=== PATIENT | male | born 1965 | race Caucasian/White ===

== ENCOUNTER → 2016-10-19 | Outpatient (CLI) | payer BC ==
--- NOTE | 2016-10-19 18:06 | CT ---
EXAMINATION TYPE: CT chest wo/w con DATE OF EXAM: 10/19/2016 5:38 PM COMPARISON: NONE HISTORY: Chest discomfort and difficulty breathing CT DLP: 1320.2 mGycm Automated exposure control for dose reduction was used. CONTRAST: CT scan of the chest is performed with IV Contrast, patient injected with 100 mL of Omnipaque 300. Th ere are 3-D post processed images. FINDINGS: There is mild linear density in the left midlung consistent with focal atelectasis. There is no sign of a pulmonary mass. There is no pleural effusion. Heart size is normal. There is no pericardial effu vika. Thoracic aorta appears normal. I see no filling defects in the pulmonary arteries. There are no hilar masses. There is no mediastinal adenopathy. The bony thorax is intact. IMPRESSION: There is mild focal atelectasis in the left midlung. No evidence of pulmonary embolism.
== END | disposition home or self-care (01) ==
LOC: RADCTMAIN 17:08
PROVIDERS: ATTEND Family Medicine
DX: J98.11 Atelectasis (principal)
CPT/HCPCS: 71270; Q9967

== ENCOUNTER → 2016-12-10 | Outpatient (CLI) | payer BC ==
--- NOTE | 2016-12-12 11:31 | ECHOF ---
Referral Reason:I49.9Dysrythmia MEASUREMENTS -------- HEIGHT: 167.6 cm WEIGHT: 114.8 kg BP: 114/68 RVIDd: 2.4 cm (< 3.3) IVSd: 1.0 cm (0.6 - 1.1) LVIDd: 4.9 cm (3.9 - 5.3) LVPWd: 1.1 cm (0.6 - 1.1) IVSs: 1.5 cm LVIDs: 3.1 cm LVPWs: 1.7 cm Ao Diam: 3.9 cm (2.0 - 3.7) AV Cusp: 1.2 cm (1.5 - 2.6) LA Diam: 3.0 cm (2.7 - 3.8) MV E Kel: 0.66 m/s MV DecT: 281 ms MV A Kel: 0.85 m/s MV E/A Ratio: 0.78 RAP: 5.00 mmHg RVSP: 14.52 mmHg FINDINGS -------- Sinus rhythm. This was a technically difficult study with suboptimal views. Patient refused Definity due to time constraints. Overall left ventricular systolic function is normal with, an EF between 55 - 60 %. The right ventricle is normal in size and function. The left atrial size is normal. The right atrium is normal in size. The aortic valve is trileaflet, and appears structurally normal. No aortic stenosis or regurgitation. The mitral valve leaflets are mildly thickened. There is trace mitral regurgitation. Trace tricuspid regurgitation present. There is no evidence of pulmonary hypertension. The right ventricular systolic pressure, as measured by Doppler, is 14.52mmHg. The pulmonic valve is normal. The aortic root size is normal. IVC Not well visulized. The pericardium is normal. There is no pericardial effusion. CONCLUSIONS -------- 1. Sinus rhythm. 2. There is no evidence of pulmonary hypertension. 3. The right ventricular systolic pressure, as measured by Doppler, is 14.52mmHg. 4. The aortic root size is normal. 5. IVC Not well visulized. 6. There is no pericardial effusion. 7. This was a technically difficult study with suboptimal views. 8. Patient refused Definity due to time constraints. 9. Overall left ventricular systolic function is normal with, an EF between 55 - 60 %. 10. The left atrial size is normal. 11. The aortic valve is trileaflet, and appears structurally normal. No aortic stenosis or regurgitation. 12. The mitral valve leaflets are mildly thickened. 13. There is trace mitral regurgitation. 14. Trace tricuspid regurgitation present. IMMUNOCHEMIST: Makayla Arrington RDCS
== END | disposition home or self-care (01) ==
LOC: RADECHMAIN 15:32
PROVIDERS: ATTEND Family Medicine
DX: I08.1 Rheumatic disorders of both mitral and tricuspid valves (principal)
CPT/HCPCS: 93306

== ENCOUNTER 2018-01-12 20:21 | Inpatient (IN) | payer BC ==
[2018-01-12 21:10] LABS: Glucose,Whole Blood 277 mg/dL (75-99)
[2018-01-12] MEDS ORDERED: IPRATROPIUM-ALBUTEROL 3 ML NEB INHALATION STA ×2 (21:22→23:16)
[2018-01-12] MEDS ORDERED: SODIUM CHLORIDE 0.9% 1,000 ML IV STA (21:22)
[2018-01-12] MEDS ORDERED: AZITHROMYCIN 500 MG in DEXTROSE 5% IN WATER 250 ML IVPB STA ×2 (21:22)
[2018-01-12] MEDS ORDERED: SODIUM CHLORIDE 0.9% 500 ML IV STA (21:22)
[2018-01-12] MEDS ORDERED: methylPREDNISolone SOD SUCCI 125 MG/2 ML VIAL IV STA (21:22)
--- NOTE | 2018-01-12 21:48 | XR ---
EXAMINATION TYPE: XR chest 2V DATE OF EXAM: 01/12/2018 COMPARISON: 10/06/2015 HISTORY: 52-year-old male difficulty breathing, shortness of breath TECHNIQUE: AP and lateral views FINDINGS: Heart mildly enlarged, possibly in part due to AP portable technique. Aorta and pulmonary vasculature within normal limits. There may be some cephalization of the pulmonary vasculature. Strandy atelecta sis left midlung. No consolidation or pleural effusion. IMPRESSION: 1. Mild cardiomegaly. 2. There may be some cephalization of the pulmonary vasculature. Correlate to exclude mild CHF.
[2018-01-12 22:18] LABS: Basophils % (A) 0 %; Eosinophils # (A) 0.4 k/uL (0-0.7); Eosinophils % (A) 4 %; HGB 11.6 gm/dL (13.0-17.5); Hypochromasia Marked; Lymphocytes # (A) 2.1 k/uL (1.0-4.8); Lymphocytes % (A) 20 %; MCH 29.6 pg (25.0-35.0); MCHC 31.3 g/dL (31.0-37.0); MCV 94.6 fL (80.0-100.0); Mean Platelet Volume 7.6; Monocytes # (A) 0.8 k/uL (0-1.0); Monocytes % (A) 8 %; Neutrophils # (A) 6.8 k/uL (1.3-7.7); Neutrophils % (A) 66 %; Platelet Count 200 k/uL (150-450); RBC 3.91 m/uL (4.30-5.90); WBC 10.4 k/uL (3.8-10.6)
[2018-01-12 22:27] LABS: ALT 39 U/L (21-72); AST 17 U/L (17-59); Albumin 3.2 g/dL (3.5-5.0); Alkaline Phosphatase 69 U/L (38-126); Blood Urea Nitrogen 27 mg/dL (9-20); Calcium 8.5 mg/dL (8.4-10.2); Chloride 89 mmol/L (98-107); Glucose 272 mg/dL (74-99); Magnesium 1.7 mg/dL (1.6-2.3); Potassium 4.7 mmol/L (3.5-5.1); Sodium 140 mmol/L (137-145); Total Bilirubin 0.2 mg/dL (0.2-1.3); Total Protein 5.8 g/dL (6.3-8.2)
[2018-01-12 22:31] LABS: Partial Thromboplastin Time 23.1 sec (22.0-30.0); Prothrombin Time 9.5 sec (9.0-12.0)
--- NOTE | 2018-01-12 22:31 | ED ---
General Adult HPI - General Chief complaint: Shortness of Breath Stated complaint: QUAN Time Seen by Provider: 01/12/18 21:21 Source: patient, RN notes reviewed, old records reviewed Mode of arrival: ambulatory Limitations: no limitations - History of Present Illness Initial comments: This is a 52-year-old male the ER for evaluation today. This male presenting for evaluation regards to significant shortness of breath. Patient states he suffers from severe COPD on 4 L of oxygen at home has had worsening shortness of breath for a few weeks now. No recent hospital admissions no significant chest pain no fevers. Patient does have increased cough, patient ran out of his oxygen today and became very hypoxic. Patient does admit to very decreased activity level - Related Data Home Medications Medication Instructions Recorded Confirmed Albuterol Nebulized [Ventolin 2.5 mg INHALATION RT-QID 07/02/14 10/06/15 Nebulized] Albuterol Sulfate [Proair Hfa] 2 puff INHALATION RT-Q4H PRN 07/02/14 10/06/15 Ustekinumab [Stelara] 1 injection SQ Q90D 07/02/14 10/06/15 Tiotropium [place] [Spiriva] 1 puff INHALATION RT-DAILY 10/06/15 10/06/15 predniSONE See Taper PO DAILY 10/06/15 10/06/15 Previous Rx's Medication Instructions Recorded Fluticasone/Salmeterol [Advair 1 inhalation PO BID #2 inhaler 07/05/14 250-50 Diskus] Montelukast [Singulair] 10 mg PO HS #90 tab 07/05/14 guaiFENesin [Mucinex] 1,200 mg PO Q12HR #14 tablet.er 10/12/15 predniSONE 10 mg PO DIRECTED #40 tab 10/12/15 Allergies Allergy/AdvReac Type Severity Reaction Status Date / Time No Known Allergies Allergy Verified 01/12/18 20:32 Review of Systems ROS Statement: Those systems with pertinent positive or pertinent negative responses have been documented in the HPI. ROS Other: All systems not noted in ROS Statement are negative. Past Medical History Past Medical History: Asthma, COPD, Hypertension, Pneumonia, Skin Disorder Additional Past Medical History / Comment(s): HOME 02 2 LITERS N/C AT HS AND PRN , BRONCHITIS. PSORIASES History of Any Multi-Drug Resistant Organisms: None Reported Additional Past Surgical History / Comment(s): colonoscopy-PT STATES WAS CLEAR. Past Anesthesia/Blood Transfusion Reactions: No Reported Reaction Past Psychological History: Depression Smoking Status: Current every day smoker Past Alcohol Use History: Occasional Past Drug Use History: Cocaine, Marijuana - Past Family History Father Family Medical History: COPD Mother Family Medical History: COPD General Exam Limitations: no limitations General appearance: alert, anxious, in distress Head exam: Present: atraumatic, normocephalic, normal inspection Eye exam: Present: normal appearance, PERRL, EOMI. Absent: scleral icterus, conjunctival injection, periorbital swelling ENT exam: Present: normal exam, mucous membranes moist Neck exam: Present: normal inspection. Absent: tenderness, meningismus, lymphadenopathy Respiratory exam: Present: respiratory distress, wheezes, accessory muscle use, decreased breath sounds, prolonged expiratory. Absent: rales, rhonchi, stridor Cardiovascular Exam: Present: normal rhythm, tachycardia, normal heart sounds. Absent: systolic murmur, diastolic murmur, rubs, gallop, clicks GI/Abdominal exam: Present: soft, normal bowel sounds. Absent: distended, tenderness, guarding, rebound, rigid Extremities exam: Present: normal inspection, full ROM, normal capillary refill. Absent: tenderness, pedal edema, joint swelling, calf tenderness Back exam: Present: normal inspection Neurological exam: Present: alert, oriented X3, CN II-XII intact Psychiatric exam: Present: normal affect, normal mood Skin exam: Present: warm, dry, intact, normal color. Absent: rash Course Vital Signs 01/12/18 01/12/18 01/12/18 20:27 20:57 21:32 Temperature 99.3 F Pulse Rate 102 H 114 H 97 Respiratory 24 22 20 Rate Blood Pressure 160/75 102/53 157/71 O2 Sat by Pulse 93 L 93 L Oximetry 01/12/18 01/12/18 21:50 21:59 Temperature Pulse Rate 118 H 114 H Respiratory 20 20 Rate Blood Pressure O2 Sat by Pulse Oximetry - Reevaluation(s) Reevaluation #1: 01/12/18 23:19 No improvement with breathing treatment, patient placed on BiPAP, given the current breathing treatment Feeling much improved EKG Findings - EKG Comments: EKG Findings:: EKG shows sinus tachycardia rate 1:15, OR 140, QRS 04, QTC 431 Medical Decision Making - Medical Decision Making 52 male to the ED for evaluation of significant shortness of breath no improvement with breathing treatment placed on BiPAP. Patient be admitted for continued steroids, monitoring of cardiopulmonary status - Lab Data Result diagrams: 01/12/18 22:06 01/12/18 22:06 Lab Results 01/12/18 01/12/18 01/12/18 Range/Units 21:05 22:06 22:06 WBC 10.4 (3.8-10.6) k/uL RBC 3.91 L (4.30-5.90) m/uL Hgb 11.6 L (13.0-17.5) gm/dL Hct 37.0 L (39.0-53.0) % MCV 94.6 (80.0-100.0) fL MCH 29.6 (25.0-35.0) pg MCHC 31.3 (31.0-37.0) g/dL RDW 14.0 (11.5-15.5) % Plt Count 200 (150-450) k/uL Neutrophils % 66 % Lymphocytes % 20 % Monocytes % 8 % Eosinophils % 4 % Basophils % 0 % Neutrophils # 6.8 (1.3-7.7) k/uL Lymphocytes # 2.1 (1.0-4.8) k/uL Monocytes # 0.8 (0-1.0) k/uL Eosinophils # 0.4 (0-0.7) k/uL Basophils # 0.0 (0-0.2) k/uL Hypochromasia Marked PT (9.0-12.0) sec INR (<1.2) APTT (22.0-30.0) sec Sodium (137-145) mmol/L Potassium (3.5-5.1) mmol/L Chloride (98-107) mmol/L Carbon Dioxide (22-30) mmol/L Anion Gap mmol/L BUN (9-20) mg/dL Creatinine (0.66-1.25) mg/dL Est GFR (CKD-EPI)AfAm (>60 ml/min/1.73 sqM) Est GFR (CKD-EPI)NonAf (>60 ml/min/1.73 sqM) Glucose (74-99) mg/dL POC Glucose (mg/dL) 277 H (75-99) mg/dL POC Glu Sluice Tender ID Sangita Poe Calcium (8.4-10.2) mg/dL Magnesium (1.6-2.3) mg/dL Total Bilirubin (0.2-1.3) mg/dL AST (17-59) U/L ALT (21-72) U/L Alkaline Phosphatase (38-126) U/L Total Creatine Kinase 30 L (55-170) U/L CK-MB (CK-2) 1.0 (0.0-2.4) ng/mL CK-MB (CK-2) Rel Index 3.3 Troponin I <0.012 (0.000-0.034) ng/mL NT-Pro-B Natriuret Pep pg/mL Total Protein (6.3-8.2) g/dL Albumin (3.5-5.0) g/dL 01/12/18 01/12/18 01/12/18 Range/Units 22:06 22:06 22:06 WBC (3.8-10.6) k/uL RBC (4.30-5.90) m/uL Hgb (13.0-17.5) gm/dL Hct (39.0-53.0) % MCV (80.0-100.0) fL MCH (25.0-35.0) pg MCHC (31.0-37.0) g/dL RDW (11.5-15.5) % Plt Count (150-450) k/uL Neutrophils % % Lymphocytes % % Monocytes % % Eosinophils % % Basophils % % Neutrophils # (1.3-7.7) k/uL Lymphocytes # (1.0-4.8) k/uL Monocytes # (0-1.0) k/uL Eosinophils # (0-0.7) k/uL Basophils # (0-0.2) k/uL Hypochromasia PT 9.5 (9.0-12.0) sec INR 1.0 (<1.2) APTT 23.1 (22.0-30.0) sec Sodium 140 (137-145) mmol/L Potassium 4.7 (3.5-5.1) mmol/L Chloride 89 L (98-107) mmol/L Carbon Dioxide 44 H* (22-30) mmol/L Anion Gap 7 mmol/L BUN 27 H (9-20) mg/dL Creatinine 0.80 (0.66-1.25) mg/dL Est GFR (CKD-EPI)AfAm >90 (>60 ml/min/1.73 sqM) Est GFR (CKD-EPI)NonAf >90 (>60 ml/min/1.73 sqM) Glucose 272 H (74-99) mg/dL POC Glucose (mg/dL) (75-99) mg/dL POC Glu Sluice Tender ID Calcium 8.5 (8.4-10.2) mg/dL Magnesium 1.7 (1.6-2.3) mg/dL Total Bilirubin 0.2 (0.2-1.3) mg/dL AST 17 (17-59) U/L ALT 39 (21-72) U/L Alkaline Phosphatase 69 (38-126) U/L Total Creatine Kinase (55-170) U/L CK-MB (CK-2) (0.0-2.4) ng/mL CK-MB (CK-2) Rel Index Troponin I (0.000-0.034) ng/mL NT-Pro-B Natriuret Pep 34 pg/mL Total Protein 5.8 L (6.3-8.2) g/dL Albumin 3.2 L (3.5-5.0) g/dL - Radiology Data Radiology results: report reviewed (Chest x-ray shows new mild PVC), image reviewed Critical Care Time Critical Care Time: Yes Total Critical Care Time: 31 Disposition Clinical Impression: Acute exacerbation of chronic obstructive airways disease, Acute exacerbation of chronic obstructive pulmonary disease (COPD), Hypoxia Disposition: ADMITTED IP TO THIS HOSP Condition: Serious Is patient prescribed a controlled substance at d/c from ED?: No Referrals: Olivia Alarcon DO [Primary Care Provider] - 1-2 days
[2018-01-12 22:33] LABS: Anion Gap 7 mmol/L
[2018-01-12 22:37] LABS: Carbon Dioxide 44 mmol/L (22-30)
[2018-01-12 22:39] LABS: Creatine Kinase 30 U/L (55-170)
[2018-01-12 22:52] LABS: Troponin I <0.012 ng/mL (0.000-0.034)
[2018-01-12] MEDS ORDERED: FUROSEMIDE 10 MG/ML 4 ML VIAL IV STA (23:16)
[2018-01-13] MEDS: SODIUM CHLORIDE 0.9% 1,000 ML IV SCH (02:06)
[2018-01-13] MEDS: methylPREDNISolone SOD SUCCI 125 MG/2 ML VIAL IV SCH ×5 (02:06→23:17)
[2018-01-13 05:04] VITALS: BMI 48.4
[2018-01-13 07:06] LABS: Glucose,Whole Blood 303 mg/dL (75-99)
[2018-01-13] MEDS: AZITHROMYCIN 500 MG TAB PO SCH (08:16)
[2018-01-13] MEDS: ENOXAPARIN 40 MG/0.4 ML SYRINGE SQ SCH (08:17)
[2018-01-13] MEDS: IPRATROPIUM-ALBUTEROL 3 ML NEB INHALATION SCH ×4 (08:33→19:34)
[2018-01-13] MEDS ORDERED: RX INFO: IV CONTRAST WAS GIVEN 1 EACH MISC MISCELLANE PRN (09:12)
[2018-01-13] MEDS ORDERED: SYMBICORT 160-4.5 MCG INHALER INHALATION SCH (09:15)
[2018-01-13] MEDS: INSULIN ASPART 100 UNIT/ML 1 ML 10 ML VIAL SQ SCH ×4 (09:40→22:25)
[2018-01-13 09:46] LABS: Basophils % (A) 0 %; Eosinophils # (A) 0.1 k/uL (0-0.7); Eosinophils % (A) 1 %; HCT 38.2 % (39.0-53.0); HGB 11.8 gm/dL (13.0-17.5); Hypochromasia Marked; Lymphocytes # (A) 0.7 k/uL (1.0-4.8); Lymphocytes % (A) 10 %; MCH 29.3 pg (25.0-35.0); MCHC 30.8 g/dL (31.0-37.0); MCV 94.9 fL (80.0-100.0); Mean Platelet Volume 7.7; Monocytes # (A) 0.1 k/uL (0-1.0); Monocytes % (A) 2 %; Neutrophils # (A) 5.6 k/uL (1.3-7.7); Neutrophils % (A) 87 %; Platelet Count 176 k/uL (150-450); RBC 4.02 m/uL (4.30-5.90); WBC 6.5 k/uL (3.8-10.6)
--- NOTE | 2018-01-13 09:50 | P.CNPUL ---
History of Present Illness Consult date: 01/13/18 Requesting physician: Soila Hernandez Reason for consult: COPD Chief complaint: shortness of breath History of present illness: This is a 52-year-old male patient who is well-known to our services, being seen examined and evaluated today on rounds. This patient came into the emergency room with increasing severity of his shortness of breath over the last few days. This patient is known to have chronic hypoxic respiratory failure and is on 4 L of supplemental oxygen via nasal cannula at home. He is known to have a history of chronic obstructive pulmonary disease as well as moderate to severe chronic persistent asthma. He currently is a smoker 2 packs per day for approximately 35 years. The patient states he's been trying to cut back and he is currently around 1 pack per day. 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 He has no known ALLERGIES that he is aware of. He does suffer from chronic severe psoriasis. Patient has been prescribed MDIs and inhalers in the past however he has not been compliant with those. On occasion he will use his nebulizer but does not use it regularly. At home he states he was having fever chills and sweats. He has been noticing some increased swelling in his bilateral lower extremities. Upon arrival the patient was 84% on 5 L of supplemental oxygen. The patient was transitioned to BiPAP and did relatively well with that. He did have a chest x-ray which did reveal cardiomegaly, pulmonary vascular congestion and mild CHF, possible early pneumonia cannot be excluded. Upon examination he is resting up in bed on 5 L of supplemental oxygen via nasal cannula. States the BiPAP helped him overnight. He does have a cough that is productive with clear white sputum. States he feels very wheezy and tight. All labs and reports reviewed. Review of Systems 14 point review of systems was completed and is negative unless noted above in the HPI Past Medical History Past Medical History: Asthma, COPD, Hypertension, Pneumonia, Skin Disorder Additional Past Medical History / Comment(s): HOME 02 4L, PSORIASIS History of Any Multi-Drug Resistant Organisms: None Reported Additional Past Surgical History / Comment(s): colonoscopy-PT STATES WAS CLEAR. Past Anesthesia/Blood Transfusion Reactions: No Reported Reaction Past Psychological History: Depression Smoking Status: Current every day smoker Past Alcohol Use History: Occasional Additional Past Alcohol Use History / Comment(s): PT STATED HE MAY GO OUT WITH IS FRIENDS 2-3 TIMES A WEEK AND MAY DRINK BETWEEN 4-7 BEERS EACH TIME. 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 DENIES ANY IV DRUG USE. PT STATES NO DRUG IN 20 YEARS. - Past Family History Father Family Medical History: COPD Mother Family Medical History: COPD Medications and Allergies Home Medications Medication Instructions Recorded Confirmed Type Albuterol Nebulized [Ventolin 2.5 mg INHALATION RT-QID 07/02/14 01/13/18 History Nebulized] Albuterol Sulfate [Proair Hfa] 2 puff INHALATION RT-Q4H PRN 07/02/14 01/13/18 History Montelukast [Singulair] 10 mg PO HS #90 tab 07/05/14 01/13/18 Rx Atorvastatin Calcium [Lipitor] 40 mg PO HS 01/13/18 01/13/18 History Fluticasone/Salmeterol [Advair 1 inhalation PO RT-BID 01/13/18 01/13/18 History 500-50 Diskus] Furosemide [Lasix] 20 mg PO DAILY 01/13/18 01/13/18 History Insulin Degludec [Tresiba 40 unit SQ DAILY 01/13/18 01/13/18 History Flextouch U-200] Lisinopril [Zestril] 20 mg PO DAILY 01/13/18 01/13/18 History Omalizumab [Xolair] 150 mg SQ Q14D 01/13/18 01/13/18 History Pantoprazole [Protonix] 40 mg PO DAILY 01/13/18 01/13/18 History Tiotropium [place] [Spiriva] 1 cap INHALATION DAILY 01/13/18 01/13/18 History Ustekinumab [Stelara] 90 mg SQ Q90D 01/13/18 01/13/18 History buPROPion XL [Wellbutrin Xl] 150 mg PO DAILY 01/13/18 01/13/18 History metFORMIN HCL [Glucophage] 500 mg PO DAILY 01/13/18 01/13/18 History predniSONE 10 mg PO DAILY 01/13/18 01/13/18 History Allergies Allergy/AdvReac Type Severity Reaction Status Date / Time No Known Allergies Allergy Verified 01/12/18 20:32 Physical Exam Vitals: Vital Signs Temp Pulse Pulse Resp BP BP Pulse Ox 01/13/18 08:48 110 H 01/13/18 08:34 109 H 92 L 01/13/18 00:31 98.3 F 115 H 17 122/65 87 L 01/13/18 00:05 98.2 F 20 01/12/18 23:05 108 H 20 147/75 95 01/12/18 21:59 114 H 20 01/12/18 21:50 118 H 20 01/12/18 21:32 97 20 157/71 93 L 01/12/18 20:57 114 H 22 102/53 93 L 01/12/18 20:27 99.3 F 102 H 24 160/75 Intake and Output 01/12/18 01/13/18 01/13/18 22:59 06:59 14:59 Other: # Voids 1 Weight 136.078 kg 136.078 kg GENERAL EXAM: Alert, tired, comfortable in no apparent distress. HEAD: Normocephalic. EYES: Normal reaction of pupils, equal size. NOSE: Clear with pink turbinates. THROAT: No erythema or exudates. NECK: No masses, no JVD. CHEST: No chest wall deformity. LUNGS: Lungs noted to be tight and course with inspiratory and expiratory wheezing throughout, some basilar crackles. CVS: S1 and S2 normal with no audible mumurs, regular rhythm. ABDOMEN: No hepatosplenomegaly, normal bowel sounds, no guarding or rigidity. EXTREMITIES: +2 edema noted, pedal pulses palpable. SKIN: Psoriasis lesions on all 4 extremities, severe CENTRAL NERVOUS SYSTEM: No focal deficits, tone is normal in all 4 extremities. Results - Laboratory Findings CBC and BMP: 01/12/18 22:06 01/12/18 22:06 PT/INR, D-dimer PT 9.5 sec (9.0-12.0) 01/12/18 22:06 INR 1.0 (<1.2) 01/12/18 22:06 Abnormal lab findings: Abnormal Labs 01/12/18 01/12/18 01/12/18 21:05 22:06 22:06 RBC 3.91 L Hgb 11.6 L Hct 37.0 L Chloride Carbon Dioxide BUN Glucose POC Glucose (mg/dL) 277 H Total Creatine Kinase 30 L Total Protein Albumin 01/12/18 01/13/18 22:06 07:01 RBC Hgb Hct Chloride 89 L Carbon Dioxide 44 H* BUN 27 H Glucose 272 H POC Glucose (mg/dL) 303 H Total Creatine Kinase Total Protein 5.8 L Albumin 3.2 L - Diagnostic Findings Chest x-ray: report reviewed, image reviewed Assessment and Plan Assessment: Assessment Acute on chronic hypoxic respiratory failure requiring supplemental oxygen Acute hypercapnic respiratory failure Suspect early pneumonia Acute exacerbation of COPD Acute exacerbation of moderate to severe chronic persistent asthma with component of ALLERGIC asthma Suspect SANDER Severe psoriasis Nicotine dependence Hyperglycemia Eosinophilia Plan Medications have been reviewed and will be continued as ordered. Continue with antibiotics Rocephin and azithromycin Patient supposed to be on Xolair biologic however has not had it since September he was having trouble with transportation Will need to continue biologic agent once discharged Solu-Medrol Diamox 250 mg every 12 hours [address] of the chest with contrast Smoking cessation Blood sugar control Labs: Legionella, mycoplasma, sputum culture, alpha-1 antitrypsin levels, IgE, [place] ALLERGY panel Continue with pulmonary hygiene, coughing and deep breathing exercises, and supportive care. Supplemental oxygen to maintain oxygen saturations of 92% or better. Continue nebulizer treatments, DuoNeb and budesonide. Compliance issues discussed with the patient at length Patient would benefit from an outpatient sleep study GI and DVT prophylaxis. We will continue to monitor labs/results and adjust treatment as necessary. Further recommendations pending. Thank you for this consultation we will continue to follow this patient with you I performed an examination of the patient and discussed their management with the nurse practitioner. I have reviewed the nurse practitioner's note and agree with the documented findings and plan of care.
[2018-01-13] MEDS: INSULIN DETEMIR 100 UNIT/ML 10 ML VIAL SQ SCH (10:48)
[2018-01-13] MEDS: acetaZOLAMIDE 250 MG TAB PO SCH ×2 (10:49→22:00)
[2018-01-13] MEDS: buPROPion XL 150 MG TAB.ER.24H PO SCH (10:49)
[2018-01-13] MEDS: FUROSEMIDE 20 MG TAB PO SCH (10:49)
[2018-01-13] MEDS: cefTRIAXone IN SWFI 1,000 MG/10 ML SYRINGE IVP SCH (10:50)
[2018-01-13] MEDS: metFORMIN 500 MG TAB PO SCH (10:50)
--- NOTE | 2018-01-13 11:22 | CT ---
EXAMINATION TYPE: CT chest w con DATE OF EXAM: 01/13/2018 COMPARISON: 10/19/2016 HISTORY: 52 year-old male shortness of breath, Trouble breathing TECHNIQUE: Contiguous axial scanning of the chest after the administration of 100 mL of Isovue 300. Coronal/sagittal reconstructions performed. CT DLP: 815.1mGycm. Automatic exposure control utilized for a dose reduction. FINDINGS: Heart normal size without pericardial effusion. Mild coronary vessel calcifications are present. Aorta normal caliber with conventional arch vessel branching anatomy. Mild bilateral gynecomastia. No thoracic lymphadenopathy. A 1 cm subcarinal lymph node is slightly la rger, probably reactive/post inflammatory. Borderline enlarged caliber to the main right and left pulmonary arteries at 2.5 cm each. Bands of atelectasis right base and left midlung and some subpleural reticulations at the posterior r ight base with increasing dependent atelectasis here. They 1.3 cm hypodensity inferior right liver lobe appears to have been present on prior exam and is n onspecific, likely benign given the lack of any significant change. Bones: No osseous destructive process. IMPRESSION: 1. Borderline sized caliber to the main right and left pulmonary arteries at 2.5 cm each. This may re flect underlying pulmonary arterial hypertension. Clinically correlate. 2. Prominent bands of atelectasis or scarring within the lungs. Increasing dependent atelectasis at t he right base.
[2018-01-13 11:30] LABS: Glucose,Whole Blood 265 mg/dL (75-99)
--- NOTE | 2018-01-13 11:33 | P.HPIM ---
History of Present Illness H&P Date: 01/13/18 Chief Complaint: Worsening shortness of breath This is a 52-year-old male, patient of Dr. Alarcon. He has a known past medical history of COPD, chronic respiratory failure home O2 dependent usually on 4 L of oxygen, diabetes mellitus, hypertension, nicotine dependence and depression. Patient presents to the emergency room with complaints of worsening shortness of breath over the last couple weeks. He reports not feeling well and having a reductive cough with clearish sputum. His PCP had placed him on a prednisone taper outpatient. Patient had increased his oxygen to 4 L at home over the last couple weeks. And his oxygen tanks ran out at home. He became very short of breath and came into the emergency room for fever for further evaluation and treatment. In the ER he required to be placed on the BiPAP. He was started on IV Solu-Medrol bronchodilators and antibiotic azithromycin. Pulmonary service was consulted. Chest x-ray showing mild cardiomegaly and concerns for possible mild CHF. Patient did receive a dose of IV Lasix in the ER. However BNP was only 34. Patient denies any chest pain. Denies any fever or chills or sweats. Denies any nausea or vomiting. Denies any bowel movement changes. He is complaining of urinary frequency. Urinalysis has been ordered. Review of Systems Please refer to HPI otherwise unremarkable Past Medical History Past Medical History: Asthma, COPD, Hypertension, Pneumonia, Skin Disorder Additional Past Medical History / Comment(s): HOME 02 4L, PSORIASIS History of Any Multi-Drug Resistant Organisms: None Reported Additional Past Surgical History / Comment(s): colonoscopy-PT STATES WAS CLEAR. Past Anesthesia/Blood Transfusion Reactions: No Reported Reaction Past Psychological History: Depression Smoking Status: Current every day smoker Past Alcohol Use History: Occasional Additional Past Alcohol Use History / Comment(s): PT STATED HE MAY GO OUT WITH IS FRIENDS 2-3 TIMES A WEEK AND MAY DRINK BETWEEN 4-7 BEERS EACH TIME. 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 DENIES ANY IV DRUG USE. PT STATES NO DRUG IN 20 YEARS. - Past Family History Father Family Medical History: COPD Mother Family Medical History: COPD Medications and Allergies Home Medications Medication Instructions Recorded Confirmed Type Albuterol Nebulized [Ventolin 2.5 mg INHALATION RT-QID 07/02/14 01/13/18 History Nebulized] Albuterol Sulfate [Proair Hfa] 2 puff INHALATION RT-Q4H PRN 07/02/14 01/13/18 History Montelukast [Singulair] 10 mg PO HS #90 tab 07/05/14 01/13/18 Rx Atorvastatin Calcium [Lipitor] 40 mg PO HS 01/13/18 01/13/18 History Fluticasone/Salmeterol [Advair 1 inhalation PO RT-BID 01/13/18 01/13/18 History 500-50 Diskus] Furosemide [Lasix] 20 mg PO DAILY 01/13/18 01/13/18 History Insulin Degludec [Tresiba 40 unit SQ DAILY 01/13/18 01/13/18 History Flextouch U-200] Lisinopril [Zestril] 20 mg PO DAILY 01/13/18 01/13/18 History Omalizumab [Xolair] 150 mg SQ Q14D 01/13/18 01/13/18 History Pantoprazole [Protonix] 40 mg PO DAILY 01/13/18 01/13/18 History Tiotropium [place] [Spiriva] 1 cap INHALATION DAILY 01/13/18 01/13/18 History Ustekinumab [Stelara] 90 mg SQ Q90D 01/13/18 01/13/18 History buPROPion XL [Wellbutrin Xl] 150 mg PO DAILY 01/13/18 01/13/18 History metFORMIN HCL [Glucophage] 500 mg PO DAILY 01/13/18 01/13/18 History predniSONE 10 mg PO DAILY 01/13/18 01/13/18 History Allergies Allergy/AdvReac Type Severity Reaction Status Date / Time No Known Allergies Allergy Verified 01/12/18 20:32 Physical Exam Vitals: Vital Signs Temp Pulse Pulse Resp BP BP Pulse Ox 01/13/18 08:48 110 H 01/13/18 08:34 109 H 92 L 01/13/18 00:31 98.3 F 115 H 17 122/65 87 L 01/13/18 00:05 98.2 F 20 01/12/18 23:05 108 H 20 147/75 95 01/12/18 21:59 114 H 20 01/12/18 21:50 118 H 20 01/12/18 21:32 97 20 157/71 93 L 01/12/18 20:57 114 H 22 102/53 93 L 01/12/18 20:27 99.3 F 102 H 24 160/75 Intake and Output 01/12/18 01/13/18 01/13/18 22:59 06:59 14:59 Other: Voiding Method Urinal # Voids 1 Weight 136.078 kg 136.078 kg Head normocephalic Neck supple Lungs wheezing bilaterally with coarse breath sounds Heart regular rate and rhythm S1-S2, no rub or gallop Abdomen is soft nontender nondistended positive bowel sounds no hepatosplenomegaly Extremities no edema Neuro alert and orientated to 3 Results CBC & Chem 7: 01/13/18 09:25 01/12/18 22:06 Labs: Abnormal Lab Results - Last 24 Hours (Table) 01/12/18 01/12/18 01/12/18 Range/Units 21:05 22:06 22:06 RBC 3.91 L (4.30-5.90) m/uL Hgb 11.6 L (13.0-17.5) gm/dL Hct 37.0 L (39.0-53.0) % MCHC (31.0-37.0) g/dL Lymphocytes # (1.0-4.8) k/uL Chloride (98-107) mmol/L Carbon Dioxide (22-30) mmol/L BUN (9-20) mg/dL Glucose (74-99) mg/dL POC Glucose (mg/dL) 277 H (75-99) mg/dL Total Creatine Kinase 30 L (55-170) U/L Total Protein (6.3-8.2) g/dL Albumin (3.5-5.0) g/dL 01/12/18 01/13/18 01/13/18 Range/Units 22:06 07:01 09:25 RBC 4.02 L (4.30-5.90) m/uL Hgb 11.8 L (13.0-17.5) gm/dL Hct 38.2 L (39.0-53.0) % MCHC 30.8 L (31.0-37.0) g/dL Lymphocytes # 0.7 L (1.0-4.8) k/uL Chloride 89 L (98-107) mmol/L Carbon Dioxide 44 H* (22-30) mmol/L BUN 27 H (9-20) mg/dL Glucose 272 H (74-99) mg/dL POC Glucose (mg/dL) 303 H (75-99) mg/dL Total Creatine Kinase (55-170) U/L Total Protein 5.8 L (6.3-8.2) g/dL Albumin 3.2 L (3.5-5.0) g/dL Thrombosis Risk Factor Assmnt - Choose All That Apply Any of the Below Risk Factors Present?: Yes Each Factor Represents 1 point: Abnormal pulmonary function (COPD), Age 41-60 years, Obesity (BMI >25) Thrombosis Risk Factor Assessment Total Risk Factor Score: 3 Thrombosis Risk Factor Assessment Level: Moderate Risk Assessment and Plan Assessment: 1. Acute on chronic hypoxic respiratory failure: Patient currently on 5 L oxygen satting at 92%. Did require BiPAP through the evening. Pulmonary service following. Likely related to patient's COPD and suspected early pneumonia. Pulmonary service has ordered a computed tomography scan of the chest 2. Acute hypercapnic respiratory failure: Pulmonary has placed patient on Diamox. CO2 level of 44 3. Acute COPD exacerbation continue IV Solu-Medrol and bronchodilators. Pulmonary service has added Pulmicort 4. Suspected early pneumonia: Patient on azithromycin and pulmonary has added Rocephin 5. Severe psoriasis 6. Nicotine dependence discussed smoking cessation for greater than 3 minutes. Add nicotine patch 7. Diabetes mellitus type 2 with hyperglycemia secondary to steroids. Continue sliding scale coverage. Check an A1c. Resume home meds for this includes metformin and Levemir 40 units at bedtime 8. Essential hypertension: Continue lisinopril 9. Sinus tachycardia likely related to patient's respiratory status. EKG had shown sinus tach with a heart rate of 115. We'll place patient on telemetry GI prophylaxis Protonix and DVT prophylaxis Lovenox Time with Patient: Greater than 30 (Greater than 60% of the total time spent in counseling and coordination of care.I performed an examination of the patient and discussed their management with the physician Staff Development Manager. I have reviewed the Physician Staff Development Manager's notes and agree with the documented findings and plan of care)
[2018-01-13] MEDS: NICOTINE 14MG/24HR PATCH TRANSDERM SCH (12:24)
[2018-01-13] MEDS ORDERED: INSULIN ASPART 100 UNIT/ML 1 ML 10 ML VIAL SQ SCH (12:30)
[2018-01-13 12:40] LABS: Appearance,Urine Clear (Clear); Bilirubin,Urine Negative (Negative); Blood,Urine Negative (Negative); Color,Urine Light Yellow; Glucose,Urine (UA) 4+ (Negative); Ketones,Urine Negative (Negative); Leukocyte Esterase,Urine Negative (Negative); Nitrite,Urine Negative (Negative); Protein,Urine Negative (Negative); Specific Gravity,Urine 1.038 (1.001-1.035); Urobilinogen,Urine <2.0 mg/dL (<2.0)
[2018-01-13 12:56] LABS: ALT 36 U/L (21-72); AST 14 U/L (17-59); Albumin 3.3 g/dL (3.5-5.0); Alkaline Phosphatase 75 U/L (38-126); Blood Urea Nitrogen 23 mg/dL (9-20); Calcium 8.8 mg/dL (8.4-10.2); Chloride 86 mmol/L (98-107); Glucose 279 mg/dL (74-99); Potassium 5.1 mmol/L (3.5-5.1); Sodium 141 mmol/L (137-145); Total Bilirubin 0.3 mg/dL (0.2-1.3); Total Protein 5.9 g/dL (6.3-8.2)
[2018-01-13 13:15] LABS: Anion Gap 10 mmol/L; Carbon Dioxide 45 mmol/L (22-30)
[2018-01-13 17:19] LABS: Glucose,Whole Blood 329 mg/dL (75-99)
[2018-01-13] MEDS ORDERED: INSULIN ASPART 100 UNIT/ML 1 ML 10 ML VIAL SQ ONE ×2 (17:26→22:24)
--- NOTE | 2018-01-13 18:06 | ECHOF ---
Referral Reason:sob MEASUREMENTS -------- HEIGHT: 167.6 cm WEIGHT: 136.1 kg BP: 122/65 IVSd: 1.2 cm (0.6 - 1.1) LVIDd: 4.7 cm (3.9 - 5.3) LVPWd: 1.3 cm (0.6 - 1.1) IVSs: 1.6 cm LVIDs: 3.5 cm LVPWs: 1.6 cm LA Diam: 3.1 cm (2.7 - 3.8) RVIDd: 2.9 cm (< 3.3) Ao Diam: 3.5 cm (2.0 - 3.7) AV Cusp: 1.8 cm (1.5 - 2.6) EPSS: 1.1 cm MV E Kel: 0.65 m/s MV DecT: 220 ms MV A Kel: 0.38 m/s MV E/A Ratio: 1.69 MV EF SLOPE: 45.59 mm/s (70 - 150) MV EXCURSION: 20.82 mm (> 18.000) FINDINGS -------- Resting tachycardia (HR>100bpm). This was a technically difficult study with suboptimal views. The left ventricular size is normal. There is mild concentric left ventricular hypertrophy. Overa ll left ventricular systolic function is normal with, an EF between 55 - 60 %. The right ventricle is normal in size. The left atrial size is normal. The right atrium is normal in size. The aortic valve was not well visualized. The mitral valve is normal. The tricuspid valve was not well visualized. The pulmonic valve was not well visualized. The aortic root size is normal. There is no pericardial effusion. CONCLUSIONS -------- 1. Resting tachycardia (HR>100bpm). 2. This was a technically difficult study with suboptimal views. 3. The left ventricular size is normal. 4. There is mild concentric left ventricular hypertrophy. 5. Overall left ventricular systolic function is normal with, an EF between 55 - 60 %. 6. The right ventricle is normal in size. 7. The left atrial size is normal. 8. The right atrium is normal in size. 9. The aortic valve was not well visualized. 10. The mitral valve is normal. 11. The tricuspid valve was not well visualized. 12. The pulmonic valve was not well visualized. 13. The aortic root size is normal. 14. There is no pericardial effusion. LITHOGRAPH PRESS OPERATOR: Makayla Arrington RDCS
[2018-01-13] MEDS: BUDESONIDE 1 MG/2 ML NEBU INHALATION SCH (19:34)
[2018-01-13 20:24] LABS: Glucose,Whole Blood 323 mg/dL (75-99)
[2018-01-13 20:24] LABS: Glucose,Whole Blood 353 mg/dL (75-99)
[2018-01-13 21:06] LABS: Hemoglobin A1C 8.8 % (4.0-6.0)
[2018-01-13] MEDS: ATORVASTATIN 40 MG TAB PO SCH (21:59)
[2018-01-13] MEDS: MONTELUKAST 10 MG TAB PO SCH (22:00)
[2018-01-14 02:22] LABS: Glucose,Whole Blood 212 mg/dL (75-99)
[2018-01-14] MEDS: SODIUM CHLORIDE 0.9% 1,000 ML IV SCH (03:01)
[2018-01-14] MEDS: methylPREDNISolone SOD SUCCI 125 MG/2 ML VIAL IV SCH ×3 (06:13→18:01)
[2018-01-14] MEDS: BUDESONIDE 1 MG/2 ML NEBU INHALATION SCH ×2 (07:22→20:02)
[2018-01-14] MEDS: IPRATROPIUM-ALBUTEROL 3 ML NEB INHALATION SCH ×4 (07:23→20:03)
[2018-01-14 07:29] LABS: Glucose,Whole Blood 235 mg/dL (75-99)
[2018-01-14] MEDS: PANTOPRAZOLE 40 MG TABLET PO SCH (07:42)
[2018-01-14] MEDS: buPROPion XL 150 MG TAB.ER.24H PO SCH (07:42)
[2018-01-14] MEDS: NICOTINE 14MG/24HR PATCH TRANSDERM SCH (07:42)
[2018-01-14] MEDS: FUROSEMIDE 20 MG TAB PO SCH (07:43)
[2018-01-14] MEDS: cefTRIAXone IN SWFI 1,000 MG/10 ML SYRINGE IVP SCH (07:43)
[2018-01-14] MEDS: LISINOPRIL 20 MG TAB PO SCH (07:43)
[2018-01-14] MEDS: ENOXAPARIN 40 MG/0.4 ML SYRINGE SQ SCH (07:43)
[2018-01-14] MEDS: AZITHROMYCIN 500 MG TAB PO SCH (07:43)
[2018-01-14] MEDS: INSULIN ASPART 100 UNIT/ML 1 ML 10 ML VIAL SQ SCH ×4 (07:44→22:11)
[2018-01-14] MEDS: INSULIN DETEMIR 100 UNIT/ML 10 ML VIAL SQ SCH (09:01)
[2018-01-14 09:20] LABS: Basophils % (A) 0 %; Eosinophils % (A) 0 %; HCT 38.3 % (39.0-53.0); HGB 11.9 gm/dL (13.0-17.5); Hypochromasia Moderate; Lymphocytes # (A) 0.8 k/uL (1.0-4.8); Lymphocytes % (A) 8 %; MCH 28.9 pg (25.0-35.0); MCV 93.4 fL (80.0-100.0); Mean Platelet Volume 8.4; Monocytes # (A) 0.4 k/uL (0-1.0); Monocytes % (A) 4 %; Neutrophils # (A) 8.9 k/uL (1.3-7.7); Neutrophils % (A) 88 %; Platelet Count 206 k/uL (150-450); WBC 10.1 k/uL (3.8-10.6)
--- NOTE | 2018-01-14 09:35 | P.PN ---
Subjective Progress Note Date: 01/14/18 History of present illness: This is a 52-year-old male patient who is well-known to our services, being seen examined and evaluated today on rounds. This patient came into the emergency room with increasing severity of his shortness of breath over the last few days. This patient is known to have chronic hypoxic respiratory failure and is on 4 L of supplemental oxygen via nasal cannula at home. He is known to have a history of chronic obstructive pulmonary disease as well as moderate to severe chronic persistent asthma. He currently is a smoker 2 packs per day for approximately 35 years. The patient states he's been trying to cut back and he is currently around 1 pack per day. 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 He has no known ALLERGIES that he is aware of. He does suffer from chronic severe psoriasis. Patient has been prescribed MDIs and inhalers in the past however he has not been compliant with those. On occasion he will use his nebulizer but does not use it regularly. At home he states he was having fever chills and sweats. He has been noticing some increased swelling in his bilateral lower extremities. Upon arrival the patient was 84% on 5 L of supplemental oxygen. The patient was transitioned to BiPAP and did relatively well with that. He did have a chest x-ray which did reveal cardiomegaly, pulmonary vascular congestion and mild CHF, possible early pneumonia cannot be excluded. Upon examination he is resting up in bed on 5 L of supplemental oxygen via nasal cannula. States the BiPAP helped him overnight. He does have a cough that is productive with clear white sputum. States he feels very wheezy and tight. All labs and reports reviewed. Interval History: 01/14/18- patient being seen today on rounds. It is a CT of the chest which did reveal borderline size caliber to the main right and left pulmonary arteries at 2.5 cm each, this may reflect underlying pulmonary arterial hypertension, also prominent bands of atelectasis or scarring within the lungs, increasing dependent atelectasis at the right base. Upon examination patient's resting up in bed on 5 L of supplemental oxygen. He did use the BiPAP overnight. He states the BiPAP helped some significantly. He continues to have shortness of breath with exertion and activity. As well as a congested cough. Objective - Vital Signs Vital signs: Vital Signs Temp 97.5 F L 01/14/18 07:35 Pulse 89 01/14/18 07:35 Resp 20 01/14/18 07:35 BP 134/59 01/14/18 07:35 Pulse Ox 96 01/14/18 07:35 Intake & Output 01/13/18 01/14/18 01/14/18 18:59 06:59 18:59 Intake Total 1530 50 Balance 1530 50 Weight 136.078 kg 136.078 kg Intake: Intake, IV Titration 50 50 Amount cefTRIAXone 1,000 mg In 50 50 Sodium Chloride 0.9% 50 ml @ 100 mls/hr IVPB Q24HR [facility] Rx#:[id number] Oral 740 Tube Feeding 540 Other 200 Other: Voiding Method Urinal Urinal # Voids 1 1 - Exam GENERAL EXAM: Alert, tired, comfortable in no apparent distress. HEAD: Normocephalic. EYES: Normal reaction of pupils, equal size. NOSE: Clear with pink turbinates. THROAT: No erythema or exudates. NECK: No masses, no JVD. CHEST: No chest wall deformity. LUNGS: Lungs noted to be tight and course with inspiratory and expiratory wheezing throughout, some basilar crackles. CVS: S1 and S2 normal with no audible mumurs, regular rhythm. ABDOMEN: No hepatosplenomegaly, normal bowel sounds, no guarding or rigidity. EXTREMITIES: +2 edema noted, pedal pulses palpable. SKIN: Psoriasis lesions on all 4 extremities, severe CENTRAL NERVOUS SYSTEM: No focal deficits, tone is normal in all 4 extremities. - Labs CBC & Chem 7: 01/14/18 08:54 01/13/18 11:17 Labs: Abnormal Lab Results - Last 24 Hours (Table) 01/13/18 01/13/18 01/13/18 Range/Units 09:25 09:25 11:16 RBC 4.02 L (4.30-5.90) m/uL Hgb 11.8 L (13.0-17.5) gm/dL Hct 38.2 L (39.0-53.0) % MCHC 30.8 L (31.0-37.0) g/dL Neutrophils # (1.3-7.7) k/uL Lymphocytes # 0.7 L (1.0-4.8) k/uL Chloride (98-107) mmol/L Carbon Dioxide (22-30) mmol/L BUN (9-20) mg/dL Glucose (74-99) mg/dL POC Glucose (mg/dL) 265 H (75-99) mg/dL Hemoglobin A1c 8.8 H (4.0-6.0) % AST (17-59) U/L Total Protein (6.3-8.2) g/dL Albumin (3.5-5.0) g/dL Ur Specific [place] (1.001-1.035) Urine Glucose (UA) (Negative) IgE (0.00-114.00) IU/mL 01/13/18 01/13/18 01/13/18 Range/Units 11:17 11:17 12:16 RBC (4.30-5.90) m/uL Hgb (13.0-17.5) gm/dL Hct (39.0-53.0) % MCHC (31.0-37.0) g/dL Neutrophils # (1.3-7.7) k/uL Lymphocytes # (1.0-4.8) k/uL Chloride 86 L (98-107) mmol/L Carbon Dioxide 45 H* (22-30) mmol/L BUN 23 H (9-20) mg/dL Glucose 279 H (74-99) mg/dL POC Glucose (mg/dL) (75-99) mg/dL Hemoglobin A1c (4.0-6.0) % AST 14 L (17-59) U/L Total Protein 5.9 L (6.3-8.2) g/dL Albumin 3.3 L (3.5-5.0) g/dL Ur Specific [place] 1.038 H (1.001-1.035) Urine Glucose (UA) 4+ H (Negative) IgE 1764.00 H (0.00-114.00) IU/mL 01/13/18 01/13/18 01/13/18 Range/Units 17:12 20:21 20:22 RBC (4.30-5.90) m/uL Hgb (13.0-17.5) gm/dL Hct (39.0-53.0) % MCHC (31.0-37.0) g/dL Neutrophils # (1.3-7.7) k/uL Lymphocytes # (1.0-4.8) k/uL Chloride (98-107) mmol/L Carbon Dioxide (22-30) mmol/L BUN (9-20) mg/dL Glucose (74-99) mg/dL POC Glucose (mg/dL) 329 H 353 H 323 H (75-99) mg/dL Hemoglobin A1c (4.0-6.0) % AST (17-59) U/L Total Protein (6.3-8.2) g/dL Albumin (3.5-5.0) g/dL Ur Specific [place] (1.001-1.035) Urine Glucose (UA) (Negative) IgE (0.00-114.00) IU/mL 01/14/18 01/14/18 01/14/18 Range/Units 02:21 07:27 08:54 RBC 4.10 L (4.30-5.90) m/uL Hgb 11.9 L (13.0-17.5) gm/dL Hct 38.3 L (39.0-53.0) % MCHC (31.0-37.0) g/dL Neutrophils # 8.9 H (1.3-7.7) k/uL Lymphocytes # 0.8 L (1.0-4.8) k/uL Chloride (98-107) mmol/L Carbon Dioxide (22-30) mmol/L BUN (9-20) mg/dL Glucose (74-99) mg/dL POC Glucose (mg/dL) 212 H 235 H (75-99) mg/dL Hemoglobin A1c (4.0-6.0) % AST (17-59) U/L Total Protein (6.3-8.2) g/dL Albumin (3.5-5.0) g/dL Ur Specific [place] (1.001-1.035) Urine Glucose (UA) (Negative) IgE (0.00-114.00) IU/mL Microbiology - Last 24 Hours (Table) 01/13/18 12:16 Urine Culture - Preliminary Urine,Voided Assessment and Plan Assessment: Assessment Acute on chronic hypoxic respiratory failure requiring supplemental oxygen Acute hypercapnic respiratory failure Suspect early pneumonia Acute exacerbation of COPD Acute exacerbation of moderate to severe chronic persistent asthma with component of ALLERGIC asthma Suspect SANDER Severe psoriasis Nicotine dependence Hyperglycemia Eosinophilia Plan Medications have been reviewed and will be continued as ordered. Continue with antibiotics Rocephin and azithromycin Patient supposed to be on Xolair biologic however has not had it since September he was having trouble with transportation Will need to continue biologic agent once discharged Solu-Medrol taper Diamox 250 mg every 12 hours 2 doses, completed Echocardiogram reviewed CT of the chest with contrast reviewed Smoking cessation Blood sugar control Labs: Legionella, mycoplasma, sputum culture, alpha-1 antitrypsin levels, IgE, [place] ALLERGY panel pending Continue with pulmonary hygiene, coughing and deep breathing exercises, and supportive care. Supplemental oxygen to maintain oxygen saturations of 92% or better. Continue nebulizer treatments, DuoNeb and budesonide. Compliance issues discussed with the patient at length Patient would benefit from an outpatient sleep study GI and DVT prophylaxis. We will continue to monitor labs/results and adjust treatment as necessary. Further recommendations pending. Thank you for this consultation we will continue to follow this patient with you I performed an examination of the patient and discussed their management with the nurse practitioner. I have reviewed the nurse practitioner's note and agree with the documented findings and plan of care.
[2018-01-14 09:44] LABS: ALT 36 U/L (21-72); AST 12 U/L (17-59); Albumin 3.4 g/dL (3.5-5.0); Alkaline Phosphatase 74 U/L (38-126); Blood Urea Nitrogen 26 mg/dL (9-20); Calcium 9.3 mg/dL (8.4-10.2); Chloride 91 mmol/L (98-107); Glucose 291 mg/dL (74-99); Potassium 4.8 mmol/L (3.5-5.1); Sodium 138 mmol/L (137-145); Total Bilirubin 0.3 mg/dL (0.2-1.3)
[2018-01-14 09:52] LABS: Anion Gap 9 mmol/L; Carbon Dioxide 38 mmol/L (22-30)
[2018-01-14 11:20] LABS: Glucose,Whole Blood 288 mg/dL (75-99)
--- NOTE | 2018-01-14 11:46 | P.PN ---
Subjective Progress Note Date: 01/14/18 This is a 52-year-old male, patient of Dr. Alarcon. He has a known past medical history of COPD, chronic respiratory failure home O2 dependent usually on 4 L of oxygen, diabetes mellitus, hypertension, nicotine dependence and depression. Patient presents to the emergency room with complaints of worsening shortness of breath over the last couple weeks. He reports not feeling well and having a reductive cough with clearish sputum. His PCP had placed him on a prednisone taper outpatient. Patient had increased his oxygen to 4 L at home over the last couple weeks. And his oxygen tanks ran out at home. He became very short of breath and came into the emergency room for fever for further evaluation and treatment. In the ER he required to be placed on the BiPAP. He was started on IV Solu-Medrol bronchodilators and antibiotic azithromycin. Pulmonary service was consulted. Chest x-ray showing mild cardiomegaly and concerns for possible mild CHF. Patient did receive a dose of IV Lasix in the ER. However BNP was only 34. Patient denies any chest pain. Denies any fever or chills or sweats. Denies any nausea or vomiting. Denies any bowel movement changes. He is complaining of urinary frequency. Urinalysis has been ordered. 01/14/2018 patient is currently on the BiPAP while he is sleeping. He did use BiPAP overnight. And then he requires about 5 L of oxygen satting at 96%. He is followed closely by pulmonary service. Still having some shortness of breath especially with activity. Does report some chest tightness with the shortness of breath. Denies any actual chest pain. Denies any nausea or vomiting. Reports last bowel movement 2 days ago. Denies any burning with urination. CT scan of the chest revealed a borderline size caliber to the main right and left pulmonary arteries at 2.5 cm each, this may reflect underlying pulmonary arterial hypertension, also prominent bands of atelectasis or scarring within the lungs, increasing dependent atelectasis at the right base. Pulmonary service has reviewed. IgE level elevated at 1764 Objective - Vital Signs Vital signs: Vital Signs Temp 97.5 F L 01/14/18 07:35 Pulse 112 H 01/14/18 11:32 Resp 20 01/14/18 07:35 BP 134/59 01/14/18 07:35 Pulse Ox 96 01/14/18 07:35 Intake & Output 01/13/18 01/14/18 01/14/18 18:59 06:59 18:59 Intake Total 1530 50 Balance 1530 50 Weight 136.078 kg 136.078 kg Intake: Intake, IV Titration 50 50 Amount cefTRIAXone 1,000 mg In 50 50 Sodium Chloride 0.9% 50 ml @ 100 mls/hr IVPB Q24HR [facility] Rx#:[id number] Oral 740 Tube Feeding 540 Other 200 Other: Voiding Method Urinal Urinal # Voids 1 1 - Exam Head normocephalic Neck supple Lungs wheezing noted bilaterally Heart regular rate and rhythm S1-S2, no rub or gallop Abdomen is soft nontender nondistended positive bowel sounds no hepatosplenomegaly Extremities no edema Neuro alert and orientated to 3 - Labs CBC & Chem 7: 01/14/18 08:54 01/14/18 08:54 Labs: Abnormal Lab Results - Last 24 Hours (Table) 01/13/18 01/13/18 01/13/18 Range/Units 09:25 11:17 11:17 RBC (4.30-5.90) m/uL Hgb (13.0-17.5) gm/dL Hct (39.0-53.0) % Neutrophils # (1.3-7.7) k/uL Lymphocytes # (1.0-4.8) k/uL Chloride 86 L (98-107) mmol/L Carbon Dioxide 45 H* (22-30) mmol/L BUN 23 H (9-20) mg/dL Glucose 279 H (74-99) mg/dL POC Glucose (mg/dL) (75-99) mg/dL Hemoglobin A1c 8.8 H (4.0-6.0) % AST 14 L (17-59) U/L Total Protein 5.9 L (6.3-8.2) g/dL Albumin 3.3 L (3.5-5.0) g/dL Ur Specific [place] (1.001-1.035) Urine Glucose (UA) (Negative) IgE 1764.00 H (0.00-114.00) IU/mL 01/13/18 01/13/18 01/13/18 Range/Units 12:16 17:12 20:21 RBC (4.30-5.90) m/uL Hgb (13.0-17.5) gm/dL Hct (39.0-53.0) % Neutrophils # (1.3-7.7) k/uL Lymphocytes # (1.0-4.8) k/uL Chloride (98-107) mmol/L Carbon Dioxide (22-30) mmol/L BUN (9-20) mg/dL Glucose (74-99) mg/dL POC Glucose (mg/dL) 329 H 353 H (75-99) mg/dL Hemoglobin A1c (4.0-6.0) % AST (17-59) U/L Total Protein (6.3-8.2) g/dL Albumin (3.5-5.0) g/dL Ur Specific [place] 1.038 H (1.001-1.035) Urine Glucose (UA) 4+ H (Negative) IgE (0.00-114.00) IU/mL 01/13/18 01/14/18 01/14/18 Range/Units 20:22 02:21 07:27 RBC (4.30-5.90) m/uL Hgb (13.0-17.5) gm/dL Hct (39.0-53.0) % Neutrophils # (1.3-7.7) k/uL Lymphocytes # (1.0-4.8) k/uL Chloride (98-107) mmol/L Carbon Dioxide (22-30) mmol/L BUN (9-20) mg/dL Glucose (74-99) mg/dL POC Glucose (mg/dL) 323 H 212 H 235 H (75-99) mg/dL Hemoglobin A1c (4.0-6.0) % AST (17-59) U/L Total Protein (6.3-8.2) g/dL Albumin (3.5-5.0) g/dL Ur Specific [place] (1.001-1.035) Urine Glucose (UA) (Negative) IgE (0.00-114.00) IU/mL 01/14/18 01/14/18 01/14/18 Range/Units 08:54 08:54 11:18 RBC 4.10 L (4.30-5.90) m/uL Hgb 11.9 L (13.0-17.5) gm/dL Hct 38.3 L (39.0-53.0) % Neutrophils # 8.9 H (1.3-7.7) k/uL Lymphocytes # 0.8 L (1.0-4.8) k/uL Chloride 91 L (98-107) mmol/L Carbon Dioxide 38 H (22-30) mmol/L BUN 26 H (9-20) mg/dL Glucose 291 H (74-99) mg/dL POC Glucose (mg/dL) 288 H (75-99) mg/dL Hemoglobin A1c (4.0-6.0) % AST 12 L (17-59) U/L Total Protein 6.0 L (6.3-8.2) g/dL Albumin 3.4 L (3.5-5.0) g/dL Ur Specific [place] (1.001-1.035) Urine Glucose (UA) (Negative) IgE (0.00-114.00) IU/mL Microbiology - Last 24 Hours (Table) 01/13/18 12:16 Urine Culture - Preliminary Urine,Voided Assessment and Plan Assessment: 1. Acute on chronic hypoxic respiratory failure: Patient currently on 5 L oxygen satting at 92%. Did require BiPAP through the evening. Pulmonary service following. Likely related to patient's COPD and suspected early pneumonia. Computed tomography scan of the chest results noted. Pulmonary service following 2. Acute hypercapnic respiratory failure: Pulmonary has placed patient on Diamox. CO2 level of 44 down to 38 3. Acute COPD exacerbation continue IV Solu-Medrol and bronchodilators. Pulmonary service has added Pulmicort 4. Suspected early pneumonia: Patient on azithromycin and pulmonary has added Rocephin 5. Severe psoriasis 6. Nicotine dependence discussed smoking cessation for greater than 3 minutes. Add nicotine patch 7. Diabetes mellitus type 2 with hyperglycemia secondary to steroids. Continue sliding scale coverage. A1c 8.8. Resume home meds for this includes metformin and Levemir 40 units at bedtime 8. Essential hypertension: Continue lisinopril 9. Sinus tachycardia likely related to patient's respiratory status. EKG had shown sinus tach with a heart rate of 115. Continue telemetry monitoring GI prophylaxis Protonix and DVT prophylaxis Lovenox I performed an examination of the patient and discussed their management with the physician Fur Buyer. I have reviewed the Physician Fur Buyer's notes and agree with the documented findings and plan of care
[2018-01-14] MEDS ORDERED: INSULIN ASPART 100 UNIT/ML 1 ML 10 ML VIAL SQ ONE ×2 (12:57→22:06)
[2018-01-14 17:11] LABS: Glucose,Whole Blood 313 mg/dL (75-99)
[2018-01-14 20:13] LABS: Glucose,Whole Blood 299 mg/dL (75-99)
[2018-01-14] MEDS: ATORVASTATIN 40 MG TAB PO SCH (21:35)
[2018-01-14] MEDS: MONTELUKAST 10 MG TAB PO SCH (21:35)
[2018-01-15] MEDS ORDERED: methylPREDNISolone SOD SUCCI 125 MG/2 ML VIAL ONE (00:10)
[2018-01-15] MEDS: SODIUM CHLORIDE 0.9% 1,000 ML IV SCH (05:00)
[2018-01-15] MEDS: methylPREDNISolone SOD SUCCI 125 MG/2 ML VIAL IV SCH ×2 (05:00→06:15)
[2018-01-15 05:19] LABS: Mycoplasma IgM Antibody 0.16 INDEX (<=0.90)
[2018-01-15 06:57] LABS: Glucose,Whole Blood 255 mg/dL (75-99)
[2018-01-15 07:42] LABS: Basophils % (A) 0 %; Eosinophils % (A) 0 %; HCT 38.1 % (39.0-53.0); HGB 12.5 gm/dL (13.0-17.5); Hypochromasia Slight; Lymphocytes # (A) 0.8 k/uL (1.0-4.8); Lymphocytes % (A) 8 %; MCH 30.4 pg (25.0-35.0); MCHC 32.8 g/dL (31.0-37.0); MCV 92.8 fL (80.0-100.0); Mean Platelet Volume 8.2; Monocytes # (A) 0.5 k/uL (0-1.0); Monocytes % (A) 5 %; Neutrophils # (A) 8.1 k/uL (1.3-7.7); Neutrophils % (A) 86 %; Platelet Count 207 k/uL (150-450); RDW 14.1 % (11.5-15.5); WBC 9.4 k/uL (3.8-10.6)
[2018-01-15 07:56] LABS: ALT 30 U/L (21-72); AST 14 U/L (17-59); Albumin 3.6 g/dL (3.5-5.0); Alkaline Phosphatase 65 U/L (38-126); Anion Gap 9 mmol/L; Blood Urea Nitrogen 34 mg/dL (9-20); Calcium 9.4 mg/dL (8.4-10.2); Carbon Dioxide 38 mmol/L (22-30); Chloride 93 mmol/L (98-107); Glucose 239 mg/dL (74-99); Potassium 5.1 mmol/L (3.5-5.1); Sodium 140 mmol/L (137-145); Total Bilirubin 0.3 mg/dL (0.2-1.3); Total Protein 6.2 g/dL (6.3-8.2)
[2018-01-15] MEDS: IPRATROPIUM-ALBUTEROL 3 ML NEB INHALATION SCH ×4 (07:56→19:57)
[2018-01-15] MEDS: BUDESONIDE 1 MG/2 ML NEBU INHALATION SCH ×2 (07:56→19:57)
[2018-01-15] MEDS: NICOTINE 14MG/24HR PATCH TRANSDERM SCH (08:03)
[2018-01-15] MEDS: INSULIN ASPART 100 UNIT/ML 1 ML 10 ML VIAL SQ SCH ×4 (08:04→21:08)
[2018-01-15] MEDS: LISINOPRIL 20 MG TAB PO SCH (08:05)
[2018-01-15] MEDS: PANTOPRAZOLE 40 MG TABLET PO SCH (08:05)
[2018-01-15] MEDS: cefTRIAXone IN SWFI 1,000 MG/10 ML SYRINGE IVP SCH (08:05)
[2018-01-15] MEDS: FUROSEMIDE 20 MG TAB PO SCH (08:05)
[2018-01-15] MEDS: buPROPion XL 150 MG TAB.ER.24H PO SCH (08:05)
[2018-01-15] MEDS: ENOXAPARIN 40 MG/0.4 ML SYRINGE SQ SCH (08:05)
[2018-01-15] MEDS: AZITHROMYCIN 500 MG TAB PO SCH (08:05)
--- NOTE | 2018-01-15 10:32 | CDI ---
Last Revision, June 2017 Documentation Clarification Form Date: 01/15/2018 10:28:00 AM From: Iveth PerryLYUDMILA, CCDS Admit Date: 01/12/2018 11:18:00 PM Patient Name: Terrance Lazcano Visit Number: [id number] Discharge Date: ATTENTION: The Clinical Documentation Specialists (CDI) and [facility] Coding Staff appreciate your assistance in clarifying documentation. Please respond to the clarification below the line at the bottom and electronically sign. The CDI & [facility] Coding staff will review the response and follow-up if needed. Please note: Queries are made part of the Legal Health Record. If you have any questions, please contact the author of this message via ITS. Dr. Soila Hernandez: CHF is documented in the History & Physical, the Pulmonary Consult and subsequent progress notes as "possible mild CHF". History/Risk Factors: COPD, chronic respiratory failure on home O2, DM, asthma, hypertension & nicotine dependence. Clinical Indicators: Presented to the ED with SOB, increased cough & hypoxia. VS: T 99.3, P 102, R 24 (labored), BP 160/75, PO 93 4-5Lnc, BiPAP overnight BNP: 34 RAD: CXR: Mild cardiomegaly, correlate to exclude mild CHF. Echocardiogram Results: EF 55-60%, Mild LVH. Treatment: Telemetry, Sputum Culture, IV fl rate 20, IV Solumedrol, Albuterol INH, IV Zithromax, Insulin sc, IV Lasix, IV Rocephin, O2 4-5L nc. In your professional opinion, can you please clarify the acuity and type of CHF if known? Systolic Heart Failure Diastolic Heart Failure Systolic & Diastolic Heart Failure Acute Chronic Acute on Chronic Unable to Determine Other, please specify Please continue to document in your progress notes and discharge summary in order to capture severity of illness and risk of mortality. Include clinical findings that support your diagnosis. MTDD
--- NOTE | 2018-01-15 10:37 | P.PN ---
Subjective Progress Note Date: 01/15/18 Principal diagnosis: AECOPD This is a 52-year-old male patient who is well-known to our services, being seen examined and evaluated today on rounds. This patient came into the emergency room with increasing severity of his shortness of breath over the last few days. This patient is known to have chronic hypoxic respiratory failure and is on 4 L of supplemental oxygen via nasal cannula at home. He is known to have a history of chronic obstructive pulmonary disease as well as moderate to severe chronic persistent asthma. He currently is a smoker 2 packs per day for approximately 35 years. The patient states he's been trying to cut back and he is currently around 1 pack per day. 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 He has no known ALLERGIES that he is aware of. He does suffer from chronic severe psoriasis. Patient has been prescribed MDIs and inhalers in the past however he has not been compliant with those. On occasion he will use his nebulizer but does not use it regularly. At home he states he was having fever chills and sweats. He has been noticing some increased swelling in his bilateral lower extremities. Upon arrival the patient was 84% on 5 L of supplemental oxygen. The patient was transitioned to BiPAP and did relatively well with that. He did have a chest x-ray which did reveal cardiomegaly, pulmonary vascular congestion and mild CHF, possible early pneumonia cannot be excluded. Upon examination he is resting up in bed on 5 L of supplemental oxygen via nasal cannula. States the BiPAP helped him overnight. He does have a cough that is productive with clear white sputum. States he feels very wheezy and tight. All labs and reports reviewed. Interval History: 01/14/18- patient being seen today on rounds. It is a CT of the chest which did reveal borderline size caliber to the main right and left pulmonary arteries at 2.5 cm each, this may reflect underlying pulmonary arterial hypertension, also prominent bands of atelectasis or scarring within the lungs, increasing dependent atelectasis at the right base. Upon examination patient's resting up in bed on 5 L of supplemental oxygen. He did use the BiPAP overnight. He states the BiPAP helped some significantly. He continues to have shortness of breath with exertion and activity. As well as a congested cough. 01/15/2018: Patient seen and examined. Patient states his breathing is slightly better today but he is still short of breath. He states he is still wheezing but he always wheezes. He has been unable to expectorate any sputum. He continues to be on 5 L nasal cannula. He did use the BiPAP overnight and states he has been using with naps. He does feel it helps a little bit. He denies fevers and chills. Objective - Vital Signs Vital signs: Vital Signs Temp 97.5 F L 01/15/18 07:00 Pulse 99 01/15/18 08:06 Resp 18 01/15/18 07:00 BP 119/74 01/15/18 07:00 Pulse Ox 90 L 01/15/18 07:00 Intake & Output 01/14/18 01/15/18 01/15/18 18:59 06:59 18:59 Other: Voiding Method Urinal # Voids 3 1 - Exam GENERAL EXAM: Alert, tired, comfortable in no apparent distress. HEAD: Normocephalic. EYES: Normal reaction of pupils, equal size. NOSE: Clear with pink turbinates. THROAT: No erythema or exudates. NECK: No masses, no JVD. CHEST: No chest wall deformity. LUNGS: Lungs noted to be tight and course with inspiratory and expiratory wheezing throughout, some basilar crackles. CVS: S1 and S2 normal with no audible mumurs, regular rhythm. ABDOMEN: No hepatosplenomegaly, normal bowel sounds, no guarding or rigidity. EXTREMITIES: +2 edema noted, pedal pulses palpable. SKIN: Psoriasis lesions on all 4 extremities, severe CENTRAL NERVOUS SYSTEM: No focal deficits, tone is normal in all 4 extremities. - Labs CBC & Chem 7: 01/15/18 07:05 01/15/18 07:05 Labs: Abnormal Lab Results - Last 24 Hours (Table) 01/13/18 01/14/18 01/14/18 Range/Units 09:25 11:18 17:09 RBC (4.30-5.90) m/uL Hgb (13.0-17.5) gm/dL Hct (39.0-53.0) % Neutrophils # (1.3-7.7) k/uL Lymphocytes # (1.0-4.8) k/uL Chloride (98-107) mmol/L Carbon Dioxide (22-30) mmol/L BUN (9-20) mg/dL Glucose (74-99) mg/dL POC Glucose (mg/dL) 288 H 313 H (75-99) mg/dL AST (17-59) U/L Total Protein (6.3-8.2) g/dL Mycoplasma pneumon IgG 1.10 H (<=0.90) INDEX 01/14/18 01/15/18 01/15/18 Range/Units 20:12 06:57 07:05 RBC 4.10 L (4.30-5.90) m/uL Hgb 12.5 L (13.0-17.5) gm/dL Hct 38.1 L (39.0-53.0) % Neutrophils # 8.1 H (1.3-7.7) k/uL Lymphocytes # 0.8 L (1.0-4.8) k/uL Chloride (98-107) mmol/L Carbon Dioxide (22-30) mmol/L BUN (9-20) mg/dL Glucose (74-99) mg/dL POC Glucose (mg/dL) 299 H 255 H (75-99) mg/dL AST (17-59) U/L Total Protein (6.3-8.2) g/dL Mycoplasma pneumon IgG (<=0.90) INDEX 01/15/18 Range/Units 07:05 RBC (4.30-5.90) m/uL Hgb (13.0-17.5) gm/dL Hct (39.0-53.0) % Neutrophils # (1.3-7.7) k/uL Lymphocytes # (1.0-4.8) k/uL Chloride 93 L (98-107) mmol/L Carbon Dioxide 38 H (22-30) mmol/L BUN 34 H (9-20) mg/dL Glucose 239 H (74-99) mg/dL POC Glucose (mg/dL) (75-99) mg/dL AST 14 L (17-59) U/L Total Protein 6.2 L (6.3-8.2) g/dL Mycoplasma pneumon IgG (<=0.90) INDEX Microbiology - Last 24 Hours (Table) 01/13/18 12:16 Urine Culture - Final Urine,Voided Assessment and Plan Assessment: Acute on chronic hypoxic and hypercapnic respiratory failure requiring supplemental oxygen Acute hypercapnic respiratory failure Suspect early pneumonia Acute exacerbation of COPD, very severe COPD with FEV1 21% of predicted Acute exacerbation of moderate to severe chronic persistent asthma with component of ALLERGIC asthma Suspect SANDER/OHS Chronic metabolic alkalosis Eosinophilia Suspect pulmonary hypertension Severe psoriasis Nicotine dependence Hyperglycemia Elevated IgE Eosinophilia Anemia, normochromic normocytic Hyperglycemia likely secondary to steroids Plan Medications have been reviewed and will be continued as ordered. Continue with antibiotics Rocephin and azithromycin Patient supposed to be on Xolair biologic however has not had it since September he was having trouble with transportation Will need to continue biologic agent once discharged Solu-Medrol taper Smoking cessation is discussed at length Blood sugar control Labs: Legionella, sputum culture, alpha-1 antitrypsin levels, [place] ALLERGY panel pending Continue with pulmonary hygiene, coughing and deep breathing exercises, and supportive care. Supplemental oxygen to maintain oxygen saturations of 92% or better. Continue nebulizer treatments, DuoNeb and budesonide. Compliance issues discussed with the patient at length Patient would benefit from an outpatient sleep study GI and DVT prophylaxis. We will continue to monitor labs/results and adjust treatment as necessary. Further recommendations pending. Will check ABG and hopefully qualify patient for home bipap Flutter therapy and incentive spirometry Consult PT and OT
[2018-01-15 10:49] LABS: Alpha 1 Anti-Trypsin 170 mg/dL (90 - 200)
[2018-01-15] MEDS: INSULIN DETEMIR 100 UNIT/ML 10 ML VIAL SQ SCH (10:51)
[2018-01-15 11:04] LABS: Alt. alternata IgE Class CLASS 0; Alternaria alternata IgE <0.35 kU/L (<0.35); Asperg. fumagatus IgE 0.41 kU/L (<0.35); Asperg. fumagatus IgE Class CLASS I; Bermuda Grass IgE <0.35 kU/L (<0.35); Birch(Com.Silvr) IgE <0.35 kU/L (<0.35); Birch(Com.Silvr) IgE Class CLASS 0; Cat Epith & Dander IgE <0.35 kU/L (<0.35); Cat Epith & Dander IgE Class CLASS 0; Clad herbarum IgE <0.35 kU/L (<0.35); Cockroach IgE 0.52 kU/L (<0.35); Cottonwood IgE <0.35 kU/L (<0.35); Dermato. Pteronyssinus IgE 1.21 kU/L (<0.35); Dermato. farinae IgE 1.32 kU/L (<0.35); Dermato. farinae IgE Class CLASS II; Dog Dander IgE 0.59 kU/L (<0.35); Elm IgE <0.35 kU/L (<0.35); Maple (Box Elder) IgE <0.35 kU/L (<0.35); Maple (Box Elder) IgE Class CLASS 0; Mountain Cedar IgE <0.35 kU/L (<0.35); Mountain Cedar IgE Class CLASS 0; Mouse Urine IgE Class CLASS 0; Nettle IgE <0.35 kU/L (<0.35); Nettle IgE Class CLASS 0; Oak IgE <0.35 kU/L (<0.35); Penicillium notatum IgE Class CLASS 0; Rough Marshelder IgE <0.35 kU/L (<0.35); Rough Marshelder IgE Class CLASS 0; Timothy Grass IgE <0.35 kU/L (<0.35); White Ash IgE Class CLASS 0
--- NOTE | 2018-01-15 11:29 | P.PN ---
Subjective Progress Note Date: 01/15/18 This is a 52-year-old male, patient of Dr. Alarcon. He has a known past medical history of COPD, chronic respiratory failure home O2 dependent usually on 4 L of oxygen, diabetes mellitus, hypertension, nicotine dependence and depression. Patient presents to the emergency room with complaints of worsening shortness of breath over the last couple weeks. He reports not feeling well and having a reductive cough with clearish sputum. His PCP had placed him on a prednisone taper outpatient. Patient had increased his oxygen to 4 L at home over the last couple weeks. And his oxygen tanks ran out at home. He became very short of breath and came into the emergency room for fever for further evaluation and treatment. In the ER he required to be placed on the BiPAP. He was started on IV Solu-Medrol bronchodilators and antibiotic azithromycin. Pulmonary service was consulted. Chest x-ray showing mild cardiomegaly and concerns for possible mild CHF. Patient did receive a dose of IV Lasix in the ER. However BNP was only 34. Patient denies any chest pain. Denies any fever or chills or sweats. Denies any nausea or vomiting. Denies any bowel movement changes. He is complaining of urinary frequency. Urinalysis has been ordered. 01/14/2018 patient is currently on the BiPAP while he is sleeping. He did use BiPAP overnight. And then he requires about 5 L of oxygen satting at 96%. He is followed closely by pulmonary service. Still having some shortness of breath especially with activity. Does report some chest tightness with the shortness of breath. Denies any actual chest pain. Denies any nausea or vomiting. Reports last bowel movement 2 days ago. Denies any burning with urination. CT scan of the chest revealed a borderline size caliber to the main right and left pulmonary arteries at 2.5 cm each, this may reflect underlying pulmonary arterial hypertension, also prominent bands of atelectasis or scarring within the lungs, increasing dependent atelectasis at the right base. Pulmonary service has reviewed. IgE level elevated at 1764 On 01/15/2018 patient is currently resting comfortably in bed on 5 L nasal cannula. Does state there is still some shortness of breath but has improved since admission. Patient remains on Zithromax and Rocephin for pulmonary services. Patient currently on Solu-Medrol IV 40 mg and DuoNeb treatments. Denies chest pain or shortness of breath at this time. Per nursing staff patient's family went to PCP Dr. Alarcon and picked up monthly psoriasis injection Stelar and brought to hosptial for patient to receive. Medication to be sent to pharmacy and administered per nursing staff. Objective - Vital Signs Vital signs: Vital Signs Temp 97.5 F L 01/15/18 07:00 Pulse 99 01/15/18 08:06 Resp 18 01/15/18 07:00 BP 119/74 01/15/18 07:00 Pulse Ox 90 L 01/15/18 07:00 Intake & Output 01/14/18 01/15/18 01/15/18 18:59 06:59 18:59 Other: Voiding Method Urinal # Voids 3 1 - Exam Head normocephalic Neck supple Lungs wheezing noted bilaterally Heart regular rate and rhythm S1-S2, no rub or gallop Abdomen is soft nontender nondistended positive bowel sounds no hepatosplenomegaly Extremities no edema Neuro alert and orientated to 3 - Labs CBC & Chem 7: 01/15/18 07:05 01/15/18 07:05 Labs: Abnormal Lab Results - Last 24 Hours (Table) 01/13/18 01/13/18 01/14/18 Range/Units 09:25 09:25 17:09 RBC (4.30-5.90) m/uL Hgb (13.0-17.5) gm/dL Hct (39.0-53.0) % Neutrophils # (1.3-7.7) k/uL Lymphocytes # (1.0-4.8) k/uL Chloride (98-107) mmol/L Carbon Dioxide (22-30) mmol/L BUN (9-20) mg/dL Glucose (74-99) mg/dL POC Glucose (mg/dL) 313 H (75-99) mg/dL AST (17-59) U/L Total Protein (6.3-8.2) g/dL A.fumigatus Allerg IgE 0.41 H (<0.35) kU/L D. farinae Allrgen IgE 1.32 H (<0.35) kU/L D. pteronyssinus IgE 1.21 H (<0.35) kU/L [place] Thistle IgE Ab 0.37 H (<0.35) kU/L Dog Dander Allerg IgG 0.59 H (<0.35) kU/L Cockroach Allergen IgE 0.52 H (<0.35) kU/L IgE 1,220.0 H (<114.0) IU/mL Mycoplasma pneumon IgG 1.10 H (<=0.90) INDEX 01/14/18 01/15/18 01/15/18 Range/Units 20:12 06:57 07:05 RBC 4.10 L (4.30-5.90) m/uL Hgb 12.5 L (13.0-17.5) gm/dL Hct 38.1 L (39.0-53.0) % Neutrophils # 8.1 H (1.3-7.7) k/uL Lymphocytes # 0.8 L (1.0-4.8) k/uL Chloride (98-107) mmol/L Carbon Dioxide (22-30) mmol/L BUN (9-20) mg/dL Glucose (74-99) mg/dL POC Glucose (mg/dL) 299 H 255 H (75-99) mg/dL AST (17-59) U/L Total Protein (6.3-8.2) g/dL A.fumigatus Allerg IgE (<0.35) kU/L D. farinae Allrgen IgE (<0.35) kU/L D. pteronyssinus IgE (<0.35) kU/L [place] Thistle IgE Ab (<0.35) kU/L Dog Dander Allerg IgG (<0.35) kU/L Cockroach Allergen IgE (<0.35) kU/L IgE (<114.0) IU/mL Mycoplasma pneumon IgG (<=0.90) INDEX 01/15/18 Range/Units 07:05 RBC (4.30-5.90) m/uL Hgb (13.0-17.5) gm/dL Hct (39.0-53.0) % Neutrophils # (1.3-7.7) k/uL Lymphocytes # (1.0-4.8) k/uL Chloride 93 L (98-107) mmol/L Carbon Dioxide 38 H (22-30) mmol/L BUN 34 H (9-20) mg/dL Glucose 239 H (74-99) mg/dL POC Glucose (mg/dL) (75-99) mg/dL AST 14 L (17-59) U/L Total Protein 6.2 L (6.3-8.2) g/dL A.fumigatus Allerg IgE (<0.35) kU/L D. farinae Allrgen IgE (<0.35) kU/L D. pteronyssinus IgE (<0.35) kU/L [place] Thistle IgE Ab (<0.35) kU/L Dog Dander Allerg IgG (<0.35) kU/L Cockroach Allergen IgE (<0.35) kU/L IgE (<114.0) IU/mL Mycoplasma pneumon IgG (<=0.90) INDEX Microbiology - Last 24 Hours (Table) 01/13/18 12:16 Urine Culture - Final Urine,Voided Assessment and Plan Assessment: 1. Acute on chronic hypoxic respiratory failure: Patient currently on 5 L oxygen satting at 92%. Did require BiPAP through the evening. Pulmonary service following. Likely related to patient's COPD and suspected early pneumonia. Computed tomography scan of the chest results noted. Pulmonary service following 2. Acute hypercapnic respiratory failure: Pulmonary has placed patient on Diamox. CO2 level of 44 down to 38 3. Acute COPD exacerbation continue IV Solu-Medrol and bronchodilators. Pulmonary service has added Pulmicort 4. Suspected early pneumonia: Patient on azithromycin and pulmonary has added Rocephin 5. Severe psoriasis. Patient's family brought in monthly injection Stelara from primary care provider. Medication to be sent to pharmacy and [facility] per nursing staff 6. Nicotine dependence discussed smoking cessation for greater than 3 minutes. Add nicotine patch 7. Diabetes mellitus type 2 with hyperglycemia secondary to steroids. Continue sliding scale coverage. A1c 8.8. Resume home meds for this includes metformin and Levemir 40 units at bedtime 8. Essential hypertension: Continue lisinopril 9. Sinus tachycardia likely related to patient's respiratory status. EKG had shown sinus tach with a heart rate of 115. Continue telemetry monitoring GI prophylaxis Protonix and DVT prophylaxis Lovenox I performed an examination of the patient and discussed their management with the Nurse Practitioner. I have reviewed the Nurse Practitioner's notes and agree with the documented findings and plan of care
[2018-01-15 11:39] LABS: ABG Base Excess 9.9 mmol/L; ABG HCO3 35 mmol/L (21-25); ABG Oxygen Saturation 94.1 % (94-97); ABG PCO2 56 mmHg (35-45); ABG PO2 70 mmHg (83-108); ABG TCO2 37 mmol/L (19-24)
[2018-01-15 11:57] LABS: Glucose,Whole Blood 290 mg/dL (75-99)
[2018-01-15] MEDS ORDERED: USTEKINUMAB 90 MG SQ SCH (13:00)
[2018-01-15 16:51] LABS: Glucose,Whole Blood 358 mg/dL (75-99)
[2018-01-15] MEDS: methylPREDNISolone SOD SUCCI 40 MG/ML 1 ML VIAL IV SCH ×2 (17:21→23:11)
[2018-01-15 20:11] LABS: Glucose,Whole Blood 344 mg/dL (75-99)
[2018-01-15] MEDS ORDERED: INSULIN ASPART 100 UNIT/ML 1 ML 10 ML VIAL SQ ONE (20:47)
[2018-01-15] MEDS: MONTELUKAST 10 MG TAB PO SCH (21:08)
[2018-01-15] MEDS: ATORVASTATIN 40 MG TAB PO SCH (21:08)
[2018-01-16] MEDS: SODIUM CHLORIDE 0.9% 1,000 ML IV SCH ×2 (01:36→23:39)
[2018-01-16] MEDS: IPRATROPIUM-ALBUTEROL 3 ML NEB INHALATION PRN (03:21)
[2018-01-16 07:20] LABS: Glucose,Whole Blood 247 mg/dL (75-99)
[2018-01-16] MEDS: BUDESONIDE 1 MG/2 ML NEBU INHALATION SCH ×2 (07:21→19:42)
[2018-01-16] MEDS: IPRATROPIUM-ALBUTEROL 3 ML NEB INHALATION SCH ×4 (07:21→19:44)
[2018-01-16] MEDS: methylPREDNISolone SOD SUCCI 40 MG/ML 1 ML VIAL IV SCH ×2 (08:07→22:24)
[2018-01-16] MEDS: INSULIN DETEMIR 100 UNIT/ML 10 ML VIAL SQ SCH (08:08)
[2018-01-16] MEDS: PANTOPRAZOLE 40 MG TABLET PO SCH (08:08)
[2018-01-16] MEDS: ENOXAPARIN 40 MG/0.4 ML SYRINGE SQ SCH (08:08)
[2018-01-16] MEDS: metFORMIN 500 MG TAB PO SCH (08:08)
[2018-01-16] MEDS: LISINOPRIL 20 MG TAB PO SCH (08:08)
[2018-01-16] MEDS: AZITHROMYCIN 500 MG TAB PO SCH (08:08)
[2018-01-16] MEDS: buPROPion XL 150 MG TAB.ER.24H PO SCH (08:08)
[2018-01-16] MEDS: FUROSEMIDE 20 MG TAB PO SCH (08:08)
[2018-01-16] MEDS: NICOTINE 14MG/24HR PATCH TRANSDERM SCH (08:09)
[2018-01-16] MEDS: INSULIN ASPART 100 UNIT/ML 1 ML 10 ML VIAL SQ SCH ×4 (08:09→22:25)
[2018-01-16] MEDS: cefTRIAXone IN SWFI 1,000 MG/10 ML SYRINGE IVP SCH (08:09)
[2018-01-16 08:28] LABS: Basophils % (A) 0 %; Eosinophils % (A) 0 %; HCT 37.8 % (39.0-53.0); Hypochromasia Slight; Lymphocytes # (A) 0.9 k/uL (1.0-4.8); Lymphocytes % (A) 11 %; MCH 29.5 pg (25.0-35.0); MCHC 31.8 g/dL (31.0-37.0); MCV 92.9 fL (80.0-100.0); Mean Platelet Volume 7.6; Monocytes # (A) 0.4 k/uL (0-1.0); Monocytes % (A) 6 %; Neutrophils # (A) 6.7 k/uL (1.3-7.7); Neutrophils % (A) 83 %; Platelet Count 212 k/uL (150-450); RBC 4.07 m/uL (4.30-5.90); RDW 14.2 % (11.5-15.5); WBC 8.1 k/uL (3.8-10.6)
[2018-01-16 08:50] LABS: ALT 35 U/L (21-72); AST 13 U/L (17-59); Albumin 3.4 g/dL (3.5-5.0); Alkaline Phosphatase 59 U/L (38-126); Anion Gap 6 mmol/L; Blood Urea Nitrogen 33 mg/dL (9-20); Carbon Dioxide 35 mmol/L (22-30); Chloride 98 mmol/L (98-107); Glucose 240 mg/dL (74-99); Potassium 4.5 mmol/L (3.5-5.1); Sodium 139 mmol/L (137-145); Total Bilirubin 0.3 mg/dL (0.2-1.3); Total Protein 5.7 g/dL (6.3-8.2)
[2018-01-16] MEDS: guaiFENesin 600 MG TABLET.ER PO SCH ×2 (10:03→22:24)
--- NOTE | 2018-01-16 10:38 | P.PN ---
<Myrna Grey E - Last Filed: 01/16/18 10:34> Subjective Progress Note Date: 01/16/18 History of present illness: This is a 52-year-old male patient who is well-known to our services, being seen examined and evaluated today on rounds. This patient came into the emergency room with increasing severity of his shortness of breath over the last few days. This patient is known to have chronic hypoxic respiratory failure and is on 4 L of supplemental oxygen via nasal cannula at home. He is known to have a history of chronic obstructive pulmonary disease as well as moderate to severe chronic persistent asthma. He currently is a smoker 2 packs per day for approximately 35 years. The patient states he's been trying to cut back and he is currently around 1 pack per day. 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 He has no known ALLERGIES that he is aware of. He does suffer from chronic severe psoriasis. Patient has been prescribed MDIs and inhalers in the past however he has not been compliant with those. On occasion he will use his nebulizer but does not use it regularly. At home he states he was having fever chills and sweats. He has been noticing some increased swelling in his bilateral lower extremities. Upon arrival the patient was 84% on 5 L of supplemental oxygen. The patient was transitioned to BiPAP and did relatively well with that. He did have a chest x-ray which did reveal cardiomegaly, pulmonary vascular congestion and mild CHF, possible early pneumonia cannot be excluded. Upon examination he is resting up in bed on 5 L of supplemental oxygen via nasal cannula. States the BiPAP helped him overnight. He does have a cough that is productive with clear white sputum. States he feels very wheezy and tight. All labs and reports reviewed. Interval History: 01/14/18- patient being seen today on rounds. It is a CT of the chest which did reveal borderline size caliber to the main right and left pulmonary arteries at 2.5 cm each, this may reflect underlying pulmonary arterial hypertension, also prominent bands of atelectasis or scarring within the lungs, increasing dependent atelectasis at the right base. Upon examination patient's resting up in bed on 5 L of supplemental oxygen. He did use the BiPAP overnight. He states the BiPAP helped some significantly. He continues to have shortness of breath with exertion and activity. As well as a congested cough. 01/15/2018: Patient seen and examined. Patient states his breathing is slightly better today but he is still short of breath. He states he is still wheezing but he always wheezes. He has been unable to expectorate any sputum. He continues to be on 5 L nasal cannula. He did use the BiPAP overnight and states he has been using with naps. He does feel it helps a little bit. He denies fevers and chills. 01/16/18- patient is being seen examined and evaluated today on rounds. He is resting up in bed and continues to have shortness breath with exertion however it is improving. He continues to wheeze. He has brought up a tiny bit of sputum, will try to obtain sputum sample. He was started on Mucinex. He continues on 5 L of supplemental oxygen via nasal cannula. Been using the BiPAP overnight and with naps. Afebrile no further complaints Objective - Vital Signs Vital signs: Vital Signs Temp 98.4 F 01/16/18 07:40 Pulse 74 01/16/18 07:40 Resp 20 01/16/18 07:40 BP 119/71 01/16/18 07:40 Pulse Ox 95 01/16/18 07:40 Intake & Output 01/15/18 01/16/18 01/16/18 18:59 06:59 18:59 Intake Total 540 Balance 540 Intake: Oral 540 Other: Voiding Method Urinal # Voids 3 1 - Exam GENERAL EXAM: Alert, tired, comfortable in no apparent distress. HEAD: Normocephalic. EYES: Normal reaction of pupils, equal size. NOSE: Clear with pink turbinates. THROAT: No erythema or exudates. NECK: No masses, no JVD. CHEST: No chest wall deformity. LUNGS: Lungs noted to be tight and course with inspiratory and expiratory wheezing throughout, some basilar crackles. CVS: S1 and S2 normal with no audible mumurs, regular rhythm. ABDOMEN: No hepatosplenomegaly, normal bowel sounds, no guarding or rigidity. EXTREMITIES: +2 edema noted, pedal pulses palpable. SKIN: Psoriasis lesions on all 4 extremities, severe CENTRAL NERVOUS SYSTEM: No focal deficits, tone is normal in all 4 extremities. - Labs CBC & Chem 7: 01/16/18 07:30 01/16/18 07:30 Labs: Abnormal Lab Results - Last 24 Hours (Table) 01/13/18 01/15/18 01/15/18 Range/Units 09:25 11:25 11:56 RBC (4.30-5.90) m/uL Hgb (13.0-17.5) gm/dL Hct (39.0-53.0) % Lymphocytes # (1.0-4.8) k/uL ABG pCO2 56 H (35-45) mmHg ABG pO2 70 L (83-108) mmHg ABG HCO3 35 H (21-25) mmol/L ABG Total CO2 37 H (19-24) mmol/L Carbon Dioxide (22-30) mmol/L BUN (9-20) mg/dL Glucose (74-99) mg/dL POC Glucose (mg/dL) 290 H (75-99) mg/dL AST (17-59) U/L Total Protein (6.3-8.2) g/dL Albumin (3.5-5.0) g/dL A.fumigatus Allerg IgE 0.41 H (<0.35) kU/L D. farinae Allrgen IgE 1.32 H (<0.35) kU/L D. pteronyssinus IgE 1.21 H (<0.35) kU/L [place] Thistle IgE Ab 0.37 H (<0.35) kU/L Dog Dander Allerg IgG 0.59 H (<0.35) kU/L Cockroach Allergen IgE 0.52 H (<0.35) kU/L IgE 1,220.0 H (<114.0) IU/mL 01/15/18 01/15/18 01/16/18 Range/Units 16:44 20:08 07:12 RBC (4.30-5.90) m/uL Hgb (13.0-17.5) gm/dL Hct (39.0-53.0) % Lymphocytes # (1.0-4.8) k/uL ABG pCO2 (35-45) mmHg ABG pO2 (83-108) mmHg ABG HCO3 (21-25) mmol/L ABG Total CO2 (19-24) mmol/L Carbon Dioxide (22-30) mmol/L BUN (9-20) mg/dL Glucose (74-99) mg/dL POC Glucose (mg/dL) 358 H 344 H 247 H (75-99) mg/dL AST (17-59) U/L Total Protein (6.3-8.2) g/dL Albumin (3.5-5.0) g/dL A.fumigatus Allerg IgE (<0.35) kU/L D. farinae Allrgen IgE (<0.35) kU/L D. pteronyssinus IgE (<0.35) kU/L [place] Thistle IgE Ab (<0.35) kU/L Dog Dander Allerg IgG (<0.35) kU/L Cockroach Allergen IgE (<0.35) kU/L IgE (<114.0) IU/mL 01/16/18 01/16/18 Range/Units 07:30 07:30 RBC 4.07 L (4.30-5.90) m/uL Hgb 12.0 L (13.0-17.5) gm/dL Hct 37.8 L (39.0-53.0) % Lymphocytes # 0.9 L (1.0-4.8) k/uL ABG pCO2 (35-45) mmHg ABG pO2 (83-108) mmHg ABG HCO3 (21-25) mmol/L ABG Total CO2 (19-24) mmol/L Carbon Dioxide 35 H (22-30) mmol/L BUN 33 H (9-20) mg/dL Glucose 240 H (74-99) mg/dL POC Glucose (mg/dL) (75-99) mg/dL AST 13 L (17-59) U/L Total Protein 5.7 L (6.3-8.2) g/dL Albumin 3.4 L (3.5-5.0) g/dL A.fumigatus Allerg IgE (<0.35) kU/L D. farinae Allrgen IgE (<0.35) kU/L D. pteronyssinus IgE (<0.35) kU/L [place] Thistle IgE Ab (<0.35) kU/L Dog Dander Allerg IgG (<0.35) kU/L Cockroach Allergen IgE (<0.35) kU/L IgE (<114.0) IU/mL Assessment and Plan Assessment: Assessment Acute on chronic hypoxic respiratory failure requiring supplemental oxygen Acute hypercapnic respiratory failure Suspect early pneumonia Acute exacerbation of COPD Acute exacerbation of moderate to severe chronic persistent asthma with component of ALLERGIC asthma Suspect SANDER Severe psoriasis Nicotine dependence Hyperglycemia Eosinophilia Plan Medications have been reviewed and will be continued as ordered. Continue with antibiotics Rocephin and azithromycin Patient supposed to be on Xolair biologic however has not had it since September he was having trouble with transportation Will need to continue biologic agent once discharged Solu-Medrol taper Diamox 250 mg every 12 hours 2 doses, completed Echocardiogram reviewed CT of the chest with contrast reviewed Smoking cessation Blood sugar control Labs: Legionella, mycoplasma, sputum culture, alpha-1 antitrypsin levels, IgE, [place] ALLERGY panel reviewed Continue with pulmonary hygiene, coughing and deep breathing exercises, and supportive care. Supplemental oxygen to maintain oxygen saturations of 92% or better. Continue nebulizer treatments, DuoNeb and budesonide. Compliance issues discussed with the patient at length Patient would benefit from an outpatient sleep study GI and DVT prophylaxis. We will continue to monitor labs/results and adjust treatment as necessary. Further recommendations pending. Consult PT and OT, increase activity as tolerated ABG obtained to qualify the patient for home BiPAP Incentive spirometer and flutter valve Obtain sputum culture I performed an examination of the patient and discussed their management with the nurse practitioner. I have reviewed the nurse practitioner's note and agree with the documented findings and plan of care. <Adriana Tan - Last Filed: 01/16/18 15:02> Objective - Vital Signs Vital signs: Vital Signs Temp 98.4 F 01/16/18 07:40 Pulse 90 01/16/18 11:27 Resp 20 01/16/18 07:40 BP 119/71 01/16/18 07:40 Pulse Ox 95 01/16/18 07:40 Intake & Output 01/15/18 01/16/18 01/16/18 18:59 06:59 18:59 Intake Total 540 Balance 540 Intake: Oral 540 Other: Voiding Method Urinal # Voids 3 1 - Labs CBC & Chem 7: 01/16/18 07:30 01/16/18 07:30 Labs: Abnormal Lab Results - Last 24 Hours (Table) 01/15/18 01/15/18 01/16/18 Range/Units 16:44 20:08 07:12 RBC (4.30-5.90) m/uL Hgb (13.0-17.5) gm/dL Hct (39.0-53.0) % Lymphocytes # (1.0-4.8) k/uL Carbon Dioxide (22-30) mmol/L BUN (9-20) mg/dL Glucose (74-99) mg/dL POC Glucose (mg/dL) 358 H 344 H 247 H (75-99) mg/dL AST (17-59) U/L Total Protein (6.3-8.2) g/dL Albumin (3.5-5.0) g/dL 01/16/18 01/16/18 01/16/18 Range/Units 07:30 07:30 11:47 RBC 4.07 L (4.30-5.90) m/uL Hgb 12.0 L (13.0-17.5) gm/dL Hct 37.8 L (39.0-53.0) % Lymphocytes # 0.9 L (1.0-4.8) k/uL Carbon Dioxide 35 H (22-30) mmol/L BUN 33 H (9-20) mg/dL Glucose 240 H (74-99) mg/dL POC Glucose (mg/dL) 201 H (75-99) mg/dL AST 13 L (17-59) U/L Total Protein 5.7 L (6.3-8.2) g/dL Albumin 3.4 L (3.5-5.0) g/dL Assessment and Plan Assessment: Patient seen and examined. Patient's breathing is slowly improving. He is agreeable to restart on biologic. Continue steroid taper. Prescription for auto BiPAP was placed in the patient's chart. We will consult case management to facilitate getting a BiPAP for home. PT and OT. Smoking cessation is discussed at length. ~Adriana Tan DO
--- NOTE | 2018-01-16 10:49 | P.PN ---
Subjective Progress Note Date: 01/16/18 This is a 52-year-old male, patient of Dr. Alarcon. He has a known past medical history of COPD, chronic respiratory failure home O2 dependent usually on 4 L of oxygen, diabetes mellitus, hypertension, nicotine dependence and depression. Patient presents to the emergency room with complaints of worsening shortness of breath over the last couple weeks. He reports not feeling well and having a reductive cough with clearish sputum. His PCP had placed him on a prednisone taper outpatient. Patient had increased his oxygen to 4 L at home over the last couple weeks. And his oxygen tanks ran out at home. He became very short of breath and came into the emergency room for fever for further evaluation and treatment. In the ER he required to be placed on the BiPAP. He was started on IV Solu-Medrol bronchodilators and antibiotic azithromycin. Pulmonary service was consulted. Chest x-ray showing mild cardiomegaly and concerns for possible mild CHF. Patient did receive a dose of IV Lasix in the ER. However BNP was only 34. Patient denies any chest pain. Denies any fever or chills or sweats. Denies any nausea or vomiting. Denies any bowel movement changes. He is complaining of urinary frequency. Urinalysis has been ordered. 01/14/2018 patient is currently on the BiPAP while he is sleeping. He did use BiPAP overnight. And then he requires about 5 L of oxygen satting at 96%. He is followed closely by pulmonary service. Still having some shortness of breath especially with activity. Does report some chest tightness with the shortness of breath. Denies any actual chest pain. Denies any nausea or vomiting. Reports last bowel movement 2 days ago. Denies any burning with urination. CT scan of the chest revealed a borderline size caliber to the main right and left pulmonary arteries at 2.5 cm each, this may reflect underlying pulmonary arterial hypertension, also prominent bands of atelectasis or scarring within the lungs, increasing dependent atelectasis at the right base. Pulmonary service has reviewed. IgE level elevated at 1764 On 01/15/2018 patient is currently resting comfortably in bed on 5 L nasal cannula. Does state there is still some shortness of breath but has improved since admission. Patient remains on Zithromax and Rocephin for pulmonary services. Patient currently on Solu-Medrol IV 40 mg and DuoNeb treatments. Denies chest pain or shortness of breath at this time. Per nursing staff patient's family went to PCP Dr. Alarcon and picked up monthly psoriasis injection Stelar and brought to hosptial for patient to receive. Medication to be sent to pharmacy and administered per nursing staff. 01/16/2018 patient still requiring 5 L nasal cannula. He is using BiPAP at night and while sleeping. IV site Medrol decreased to 40 mg every 8 yesterday. Levemir increased to 60 units today due to hyperglycemia from the steroids. Continue to monitor blood sugars. Patient reports no bowel movement 3 days. He reports that this is not unusual for him. He is refusing any stool softeners or laxatives at this time. He is passing gas denies any abdominal pain. Denies any nausea or vomiting. Denies any chest pain. Does have shortness of breath with activity. Objective - Vital Signs Vital signs: Vital Signs Temp 98.4 F 01/16/18 07:40 Pulse 74 01/16/18 07:40 Resp 20 01/16/18 07:40 BP 119/71 01/16/18 07:40 Pulse Ox 95 01/16/18 07:40 Intake & Output 01/15/18 01/16/18 01/16/18 18:59 06:59 18:59 Intake Total 540 Balance 540 Intake: Oral 540 Other: Voiding Method Urinal # Voids 3 1 - Exam Head normocephalic Neck supple Lungs improvement in air movement. No wheezing Heart regular rate and rhythm S1-S2, no rub or gallop Abdomen is soft nontender nondistended positive bowel sounds no hepatosplenomegaly Extremities no edema Neuro alert and orientated to 3 - Labs CBC & Chem 7: 01/16/18 07:30 01/16/18 07:30 Labs: Abnormal Lab Results - Last 24 Hours (Table) 01/13/18 01/15/18 01/15/18 Range/Units 09:25 11:25 11:56 RBC (4.30-5.90) m/uL Hgb (13.0-17.5) gm/dL Hct (39.0-53.0) % Lymphocytes # (1.0-4.8) k/uL ABG pCO2 56 H (35-45) mmHg ABG pO2 70 L (83-108) mmHg ABG HCO3 35 H (21-25) mmol/L ABG Total CO2 37 H (19-24) mmol/L Carbon Dioxide (22-30) mmol/L BUN (9-20) mg/dL Glucose (74-99) mg/dL POC Glucose (mg/dL) 290 H (75-99) mg/dL AST (17-59) U/L Total Protein (6.3-8.2) g/dL Albumin (3.5-5.0) g/dL A.fumigatus Allerg IgE 0.41 H (<0.35) kU/L D. farinae Allrgen IgE 1.32 H (<0.35) kU/L D. pteronyssinus IgE 1.21 H (<0.35) kU/L [place] Thistle IgE Ab 0.37 H (<0.35) kU/L Dog Dander Allerg IgG 0.59 H (<0.35) kU/L Cockroach Allergen IgE 0.52 H (<0.35) kU/L IgE 1,220.0 H (<114.0) IU/mL 01/15/18 01/15/18 01/16/18 Range/Units 16:44 20:08 07:12 RBC (4.30-5.90) m/uL Hgb (13.0-17.5) gm/dL Hct (39.0-53.0) % Lymphocytes # (1.0-4.8) k/uL ABG pCO2 (35-45) mmHg ABG pO2 (83-108) mmHg ABG HCO3 (21-25) mmol/L ABG Total CO2 (19-24) mmol/L Carbon Dioxide (22-30) mmol/L BUN (9-20) mg/dL Glucose (74-99) mg/dL POC Glucose (mg/dL) 358 H 344 H 247 H (75-99) mg/dL AST (17-59) U/L Total Protein (6.3-8.2) g/dL Albumin (3.5-5.0) g/dL A.fumigatus Allerg IgE (<0.35) kU/L D. farinae Allrgen IgE (<0.35) kU/L D. pteronyssinus IgE (<0.35) kU/L [place] Thistle IgE Ab (<0.35) kU/L Dog Dander Allerg IgG (<0.35) kU/L Cockroach Allergen IgE (<0.35) kU/L IgE (<114.0) IU/mL 01/16/18 01/16/18 Range/Units 07:30 07:30 RBC 4.07 L (4.30-5.90) m/uL Hgb 12.0 L (13.0-17.5) gm/dL Hct 37.8 L (39.0-53.0) % Lymphocytes # 0.9 L (1.0-4.8) k/uL ABG pCO2 (35-45) mmHg ABG pO2 (83-108) mmHg ABG HCO3 (21-25) mmol/L ABG Total CO2 (19-24) mmol/L Carbon Dioxide 35 H (22-30) mmol/L BUN 33 H (9-20) mg/dL Glucose 240 H (74-99) mg/dL POC Glucose (mg/dL) (75-99) mg/dL AST 13 L (17-59) U/L Total Protein 5.7 L (6.3-8.2) g/dL Albumin 3.4 L (3.5-5.0) g/dL A.fumigatus Allerg IgE (<0.35) kU/L D. farinae Allrgen IgE (<0.35) kU/L D. pteronyssinus IgE (<0.35) kU/L [place] Thistle IgE Ab (<0.35) kU/L Dog Dander Allerg IgG (<0.35) kU/L Cockroach Allergen IgE (<0.35) kU/L IgE (<114.0) IU/mL Assessment and Plan Assessment: 1. Acute on chronic hypoxic respiratory failure: Patient currently on 5 L oxygen satting at 92%. Did require BiPAP through the evening. Pulmonary service following. Likely related to patient's COPD and suspected early pneumonia. Computed tomography scan of the chest results noted. Pulmonary service following. Pulmonary service tapering down the IV steroids 2. Acute hypercapnic respiratory failure: Pulmonary has placed patient on Diamox. CO2 level of 44 down to 38 3. Acute COPD exacerbation continue IV Solu-Medrol and bronchodilators. Pulmonary service has added Pulmicort 4. Suspected early pneumonia: Patient on azithromycin and pulmonary has added Rocephin 5. Severe psoriasis: Patient received the Stelara injection that was brought in by family 6. Nicotine dependence discussed smoking cessation for greater than 3 minutes. Add nicotine patch 7. Diabetes mellitus type 2 with hyperglycemia secondary to steroids. Continue sliding scale coverage. A1c 8.8. Resume home meds for this includes metformin and Levemir increased to 60 units units at bedtime to help with the hyperglycemia from steroids 8. Essential hypertension: Continue lisinopril 9. Sinus tachycardia likely related to patient's respiratory status. EKG had shown sinus tach with a heart rate of 115. Heart rate has improved. Discontinue telemetry 10. Acute on chronic systolic congestive heart failure exacerbation: EF of 55- 60%. Patient did require 1 dose of IV Lasix in the ER. He is currently on his home dose of Lasix 20 mg daily GI prophylaxis Protonix and DVT prophylaxis Lovenox I performed an examination of the patient and discussed their management with the physician Senior Medical Technologist. I have reviewed the Physician Senior Medical Technologist's notes and agree with the documented findings and plan of care
[2018-01-16 12:00] LABS: Glucose,Whole Blood 201 mg/dL (75-99)
[2018-01-16 17:43] LABS: Glucose,Whole Blood 182 mg/dL (75-99)
[2018-01-16 20:13] LABS: Glucose,Whole Blood 211 mg/dL (75-99)
[2018-01-16] MEDS: ATORVASTATIN 40 MG TAB PO SCH (22:24)
[2018-01-16] MEDS: MONTELUKAST 10 MG TAB PO SCH (22:24)
[2018-01-17] MEDS: IPRATROPIUM-ALBUTEROL 3 ML NEB INHALATION PRN (04:44)
[2018-01-17 07:18] LABS: Glucose,Whole Blood 190 mg/dL (75-99)
[2018-01-17] MEDS: methylPREDNISolone SOD SUCCI 40 MG/ML 1 ML VIAL IV SCH (08:13)
[2018-01-17 08:14] LABS: ALT 35 U/L (21-72); AST 14 U/L (17-59); Albumin 3.3 g/dL (3.5-5.0); Alkaline Phosphatase 56 U/L (38-126); Anion Gap 5 mmol/L; Blood Urea Nitrogen 28 mg/dL (9-20); Calcium 8.7 mg/dL (8.4-10.2); Carbon Dioxide 37 mmol/L (22-30); Chloride 95 mmol/L (98-107); Glucose 193 mg/dL (74-99); Potassium 4.5 mmol/L (3.5-5.1); Sodium 137 mmol/L (137-145); Total Bilirubin 0.3 mg/dL (0.2-1.3); Total Protein 5.6 g/dL (6.3-8.2)
[2018-01-17] MEDS: INSULIN ASPART 100 UNIT/ML 1 ML 10 ML VIAL SQ SCH ×4 (08:14→20:27)
[2018-01-17] MEDS: ENOXAPARIN 40 MG/0.4 ML SYRINGE SQ SCH (08:14)
[2018-01-17] MEDS: INSULIN DETEMIR 100 UNIT/ML 10 ML VIAL SQ SCH (08:14)
[2018-01-17] MEDS: cefTRIAXone IN SWFI 1,000 MG/10 ML SYRINGE IVP SCH (08:14)
[2018-01-17] MEDS: LISINOPRIL 20 MG TAB PO SCH (08:15)
[2018-01-17] MEDS: PANTOPRAZOLE 40 MG TABLET PO SCH (08:15)
[2018-01-17] MEDS: AZITHROMYCIN 500 MG TAB PO SCH (08:15)
[2018-01-17] MEDS: buPROPion XL 150 MG TAB.ER.24H PO SCH (08:15)
[2018-01-17] MEDS: metFORMIN 500 MG TAB PO SCH (08:15)
[2018-01-17] MEDS: FUROSEMIDE 20 MG TAB PO SCH (08:15)
[2018-01-17] MEDS: guaiFENesin 600 MG TABLET.ER PO SCH ×2 (08:15→20:27)
[2018-01-17] MEDS: NICOTINE 14MG/24HR PATCH TRANSDERM SCH (08:16)
[2018-01-17 08:24] LABS: Basophils % (A) 0 %; Eosinophils % (A) 0 %; HCT 38.9 % (39.0-53.0); HGB 12.2 gm/dL (13.0-17.5); Lymphocytes % (A) 13 %; MCH 28.8 pg (25.0-35.0); MCHC 31.3 g/dL (31.0-37.0); MCV 92.2 fL (80.0-100.0); Mean Platelet Volume 7.9; Monocytes # (A) 0.4 k/uL (0-1.0); Monocytes % (A) 6 %; Neutrophils # (A) 6.3 k/uL (1.3-7.7); Neutrophils % (A) 81 %; Platelet Count 210 k/uL (150-450); RBC 4.22 m/uL (4.30-5.90); RDW 14.2 % (11.5-15.5); WBC 7.8 k/uL (3.8-10.6)
[2018-01-17] MEDS: BUDESONIDE 1 MG/2 ML NEBU INHALATION SCH ×2 (08:27→20:28)
[2018-01-17] MEDS: IPRATROPIUM-ALBUTEROL 3 ML NEB INHALATION SCH ×4 (08:27→20:28)
[2018-01-17] MEDS ORDERED: predniSONE 20 MG TAB PO SCH (09:30)
--- NOTE | 2018-01-17 10:07 | P.PN ---
<Myrna Grey E - Last Filed: 01/17/18 10:04> Subjective Progress Note Date: 01/17/18 History of present illness: This is a 52-year-old male patient who is well-known to our services, being seen examined and evaluated today on rounds. This patient came into the emergency room with increasing severity of his shortness of breath over the last few days. This patient is known to have chronic hypoxic respiratory failure and is on 4 L of supplemental oxygen via nasal cannula at home. He is known to have a history of chronic obstructive pulmonary disease as well as moderate to severe chronic persistent asthma. He currently is a smoker 2 packs per day for approximately 35 years. The patient states he's been trying to cut back and he is currently around 1 pack per day. 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 He has no known ALLERGIES that he is aware of. He does suffer from chronic severe psoriasis. Patient has been prescribed MDIs and inhalers in the past however he has not been compliant with those. On occasion he will use his nebulizer but does not use it regularly. At home he states he was having fever chills and sweats. He has been noticing some increased swelling in his bilateral lower extremities. Upon arrival the patient was 84% on 5 L of supplemental oxygen. The patient was transitioned to BiPAP and did relatively well with that. He did have a chest x-ray which did reveal cardiomegaly, pulmonary vascular congestion and mild CHF, possible early pneumonia cannot be excluded. Upon examination he is resting up in bed on 5 L of supplemental oxygen via nasal cannula. States the BiPAP helped him overnight. He does have a cough that is productive with clear white sputum. States he feels very wheezy and tight. All labs and reports reviewed. Interval History: 01/14/18- patient being seen today on rounds. It is a CT of the chest which did reveal borderline size caliber to the main right and left pulmonary arteries at 2.5 cm each, this may reflect underlying pulmonary arterial hypertension, also prominent bands of atelectasis or scarring within the lungs, increasing dependent atelectasis at the right base. Upon examination patient's resting up in bed on 5 L of supplemental oxygen. He did use the BiPAP overnight. He states the BiPAP helped some significantly. He continues to have shortness of breath with exertion and activity. As well as a congested cough. 01/15/2018: Patient seen and examined. Patient states his breathing is slightly better today but he is still short of breath. He states he is still wheezing but he always wheezes. He has been unable to expectorate any sputum. He continues to be on 5 L nasal cannula. He did use the BiPAP overnight and states he has been using with naps. He does feel it helps a little bit. He denies fevers and chills. 01/16/18- patient is being seen examined and evaluated today on rounds. He is resting up in bed and continues to have shortness breath with exertion however it is improving. He continues to wheeze. He has brought up a tiny bit of sputum, will try to obtain sputum sample. He was started on Mucinex. He continues on 5 L of supplemental oxygen via nasal cannula. Been using the BiPAP overnight and with naps. Afebrile no further complaints 01/17/18- patient is being seen examined and evaluated today on rounds. He is resting up in bed on 5 L of supplemental oxygen. He did utilize the BiPAP overnight. He states he feels more congested today. The patient was started on Mucinex yesterday and the increased congestion. Repeat chest x-ray will be obtained today. He does continue on antibiotics. Steroids have been switched over to oral. He is afebrile all labs and reports have been reviewed. Objective - Vital Signs Vital signs: Vital Signs Temp 97.7 F 01/17/18 05:37 Pulse 80 01/17/18 08:40 Resp 18 01/17/18 05:37 BP 122/70 01/17/18 05:37 Pulse Ox 92 L 01/17/18 05:37 Intake & Output 01/16/18 01/17/18 01/17/18 18:59 06:59 18:59 Intake Total 350 Balance 350 Intake: Oral 350 Other: Voiding Method Urinal Urinal # Voids 3 1 - Exam GENERAL EXAM: Alert, tired, comfortable in no apparent distress. HEAD: Normocephalic. EYES: Normal reaction of pupils, equal size. NOSE: Clear with pink turbinates. THROAT: No erythema or exudates. NECK: No masses, no JVD. CHEST: No chest wall deformity. LUNGS: Lungs noted to be tight with inspiratory and expiratory wheezing throughout, however significantly improved CVS: S1 and S2 normal with no audible mumurs, regular rhythm. ABDOMEN: No hepatosplenomegaly, normal bowel sounds, no guarding or rigidity. EXTREMITIES: +2 edema noted, pedal pulses palpable. SKIN: Psoriasis lesions on all 4 extremities, severe CENTRAL NERVOUS SYSTEM: No focal deficits, tone is normal in all 4 extremities. - Labs CBC & Chem 7: 01/17/18 07:27 01/17/18 07:27 Labs: Abnormal Lab Results - Last 24 Hours (Table) 01/16/18 01/16/18 01/16/18 Range/Units 11:47 17:37 20:12 RBC (4.30-5.90) m/uL Hgb (13.0-17.5) gm/dL Hct (39.0-53.0) % Chloride (98-107) mmol/L Carbon Dioxide (22-30) mmol/L BUN (9-20) mg/dL Glucose (74-99) mg/dL POC Glucose (mg/dL) 201 H 182 H 211 H (75-99) mg/dL AST (17-59) U/L Total Protein (6.3-8.2) g/dL Albumin (3.5-5.0) g/dL 01/17/18 01/17/18 01/17/18 Range/Units 07:17 07:27 07:27 RBC 4.22 L (4.30-5.90) m/uL Hgb 12.2 L (13.0-17.5) gm/dL Hct 38.9 L (39.0-53.0) % Chloride 95 L (98-107) mmol/L Carbon Dioxide 37 H (22-30) mmol/L BUN 28 H (9-20) mg/dL Glucose 193 H (74-99) mg/dL POC Glucose (mg/dL) 190 H (75-99) mg/dL AST 14 L (17-59) U/L Total Protein 5.6 L (6.3-8.2) g/dL Albumin 3.3 L (3.5-5.0) g/dL Assessment and Plan Assessment: Assessment Acute on chronic hypoxic respiratory failure requiring supplemental oxygen Acute hypercapnic respiratory failure Suspect early pneumonia Acute exacerbation of COPD Acute exacerbation of moderate to severe chronic persistent asthma with component of ALLERGIC asthma Suspect SANDER Severe psoriasis Nicotine dependence Hyperglycemia Eosinophilia Plan Medications have been reviewed and will be continued as ordered. Continue with antibiotics Rocephin and azithromycin Patient supposed to be on Xolair biologic however has not had it since September he was having trouble with transportation Will need to continue biologic agent once discharged Solu-Medrol switched to oral prednisone Chest x-ray will be obtained Echocardiogram reviewed Smoking cessation Blood sugar control Labs: Legionella, mycoplasma, sputum culture, alpha-1 antitrypsin levels, IgE, [place] ALLERGY panel reviewed Continue with pulmonary hygiene, coughing and deep breathing exercises, and supportive care. Supplemental oxygen to maintain oxygen saturations of 92% or better. Continue nebulizer treatments, DuoNeb and budesonide. Compliance issues discussed with the patient at length Patient would benefit from an outpatient sleep study GI and DVT prophylaxis. Consult PT and OT, increase activity as tolerated ABG obtained to qualify the patient for home BiPAP Incentive spirometer and flutter valve Obtain sputum culture Mucinex We will continue to monitor labs/results and adjust treatment as necessary. Further recommendations pending. I performed an examination of the patient and discussed their management with the nurse practitioner. I have reviewed the nurse practitioner's note and agree with the documented findings and plan of care. <Adriana Tan - Last Filed: 01/17/18 14:35> Objective - Vital Signs Vital signs: Vital Signs Temp 97.7 F 01/17/18 05:37 Pulse 72 01/17/18 11:48 Resp 18 01/17/18 05:37 BP 122/70 01/17/18 05:37 Pulse Ox 92 L 01/17/18 05:37 Intake & Output 01/16/18 01/17/18 01/17/18 18:59 06:59 18:59 Intake Total 350 Balance 350 Weight 136.078 kg Intake: Oral 350 Other: Voiding Method Urinal Urinal # Voids 3 1 - Labs CBC & Chem 7: 01/17/18 07:27 01/17/18 07:27 Labs: Abnormal Lab Results - Last 24 Hours (Table) 01/16/18 01/16/18 01/17/18 Range/Units 17:37 20:12 07:17 RBC (4.30-5.90) m/uL Hgb (13.0-17.5) gm/dL Hct (39.0-53.0) % Chloride (98-107) mmol/L Carbon Dioxide (22-30) mmol/L BUN (9-20) mg/dL Glucose (74-99) mg/dL POC Glucose (mg/dL) 182 H 211 H 190 H (75-99) mg/dL AST (17-59) U/L Total Protein (6.3-8.2) g/dL Albumin (3.5-5.0) g/dL 01/17/18 01/17/18 01/17/18 Range/Units 07:27 07:27 11:43 RBC 4.22 L (4.30-5.90) m/uL Hgb 12.2 L (13.0-17.5) gm/dL Hct 38.9 L (39.0-53.0) % Chloride 95 L (98-107) mmol/L Carbon Dioxide 37 H (22-30) mmol/L BUN 28 H (9-20) mg/dL Glucose 193 H (74-99) mg/dL POC Glucose (mg/dL) 153 H (75-99) mg/dL AST 14 L (17-59) U/L Total Protein 5.6 L (6.3-8.2) g/dL Albumin 3.3 L (3.5-5.0) g/dL Assessment and Plan Assessment: Patient seen and examined. Patient states he is now coughing up phlegm. It is explained that we started Mucinex to help break it up so he could expectorate it and that he is not getting more sick. He is tearful. He does continue to wheezing. He is using bipap nightly. Case management working on bipap for home. Patient will be restarted on Xolair as outpatient. Steroid taper to PO prednisone. PT and OT. Encourage ambulation, OOB at least TID. ~Adriana Tan DO
--- NOTE | 2018-01-17 10:31 | P.PN ---
Subjective Progress Note Date: 01/17/18 This is a 52-year-old male, patient of Dr. Alarcon. He has a known past medical history of COPD, chronic respiratory failure home O2 dependent usually on 4 L of oxygen, diabetes mellitus, hypertension, nicotine dependence and depression. Patient presents to the emergency room with complaints of worsening shortness of breath over the last couple weeks. He reports not feeling well and having a reductive cough with clearish sputum. His PCP had placed him on a prednisone taper outpatient. Patient had increased his oxygen to 4 L at home over the last couple weeks. And his oxygen tanks ran out at home. He became very short of breath and came into the emergency room for fever for further evaluation and treatment. In the ER he required to be placed on the BiPAP. He was started on IV Solu-Medrol bronchodilators and antibiotic azithromycin. Pulmonary service was consulted. Chest x-ray showing mild cardiomegaly and concerns for possible mild CHF. Patient did receive a dose of IV Lasix in the ER. However BNP was only 34. Patient denies any chest pain. Denies any fever or chills or sweats. Denies any nausea or vomiting. Denies any bowel movement changes. He is complaining of urinary frequency. Urinalysis has been ordered. 01/14/2018 patient is currently on the BiPAP while he is sleeping. He did use BiPAP overnight. And then he requires about 5 L of oxygen satting at 96%. He is followed closely by pulmonary service. Still having some shortness of breath especially with activity. Does report some chest tightness with the shortness of breath. Denies any actual chest pain. Denies any nausea or vomiting. Reports last bowel movement 2 days ago. Denies any burning with urination. CT scan of the chest revealed a borderline size caliber to the main right and left pulmonary arteries at 2.5 cm each, this may reflect underlying pulmonary arterial hypertension, also prominent bands of atelectasis or scarring within the lungs, increasing dependent atelectasis at the right base. Pulmonary service has reviewed. IgE level elevated at 1764 On 01/15/2018 patient is currently resting comfortably in bed on 5 L nasal cannula. Does state there is still some shortness of breath but has improved since admission. Patient remains on Zithromax and Rocephin for pulmonary services. Patient currently on Solu-Medrol IV 40 mg and DuoNeb treatments. Denies chest pain or shortness of breath at this time. Per nursing staff patient's family went to PCP Dr. Alarcon and picked up monthly psoriasis injection Stelar [facility]. Medication to be sent to pharmacy and administered per nursing staff. 01/16/2018 patient still requiring 5 L nasal cannula. He is using BiPAP at night and while sleeping. IV site Medrol decreased to 40 mg every 8 yesterday. Levemir increased to 60 units today due to hyperglycemia from the steroids. Continue to monitor blood sugars. Patient reports no bowel movement 3 days. He reports that this is not unusual for him. He is refusing any stool softeners or laxatives at this time. He is passing gas denies any abdominal pain. Denies any nausea or vomiting. Denies any chest pain. Does have shortness of breath with activity. 01/17/2015 patient still having shortness of breath with activity. He is remaining on 5 L nasal cannula. Patient reports feeling a little bit more congested and dry and his nose and sinus area. Mucinex was added yesterday. We 'll place him on him with his O2. He is having a cough but it's a dry cough. He was able to have a bowel movement this morning. Denies any chest pain denies any difficulty urinating. Discussed case with pulmonary nurse practitioner. She'll be placing patient on oral prednisone today and repeating chest x-ray Objective - Vital Signs Vital signs: Vital Signs Temp 97.7 F 01/17/18 05:37 Pulse 80 01/17/18 08:40 Resp 18 01/17/18 05:37 BP 122/70 01/17/18 05:37 Pulse Ox 92 L 01/17/18 05:37 Intake & Output 01/16/18 01/17/18 01/17/18 18:59 06:59 18:59 Intake Total 350 Balance 350 Intake: Oral 350 Other: Voiding Method Urinal Urinal # Voids 3 1 - Exam Head normocephalic Neck supple Lungs few scattered wheezing noted bilaterally. But improvement in overall air movement Heart regular rate and rhythm S1-S2, no rub or gallop Abdomen is soft nontender nondistended positive bowel sounds no hepatosplenomegaly Extremities no edema Neuro alert and orientated to 3 - Labs CBC & Chem 7: 01/17/18 07:27 07/13/18 07:27 Labs: Abnormal Lab Results - Last 24 Hours (Table) 01/16/18 01/16/18 01/16/18 Range/Units 11:47 17:37 20:12 RBC (4.30-5.90) m/uL Hgb (13.0-17.5) gm/dL Hct (39.0-53.0) % Chloride (98-107) mmol/L Carbon Dioxide (22-30) mmol/L BUN (9-20) mg/dL Glucose (74-99) mg/dL POC Glucose (mg/dL) 201 H 182 H 211 H (75-99) mg/dL AST (17-59) U/L Total Protein (6.3-8.2) g/dL Albumin (3.5-5.0) g/dL 01/17/18 01/17/18 01/17/18 Range/Units 07:17 07:27 07:27 RBC 4.22 L (4.30-5.90) m/uL Hgb 12.2 L (13.0-17.5) gm/dL Hct 38.9 L (39.0-53.0) % Chloride 95 L (98-107) mmol/L Carbon Dioxide 37 H (22-30) mmol/L BUN 28 H (9-20) mg/dL Glucose 193 H (74-99) mg/dL POC Glucose (mg/dL) 190 H (75-99) mg/dL AST 14 L (17-59) U/L Total Protein 5.6 L (6.3-8.2) g/dL Albumin 3.3 L (3.5-5.0) g/dL Assessment and Plan Assessment: 1. Acute on chronic hypoxic respiratory failure: Patient currently on 5 L oxygen satting at 92%. Did require BiPAP through the evening. Pulmonary service following. Likely related to patient's COPD and suspected early pneumonia. Computed tomography scan of the chest results noted. Pulmonary service following. Pulmonary service is placed patient on oral prednisone and ordered a repeat chest x-ray 2. Acute hypercapnic respiratory failure: Treated with Diamox. Patient off the Diamox. CO2 is 37 3. Acute COPD exacerbation : Continue bronchodilators. Oral prednisone started by pulmonary 4. Suspected early pneumonia: Patient on azithromycin and pulmonary has added Rocephin 5. Severe psoriasis: Patient received the Stelara injection that was brought in by family 6. Nicotine dependence discussed smoking cessation for greater than 3 minutes. Add nicotine patch 7. Diabetes mellitus type 2 with hyperglycemia secondary to steroids. Continue sliding scale coverage. A1c 8.8. Resume home meds for this includes metformin. Since patient has been placed on prednisone will decrease the Levemir from 60-50 units at bedtime 8. Essential hypertension: Continue lisinopril 9. Sinus tachycardia likely related to patient's respiratory status. EKG had shown sinus tach with a heart rate of 115. Heart rate has improved. Discontinue telemetry 10. Acute on chronic systolic congestive heart failure exacerbation: EF of 55- 60%. Patient did require 1 dose of IV Lasix in the ER. He is currently on his home dose of Lasix 20 mg daily GI prophylaxis Protonix and DVT prophylaxis Lovenox Encouraged patient to increase activity I performed an examination of the patient and discussed their management with the physician Area Loss Prevention Manager. I have reviewed the Physician Area Loss Prevention Manager's notes and agree with the documented findings and plan of care
[2018-01-17 11:44] LABS: Glucose,Whole Blood 153 mg/dL (75-99)
--- NOTE | 2018-01-17 13:45 | XR ---
EXAMINATION TYPE: XR chest 2V DATE OF EXAM: 01/17/2018 COMPARISON: 01/12/2018 HISTORY: Shortness of breath TECHNIQUE: Frontal and lateral views of the chest are obtained. FINDINGS: There is no focal air space opacity, pleural effusion, or pneumothorax seen. The cardiac silhouette size is again enlarged. The osseous structures are intact. Pulmonary hyperinflation and flattening of the diaphragms represents underlying COPD. IMPRESSION: No acute cardiopulmonary process. Cardiomegaly and findings representing underlying COPD .
[2018-01-17 17:14] LABS: Glucose,Whole Blood 211 mg/dL (75-99)
[2018-01-17] MEDS: ATORVASTATIN 40 MG TAB PO SCH (20:27)
[2018-01-17] MEDS: predniSONE 20 MG TAB PO SCH (20:27)
[2018-01-17] MEDS: MONTELUKAST 10 MG TAB PO SCH (20:27)
[2018-01-17 20:40] LABS: Glucose,Whole Blood 246 mg/dL (75-99)
[2018-01-18] MEDS: SODIUM CHLORIDE 0.9% 1,000 ML IV SCH (03:56)
[2018-01-18] MEDS: IPRATROPIUM-ALBUTEROL 3 ML NEB INHALATION SCH ×4 (07:22→21:14)
[2018-01-18] MEDS: BUDESONIDE 1 MG/2 ML NEBU INHALATION SCH ×2 (07:22→21:14)
[2018-01-18 07:44] LABS: Basophils % (A) 0 %; Eosinophils % (A) 0 %; HGB 12.4 gm/dL (13.0-17.5); Hypochromasia Slight; Lymphocytes % (A) 12 %; MCH 29.1 pg (25.0-35.0); MCHC 31.9 g/dL (31.0-37.0); MCV 91.3 fL (80.0-100.0); Mean Platelet Volume 7.9; Monocytes # (A) 0.5 k/uL (0-1.0); Monocytes % (A) 6 %; Neutrophils # (A) 6.9 k/uL (1.3-7.7); Neutrophils % (A) 81 %; Platelet Count 195 k/uL (150-450); RBC 4.27 m/uL (4.30-5.90); RDW 14.1 % (11.5-15.5); WBC 8.5 k/uL (3.8-10.6)
[2018-01-18 07:48] LABS: Glucose,Whole Blood 208 mg/dL (75-99)
[2018-01-18 07:56] LABS: ALT 37 U/L (21-72); AST 15 U/L (17-59); Albumin 3.2 g/dL (3.5-5.0); Alkaline Phosphatase 53 U/L (38-126); Anion Gap 5 mmol/L; Blood Urea Nitrogen 31 mg/dL (9-20); Calcium 8.7 mg/dL (8.4-10.2); Carbon Dioxide 36 mmol/L (22-30); Chloride 97 mmol/L (98-107); Glucose 204 mg/dL (74-99); Potassium 4.7 mmol/L (3.5-5.1); Sodium 138 mmol/L (137-145); Total Bilirubin 0.3 mg/dL (0.2-1.3); Total Protein 5.5 g/dL (6.3-8.2)
[2018-01-18] MEDS: NICOTINE 14MG/24HR PATCH TRANSDERM SCH (07:58)
[2018-01-18] MEDS: INSULIN ASPART 100 UNIT/ML 1 ML 10 ML VIAL SQ SCH ×4 (07:58→21:09)
[2018-01-18] MEDS: AZITHROMYCIN 500 MG TAB PO SCH (08:00)
[2018-01-18] MEDS: buPROPion XL 150 MG TAB.ER.24H PO SCH (08:00)
[2018-01-18] MEDS: PANTOPRAZOLE 40 MG TABLET PO SCH (08:00)
[2018-01-18] MEDS: ENOXAPARIN 40 MG/0.4 ML SYRINGE SQ SCH (08:01)
[2018-01-18] MEDS: cefTRIAXone IN SWFI 1,000 MG/10 ML SYRINGE IVP SCH (08:01)
[2018-01-18] MEDS: guaiFENesin 600 MG TABLET.ER PO SCH ×2 (08:01→21:10)
[2018-01-18] MEDS: FUROSEMIDE 20 MG TAB PO SCH (08:01)
[2018-01-18] MEDS: LISINOPRIL 20 MG TAB PO SCH (08:01)
[2018-01-18] MEDS: metFORMIN 500 MG TAB PO SCH (08:02)
[2018-01-18] MEDS: INSULIN DETEMIR 100 UNIT/ML 10 ML VIAL SQ SCH (10:13)
[2018-01-18 11:47] LABS: Glucose,Whole Blood 107 mg/dL (75-99)
--- NOTE | 2018-01-18 12:48 | P.PN ---
Subjective Progress Note Date: 01/18/18 This is a 52-year-old male, patient of Dr. Alarcon. He has a known past medical history of COPD, chronic respiratory failure home O2 dependent usually on 4 L of oxygen, diabetes mellitus, hypertension, nicotine dependence and depression. Patient presents to the emergency room with complaints of worsening shortness of breath over the last couple weeks. He reports not feeling well and having a reductive cough with clearish sputum. His PCP had placed him on a prednisone taper outpatient. Patient had increased his oxygen to 4 L at home over the last couple weeks. And his oxygen tanks ran out at home. He became very short of breath and came into the emergency room for fever for further evaluation and treatment. In the ER he required to be placed on the BiPAP. He was started on IV Solu-Medrol bronchodilators and antibiotic azithromycin. Pulmonary service was consulted. Chest x-ray showing mild cardiomegaly and concerns for possible mild CHF. Patient did receive a dose of IV Lasix in the ER. However BNP was only 34. Patient denies any chest pain. Denies any fever or chills or sweats. Denies any nausea or vomiting. Denies any bowel movement changes. He is complaining of urinary frequency. Urinalysis has been ordered. 01/14/2018 patient is currently on the BiPAP while he is sleeping. He did use BiPAP overnight. And then he requires about 5 L of oxygen satting at 96%. He is followed closely by pulmonary service. Still having some shortness of breath especially with activity. Does report some chest tightness with the shortness of breath. Denies any actual chest pain. Denies any nausea or vomiting. Reports last bowel movement 2 days ago. Denies any burning with urination. CT scan of the chest revealed a borderline size caliber to the main right and left pulmonary arteries at 2.5 cm each, this may reflect underlying pulmonary arterial hypertension, also prominent bands of atelectasis or scarring within the lungs, increasing dependent atelectasis at the right base. Pulmonary service has reviewed. IgE level elevated at 1764 On 01/15/2018 patient is currently resting comfortably in bed on 5 L nasal cannula. Does state there is still some shortness of breath but has improved since admission. Patient remains on Zithromax and Rocephin for pulmonary services. Patient currently on Solu-Medrol IV 40 mg and DuoNeb treatments. Denies chest pain or shortness of breath at this time. Per nursing staff patient's family went to PCP Dr. Alarcon and picked up monthly psoriasis injection Stelar [facility]. Medication to be sent to pharmacy and administered per nursing staff. 01/16/2018 patient still requiring 5 L nasal cannula. He is using BiPAP at night and while sleeping. IV site Medrol decreased to 40 mg every 8 yesterday. Levemir increased to 60 units today due to hyperglycemia from the steroids. Continue to monitor blood sugars. Patient reports no bowel movement 3 days. He reports that this is not unusual for him. He is refusing any stool softeners or laxatives at this time. He is passing gas denies any abdominal pain. Denies any nausea or vomiting. Denies any chest pain. Does have shortness of breath with activity. 01/17/2018 patient still having shortness of breath with activity. He is remaining on 5 L nasal cannula. Patient reports feeling a little bit more congested and dry and his nose and sinus area. Mucinex was added yesterday. We 'll place him on him with his O2. He is having a cough but it's a dry cough. He was able to have a bowel movement this morning. Denies any chest pain denies any difficulty urinating. Discussed case with pulmonary nurse practitioner. She'll be placing patient on oral prednisone today and repeating chest x-ray On 01/18/2018 patient is alert and oriented 3, he complained of an episode of chest tightness this morning, his shortness of breath has improved, he is still complaining of cough was minimal sputum production, there is no nausea or vomiting no abdominal pain no diarrhea and no urinary symptoms Objective - Vital Signs Vital signs: Vital Signs Temp 97.0 F L 01/18/18 05:00 Pulse 96 01/18/18 11:16 Resp 20 01/18/18 05:00 BP 132/60 01/18/18 05:00 Pulse Ox 96 01/18/18 05:00 Intake & Output 01/17/18 01/18/18 01/18/18 18:59 06:59 18:59 Intake Total 600 Balance 600 Weight 136.078 kg Intake: Oral 600 Other: Voiding Method Urinal Toilet Urinal # Voids 2 1 - Exam Head normocephalic and atraumatic Neck supple no JVD no goiter Lungs few scattered wheezing noted bilaterally. But improvement in overall air movement Heart regular rate and rhythm S1-S2, no rub or gallop Abdomen is soft nontender nondistended positive bowel sounds no hepatosplenomegaly Extremities no edema Neuro alert and orientated to 3 - Labs CBC & Chem 7: 18 07:17 18 07:17 Labs: Abnormal Lab Results - Last 24 Hours (Table) 01/17/18 01/17/18 01/18/18 Range/Units 17:13 20:19 07:17 RBC 4.27 L (4.30-5.90) m/uL Hgb 12.4 L (13.0-17.5) gm/dL Chloride (98-107) mmol/L Carbon Dioxide (22-30) mmol/L BUN (9-20) mg/dL Glucose (74-99) mg/dL POC Glucose (mg/dL) 211 H 246 H (75-99) mg/dL AST (17-59) U/L Total Protein (6.3-8.2) g/dL Albumin (3.5-5.0) g/dL 01/18/1818 01/18/18 Range/Units 07:17 07:44 11:41 RBC (4.30-5.90) m/uL Hgb (13.0-17.5) gm/dL Chloride 97 L (98-107) mmol/L Carbon Dioxide 36 H (22-30) mmol/L BUN 31 H (9-20) mg/dL Glucose 204 H (74-99) mg/dL POC Glucose (mg/dL) 208 H 107 H (75-99) mg/dL AST 15 L (17-59) U/L Total Protein 5.5 L (6.3-8.2) g/dL Albumin 3.2 L (3.5-5.0) g/dL Assessment and Plan Plan: 1. Acute on chronic hypoxic respiratory failure: Patient currently on 5 L oxygen satting at 92%. Did require BiPAP through the evening. Pulmonary service following. Likely related to patient's COPD and suspected early pneumonia. Computed tomography scan of the chest results noted. Pulmonary service following. Pulmonary service is placed patient on oral prednisone and ordered a repeat chest x-ray 2. Acute hypercapnic respiratory failure: Treated with Diamox. Patient off the Diamox. CO2 is 37 3. Acute COPD exacerbation : Continue bronchodilators. Oral prednisone started by pulmonary 4. Suspected early pneumonia: Patient on azithromycin and pulmonary has added Rocephin 5. Severe psoriasis: Patient received the Stelara injection that was brought in by family 6. Nicotine dependence discussed smoking cessation for greater than 3 minutes. Add nicotine patch 7. Diabetes mellitus type 2 with hyperglycemia secondary to steroids. Continue sliding scale coverage. A1c 8.8. Resume home meds for this includes metformin. Since patient has been placed on prednisone will decrease the Levemir from 60-50 units at bedtime 8. Essential hypertension: Continue lisinopril 9. Sinus tachycardia likely related to patient's respiratory status. EKG had shown sinus tach with a heart rate of 115. Heart rate has improved. Discontinue telemetry 10. Acute on chronic systolic congestive heart failure exacerbation: EF of 55- 60%. Patient did require 1 dose of IV Lasix in the ER. He is currently on his home dose of Lasix 20 mg daily. 11. Episode of chest tightness this morning, will place patient on telemetry monitoring, will check EKG and troponin level GI prophylaxis Protonix and DVT prophylaxis Lovenox Encouraged patient to increase activity
[2018-01-18 17:20] LABS: Glucose,Whole Blood 143 mg/dL (75-99)
--- NOTE | 2018-01-18 17:45 | P.PN ---
Subjective Progress Note Date: 01/18/18 Principal diagnosis: Acute on chronic hypoxic respiratory failure, acute on chronic hypercapnic respirator failure, severe COPD with acute exacerbation, chronic persistent severe asthma with component of ALLERGIC asthma, sleep disorder breathing and sleep apnea, severe and extensive psoriasis, history of smoking and nicotine use 01/18/2018, patient seen eval examined during the rounds clinically patient is doing slightly better he is undergoing breathing treatment he has been using BiPAP machine a CPAP machine is being arranged, patient cough congestion shortness breath has improved labs reviewed medications reviewed, last chest x- ray performed to 01/17/2018 no obvious infiltrates seen however underlying COPD emphysema was noted lungs were hyperinflated This patient came into the emergency room with increasing severity of his shortness of breath over the last few days. This patient is known to have chronic hypoxic respiratory failure and is on 4 L of supplemental oxygen via nasal cannula at home. He is known to have a history of chronic obstructive pulmonary disease as well as moderate to severe chronic persistent asthma. He currently is a smoker 2 packs per day for approximately 35 years. The patient states he's been trying to cut back and he is currently around 1 pack per day. 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 He has no known ALLERGIES that he is aware of. He does suffer from chronic severe psoriasis. Patient has been prescribed MDIs and inhalers in the past however he has not been compliant with those. On occasion he will use his nebulizer but does not use it regularly. At home he states he was having fever chills and sweats. He has been noticing some increased swelling in his bilateral lower extremities. Upon arrival the patient was 84% on 5 L of supplemental oxygen. The patient was transitioned to BiPAP and did relatively well with that. Initial admit chest x-ray which did reveal cardiomegaly, pulmonary vascular congestion and mild CHF, possible early pneumonia cannot be excluded. Objective - Vital Signs Vital signs: Vital Signs Temp 98.1 F 01/18/18 14:54 Pulse 90 01/18/18 17:18 Resp 18 01/18/18 14:54 BP 99/57 01/18/18 14:54 Pulse Ox 93 L 01/18/18 14:54 Intake & Output 07/13/18 07/14/18 07/14/18 18:59 06:59 18:59 Intake Total 600 600 Balance 600 600 Weight 136.078 kg Intake: Oral 600 600 Other: Voiding Method Urinal Toilet Urinal # Voids 2 1 2 - Exam GENERAL EXAM: Alert, tired, comfortable in no apparent distress. HEAD: Normocephalic. EYES: Normal reaction of pupils, equal size. NOSE: Clear with pink turbinates. THROAT: No erythema or exudates. NECK: No masses, no JVD. CHEST: No chest wall deformity. LUNGS: Lungs noted to be tight with inspiratory and expiratory wheezing throughout bilaterally with prolonged expiratory phase CVS: S1 and S2 normal with no audible mumurs, regular rhythm. ABDOMEN: No hepatosplenomegaly, normal bowel sounds, no guarding or rigidity. EXTREMITIES: +2 edema noted, pedal pulses palpable. SKIN: Psoriasis lesions on all 4 extremities, severe CENTRAL NERVOUS SYSTEM: No focal deficits, tone is normal in all 4 extremities - Labs CBC & Chem 7: 01/18/18 07:17 01/18/18 07:17 Labs: Abnormal Lab Results - Last 24 Hours (Table) 01/17/18 01/18/18 01/18/18 Range/Units 20:19 07:17 07:17 RBC 4.27 L (4.30-5.90) m/uL Hgb 12.4 L (13.0-17.5) gm/dL Chloride 97 L (98-107) mmol/L Carbon Dioxide 36 H (22-30) mmol/L BUN 31 H (9-20) mg/dL Glucose 204 H (74-99) mg/dL POC Glucose (mg/dL) 246 H (75-99) mg/dL AST 15 L (17-59) U/L Total Protein 5.5 L (6.3-8.2) g/dL Albumin 3.2 L (3.5-5.0) g/dL 01/18/18 01/18/18 01/18/18 Range/Units 07:44 11:41 17:19 RBC (4.30-5.90) m/uL Hgb (13.0-17.5) gm/dL Chloride (98-107) mmol/L Carbon Dioxide (22-30) mmol/L BUN (9-20) mg/dL Glucose (74-99) mg/dL POC Glucose (mg/dL) 208 H 107 H 143 H (75-99) mg/dL AST (17-59) U/L Total Protein (6.3-8.2) g/dL Albumin (3.5-5.0) g/dL Assessment and Plan Assessment: Acute on chronic hypoxic and hypercapnic respiratory failure requiring supplemental oxygen Acute exacerbation of COPD Acute exacerbation of severe chronic persistent asthma with component of ALLERGIC asthma Severe SANDER likely Severe psoriasis Nicotine dependence Hyperglycemia Plan: Continue broad-spectrum antibiotics however they can be switched to oral Continue IV steroids which also however can be switched to oral within next 24 hours Reviewed chest x-ray and echocardiogram Patient has been educated about smoking cessation Increase activity as tolerated Maintain patient on DVT and peptic ulcer disease prophylaxis Can be discharged home in next 24-48 hours if remains stable Time with Patient: Greater than 30
[2018-01-18 20:28] LABS: Glucose,Whole Blood 134 mg/dL (75-99)
[2018-01-18] MEDS: MONTELUKAST 10 MG TAB PO SCH (21:09)
[2018-01-18] MEDS: predniSONE 20 MG TAB PO SCH (21:09)
[2018-01-18] MEDS: ATORVASTATIN 40 MG TAB PO SCH (21:09)
[2018-01-19] MEDS: SODIUM CHLORIDE 0.9% 1,000 ML IV SCH (03:09)
[2018-01-19] MEDS: IPRATROPIUM-ALBUTEROL 3 ML NEB INHALATION PRN (03:41)
[2018-01-19 07:40] LABS: Glucose,Whole Blood 208 mg/dL (75-99)
[2018-01-19 07:44] LABS: Basophils % (A) 0 %; Eosinophils % (A) 0 %; HCT 39.9 % (39.0-53.0); HGB 12.4 gm/dL (13.0-17.5); Hypochromasia Slight; Lymphocytes # (A) 0.8 k/uL (1.0-4.8); Lymphocytes % (A) 9 %; MCH 28.6 pg (25.0-35.0); MCV 92.1 fL (80.0-100.0); Mean Platelet Volume 8.3; Monocytes # (A) 0.3 k/uL (0-1.0); Monocytes % (A) 3 %; Neutrophils # (A) 7.8 k/uL (1.3-7.7); Neutrophils % (A) 87 %; Platelet Count 221 k/uL (150-450); RBC 4.34 m/uL (4.30-5.90); RDW 14.1 % (11.5-15.5); WBC 8.9 k/uL (3.8-10.6)
[2018-01-19 07:58] LABS: ALT 47 U/L (21-72); AST 20 U/L (17-59); Albumin 3.2 g/dL (3.5-5.0); Alkaline Phosphatase 55 U/L (38-126); Anion Gap 4 mmol/L; Blood Urea Nitrogen 31 mg/dL (9-20); Calcium 8.7 mg/dL (8.4-10.2); Carbon Dioxide 37 mmol/L (22-30); Chloride 95 mmol/L (98-107); Glucose 214 mg/dL (74-99); Potassium 4.9 mmol/L (3.5-5.1); Sodium 136 mmol/L (137-145); Total Bilirubin 0.2 mg/dL (0.2-1.3); Total Protein 5.4 g/dL (6.3-8.2)
[2018-01-19] MEDS: guaiFENesin 600 MG TABLET.ER PO SCH ×2 (08:27→21:35)
[2018-01-19] MEDS: IPRATROPIUM-ALBUTEROL 3 ML NEB INHALATION SCH ×4 (08:27→20:36)
[2018-01-19] MEDS: buPROPion XL 150 MG TAB.ER.24H PO SCH (08:27)
[2018-01-19] MEDS: LISINOPRIL 20 MG TAB PO SCH (08:27)
[2018-01-19] MEDS: PANTOPRAZOLE 40 MG TABLET PO SCH (08:27)
[2018-01-19] MEDS: FUROSEMIDE 20 MG TAB PO SCH (08:27)
[2018-01-19] MEDS: AZITHROMYCIN 500 MG TAB PO SCH (08:27)
[2018-01-19] MEDS: metFORMIN 500 MG TAB PO SCH (08:27)
[2018-01-19] MEDS: cefTRIAXone IN SWFI 1,000 MG/10 ML SYRINGE IVP SCH (08:27)
[2018-01-19] MEDS: ENOXAPARIN 40 MG/0.4 ML SYRINGE SQ SCH (08:27)
[2018-01-19] MEDS: BUDESONIDE 1 MG/2 ML NEBU INHALATION SCH ×2 (08:27→20:36)
[2018-01-19] MEDS: INSULIN ASPART 100 UNIT/ML 1 ML 10 ML VIAL SQ SCH ×4 (08:28→21:35)
[2018-01-19] MEDS: NICOTINE 14MG/24HR PATCH TRANSDERM SCH (08:28)
[2018-01-19 10:59] LABS: Glucose,Whole Blood 97 mg/dL (75-99)
--- NOTE | 2018-01-19 11:21 | P.PN ---
Subjective Progress Note Date: 01/19/18 Principal diagnosis: Acute on chronic hypoxic respiratory failure, acute on chronic hypercapnic respirator failure, severe COPD with acute exacerbation, chronic persistent severe asthma with component of ALLERGIC asthma, sleep disorder breathing and sleep apnea, severe and extensive psoriasis, history of smoking and nicotine use 01/19/2018, patient seen eval examined during the rounds his shortness of breath cough congestion slightly better now, patient has been tolerating breathing treatments steroids and antibiotics fairly well, labs reviewed medications reviewed 01/18/2018, patient seen eval examined during the rounds clinically patient is doing slightly better he is undergoing breathing treatment he has been using BiPAP machine a CPAP machine is being arranged, patient cough congestion shortness breath has improved labs reviewed medications reviewed, last chest x- ray performed to 01/17/2018 no obvious infiltrates seen however underlying COPD emphysema was noted lungs were hyperinflated This patient came into the emergency room with increasing severity of his shortness of breath over the last few days. This patient is known to have chronic hypoxic respiratory failure and is on 4 L of supplemental oxygen via nasal cannula at home. He is known to have a history of chronic obstructive pulmonary disease as well as moderate to severe chronic persistent asthma. He currently is a smoker 2 packs per day for approximately 35 years. The patient states he's been trying to cut back and he is currently around 1 pack per day. 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 He has no known ALLERGIES that he is aware of. He does suffer from chronic severe psoriasis. Patient has been prescribed MDIs and inhalers in the past however he has not been compliant with those. On occasion he will use his nebulizer but does not use it regularly. At home he states he was having fever chills and sweats. He has been noticing some increased swelling in his bilateral lower extremities. Upon arrival the patient was 84% on 5 L of supplemental oxygen. The patient was transitioned to BiPAP and did relatively well with that. Initial admit chest x-ray which did reveal cardiomegaly, pulmonary vascular congestion and mild CHF, possible early pneumonia cannot be excluded. Objective - Vital Signs Vital signs: Vital Signs Temp 97.5 F L 01/19/18 07:45 Pulse 92 01/19/18 08:40 Resp 18 01/19/18 07:45 BP 120/64 01/19/18 07:45 Pulse Ox 95 01/19/18 07:45 Intake & Output 01/18/18 01/19/18 01/19/18 18:59 06:59 18:59 Intake Total 600 540 Balance 600 540 Intake: Oral 600 540 Other: Voiding Method Toilet Toilet Urinal Urinal # Voids 2 1 - Exam GENERAL EXAM: Alert, tired, comfortable in no apparent distress. HEAD: Normocephalic. EYES: Normal reaction of pupils, equal size. NOSE: Clear with pink turbinates. THROAT: No erythema or exudates. NECK: No masses, no JVD. CHEST: No chest wall deformity. LUNGS: Lungs noted to be tight with inspiratory and expiratory wheezing throughout bilaterally with prolonged expiratory phase CVS: S1 and S2 normal with no audible mumurs, regular rhythm. ABDOMEN: No hepatosplenomegaly, normal bowel sounds, no guarding or rigidity. EXTREMITIES: +2 edema noted, pedal pulses palpable. SKIN: Psoriasis lesions on all 4 extremities, severe CENTRAL NERVOUS SYSTEM: No focal deficits, tone is normal in all 4 extremities - Labs CBC & Chem 7: 01/19/18 07:10 01/19/18 07:10 Labs: Abnormal Lab Results - Last 24 Hours (Table) 01/18/18 01/18/18 01/18/18 Range/Units 11:41 17:19 20:27 Hgb (13.0-17.5) gm/dL Neutrophils # (1.3-7.7) k/uL Lymphocytes # (1.0-4.8) k/uL Sodium (137-145) mmol/L Chloride (98-107) mmol/L Carbon Dioxide (22-30) mmol/L BUN (9-20) mg/dL Glucose (74-99) mg/dL POC Glucose (mg/dL) 107 H 143 H 134 H (75-99) mg/dL Total Protein (6.3-8.2) g/dL Albumin (3.5-5.0) g/dL 01/19/18 01/19/18 01/19/18 Range/Units 07:10 07:10 07:27 Hgb 12.4 L (13.0-17.5) gm/dL Neutrophils # 7.8 H (1.3-7.7) k/uL Lymphocytes # 0.8 L (1.0-4.8) k/uL Sodium 136 L (137-145) mmol/L Chloride 95 L (98-107) mmol/L Carbon Dioxide 37 H (22-30) mmol/L BUN 31 H (9-20) mg/dL Glucose 214 H (74-99) mg/dL POC Glucose (mg/dL) 208 H (75-99) mg/dL Total Protein 5.4 L (6.3-8.2) g/dL Albumin 3.2 L (3.5-5.0) g/dL Assessment and Plan Assessment: Acute on chronic hypoxic and hypercapnic respiratory failure requiring supplemental oxygen Acute exacerbation of COPD Acute exacerbation of severe chronic persistent asthma with component of ALLERGIC asthma Severe SANDER likely Severe psoriasis Nicotine dependence Hyperglycemia Plan: Continue broad-spectrum antibiotics however they can be switched to oral Continue IV steroids which also however can be switched to oral within next 24 hours Reviewed chest x-ray and echocardiogram Patient has been educated about smoking cessation Increase activity as tolerated Maintain patient on DVT and peptic ulcer disease prophylaxis Can be discharged home in next 24-48 hours if remains stable Time with Patient: Greater than 30
[2018-01-19] MEDS: INSULIN DETEMIR 100 UNIT/ML 10 ML VIAL SQ SCH (11:35)
--- NOTE | 2018-01-19 14:19 | P.PN ---
Subjective Progress Note Date: 01/19/18 This is a 52-year-old male, patient of Dr. Alarcon. He has a known past medical history of COPD, chronic respiratory failure home O2 dependent usually on 4 L of oxygen, diabetes mellitus, hypertension, nicotine dependence and depression. Patient presents to the emergency room with complaints of worsening shortness of breath over the last couple weeks. He reports not feeling well and having a reductive cough with clearish sputum. His PCP had placed him on a prednisone taper outpatient. Patient had increased his oxygen to 4 L at home over the last couple weeks. And his oxygen tanks ran out at home. He became very short of breath and came into the emergency room for fever for further evaluation and treatment. In the ER he required to be placed on the BiPAP. He was started on IV Solu-Medrol bronchodilators and antibiotic azithromycin. Pulmonary service was consulted. Chest x-ray showing mild cardiomegaly and concerns for possible mild CHF. Patient did receive a dose of IV Lasix in the ER. However BNP was only 34. Patient denies any chest pain. Denies any fever or chills or sweats. Denies any nausea or vomiting. Denies any bowel movement changes. He is complaining of urinary frequency. Urinalysis has been ordered. 01/14/2018 patient is currently on the BiPAP while he is sleeping. He did use BiPAP overnight. And then he requires about 5 L of oxygen satting at 96%. He is followed closely by pulmonary service. Still having some shortness of breath especially with activity. Does report some chest tightness with the shortness of breath. Denies any actual chest pain. Denies any nausea or vomiting. Reports last bowel movement 2 days ago. Denies any burning with urination. CT scan of the chest revealed a borderline size caliber to the main right and left pulmonary arteries at 2.5 cm each, this may reflect underlying pulmonary arterial hypertension, also prominent bands of atelectasis or scarring within the lungs, increasing dependent atelectasis at the right base. Pulmonary service has reviewed. IgE level elevated at 1764 On 01/15/2018 patient is currently resting comfortably in bed on 5 L nasal cannula. Does state there is still some shortness of breath but has improved since admission. Patient remains on Zithromax and Rocephin for pulmonary services. Patient currently on Solu-Medrol IV 40 mg and DuoNeb treatments. Denies chest pain or shortness of breath at this time. Per nursing staff patient's family went to PCP Dr. Alarcon and picked up monthly psoriasis injection Stelar and [facility] to [facility]. Medication to be sent to pharmacy and administered per nursing staff. 01/16/2018 patient still requiring 5 L nasal cannula. He is using BiPAP at night and while sleeping. IV site Medrol decreased to 40 mg every 8 yesterday. Levemir increased to 60 units today due to hyperglycemia from the steroids. Continue to monitor blood sugars. Patient reports no bowel movement 3 days. He reports that this is not unusual for him. He is refusing any stool softeners or laxatives at this time. He is passing gas denies any abdominal pain. Denies any nausea or vomiting. Denies any chest pain. Does have shortness of breath with activity. 01/17/2018 patient still having shortness of breath with activity. He is remaining on 5 L nasal cannula. Patient reports feeling a little bit more congested and dry and his nose and sinus area. Mucinex was added yesterday. We 'll place him on him with his O2. He is having a cough but it's a dry cough. He was able to have a bowel movement this morning. Denies any chest pain denies any difficulty urinating. Discussed case with pulmonary nurse practitioner. She'll be placing patient on oral prednisone today and repeating chest x-ray On 01/18/2018 patient is alert and oriented 3, he complained of an episode of chest tightness this morning, his shortness of breath has improved, he is still complaining of cough was minimal sputum production, there is no nausea or vomiting no abdominal pain no diarrhea and no urinary symptoms On 2017 patient is alert and oriented 3 in no apparent distress, this morning he had a run of 15 beats of ventricular tachycardia he denies any complaints there is no chest pain or tightness today, yesterday he had an episode of chest tightness, troponin level was negative yesterday, he denies any complaints otherwise Objective - Vital Signs Vital signs: Vital Signs Temp 97.5 F L 01/19/18 07:45 Pulse 86 01/19/18 12:24 Resp 18 01/19/18 07:45 BP 120/64 01/19/18 07:45 Pulse Ox 86 L 01/19/18 12:24 Intake & Output 01/18/18 01/19/18 01/19/18 18:59 06:59 18:59 Intake Total 361 005 5799 Balance 139 909 6437 Intake: Intake, IV Titration 80 Amount Sodium Chloride 0.9% 1, 80 000 ml @ 20 mls/hr IV . Q24H [facility] Rx#:[id number] Oral 302 [id number] [id number] Other: Voiding Method Toilet Toilet Urinal Urinal # Voids 2 1 2 - Exam Head normocephalic and atraumatic Neck supple no JVD no goiter Lungs few scattered wheezing noted bilaterally. But improvement in overall air movement Heart regular rate and rhythm S1-S2, no rub or gallop Abdomen is soft nontender nondistended positive bowel sounds no hepatosplenomegaly Extremities no edema Neuro alert and orientated to 3 - Labs CBC & Chem 7: 01/19/18 07:10 01/19/18 07:10 Labs: Abnormal Lab Results - Last 24 Hours (Table) 01/18/18 01/18/18 01/19/18 Range/Units 17:19 20:27 07:10 Hgb 12.4 L (13.0-17.5) gm/dL Neutrophils # 7.8 H (1.3-7.7) k/uL Lymphocytes # 0.8 L (1.0-4.8) k/uL Sodium (137-145) mmol/L Chloride (98-107) mmol/L Carbon Dioxide (22-30) mmol/L BUN (9-20) mg/dL Glucose (74-99) mg/dL POC Glucose (mg/dL) 143 H 134 H (75-99) mg/dL Total Protein (6.3-8.2) g/dL Albumin (3.5-5.0) g/dL 01/19/18 01/19/18 Range/Units 07:10 07:27 Hgb (13.0-17.5) gm/dL Neutrophils # (1.3-7.7) k/uL Lymphocytes # (1.0-4.8) k/uL Sodium 136 L (137-145) mmol/L Chloride 95 L (98-107) mmol/L Carbon Dioxide 37 H (22-30) mmol/L BUN 31 H (9-20) mg/dL Glucose 214 H (74-99) mg/dL POC Glucose (mg/dL) 208 H (75-99) mg/dL Total Protein 5.4 L (6.3-8.2) g/dL Albumin 3.2 L (3.5-5.0) g/dL Assessment and Plan Plan: 1. Acute on chronic hypoxic respiratory failure: Patient currently on 5 L oxygen satting at 92%. Did require BiPAP through the evening. Pulmonary service following. Likely related to patient's COPD and suspected early pneumonia. Computed tomography scan of the chest results noted. Pulmonary service following. Pulmonary service is placed patient on oral prednisone and ordered a repeat chest x-ray 2. Acute hypercapnic respiratory failure: Treated with Diamox. Patient off the Diamox. CO2 is 37 3. Acute COPD exacerbation : Continue bronchodilators. Oral prednisone started by pulmonary 4. Suspected early pneumonia: Patient on azithromycin and pulmonary has added Rocephin 5. Severe psoriasis: Patient received the Stelara injection that was brought in by family 6. Nicotine dependence discussed smoking cessation for greater than 3 minutes. Add nicotine patch 7. Diabetes mellitus type 2 with hyperglycemia secondary to steroids. Continue sliding scale coverage. A1c 8.8. Resume home meds for this includes metformin. Since patient has been placed on prednisone will decrease the Levemir from 60-50 units at bedtime 8. Essential hypertension: Continue lisinopril 9. Sinus tachycardia likely related to patient's respiratory status. EKG had shown sinus tach with a heart rate of 115. Heart rate has improved. Discontinue telemetry 10. Acute on chronic systolic congestive heart failure exacerbation: EF of 55- 60%. Patient did require 1 dose of IV Lasix in the ER. He is currently on his home dose of Lasix 20 mg daily. 11. Episode of chest tightness yesterday morning, will place patient on telemetry monitoring, will check EKG and troponin level. Troponin level was negative 12. Run of 15 beats of V. tach this morning cardiology consultation was requested GI prophylaxis Protonix and DVT prophylaxis Lovenox Encouraged patient to increase activity
--- NOTE | 2018-01-19 15:59 | P.CRDCN ---
History of Present Illness Consult date: 01/19/18 Chief complaint: Shortness of breath History of present illness: This is a pleasant 52-year-old gentleman with a past medical history significant for COPD, chronic respiratory failure on home oxygen at 4 L 24 hours , diabetes, hypertension, and obesity, was admitted to the hospital a few days ago with a worsening shortness of breath for few weeks. The patient was diagnosed with COPD exacerbation. The chest x-ray showed mild cardiomegaly. The BNP was only 34. The patient was treated for COPD exacerbation. We get involved in the care of the patient because during his hospitalization and while he was using the CPAP machine he did have an episode of nonsustained V. tach. It was quite fast V. tach. The patient was asymptomatic during that episode. He did not have any chest pain or discomfort nor shortness of breath more than baseline nor feeling of heart racing or fluttering or dizziness or lightheadedness or syncope. The patient did undergo an echocardiogram during his hospitalization and that showed normal left ventricular systolic function without any evidence off valvular disease. The patient is not aware of any prior history of coronary artery disease or congestive heart failure or cardiac arrhythmia and never seen by a director of curriculum in the past. Past Medical History Past Medical History: Asthma, COPD, Diabetes Mellitus, Hypertension, Pneumonia, Skin Disorder Additional Past Medical History / Comment(s): HOME 02 4L, PSORIASIS History of Any Multi-Drug Resistant Organisms: None Reported Additional Past Surgical History / Comment(s): colonoscopy-PT STATES WAS CLEAR. Past Anesthesia/Blood Transfusion Reactions: No Reported Reaction Past Psychological History: Depression Smoking Status: Current every day smoker Past Alcohol Use History: Occasional Additional Past Alcohol Use History / Comment(s): PT STATED HE MAY GO OUT WITH IS FRIENDS 2-3 TIMES A WEEK AND MAY DRINK BETWEEN 4-7 BEERS EACH TIME. PT STARTED SMOKING AT AGE 16 SMOKES 1PPD Past Drug Use History: Cocaine, Marijuana Additional Drug Use History / Comment(s): TEENAGER ADMITS TO USING ACID, MESCULINE, MARIJUANA, IN HIS 20'S UNSED COCAINE,CRYSTAL METH. DENIES ANY IV DRUG USE. PT STATES NO DRUG IN 20 YEARS. - Past Family History Father Family Medical History: COPD Mother Family Medical History: COPD Medications and Allergies Home Medications Medication Instructions Recorded Confirmed Type Albuterol Nebulized [Ventolin 2.5 mg INHALATION RT-QID 07/02/14 01/13/18 History Nebulized] Albuterol Sulfate [Proair Hfa] 2 puff INHALATION RT-Q4H PRN 07/02/14 01/13/18 History Montelukast [Singulair] 10 mg PO HS #90 tab 07/05/14 01/13/18 Rx Atorvastatin Calcium [Lipitor] 40 mg PO HS 01/13/18 01/13/18 History Fluticasone/Salmeterol [Advair 1 inhalation PO RT-BID 01/13/18 01/13/18 History 500-50 Diskus] Furosemide [Lasix] 20 mg PO DAILY 01/13/18 01/13/18 History Insulin Degludec [Tresiba 40 unit SQ DAILY 01/13/18 01/13/18 History Flextouch U-200] Lisinopril [Zestril] 20 mg PO DAILY 01/13/18 01/13/18 History Omalizumab [Xolair] 150 mg SQ Q14D 01/13/18 01/13/18 History Pantoprazole [Protonix] 40 mg PO DAILY 01/13/18 01/13/18 History Tiotropium [place] [Spiriva] 1 cap INHALATION DAILY 01/13/18 01/13/18 History Ustekinumab [Stelara] 90 mg SQ Q90D 01/13/18 01/13/18 History buPROPion XL [Wellbutrin Xl] 150 mg PO DAILY 01/13/18 01/13/18 History metFORMIN HCL [Glucophage] 500 mg PO DAILY 01/13/18 01/13/18 History predniSONE 10 mg PO DAILY 01/13/18 01/13/18 History Allergies Allergy/AdvReac Type Severity Reaction Status Date / Time No Known Allergies Allergy Verified 01/12/18 20:32 Physical Exam Vitals: Vital Signs Temp Pulse Pulse Pulse Pulse Pulse Pulse 01/19/18 12:24 94 96 93 86 01/19/18 11:38 90 01/19/18 11:29 88 01/19/18 08:40 92 01/19/18 08:27 92 01/19/18 07:45 97.5 F L 78 01/19/18 03:49 88 01/19/18 03:42 88 01/18/18 21:39 92 01/18/18 21:16 92 01/18/18 20:25 97.8 F 88 01/18/18 17:18 90 01/18/18 17:04 90 Resp BP Pulse Ox Pulse Ox 01/19/18 12:24 86 L 01/19/18 11:38 01/19/18 11:29 01/19/18 08:40 01/19/18 08:27 01/19/18 07:45 18 120/64 95 01/19/18 03:49 01/19/18 03:42 01/18/18 21:39 01/18/18 21:16 01/18/18 20:25 18 113/59 94 L 01/18/18 17:18 01/18/18 17:04 Intake and Output 01/19/18 01/19/18 01/19/18 06:59 14:59 22:59 Intake Total 1580 Balance 1580 Intake: Intake, IV Titration 80 Amount Sodium Chloride 0.9% 1, 80 000 ml @ 20 mls/hr IV . Q24H [facility] Rx#:[id number] Oral 1500 Other: Voiding Method Toilet Toilet Urinal Urinal # Voids 1 2 - Constitutional General appearance: no acute distress - Respiratory Respiratory: bilateral: CTA - Cardiovascular Rhythm: regular Heart sounds: normal: S1, S2 Results 01/19/18 07:10 01/19/18 07:10 Cardiac Enzymes 01/19/18 Range/Units 07:10 AST 20 (17-59) U/L CBC 01/19/18 Range/Units 07:10 WBC 8.9 (3.8-10.6) k/uL RBC 4.34 (4.30-5.90) m/uL Hgb 12.4 L (13.0-17.5) gm/dL Hct 39.9 (39.0-53.0) % Plt Count 221 (150-450) k/uL Comprehensive Metabolic Panel 01/19/18 Range/Units 07:10 Sodium 136 L (137-145) mmol/L Potassium 4.9 (3.5-5.1) mmol/L Chloride 95 L (98-107) mmol/L Carbon Dioxide 37 H (22-30) mmol/L BUN 31 H (9-20) mg/dL Creatinine 0.82 (0.66-1.25) mg/dL Glucose 214 H (74-99) mg/dL Calcium 8.7 (8.4-10.2) mg/dL AST 20 (17-59) U/L ALT 47 (21-72) U/L Alkaline Phosphatase 55 (38-126) U/L Total Protein 5.4 L (6.3-8.2) g/dL Albumin 3.2 L (3.5-5.0) g/dL Current Medications Generic Name Dose Route Start Last Admin Trade Name Freq PRN Reason Stop Dose Admin Albuterol/Ipratropium 3 ml 01/13/18 08:00 01/19/18 11:29 Duoneb 0.5 Mg-3 Mg/3 Ml Soln INHALATION 3 ml RT-QID [facility] Administration Albuterol/Ipratropium 3 ml 01/13/18 09:04 01/19/18 03:41 Duoneb 0.5 Mg-3 Mg/3 Ml Soln INHALATION 3 ml RT-Q2H PRN Administration Shortness Of Breath Or Wheezing Atorvastatin Calcium 40 mg 01/13/18 21:00 01/18/18 21:09 Lipitor PO 40 mg HS [facility] Administration Azithromycin 500 mg 01/13/18 09:00 01/19/18 08:27 Zithromax PO 500 mg DAILY [facility] Administration Budesonide 1 mg 01/13/18 20:00 01/19/18 08:27 Pulmicort INHALATION 1 mg RT-BID [facility] Administration Bupropion HCl 150 mg 01/13/18 09:15 01/19/18 08:27 Wellbutrin Xl PO 150 mg DAILY [facility] Administration Ceftriaxone Sodium 1,000 mg 01/13/18 10:00 01/19/18 08:27 Rocephin IVP 1,000 mg Q24HR [facility] Administration Enoxaparin Sodium 40 mg 01/13/18 09:00 01/19/18 08:27 Lovenox SQ 40 mg DAILY [facility] Administration Furosemide 20 mg 01/13/18 09:15 01/19/18 08:27 Lasix PO 20 mg DAILY [facility] Administration Guaifenesin 1,200 mg 01/16/18 09:00 01/19/18 08:27 Mucinex PO 1,200 mg Q12HR [facility] Administration Sodium Chloride 1,000 mls @ 20 mls/hr 01/12/18 23:30 01/19/18 03:09 Saline 0.9% IV Not Given .Q24H [facility] Insulin Aspart 0 unit 01/13/18 09:01 01/19/18 11:04 Novolog SQ Not Given ACHS [facility] Protocol Insulin Detemir 50 unit 01/18/18 09:00 01/19/18 11:35 Levemir SQ 50 unit DAILY [facility] Administration Lisinopril 20 mg 01/14/18 09:00 01/19/18 08:27 Zestril PO 20 mg DAILY [facility] Administration Metformin HCl 500 mg 01/13/18 09:15 01/19/18 08:27 Glucophage PO 500 mg DAILY [facility] Administration Montelukast Sodium 10 mg 01/13/18 21:00 01/18/18 21:09 Singulair PO 10 mg HS [facility] Administration Nicotine 1 patch 01/13/18 11:30 01/19/18 08:28 Habitrol 14mg/24hr Patch TRANSDERM 1 patch DAILY [facility] Administration Patient's Own Med ( 90 mg 01/15/18 13:00 01/15/18 11:47 Ustekinumab [Stelara SQ 90 mg ] 90 Mg) Q90D [facility] Administration Pantoprazole Sodium 40 mg 01/14/18 07:30 01/19/18 08:27 Protonix PO 40 mg [id number] [facility] Administration Prednisone 60 mg 01/17/18 21:00 01/18/18 21:09 PO 60 mg HS [facility] Administration Intake and Output 01/19/18 01/19/18 01/19/18 06:59 14:59 22:59 Intake Total 1580 Balance 1580 Intake: Intake, IV Titration 80 Amount Sodium Chloride 0.9% 1, 80 000 ml @ 20 mls/hr IV . Q24H [facility] Rx#:[id number] Oral 1500 Other: Voiding Method Toilet Toilet Urinal Urinal # Voids 1 2 01/19/18 07:10 01/19/18 07:10 Assessment and Plan Assessment: Assessment #1 COPD exacerbation #2 obstructive sleep apnea #3 chronic respiratory failure on home oxygen #4 an episode of nonsustained V. tach #5 hypertension #6 diabetes Plan #1 the patient was asymptomatic during that episode #2 the echocardiogram revealed normal LV function #3 I will obtain a potassium and magnesium level #4 if the patient develop any more episode I would consider starting the patient on beta ashlyn. Thank you for allowing us participate in the patient's care
[2018-01-19 16:47] LABS: Magnesium 1.8 mg/dL (1.6-2.3); Potassium 3.8 mmol/L (3.5-5.1)
[2018-01-19 17:06] LABS: Glucose,Whole Blood 97 mg/dL (75-99)
[2018-01-19 20:53] LABS: Glucose,Whole Blood 155 mg/dL (75-99)
[2018-01-19] MEDS: ATORVASTATIN 40 MG TAB PO SCH (21:35)
[2018-01-19] MEDS: predniSONE 20 MG TAB PO SCH (21:35)
[2018-01-19] MEDS: MONTELUKAST 10 MG TAB PO SCH (21:35)
[2018-01-20] MEDS: SODIUM CHLORIDE 0.9% 1,000 ML IV SCH (05:04)
[2018-01-20 06:35] VITALS: RESP 18
[2018-01-20] MEDS: IPRATROPIUM-ALBUTEROL 3 ML NEB INHALATION SCH ×3 (07:00→16:32)
[2018-01-20] MEDS: BUDESONIDE 1 MG/2 ML NEBU INHALATION SCH (07:00)
[2018-01-20 07:12] LABS: Glucose,Whole Blood 201 mg/dL (75-99)
[2018-01-20] MEDS: PANTOPRAZOLE 40 MG TABLET PO SCH (07:56)
[2018-01-20] MEDS: cefTRIAXone IN SWFI 1,000 MG/10 ML SYRINGE IVP SCH (07:56)
[2018-01-20] MEDS: buPROPion XL 150 MG TAB.ER.24H PO SCH (07:56)
[2018-01-20] MEDS: AZITHROMYCIN 500 MG TAB PO SCH (07:56)
[2018-01-20] MEDS: LISINOPRIL 20 MG TAB PO SCH (07:56)
[2018-01-20] MEDS: metFORMIN 500 MG TAB PO SCH (07:56)
[2018-01-20] MEDS: NICOTINE 14MG/24HR PATCH TRANSDERM SCH (07:56)
[2018-01-20] MEDS: FUROSEMIDE 20 MG TAB PO SCH (07:56)
[2018-01-20] MEDS: ENOXAPARIN 40 MG/0.4 ML SYRINGE SQ SCH (07:56)
[2018-01-20] MEDS: INSULIN ASPART 100 UNIT/ML 1 ML 10 ML VIAL SQ SCH ×2 (07:57→12:09)
[2018-01-20] MEDS: guaiFENesin 600 MG TABLET.ER PO SCH (07:57)
[2018-01-20] MEDS: INSULIN DETEMIR 100 UNIT/ML 10 ML VIAL SQ SCH (08:06)
[2018-01-20 08:30] LABS: ALT 55 U/L (21-72); AST 25 U/L (17-59); Albumin 3.4 g/dL (3.5-5.0); Alkaline Phosphatase 61 U/L (38-126); Anion Gap 6 mmol/L; Blood Urea Nitrogen 30 mg/dL (9-20); Calcium 8.9 mg/dL (8.4-10.2); Carbon Dioxide 35 mmol/L (22-30); Chloride 95 mmol/L (98-107); Glucose 200 mg/dL (74-99); Potassium 5.2 mmol/L (3.5-5.1); Sodium 136 mmol/L (137-145); Total Bilirubin 0.3 mg/dL (0.2-1.3); Total Protein 5.8 g/dL (6.3-8.2)
[2018-01-20 08:44] LABS: Basophils % (A) 0 %; Eosinophils # (A) 0.1 k/uL (0-0.7); Eosinophils % (A) 1 %; HCT 40.5 % (39.0-53.0); Hypochromasia Slight; Lymphocytes # (A) 0.9 k/uL (1.0-4.8); Lymphocytes % (A) 9 %; MCH 29.1 pg (25.0-35.0); MCHC 32.1 g/dL (31.0-37.0); MCV 90.7 fL (80.0-100.0); Mean Platelet Volume 7.7; Monocytes # (A) 0.3 k/uL (0-1.0); Monocytes % (A) 3 %; Neutrophils # (A) 9.3 k/uL (1.3-7.7); Neutrophils % (A) 88 %; Platelet Count 218 k/uL (150-450); RBC 4.46 m/uL (4.30-5.90); RDW 14.2 % (11.5-15.5); WBC 10.5 k/uL (3.8-10.6)
[2018-01-20 11:30] LABS: Glucose,Whole Blood 87 mg/dL (75-99)
--- NOTE | 2018-01-20 13:18 | P.PN ---
Subjective Progress Note Date: 01/20/18 Principal diagnosis: Acute on chronic hypoxic respiratory failure, acute on chronic hypercapnic respirator failure, severe COPD with acute exacerbation, chronic persistent severe asthma with component of ALLERGIC asthma, sleep disorder breathing and sleep apnea, severe and extensive psoriasis, history of smoking and nicotine use 01/20/2018, patient seen eval examined during the rounds clinically has been doing better cuff congestion shortness of breath is improved denies any sputum production, patient had a episode of nonsustained ventricular tachycardia which was asymptomatic yesterday morning so far no other new episode has been noted. Cardiovascular services as evaluated the patient, patient had echocardiogram which was within normal limit, labs reviewed medications reviewed, still have intermittent cough but no significant sputum production is present I discussed with the patient about CPAP machine he has no new questioning he does have nebulizer machine in working condition at home also has nebulizer medicine at home, patient has been educated at length about importance of using the CPAP machine a regular basis also consult educated about smoking as well 01/19/2018, patient seen eval examined during the rounds his shortness of breath cough congestion slightly better now, patient has been tolerating breathing treatments steroids and antibiotics fairly well, labs reviewed medications reviewed 01/18/2018, patient seen eval examined during the rounds clinically patient is doing slightly better he is undergoing breathing treatment he has been using BiPAP machine a CPAP machine is being arranged, patient cough congestion shortness breath has improved labs reviewed medications reviewed, last chest x- ray performed to 01/17/2018 no obvious infiltrates seen however underlying COPD emphysema was noted lungs were hyperinflated This patient came into the emergency room with increasing severity of his shortness of breath over the last few days. This patient is known to have chronic hypoxic respiratory failure and is on 4 L of supplemental oxygen via nasal cannula at home. He is known to have a history of chronic obstructive pulmonary disease as well as moderate to severe chronic persistent asthma. He currently is a smoker 2 packs per day for approximately 35 years. The patient states he's been trying to cut back and he is currently around 1 pack per day. 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 He has no known ALLERGIES that he is aware of. He does suffer from chronic severe psoriasis. Patient has been prescribed MDIs and inhalers in the past however he has not been compliant with those. On occasion he will use his nebulizer but does not use it regularly. At home he states he was having fever chills and sweats. He has been noticing some increased swelling in his bilateral lower extremities. Upon arrival the patient was 84% on 5 L of supplemental oxygen. The patient was transitioned to BiPAP and did relatively well with that. Initial admit chest x-ray which did reveal cardiomegaly, pulmonary vascular congestion and mild CHF, possible early pneumonia cannot be excluded. Objective - Vital Signs Vital signs: Vital Signs Temp 97.2 F L 01/20/18 06:34 Pulse 88 01/20/18 11:05 Resp 18 01/20/18 06:34 BP 110/59 01/20/18 06:34 Pulse Ox 94 L 01/20/18 09:39 Intake & Output 01/19/18 01/20/18 01/20/18 18:59 06:59 18:59 Intake Total 1580 540 Balance 1580 540 Intake: Intake, IV Titration 80 Amount Sodium Chloride 0.9% 1, 80 000 ml @ 20 mls/hr IV . Q24H [facility] Rx#:[id number] Oral 1500 540 Other: Voiding Method Toilet Toilet Urinal Urinal # Voids 2 1 - Exam GENERAL EXAM: Alert, tired, comfortable in no apparent distress. HEAD: Normocephalic. EYES: Normal reaction of pupils, equal size. NOSE: Clear with pink turbinates. THROAT: No erythema or exudates. NECK: No masses, no JVD. CHEST: No chest wall deformity. LUNGS: Lungs noted to be tight with inspiratory and expiratory wheezing throughout bilaterally with prolonged expiratory phase CVS: S1 and S2 normal with no audible mumurs, regular rhythm. ABDOMEN: No hepatosplenomegaly, normal bowel sounds, no guarding or rigidity. EXTREMITIES: +2 edema noted, pedal pulses palpable. SKIN: Psoriasis lesions on all 4 extremities, severe CENTRAL NERVOUS SYSTEM: No focal deficits, tone is normal in all 4 extremities - Labs CBC & Chem 7: 01/20/18 07:50 01/20/18 07:50 Labs: Abnormal Lab Results - Last 24 Hours (Table) 01/19/18 01/20/18 01/20/18 Range/Units 20:51 07:11 07:50 Neutrophils # 9.3 H (1.3-7.7) k/uL Lymphocytes # 0.9 L (1.0-4.8) k/uL Sodium (137-145) mmol/L Potassium (3.5-5.1) mmol/L Chloride (98-107) mmol/L Carbon Dioxide (22-30) mmol/L BUN (9-20) mg/dL Glucose (74-99) mg/dL POC Glucose (mg/dL) 155 H 201 H (75-99) mg/dL Total Protein (6.3-8.2) g/dL Albumin (3.5-5.0) g/dL 01/20/18 Range/Units 07:50 Neutrophils # (1.3-7.7) k/uL Lymphocytes # (1.0-4.8) k/uL Sodium 136 L (137-145) mmol/L Potassium 5.2 H (3.5-5.1) mmol/L Chloride 95 L (98-107) mmol/L Carbon Dioxide 35 H (22-30) mmol/L BUN 30 H (9-20) mg/dL Glucose 200 H (74-99) mg/dL POC Glucose (mg/dL) (75-99) mg/dL Total Protein 5.8 L (6.3-8.2) g/dL Albumin 3.4 L (3.5-5.0) g/dL Assessment and Plan Assessment: Chronic persistent severe asthma on biologic agents with the Xolair Episode of nonsustained short-lived ventricular tachycardia asymptomatic in nature Acute on chronic hypoxic and hypercapnic respiratory failure requiring supplemental oxygen Acute exacerbation of COPD Acute exacerbation of severe chronic persistent asthma with component of ALLERGIC asthma Severe SANDER likely Severe psoriasis Nicotine dependence Hyperglycemia Plan: Continue broad-spectrum antibiotics however they can be switched to oral Continue IV steroids which also however can be switched to oral at time of discharge Increase activity as tolerated Reviewed chest x-ray and echocardiogram Patient has been educated about smoking cessation Increase activity as tolerated Maintain patient on DVT and peptic ulcer disease prophylaxis Can be discharged home in next 24-48 hours if remains stable Time with Patient: Greater than 30
--- NOTE | 2018-01-20 13:40 | P.DS ---
Providers Date of admission: 01/12/18 23:18 Expected date of discharge: 01/20/18 Attending physician: Soila Hernandez Consults: 01/12/18 23:16 Consult Physician Routine Consulting Provider: Chalino Mosquera Consult Reason/Comments: known Do you want consulting provider notified?: Yes 01/19/18 14:12 Consult Physician Routine Consulting Provider: Douglas Varma Consult Reason/Comments: cardiac arrythmia Do you want consulting provider notified?: Yes Primary care physician: Olivia Alarcon [facility] Course: Discharge diagnosis 1. Acute on chronic hypoxic respiratory failure: Patient currently on 5 L oxygen satting at 92%. Did require BiPAP through the evening. Pulmonary service following. Likely related to patient's COPD and suspected early pneumonia. Computed tomography scan of the chest results noted. Pulmonary service following. Pulmonary service is placed patient on oral prednisone and ordered a repeat chest x-ray 2. Acute hypercapnic respiratory failure: Treated with Diamox. Patient off the Diamox. CO2 is 35 3. Acute COPD exacerbation : Continue bronchodilators. Oral prednisone started by pulmonary 4. Suspected early pneumonia: Patient will continue oral Ceftin for 2 more days 5. Severe psoriasis: Patient received the Stelara injection that was brought in by family 6. Nicotine dependence discussed smoking cessation for greater than 3 minutes. Add nicotine patch 7. Diabetes mellitus type 2 with hyperglycemia secondary to steroids. Continue sliding scale coverage. A1c 8.8. Resume home meds for this includes metformin. Since patient has been placed on prednisone will decrease the Levemir from 60-50 units at bedtime 8. Essential hypertension: Continue lisinopril 9. Sinus tachycardia likely related to patient's respiratory status. EKG had shown sinus tach with a heart rate of 115. Heart rate has improved. Discontinue telemetry 10. Acute on chronic systolic congestive heart failure exacerbation: EF of 55- 60%. Patient did require 1 dose of IV Lasix in the ER. He is currently on his home dose of Lasix 20 mg daily. 11. Episode of chest tightness yesterday morning, will place patient on telemetry monitoring, will check EKG and troponin level. Troponin level was negative. Patient seen by cardiology. Symptoms are likely related to his COPD 12. One episode of a 15 beat run of nonsustained ventricular tachycardia Hospital course This is a 52-year-old male, patient of Dr. Alarcon. He has a known past medical history of COPD, chronic respiratory failure home O2 dependent usually on 4 L of oxygen, diabetes mellitus, hypertension, nicotine dependence and depression. Patient presents to the emergency room with complaints of worsening shortness of breath over the last couple weeks. He reports not feeling well and having a reductive cough with clearish sputum. His PCP had placed him on a prednisone taper outpatient. Patient had increased his oxygen to 4 L at home over the last couple weeks. And his oxygen tanks ran out at home. He became very short of breath and came into the emergency room for fever for further evaluation and treatment. In the ER he required to be placed on the BiPAP. He was started on IV Solu-Medrol bronchodilators and antibiotic azithromycin. Pulmonary service was consulted. Chest x-ray showing mild cardiomegaly and concerns for possible mild CHF. Patient did receive a dose of IV Lasix in the ER. However BNP was only 34. Patient denies any chest pain. Denies any fever or chills or sweats. Denies any nausea or vomiting. Denies any bowel movement changes. He is complaining of urinary frequency. Urinalysis has been ordered. 01/14/2018 patient is currently on the BiPAP while he is sleeping. He did use BiPAP overnight. And then he requires about 5 L of oxygen satting at 96%. He is followed closely by pulmonary service. Still having some shortness of breath especially with activity. Does report some chest tightness with the shortness of breath. Denies any actual chest pain. Denies any nausea or vomiting. Reports last bowel movement 2 days ago. Denies any burning with urination. CT scan of the chest revealed a borderline size caliber to the main right and left pulmonary arteries at 2.5 cm each, this may reflect underlying pulmonary arterial hypertension, also prominent bands of atelectasis or scarring within the lungs, increasing dependent atelectasis at the right base. Pulmonary service has reviewed. IgE level elevated at 1764 On 01/15/2018 patient is currently resting comfortably in bed on 5 L nasal cannula. Does state there is still some shortness of breath but has improved since admission. Patient remains on Zithromax and Rocephin for pulmonary services. Patient currently on Solu-Medrol IV 40 mg and DuoNeb treatments. Denies chest pain or shortness of breath at this time. Per nursing staff patient's family went to PCP Dr. Alarcon and picked up monthly psoriasis injection Stelar [facility] to receive. Medication to be sent to pharmacy and administered per nursing staff. 01/16/2018 patient still requiring 5 L nasal cannula. He is using BiPAP at night and while sleeping. IV site Medrol decreased to 40 mg every 8 yesterday. Levemir increased to 60 units today due to hyperglycemia from the steroids. Continue to monitor blood sugars. Patient reports no bowel movement 3 days. He reports that this is not unusual for him. He is refusing any stool softeners or laxatives at this time. He is passing gas denies any abdominal pain. Denies any nausea or vomiting. Denies any chest pain. Does have shortness of breath with activity. 01/17/2018 patient still having shortness of breath with activity. He is remaining on 5 L nasal cannula. Patient reports feeling a little bit more congested and dry and his nose and sinus area. Mucinex was added yesterday. We 'll place him on him with his O2. He is having a cough but it's a dry cough. He was able to have a bowel movement this morning. Denies any chest pain denies any difficulty urinating. Discussed case with pulmonary nurse practitioner. She'll be placing patient on oral prednisone today and repeating chest x-ray On 01/18/2018 patient is alert and oriented 3, he complained of an episode of chest tightness this morning, his shortness of breath has improved, he is still complaining of cough was minimal sputum production, there is no nausea or vomiting no abdominal pain no diarrhea and no urinary symptoms On January 19 2018 patient is alert and oriented 3 in no apparent distress, this morning he had a run of 15 beats of ventricular tachycardia he denies any complaints there is no chest pain or tightness today, yesterday he had an episode of chest tightness, troponin level was negative yesterday, he denies any complaints otherwise During service and patient was treated for an acute COPD exacerbation and possible pneumonia. He was treated with IV steroids bronchodilators and antibiotics. He is followed closely with pulmonary service. Patient will require a sleep study to be completed in the outpatient setting. consulting manager has been working with patient BiPAP rental has been set up for patient at home. He will also require home O2 concentrator. On room air his oxygen his saturation drops down to 79%. Patient is medically stable for discharge. We' ll have him follow with pulmonary service in the outpatient setting. Again he will need a sleep study to be completed. During this admission he also had a 15 beat run of V. tach. It was only 1 episode. He was seen evaluated by cardiology no new medications were ordered. Electrolytes were checked and within normal range. And thyroid study was normal. Patient did have a potassium of 5.2 at time of discharge. This will likely be corrected with his oral Lasix that he takes. Recommend repeating a BMP level in 3 days. Patient will be discharged home on 2 more days of Ceftin and to continue prednisone taper. Patient's symptoms have improved. He is still requiring about 5 L of oxygen. Again home O2 has been set up for patient. He has been educated thoroughly that he has to quit smoking and also that he needs to have a sleep study done. I performed an examination of the patient and discussed their management with the physician Nursery Teacher. I have reviewed the Physician Nursery Teacher's notes and agree with the documented findings and plan of care Patient Condition at Discharge: Stable Plan - Discharge Summary New Discharge Prescriptions: New Cefuroxime Axetil [Ceftin] 500 mg PO BID #4 tab Nicotine 14Mg/24Hr Patch [Habitrol] 1 patch TRANSDERM DAILY #30 patch predniSONE 10 mg PO DIRECTED #30 tab Continue Albuterol Sulfate [Proair Hfa] 2 puff INHALATION RT-Q4H PRN PRN Reason: Shortness Of Breath Albuterol Nebulized [Ventolin Nebulized] 2.5 mg INHALATION RT-QID Montelukast [Singulair] 10 mg PO HS #90 tab metFORMIN HCL [Glucophage] 500 mg PO DAILY Pantoprazole [Protonix] 40 mg PO DAILY Lisinopril [Zestril] 20 mg PO DAILY Furosemide [Lasix] 20 mg PO DAILY Atorvastatin Calcium [Lipitor] 40 mg PO HS Insulin Degludec [Tresiba Flextouch U-200] 40 unit SQ DAILY Fluticasone/Salmeterol [Advair 500-50 Diskus] 1 inhalation PO RT-BID Ustekinumab [Stelara] 90 mg SQ Q90D Tiotropium [place] [Spiriva] 1 cap INHALATION DAILY buPROPion XL [Wellbutrin XL] 150 mg PO DAILY Omalizumab [Xolair] 150 mg SQ Q14D Discontinued predniSONE 10 mg PO DAILY Discharge Medication List Albuterol Nebulized [Ventolin Nebulized] 2.5 mg INHALATION RT-QID 07/02/14 [ History] Albuterol Sulfate [Proair Hfa] 2 puff INHALATION RT-Q4H PRN 07/02/14 [History] Montelukast [Singulair] 10 mg PO HS #90 tab 07/05/14 [Rx] Atorvastatin Calcium [Lipitor] 40 mg PO HS 01/13/18 [History] Fluticasone/Salmeterol [Advair 500-50 Diskus] 1 inhalation PO RT-BID 01/13/18 [ History] Furosemide [Lasix] 20 mg PO DAILY 01/13/18 [History] Insulin Degludec [Tresiba Flextouch U-200] 40 unit SQ DAILY 01/13/18 [History] Lisinopril [Zestril] 20 mg PO DAILY 01/13/18 [History] Omalizumab [Xolair] 150 mg SQ Q14D 01/13/18 [History] Pantoprazole [Protonix] 40 mg PO DAILY 01/13/18 [History] Tiotropium [place] [Spiriva] 1 cap INHALATION DAILY 01/13/18 [History] Ustekinumab [Stelara] 90 mg SQ Q90D 01/13/18 [History] buPROPion XL [Wellbutrin XL] 150 mg PO DAILY 01/13/18 [History] metFORMIN HCL [Glucophage] 500 mg PO DAILY 01/13/18 [History] Cefuroxime Axetil [Ceftin] 500 mg PO BID #4 tab 01/20/18 [Rx] Nicotine 14Mg/24Hr Patch [Habitrol] 1 patch TRANSDERM DAILY #30 patch 01/20/18 [ Rx] predniSONE 10 mg PO DIRECTED #30 tab 01/20/18 [Rx] Follow up Appointment(s)/Referral(s): Adriana Tan DO [Doctor of Osteopathic Medicine] - 3 Days Olivia Alarcon DO [Primary Care Provider] - 3 Days Ambulatory/Diagnostic Orders: Basic Metabolic Panel [LAB.AMB] Time Frame: 3 Days, Location: None Selected Activity/Diet/Wound Care/Special Instructions: Diet: diabetic Activity: as tolerated Discharge Disposition: HOME WITH HOME HEALTH SERVICES
--- NOTE | 2018-01-20 14:01 | P.PN ---
Subjective Mr. Lazcano is seen and examined sitting up at the bedside. Telemetry tracings indicated for further arrhythmia. Magnesium 1.8, TSH 3.35, potassium 3.8. Blood pressure 110/59 heart rate 88 afebrile maintaining oxygen saturation on nasal cannula. Denies symptoms of chest pain, increasing shortness of breath, dizziness, palpitations or diaphoresis. Objective - Vital Signs Vital signs: Vital Signs Temp 97.2 F L 01/20/18 06:34 Pulse 88 01/20/18 11:05 Resp 18 01/20/18 06:34 BP 110/59 01/20/18 06:34 Pulse Ox 94 L 01/20/18 09:39 Intake & Output 01/19/18 01/20/18 01/20/18 18:59 06:59 18:59 Intake Total 1580 540 Balance 1580 540 Intake: Intake, IV Titration 80 Amount Sodium Chloride 0.9% 1, 80 000 ml @ 20 mls/hr IV . Q24H ODESSA Rx#:[id number] Oral 1500 540 Other: Voiding Method Toilet Toilet Urinal Urinal # Voids 2 1 - Exam GENERAL: Well-appearing, well-nourished and in no acute distress. Morbid obesity. NECK: Supple without JVD or thyromegaly. LUNGS: Breath sounds clear to auscultation bilaterally. Respiration equal and unlabored. No wheezes, rales or rhonchi. Diminished bilaterally. HEART: Regular rate and rhythm without murmurs, rubs or gallops. S1 and S2 heard. EXTREMITIES: Normal range of motion, no edema. No clubbing or cyanosis. Peripheral pulses intact. - Labs CBC & Chem 7: 01/20/18 07:50 01/20/18 07:50 Labs: Abnormal Lab Results - Last 24 Hours (Table) 01/19/18 01/20/18 01/20/18 Range/Units 20:51 07:11 07:50 Neutrophils # 9.3 H (1.3-7.7) k/uL Lymphocytes # 0.9 L (1.0-4.8) k/uL Sodium (137-145) mmol/L Potassium (3.5-5.1) mmol/L Chloride (98-107) mmol/L Carbon Dioxide (22-30) mmol/L BUN (9-20) mg/dL Glucose (74-99) mg/dL POC Glucose (mg/dL) 155 H 201 H (75-99) mg/dL Total Protein (6.3-8.2) g/dL Albumin (3.5-5.0) g/dL 01/20/18 Range/Units 07:50 Neutrophils # (1.3-7.7) k/uL Lymphocytes # (1.0-4.8) k/uL Sodium 136 L (137-145) mmol/L Potassium 5.2 H (3.5-5.1) mmol/L Chloride 95 L (98-107) mmol/L Carbon Dioxide 35 H (22-30) mmol/L BUN 30 H (9-20) mg/dL Glucose 200 H (74-99) mg/dL POC Glucose (mg/dL) (75-99) mg/dL Total Protein 5.8 L (6.3-8.2) g/dL Albumin 3.4 L (3.5-5.0) g/dL Assessment and Plan Assessment: ASSESSMENT Acute exacerbation of COPD Supraventricular arrhythmia versus ventricular tachycardia Chronic respiratory failure on home O2 Obstructive sleep apnea Hypertension Diabetes mellitus PLAN Telemetry tracings reviewed, indicate a rapid activation indicating supraventricular appearance he cannot rule out ventricular tachycardia. No further episodes of arrhythmia. Stable from a cardiac perspective for discharge when appropriate per medical team. Follow-up with Dr. Varma for further outpatient cardiac evaluation. Nurse Practitioner note has been reviewed, I agree with a documented findings and plan of care. Patient was seen and examined.
[2018-01-20 16:52] LABS: Glucose,Whole Blood 115 mg/dL (75-99)
[2018-01-20 17:35] VITALS: BP 129/58; PULSE 76; TEMP 97.7
== END 2018-01-20 17:41 | disposition home health service (06) | DRG 189 ==
LOC: EC 20:21 → 5MS5E 23:18
PROVIDERS: ADMIT Internal Medicine; ATTEND Internal Medicine
DX: J96.21 Acute and chronic respiratory failure with hypoxia (principal); J18.9 Pneumonia, unspecified organism; I50.23 Acute on chronic systolic (congestive) heart failure; J44.1 Chronic obstructive pulmonary disease with (acute) exacerbation; E87.3 Alkalosis; I47.2 Ventricular tachycardia; Z68.42 Body mass index [BMI] 45.0-49.9, adult; J96.22 Acute and chronic respiratory failure with hypercapnia; I11.0 Hypertensive heart disease with heart failure; D64.9 Anemia, unspecified; T38.0X5A Adverse effect of glucocorticoids and synthetic analogues, initial encounter; G47.33 Obstructive sleep apnea (adult) (pediatric); D72.1 Eosinophilia; E11.65 Type 2 diabetes mellitus with hyperglycemia; L40.9 Psoriasis, unspecified; R35.0 Frequency of micturition; F17.210 Nicotine dependence, cigarettes, uncomplicated; F32.9 Major depressive disorder, single episode, unspecified; J45.50 Severe persistent asthma, uncomplicated; E66.9 Obesity, unspecified; Z87.01 Personal history of pneumonia (recurrent); Z82.5 Family history of asthma and other chronic lower respiratory diseases; Z99.81 Dependence on supplemental oxygen; Z79.4 Long term (current) use of insulin; Z79.52 Long term (current) use of systemic steroids; Z79.899 Other long term (current) drug therapy; Z91.19 Patient's noncompliance with other medical treatment and regimen; Z71.6 Tobacco abuse counseling; Z79.51 Long term (current) use of inhaled steroids
CPT/HCPCS: 36415; 36600; 71046; 71260; 80053; 81003; 82103; 82104; 82550; 82553; 82785; 82805; 83036; 83735; 83880; 84132; 84443; 84484; 85025; 85610; 85730; 86003; 86738; 87086; 87449; 93005; 93306; 94640; 94660; 94667; 94668; 94760; 96365; 96366; 96375; 99291

== ENCOUNTER 2019-01-24 23:57 | Observation (INO) | payer BC, OTHER ==
[2019-01-25] MEDS ORDERED: IPRATROPIUM-ALBUTEROL 3 ML NEB INHALATION STA (00:22)
[2019-01-25] MEDS ORDERED: ALBUTEROL NEBULIZED 2.5 MG/3 ML INHALATION STA (00:22)
--- NOTE | 2019-01-25 00:41 | ED ---
SOB HPI - General Chief Complaint: Shortness of Breath Stated Complaint: SOB Time Seen by Provider: 01/25/19 00:14 Source: patient, family Mode of arrival: ambulatory Limitations: no limitations - History of Present Illness Initial Comments: This patient is a 53-year-old man with history of COPD. He states that his breathing has been worse than usual over the course of this afternoon and tonight. He states that he usually is on home oxygen set at 5 L. He uses a concentrator and he states that he lost power and therefore the concentrator stopped working. Patient denies any new symptoms. He has not been having fever or chills. No thick sputum. He does have occasional nonproductive cough. No change in bowel movements or urination, including no bloody or tarry stools. No increase in leg swelling, he states he does have some baseline edema and takes a diuretic. No leg pain. MD Complaint: shortness of breath -: hour(s) Severity: moderate Consistency: constant Improves With: oxygen Worsens With: nothing Known History Of: COPD Associated Symptoms: denies other symptoms - Related Data Home Medications Medication Instructions Recorded Confirmed Albuterol Nebulized [Ventolin 2.5 mg INHALATION RT-QID 07/02/14 01/25/19 Nebulized] Furosemide [Lasix] 20 mg PO DAILY 01/13/18 01/25/19 Insulin Degludec [Tresiba 50 unit SQ DAILY 01/13/18 01/25/19 Flextouch U-200] Lisinopril [Zestril] 20 mg PO DAILY 01/13/18 01/25/19 metFORMIN HCL [Glucophage] 500 mg PO DAILY 01/13/18 01/25/19 INSULIN ASPART (NovoLOG) [NovoLOG See Protocol SQ AC-TID PRN 01/25/19 01/25/19 (formulary)] Allergies Allergy/AdvReac Type Severity Reaction Status Date / Time No Known Allergies Allergy Verified 01/25/19 08:19 Review of Systems ROS Statement: Those systems with pertinent positive or pertinent negative responses have been documented in the HPI. ROS Other: All systems not noted in ROS Statement are negative. Constitutional: Denies: fever, chills, weakness Respiratory: Reports: as per HPI, cough, dyspnea, wheezes. Denies: hemoptysis Cardiovascular: Reports: as per HPI, edema. Denies: chest pain, palpitations, syncope Gastrointestinal: Denies: abdominal pain, vomiting, diarrhea, melena, gary tochezia Genitourinary: Denies: dysuria, hematuria Musculoskeletal: Denies: back pain Skin: Denies: rash Neurological: Denies: headache, weakness, numbness Past Medical History Past Medical History: Asthma, COPD, Diabetes Mellitus, Hypertension, Pneumonia, Skin Disorder Additional Past Medical History / Comment(s): HOME 02 4L, PSORIASIS History of Any Multi-Drug Resistant Organisms: None Reported Additional Past Surgical History / Comment(s): colonoscopy-PT STATES WAS CLEAR. Past Anesthesia/Blood Transfusion Reactions: No Reported Reaction Past Psychological History: Depression Smoking Status: Current every day smoker Past Alcohol Use History: Occasional Past Drug Use History: Cocaine, Marijuana - Past Family History Father Family Medical History: COPD Mother Family Medical History: COPD General Exam Limitations: no limitations General appearance: alert, in distress (There is mild respiratory distress) Head exam: Present: atraumatic, normocephalic ENT exam: Present: normal oropharynx Respiratory exam: Present: respiratory distress (Tachypnea), wheezes, rhonchi, accessory muscle use, decreased breath sounds. Absent: rales, stridor Cardiovascular Exam: Present: regular rate, tachycardia, normal heart sounds. Absent: systolic murmur, diastolic murmur, rubs, gallop GI/Abdominal exam: Present: soft. Absent: tenderness, guarding, rebound Extremities exam: Present: normal capillary refill, pedal edema (There is edema to the mid tibial area bilaterally). Absent: calf tenderness Back exam: Present: normal inspection Neurological exam: Present: alert Skin exam: Present: warm, dry, intact, normal color. Absent: rash Course Vital Signs 01/25/19 01/25/19 01/25/19 00:03 00:15 00:20 Temperature 98.3 F Pulse Rate 117 H 121 H 122 H Respiratory 28 H 13 31 H Rate Blood Pressure 123/76 134/85 O2 Sat by Pulse 96 92 L Oximetry 01/25/19 01/25/19 01/25/19 00:30 00:36 00:50 Temperature Pulse Rate 121 H 122 H 118 H Respiratory 8 L 28 H 14 Rate Blood Pressure 113/90 122/83 O2 Sat by Pulse 95 98 Oximetry 01/25/19 01/25/19 01/25/19 00:51 01:10 01:20 Temperature Pulse Rate 117 H 116 H 113 H Respiratory 24 16 20 Rate Blood Pressure 105/82 105/82 O2 Sat by Pulse 96 96 Oximetry 01/25/19 01/25/19 01/25/19 01:30 01:50 02:10 Temperature Pulse Rate 113 H 105 H 104 H Respiratory 20 16 15 Rate Blood Pressure 113/76 95/54 103/62 O2 Sat by Pulse 96 97 97 Oximetry Medical Decision Making - Lab Data Result diagrams: 01/25/19 09:38 01/25/19 09:38 Lab Results 01/25/19 Range/Units 01:03 POC Glucose (mg/dL) 316 H (75-99) mg/dL POC Glu Horticultural Farmer ID Clay Hudson - EKG Data -: EKG Interpreted by Dc EKG shows normal: sinus rhythm, axis (Normal), intervals (Normal), QRS complexes (Incomplete right bundle branch block), ST-T waves (Normal) Rate: tachycardia (Rate 123 bpm) Disposition Clinical Impression: Acute exacerbation of chronic obstructive airways disease Disposition: ADMITTED IP TO THIS HOSP Condition: Poor
[2019-01-25 01:04] LABS: Glucose,Whole Blood 316 mg/dL (75-99)
[2019-01-25] MEDS ORDERED: ALBUTEROL NEBULIZED 2.5 MG/3 ML INHALATION PRN (01:07)
[2019-01-25] MEDS: SODIUM CHLORIDE 0.9% 1,000 ML IV SCH ×2 (01:50→15:36)
[2019-01-25 04:39] VITALS: BMI 46.7
[2019-01-25 07:15] LABS: Glucose,Whole Blood 288 mg/dL (75-99)
[2019-01-25] MEDS: IPRATROPIUM-ALBUTEROL 3 ML NEB INHALATION SCH ×4 (07:29→19:07)
[2019-01-25] MEDS: SYMBICORT 160-4.5 MCG INHALER INHALATION SCH ×2 (07:30→07:40)
[2019-01-25] MEDS: buPROPion XL 150 MG TAB.ER.24H PO SCH (07:51)
[2019-01-25] MEDS: metFORMIN 500 MG TAB PO SCH (07:53)
[2019-01-25] MEDS: INSULIN ASPART (NovoLOG) 100 UNIT/ML VIAL SQ SCH ×4 (07:53→20:46)
[2019-01-25] MEDS: PANTOPRAZOLE 40 MG TABLET PO SCH (07:53)
[2019-01-25] MEDS: INSULIN DETEMIR (LEVEMIR) 100 UNIT/ML SYR SQ SCH (07:53)
[2019-01-25] MEDS: LISINOPRIL 20 MG TAB PO SCH (07:54)
[2019-01-25] MEDS ORDERED: IPRATROPIUM 0.5 MG/2.5 ML NEBU INHALATION SCH (08:00)
--- NOTE | 2019-01-25 08:37 | P.CNPUL ---
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 he is on home oxygen 4 L also on maintenance dose of prednisone 10 mg due to power failure and O oxygen he developed increasing shortness of breath and came into the hospital for further evaluation and intervention and treatment him a hemodynamically he is stable on 5 L saturation 97% denies any chest pain cough or sputum production cough baseline in morning is present his sputum is usually clear he is placed on 40 mg of prednisone, he is slightly more sob then baseline Review of Systems All systems: negative Past Medical History Past Medical History: Asthma, COPD, Diabetes Mellitus, Hypertension, Pneumonia, Skin Disorder Additional Past Medical History / Comment(s): HOME 02 4L, PSORIASIS History of Any Multi-Drug Resistant Organisms: None Reported Additional Past Surgical History / Comment(s): colonoscopy-PT STATES WAS CLEAR. Past Anesthesia/Blood Transfusion Reactions: No Reported Reaction Past Psychological History: Depression Smoking Status: Current some day smoker Past Alcohol Use History: Occasional Additional Past Alcohol Use History / Comment(s): PT STATED HE MAY GO OUT WITH IS FRIENDS 2-3 TIMES A WEEK AND MAY DRINK BETWEEN 4-7 BEERS EACH TIME. PT STARTED SMOKING AT AGE 16 SMOKES 1PPD Past Drug Use History: Cocaine, Marijuana Additional Drug Use History / Comment(s): TEENAGER ADMITS TO USING ACID, MESCULINE, MARIJUANA, IN HIS 20'S UNSED COCAINE,CRYSTAL METH. DENIES ANY IV DRUG USE. PT STATES NO DRUG IN 20 YEARS. - Past Family History Father Family Medical History: COPD Mother Family Medical History: COPD Medications and Allergies Home Medications Medication Instructions Recorded Confirmed Type Albuterol Nebulized [Ventolin 2.5 mg INHALATION RT-QID 07/02/14 01/25/19 History Nebulized] Furosemide [Lasix] 20 mg PO DAILY 01/13/18 01/25/19 History Insulin Degludec [Tresiba 50 unit SQ DAILY 01/13/18 01/25/19 History Flextouch U-200] Lisinopril [Zestril] 20 mg PO DAILY 01/13/18 01/25/19 History metFORMIN HCL [Glucophage] 500 mg PO DAILY 01/13/18 01/25/19 History INSULIN ASPART (NovoLOG) [NovoLOG See Protocol SQ AC-TID PRN 01/25/19 01/25/19 History (formulary)] Allergies Allergy/AdvReac Type Severity Reaction Status Date / Time No Known Allergies Allergy Verified 01/25/19 08:19 Physical Exam Vitals: Vital Signs Temp Pulse Pulse Resp BP BP Pulse Ox 01/25/19 07:43 100 01/25/19 07:30 101 H 98 01/25/19 04:00 98.1 F 99 16 118/64 97 01/25/19 02:40 98.0 F 01/25/19 02:10 104 H 15 103/62 97 01/25/19 01:50 105 H 16 95/54 97 01/25/19 01:30 113 H 20 113/76 96 01/25/19 01:20 113 H 20 105/82 96 01/25/19 01:10 116 H 16 105/82 96 01/25/19 00:51 117 H 24 01/25/19 00:50 118 H 14 122/83 98 01/25/19 00:36 122 H 28 H 01/25/19 00:30 121 H 8 L 113/90 95 01/25/19 00:20 122 H 31 H 134/85 92 L 01/25/19 00:15 121 H 13 01/25/19 00:03 98.3 F 117 H 28 H 123/76 96 Intake and Output 01/24/19 01/25/19 01/25/19 22:59 06:59 14:59 Other: # Voids 0 Weight 131.542 kg - Constitutional General appearance: average body habitus, cooperative, disheveled - EENT Eyes: EOMI, PERRLA, poor dentition ENT: normal oropharynx Ears: bilateral: normal - Neck Neck: normal ROM Carotids: bilateral: upstroke normal, bruit absent Thyroid: bilateral: normal size - Respiratory Respiratory: bilateral: diminished, prolonged expiration, negative: dullness, rales, rhonchi, wheezing - Cardiovascular Rhythm: regular Heart sounds: normal: S1, S2 - Gastrointestinal General gastrointestinal: decreased bowel sounds - Integumentary Integumentary: decreased turgor, normal turgor - Neurologic Neurologic: CNII-XII intact - Musculoskeletal Musculoskeletal: gait normal, generalized weakness, strength equal bilaterally - Psychiatric Psychiatric: A&O x's 3, appropriate affect, intact judgment & insight Results Labs and x-rays are not done - Laboratory Findings Abnormal lab findings: Abnormal Labs 01/25/19 01/25/19 01:03 07:04 POC Glucose (mg/dL) 316 H 288 H Assessment and Plan Assessment: Acute on chronic hypoxic respiratory failure due to power failure and back of oxygen Severe COPD with exacerbation on maintenance prednisone and oxygen 4 L Hypertension hypertensive cardiovascular disease Type 2 diabetes mellitus Plan: Overall patient appears to be stable we'll check a chest x-ray if patient is doing well and x-rays normal can be discharged home when power is back, pt will be kept on 40 mg of prednisone for 5 days then 20 mg for another 5 days then consider discont all togather, pt has been lately took himself off of Prednisone Time with Patient: Greater than 30
[2019-01-25] MEDS ORDERED: predniSONE 20 MG TAB PO SCH (09:00)
[2019-01-25] MEDS ORDERED: FUROSEMIDE 20 MG TAB PO SCH (09:00)
[2019-01-25] MEDS: NICOTINE 14MG/24HR PATCH TRANSDERM SCH (10:03)
[2019-01-25 10:09] LABS: ALT 39 U/L (21-72); AST 20 U/L (17-59); African American GFR (CKD) >90 (>60 ml/min/1.73 sqM); Albumin 3.2 g/dL (3.5-5.0); Alkaline Phosphatase 77 U/L (38-126); Anion Gap 1 mmol/L; Blood Urea Nitrogen 22 mg/dL (9-20); Calcium 8.3 mg/dL (8.4-10.2); Carbon Dioxide 40 mmol/L (22-30); Chloride 97 mmol/L (98-107); Glucose 276 mg/dL (74-99); Sodium 138 mmol/L (137-145); Total Bilirubin 0.4 mg/dL (0.2-1.3); Total Protein 5.5 g/dL (6.3-8.2)
--- NOTE | 2019-01-25 10:11 | XR ---
EXAMINATION TYPE: XR chest 2V DATE OF EXAM: 01/25/2019 HISTORY: copd. REFERENCE: Previous study dated 01/17/2021. FINDINGS: The lungs are overinflated. The heart is mildly enlarged. There is some scarring or atelect asis at both lung bases. Lungs otherwise clear. Pleural spaces are clear. IMPRESSION: 1. COPD. 2. CARDIOMEGALY. 3. SCARRING VERSUS ATELECTASIS, BOTH LUNG BASES.
[2019-01-25 10:55] LABS: Basophils % (A) 1 %; Eosinophils # (A) 0.5 k/uL (0-0.7); Eosinophils % (A) 8 %; HCT 34.5 % (39.0-53.0); HGB 10.7 gm/dL (13.0-17.5); Hypochromasia Marked; Lymphocytes # (A) 1.5 k/uL (1.0-4.8); Lymphocytes % (A) 23 %; MCH 29.9 pg (25.0-35.0); MCV 96.3 fL (80.0-100.0); Mean Platelet Volume 8.2; Monocytes # (A) 0.5 k/uL (0-1.0); Monocytes % (A) 8 %; Neutrophils # (A) 3.8 k/uL (1.3-7.7); Neutrophils % (A) 59 %; Platelet Count 226 k/uL (150-450); RBC 3.58 m/uL (4.30-5.90); RDW 15.2 % (11.5-15.5); WBC 6.5 k/uL (3.8-10.6)
[2019-01-25 11:56] LABS: Glucose,Whole Blood 253 mg/dL (75-99)
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
[2019-01-25] MEDS: methylPREDNISolone SOD SUCCI 125 MG/2 ML VIAL IV SCH ×2 (12:57→17:22)
[2019-01-25 17:01] LABS: Glucose,Whole Blood 263 mg/dL (75-99)
[2019-01-25] MEDS: FUROSEMIDE 10 MG/ML 4 ML VIAL IV SCH (17:23)
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
[2019-01-25] MEDS: BUDESONIDE 0.5 MG/2 ML NEBU INHALATION SCH (19:07)
[2019-01-25 20:16] LABS: Glucose,Whole Blood 382 mg/dL (75-99)
[2019-01-25] MEDS: MONTELUKAST 10 MG TAB PO SCH (20:46)
[2019-01-25] MEDS: HEPARIN SODIUM,PORCINE 5,000 UNIT/ML 1 ML VIAL SQ SCH (20:46)
[2019-01-25] MEDS: ATORVASTATIN 40 MG TAB PO SCH (20:46)
[2019-01-26] MEDS: methylPREDNISolone SOD SUCCI 125 MG/2 ML VIAL IV SCH ×3 (00:26→12:02)
[2019-01-26] MEDS: FUROSEMIDE 10 MG/ML 4 ML VIAL IV SCH ×3 (00:26→17:04)
[2019-01-26] MEDS: SODIUM CHLORIDE 0.9% 1,000 ML IV SCH ×2 (05:40→16:46)
[2019-01-26 06:53] LABS: Glucose,Whole Blood 317 mg/dL (75-99)
[2019-01-26] MEDS: BUDESONIDE 0.5 MG/2 ML NEBU INHALATION SCH ×2 (07:25→19:06)
[2019-01-26] MEDS: IPRATROPIUM-ALBUTEROL 3 ML NEB INHALATION SCH ×4 (07:25→19:06)
[2019-01-26] MEDS: NICOTINE 14MG/24HR PATCH TRANSDERM SCH (07:49)
[2019-01-26] MEDS: buPROPion XL 150 MG TAB.ER.24H PO SCH (07:49)
[2019-01-26] MEDS: PANTOPRAZOLE 40 MG TABLET PO SCH (07:49)
[2019-01-26] MEDS: LISINOPRIL 20 MG TAB PO SCH (07:49)
[2019-01-26] MEDS: metFORMIN 500 MG TAB PO SCH (07:50)
[2019-01-26] MEDS: HEPARIN SODIUM,PORCINE 5,000 UNIT/ML 1 ML VIAL SQ SCH ×2 (07:50→20:45)
[2019-01-26] MEDS: INSULIN ASPART (NovoLOG) 100 UNIT/ML VIAL SQ SCH ×4 (07:50→21:27)
[2019-01-26] MEDS: INSULIN DETEMIR (LEVEMIR) 100 UNIT/ML SYR SQ SCH (07:50)
--- NOTE | 2019-01-26 09:52 | PN ---
PROGRESS NOTE He was seen on 01/26/2019. He has been hemodynamically stable. However, he is more short of breath today. He was unable to tolerate his CPAP last night. PHYSICAL EXAMINATION: On physical examination, blood pressure is 102/61, respiratory rate of 18, pulse rate 90, temperature 97.8, O2 saturation on 5 L by nasal cannula is 91%. HEENT reveals pupils are equal. Chest reveals decreased breath sounds with expiratory wheeze. Cardiovascular system reveals an S1, S2. Abdomen is soft. With 2+ pedal edema. LABS: Labs were reviewed, which showed an increased eosinophil count of 0.5 thousand. IMPRESSION AT THIS TIME: 1. Severe asthma with acute exacerbation. 2. Chronic obstructive pulmonary disease with acute exacerbation. 3. Congestive heart failure in part due to cor pulmonale. 4. Obstructive sleep apnea. 5. Acute on chronic respiratory failure due to hypoxemia. At this point in time continue supplemental oxygen, keep him in negative fluid balance. Encourage him to use CPAP. Continue steroids and optimize his fluid status. Depending on how he does, we shall make further changes to his care. He was counseled regarding his condition and this approach. He will need anti IgE treatment be started as an outpatient if able to. MMODL / IJN: [id number] /
[2019-01-26 09:56] LABS: Calcium 9.4 mg/dL (8.4-10.2); Potassium 5.2 mmol/L (3.5-5.1)
[2019-01-26 10:13] LABS: Basophils % (A) 0 %; Eosinophils % (A) 0 %; HCT 36.8 % (39.0-53.0); HGB 11.2 gm/dL (13.0-17.5); Hypochromasia Moderate; Lymphocytes # (A) 0.8 k/uL (1.0-4.8); Lymphocytes % (A) 11 %; MCH 28.9 pg (25.0-35.0); MCHC 30.5 g/dL (31.0-37.0); Mean Platelet Volume 7.7; Monocytes # (A) 0.1 k/uL (0-1.0); Monocytes % (A) 2 %; Neutrophils # (A) 6.3 k/uL (1.3-7.7); Neutrophils % (A) 87 %; Platelet Count 283 k/uL (150-450); RBC 3.88 m/uL (4.30-5.90); RDW 14.8 % (11.5-15.5); WBC 7.2 k/uL (3.8-10.6)
[2019-01-26 11:53] LABS: Glucose,Whole Blood 347 mg/dL (75-99)
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
[2019-01-26] MEDS: predniSONE 20 MG TAB PO SCH (17:04)
[2019-01-26 17:59] LABS: Glucose,Whole Blood 408 mg/dL (75-99)
[2019-01-26] MEDS: ATORVASTATIN 40 MG TAB PO SCH (20:44)
[2019-01-26] MEDS: MONTELUKAST 10 MG TAB PO SCH (20:45)
[2019-01-26 21:24] LABS: Glucose,Whole Blood 265 mg/dL (75-99)
[2019-01-26 22:39] VITALS: RESP 17
[2019-01-27] MEDS: SODIUM CHLORIDE 0.9% 1,000 ML IV SCH (05:23)
[2019-01-27 06:24] VITALS: BP 110/72; TEMP 97.6
[2019-01-27 07:22] LABS: Glucose,Whole Blood 297 mg/dL (75-99)
--- NOTE | 2019-01-27 07:33 | PN ---
PROGRESS NOTE Terrance Lazcano was seen again on 01/27/2019. He has been hemodynamically stable. He is feeling significantly better. He had started to diurese and has less wheezing. PHYSICAL EXAMINATION: On physical examination, his vitals were stable. He is afebrile. His chest reveals prolonged exhalation with wheeze only on forced expiration. Cardiovascular system was S1, S2. No S3, no S4. Abdomen is soft. There is 1+ to 2+ pedal edema. IMPRESSION AT THIS TIME: 1. Acute on chronic respiratory failure that is multifactorial. 2. Obstructive sleep apnea that is untreated and may be contributing to congestive heart failure in the form of cor pulmonale. 3. Severe asthma with acute exacerbation. 4. Obesity. At this point in time from a pulmonary perspective, agree with possible discharge planning on diuretic, but also a tapering course of steroids. Would be happy to see in the setting and see if we can reinstitute or restart his Xolair. I would like to thank you for giving us the privilege of participating in his care. MMODL / IJN: [id number] /
[2019-01-27] MEDS: predniSONE 20 MG TAB PO SCH (08:16)
[2019-01-27] MEDS: INSULIN ASPART (NovoLOG) 100 UNIT/ML VIAL SQ SCH (08:16)
[2019-01-27] MEDS: FUROSEMIDE 10 MG/ML 4 ML VIAL IV SCH (08:16)
[2019-01-27] MEDS: INSULIN DETEMIR (LEVEMIR) 100 UNIT/ML SYR SQ SCH (08:16)
[2019-01-27] MEDS: metFORMIN 500 MG TAB PO SCH (08:17)
[2019-01-27] MEDS: HEPARIN SODIUM,PORCINE 5,000 UNIT/ML 1 ML VIAL SQ SCH (08:17)
[2019-01-27] MEDS: LISINOPRIL 20 MG TAB PO SCH (08:17)
[2019-01-27] MEDS: PANTOPRAZOLE 40 MG TABLET PO SCH (08:17)
[2019-01-27] MEDS: NICOTINE 14MG/24HR PATCH TRANSDERM SCH (08:18)
[2019-01-27] MEDS: buPROPion XL 150 MG TAB.ER.24H PO SCH (08:18)
[2019-01-27] MEDS: IPRATROPIUM-ALBUTEROL 3 ML NEB INHALATION SCH (08:56)
[2019-01-27] MEDS: BUDESONIDE 0.5 MG/2 ML NEBU INHALATION SCH (08:57)
[2019-01-27 09:18] VITALS: PULSE 95
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
== END 2019-01-27 11:47 | disposition home or self-care (01) ==
LOC: EC 23:57 → 4MS4W 01-25 01:07
PROVIDERS: ADMIT Family Medicine; ATTEND Family Medicine
DX: J96.21 Acute and chronic respiratory failure with hypoxia (principal); J96.22 Acute and chronic respiratory failure with hypercapnia; J43.9 Emphysema, unspecified; J45.901 Unspecified asthma with (acute) exacerbation; E11.9 Type 2 diabetes mellitus without complications; I26.09 Other pulmonary embolism with acute cor pulmonale; Z99.81 Dependence on supplemental oxygen; L40.50 Arthropathic psoriasis, unspecified; G47.33 Obstructive sleep apnea (adult) (pediatric); I10 Essential (primary) hypertension; I11.0 Hypertensive heart disease with heart failure; I50.9 Heart failure, unspecified; D64.9 Anemia, unspecified; F32.9 Major depressive disorder, single episode, unspecified; Z91.14 Patient's other noncompliance with medication regimen; F17.210 Nicotine dependence, cigarettes, uncomplicated; E66.9 Obesity, unspecified; Z68.42 Body mass index [BMI] 45.0-49.9, adult; Z87.01 Personal history of pneumonia (recurrent); Z79.52 Long term (current) use of systemic steroids; Z79.899 Other long term (current) drug therapy; Z79.4 Long term (current) use of insulin; Z82.5 Family history of asthma and other chronic lower respiratory diseases
CPT/HCPCS: 36415; 94660 ×2; 94640 ×5; 93005; 80053; 80048; 85025 ×2; 71046; G0378 ×3; J1644 ×3; J1940 ×3; J2930 ×2; J7512 ×2; 96361; 96374; 96375; 96376; 99285

== ENCOUNTER 2019-06-20 12:51 | Inpatient (IN) | payer MEDICARE, OTHER ==
[2019-06-20] MEDS ORDERED: methylPREDNISolone SOD SUCCI 125 MG/2 ML VIAL IV STA (13:17)
[2019-06-20] MEDS ORDERED: IPRATROPIUM 0.5 MG/2.5 ML NEBU INHALATION STA (13:17)
[2019-06-20] MEDS ORDERED: ALBUTEROL NEBULIZED 2.5 MG/3 ML INHALATION STA (13:17)
--- NOTE | 2019-06-20 13:30 | ED ---
General Adult HPI - General Stated complaint: Difficulty Breathing Time Seen by Provider: 06/20/19 13:04 Source: patient, RN notes reviewed, old records reviewed Mode of arrival: EMS Limitations: no limitations - History of Present Illness Initial comments: 53-year-old male history COPD on home oxygen presents with 1 week of worsening cough and dyspnea. Cough productive of white sputum. Denies fever or chills. Denies central radiating chest pain. Denies abdominal pain nausea vomiting. Denies lower extremity pain or swelling. Patient states symptoms are consistent with previous COPD exacerbations.patient was transported by EMS, given albuterol in route. He was initially hypoxic on 2 L which improved with albuterol administration. - Related Data Home Medications Medication Instructions Recorded Confirmed Albuterol Nebulized [Ventolin 2.5 mg INHALATION RT-QID 07/02/14 01/25/19 Nebulized] Furosemide [Lasix] 20 mg PO DAILY 01/13/18 01/25/19 Insulin Degludec [Tresiba 50 unit SQ DAILY 01/13/18 01/25/19 Flextouch U-200] Lisinopril [Zestril] 20 mg PO DAILY 01/13/18 01/25/19 metFORMIN HCL [Glucophage] 500 mg PO DAILY 01/13/18 01/25/19 Aclidinium Gardners [Tudorza 1 puff INHALATION RT-DAILY 01/25/19 01/25/19 Pressair] INSULIN ASPART (NovoLOG) [NovoLOG See Protocol SQ AC-TID PRN 01/25/19 01/25/19 (formulary)] Previous Rx's Medication Instructions Recorded Atorvastatin [Lipitor] 40 mg PO HS #30 tab 01/27/19 Montelukast [Singulair] 10 mg PO HS 30 Days #30 tab 01/27/19 buPROPion XL [Wellbutrin XL] 150 mg PO DAILY tab.er.24h 01/27/19 predniSONE See Taper PO DIRECTED #40 tab 01/27/19 Allergies Allergy/AdvReac Type Severity Reaction Status Date / Time No Known Allergies Allergy Verified 01/25/19 08:19 Review of Systems ROS Statement: Those systems with pertinent positive or pertinent negative responses have been documented in the HPI. ROS Other: All systems not noted in ROS Statement are negative. Past Medical History Past Medical History: Asthma, COPD, Diabetes Mellitus, Hypertension, Pneumonia, Skin Disorder Additional Past Medical History / Comment(s): HOME 02 4L, PSORIASIS History of Any Multi-Drug Resistant Organisms: None Reported Additional Past Surgical History / Comment(s): colonoscopy-PT STATES WAS CLEAR. Past Anesthesia/Blood Transfusion Reactions: No Reported Reaction Past Psychological History: Depression Smoking Status: Current every day smoker Past Alcohol Use History: Occasional Past Drug Use History: Cocaine, Marijuana - Past Family History Father Family Medical History: COPD Mother Family Medical History: COPD General Exam Limitations: no limitations General appearance: alert, in no apparent distress Head exam: Present: atraumatic, normocephalic ENT exam: Present: normal exam Neck exam: Present: normal inspection. Absent: tenderness, meningismus Respiratory exam: Present: respiratory distress, wheezes, decreased breath sounds Cardiovascular Exam: Present: normal rhythm, tachycardia GI/Abdominal exam: Present: soft. Absent: distended, tenderness Extremities exam: Present: normal inspection, normal capillary refill. Absent: pedal edema, calf tenderness Neurological exam: Present: alert, oriented X3 Psychiatric exam: Present: normal affect, normal mood Skin exam: Present: other (diffuse psoriasis) Course Vital Signs 06/20/19 06/20/19 06/20/19 13:17 13:22 14:13 Temperature 98.6 F Pulse Rate 107 H 100 Respiratory 22 Rate Blood Pressure 136/88 O2 Sat by Pulse 83 L 93 L Oximetry 06/20/19 14:42 Temperature Pulse Rate 100 Respiratory Rate Blood Pressure O2 Sat by Pulse Oximetry EKG Findings - EKG Comments: EKG Findings:: EKG: Sinus tachycardia, incomplete right bundle-branch block, ra te of 110 NE interval 114, QRS duration [address] segment elevation, similar compared to previous EKG in January 2019. Medical Decision Making - Medical Decision Making 53-year-old male history of COPD presenting with 1 week of worsening cough and dyspnea. Decreased air entry and expiratory wheezing bilaterally. He has chest x-ray negative for pneumonia, negative for congestive heart failure. He has hemoglobin 11.1, normal white blood cell count. He has a acute kidney injury with creatinine 2.14 from baseline of 1. He is hyperkalemic 6.3 with no EKG changes. He is given treatment for hyperkalemia as well as COPD exacerbation t he emergency department. He will be admitted for treatment of both COPD exacerbation and hypokalemia as well as acute kidney injury. Case is discussed with the admitting physician Dr. Rushing - Lab Data Result diagrams: 06/20/19 13:43 06/20/19 13:43 Lab Results 06/20/19 06/20/19 06/20/19 Range/Units 13:43 13:43 13:43 WBC 9.1 (3.8-10.6) k/uL RBC 3.82 L (4.30-5.90) m/uL Hgb 11.1 L (13.0-17.5) gm/dL Hct 35.6 L (39.0-53.0) % MCV 93.3 (80.0-100.0) fL MCH 29.0 (25.0-35.0) pg MCHC 31.1 (31.0-37.0) g/dL RDW 13.7 (11.5-15.5) % Plt Count 211 (150-450) k/uL Neutrophils % 75 % Lymphocytes % 14 % Monocytes % 6 % Eosinophils % 4 % Basophils % 0 % Neutrophils # 6.8 (1.3-7.7) k/uL Lymphocytes # 1.2 (1.0-4.8) k/uL Monocytes # 0.6 (0-1.0) k/uL Eosinophils # 0.4 (0-0.7) k/uL Basophils # 0.0 (0-0.2) k/uL Hypochromasia Slight PT (9.0-12.0) sec INR (<1.2) APTT (22.0-30.0) sec Sodium 144 (137-145) mmol/L Potassium 6.3 H* (3.5-5.1) mmol/L Chloride 105 (98-107) mmol/L Carbon Dioxide 34 H (22-30) mmol/L Anion Gap 5 mmol/L BUN 73 H (9-20) mg/dL Creatinine 2.14 H (0.66-1.25) mg/dL Est GFR (CKD-EPI)AfAm 40 (>60 ml/min/1.73 sqM) Est GFR (CKD-EPI)NonAf 34 (>60 ml/min/1.73 sqM) Glucose 147 H (74-99) mg/dL Plasma Lactic Acid Thompson 1.0 (0.7-2.0) mmol/L Calcium 9.3 (8.4-10.2) mg/dL Magnesium 2.3 (1.6-2.3) mg/dL Total Bilirubin 0.5 (0.2-1.3) mg/dL AST 35 (17-59) U/L ALT 47 (4-49) U/L Alkaline Phosphatase 91 (38-126) U/L Troponin I (0.000-0.034) ng/mL NT-Pro-B Natriuret Pep pg/mL Total Protein 7.6 (6.3-8.2) g/dL Albumin 4.1 (3.5-5.0) g/dL Influenza Type A RNA (Not Detectd) Influenza Type B (PCR) (Not Detectd) 06/20/19 06/20/19 06/20/19 Range/Units 13:43 13:43 13:43 WBC (3.8-10.6) k/uL RBC (4.30-5.90) m/uL Hgb (13.0-17.5) gm/dL Hct (39.0-53.0) % MCV (80.0-100.0) fL MCH (25.0-35.0) pg MCHC (31.0-37.0) g/dL RDW (11.5-15.5) % Plt Count (150-450) k/uL Neutrophils % % Lymphocytes % % Monocytes % % Eosinophils % % Basophils % % Neutrophils # (1.3-7.7) k/uL Lymphocytes # (1.0-4.8) k/uL Monocytes # (0-1.0) k/uL Eosinophils # (0-0.7) k/uL Basophils # (0-0.2) k/uL Hypochromasia PT 9.5 (9.0-12.0) sec INR 0.9 (<1.2) APTT 23.7 (22.0-30.0) sec Sodium (137-145) mmol/L Potassium (3.5-5.1) mmol/L Chloride (98-107) mmol/L Carbon Dioxide (22-30) mmol/L Anion Gap mmol/L BUN (9-20) mg/dL Creatinine (0.66-1.25) mg/dL Est GFR (CKD-EPI)AfAm (>60 ml/min/1.73 sqM) Est GFR (CKD-EPI)NonAf (>60 ml/min/1.73 sqM) Glucose (74-99) mg/dL Plasma Lactic Acid Thompson (0.7-2.0) mmol/L Calcium (8.4-10.2) mg/dL Magnesium (1.6-2.3) mg/dL Total Bilirubin (0.2-1.3) mg/dL AST (17-59) U/L ALT (4-49) U/L Alkaline Phosphatase (38-126) U/L Troponin I <0.012 (0.000-0.034) ng/mL NT-Pro-B Natriuret Pep 443 pg/mL Total Protein (6.3-8.2) g/dL Albumin (3.5-5.0) g/dL Influenza Type A RNA (Not Detectd) Influenza Type B (PCR) (Not Detectd) 06/20/19 Range/Units 14:36 WBC (3.8-10.6) k/uL RBC (4.30-5.90) m/uL Hgb (13.0-17.5) gm/dL Hct (39.0-53.0) % MCV (80.0-100.0) fL MCH (25.0-35.0) pg MCHC (31.0-37.0) g/dL RDW (11.5-15.5) % Plt Count (150-450) k/uL Neutrophils % % Lymphocytes % % Monocytes % % Eosinophils % % Basophils % % Neutrophils # (1.3-7.7) k/uL Lymphocytes # (1.0-4.8) k/uL Monocytes # (0-1.0) k/uL Eosinophils # (0-0.7) k/uL Basophils # (0-0.2) k/uL Hypochromasia PT (9.0-12.0) sec INR (<1.2) APTT (22.0-30.0) sec Sodium (137-145) mmol/L Potassium (3.5-5.1) mmol/L Chloride (98-107) mmol/L Carbon Dioxide (22-30) mmol/L Anion Gap mmol/L BUN (9-20) mg/dL Creatinine (0.66-1.25) mg/dL Est GFR (CKD-EPI)AfAm (>60 ml/min/1.73 sqM) Est GFR (CKD-EPI)NonAf (>60 ml/min/1.73 sqM) Glucose (74-99) mg/dL Plasma Lactic Acid Thompson (0.7-2.0) mmol/L Calcium (8.4-10.2) mg/dL Magnesium (1.6-2.3) mg/dL Total Bilirubin (0.2-1.3) mg/dL AST (17-59) U/L ALT (4-49) U/L Alkaline Phosphatase (38-126) U/L Troponin I (0.000-0.034) ng/mL NT-Pro-B Natriuret Pep pg/mL Total Protein (6.3-8.2) g/dL Albumin (3.5-5.0) g/dL Influenza Type A RNA Not Detected (Not Detectd) Influenza Type B (PCR) Not Detected (Not Detectd) Critical Care Time Critical Care Time: Yes Total Critical Care Time: 35 Disposition Clinical Impression: Acute exacerbation of chronic obstructive airways disease, MARIA T (acute kidney injury), Hyperkalemia Disposition: ADMITTED IP TO THIS HOSP Condition: Stable Is patient prescribed a controlled substance at d/c from ED?: No Referrals: Olivia Alarcon DO [Primary Care Provider] - 1-2 days Decision to Admit Reason: Admit from EC Decision Date: 06/20/19 Decision Time: 15:29
[2019-06-20 14:07] LABS: Basophils % (A) 0 %; Eosinophils # (A) 0.4 k/uL (0-0.7); Eosinophils % (A) 4 %; HCT 35.6 % (39.0-53.0); HGB 11.1 gm/dL (13.0-17.5); Hypochromasia Slight; Lymphocytes # (A) 1.2 k/uL (1.0-4.8); Lymphocytes % (A) 14 %; MCHC 31.1 g/dL (31.0-37.0); MCV 93.3 fL (80.0-100.0); Mean Platelet Volume 8.3; Monocytes # (A) 0.6 k/uL (0-1.0); Monocytes % (A) 6 %; Neutrophils # (A) 6.8 k/uL (1.3-7.7); Neutrophils % (A) 75 %; Platelet Count 211 k/uL (150-450); RBC 3.82 m/uL (4.30-5.90); RDW 13.7 % (11.5-15.5); WBC 9.1 k/uL (3.8-10.6)
[2019-06-20 14:15] LABS: INR 0.9 (<1.2); Partial Thromboplastin Time 23.7 sec (22.0-30.0); Prothrombin Time 9.5 sec (9.0-12.0)
--- NOTE | 2019-06-20 14:21 | XR ---
EXAMINATION TYPE: XR chest 2V DATE OF EXAM: 06/20/2019 COMPARISON: 01/25/2019 HISTORY: COPD. Short of breath. TECHNIQUE: 2 views FINDINGS: Heart is slightly enlarged. There is minimal blunting of the costophrenic angles. There is no heart failure. There are no hilar masses. Bony thorax is intact. IMPRESSION: Mild pleural diaphragmatic reaction at the lung bases. No heart failure. Pleural reaction increased on the left side compared to old exam.
[2019-06-20 14:26] LABS: Albumin 4.1 g/dL (3.5-5.0); Calcium 9.3 mg/dL (8.4-10.2); Magnesium 2.3 mg/dL (1.6-2.3); Total Bilirubin 0.5 mg/dL (0.2-1.3); Total Protein 7.6 g/dL (6.3-8.2)
[2019-06-20 14:33] LABS: Potassium 6.3 mmol/L (3.5-5.1)
[2019-06-20] MEDS ORDERED: CALCIUM GLUCONATE 1 GM in SODIUM CHLORIDE 0.9% 100 ML IVPB ONE (14:53)
[2019-06-20] MEDS ORDERED: SODIUM BICARB 8.4% 50 ML SYR (1 MEQ/ML) IV ONE (14:53)
[2019-06-20] MEDS ORDERED: INSULIN REGULAR 100 UNIT/ML VIAL IV ONE (14:53)
[2019-06-20] MEDS ORDERED: SODIUM POLYSTYRENE SULFONATE 15 GM/60 ML BOTTLE PO ONE (14:53)
[2019-06-20] MEDS ORDERED: SODIUM CHLORIDE 0.9% 1,000 ML IV ONE (14:54)
[2019-06-20] MEDS ORDERED: IPRATROPIUM-ALBUTEROL 3 ML NEB INHALATION PRN (15:15)
[2019-06-20] MEDS ORDERED: ALBUTEROL NEBULIZED 2.5 MG/3 ML INHALATION PRN (15:17)
[2019-06-20] MEDS: SODIUM CHLORIDE 0.9% 1,000 ML IV SCH (15:25)
[2019-06-20] MEDS: DEXTROSE 10 % IN WATER 250 ML IV ONE ×2 (15:28→15:39)
[2019-06-20 17:03] LABS: Glucose,Whole Blood 150 mg/dL (75-99)
--- NOTE | 2019-06-20 17:25 | P.HPIM ---
History of Present Illness this is a pleasant 53 years old male with past medical history of asthma/COPD, diabetes mellitus, hypertension, pneumonia., Depression, cigarette smoker.he follows with , and his dough panner is Dr. Mosquera. patient presents because of shortness of breath of 1-2 days duration associated with Phrenic Clear Phlegm for about a Week. However Denies Chest Pain No Urinary or Bowel Problem Complaints. No Dizziness or Palpitation. No Weakness. Patient at Baseline Has COPD and Uses 5 L of Oxygen Via Nasal Cannula, He Told Me He Is Supposed to Use CPAP/BiPAP Machine for His Sleep Apnea but He Could Not Afford It His Ex- Smoker Quit about 5 Months Ago. Denies a Call or Illicit Drugs on admission patient was tachycardic at 101, he was hypoxic at 83 and placed on 5 L oxygen via nasal cannula.CBC is unremarkable. Potassium is elevatedat 6.5, creatinine is elevated at 2.4, baseline is 0.7-1.1,liver enzymes unremarkable. EKG showing sinus tachycardia at [address]-T changes.chest x- ray: No consolidation an emergency room patient got Zithromax, Solu-Medrol 60 mg and normal saline at 75 mL/h, sodium bicarb and Kayexalate 30 g Imes 1 albuterol inhaler, and insulin with sugar, calcium gluconate Review of Systems CONSTITUTIONAL: No fever, no malaise, no fatigue. HEENT: No recent visual problems or hearing problems. Denied any sore throat. CARDIOVASCULAR: no palpitations, no syncope. PULMONARY: no hemoptysis. GASTROINTESTINAL: No diarrhea, no nausea, no vomiting, no abdominal pain. Normoactive bowel sounds. NEUROLOGICAL: No headaches, no weakness, no numbness. HEMATOLOGICAL: Denies any bleeding or petechiae. GENITOURINARY: Denies any burning micturition, frequency, or urgency. MUSCULOSKELETAL/RHEUMATOLOGICAL: Denies any joint pain, swelling, or any muscle pain. ENDOCRINE: Denies any polyuria or polydipsia. Past Medical History Past Medical History: Asthma, COPD, Diabetes Mellitus, Hypertension, Pneumonia, Skin Disorder Additional Past Medical History / Comment(s): HOME 02 4L, PSORIASIS History of Any Multi-Drug Resistant Organisms: None Reported Additional Past Surgical History / Comment(s): colonoscopy-PT STATES WAS CLEAR. Past Anesthesia/Blood Transfusion Reactions: No Reported Reaction Past Psychological History: Depression Smoking Status: Current every day smoker Past Alcohol Use History: Occasional Past Drug Use History: Cocaine, Marijuana - Past Family History Father Family Medical History: COPD Mother Family Medical History: COPD Medications and Allergies Home Medications Medication Instructions Recorded Confirmed Type Albuterol Nebulized [Ventolin 2.5 mg INHALATION RT-QID PRN 07/02/14 06/20/19 History Nebulized] Furosemide [Lasix] 20 mg PO DAILY 01/13/18 06/20/19 History Lisinopril [Zestril] 20 mg PO DAILY 01/13/18 06/20/19 History metFORMIN HCL [Glucophage] 500 mg PO DAILY 01/13/18 06/20/19 History Atorvastatin [Lipitor] 40 mg PO HS #30 tab 01/27/19 06/20/19 Rx Montelukast [Singulair] 10 mg PO HS 30 Days #30 tab 01/27/19 06/20/19 Rx Albuterol Sulfate [Proair Hfa] 2 puff INHALATION RT-QID PRN 06/20/19 06/20/19 History Insulin Glargine,Hum.rec.anlog 40 unit SQ DAILY 06/20/19 06/20/19 History [Basaglar Kwikpen U-100] Metolazone [Zaroxolyn] 2.5 mg PO DIRECTED 06/20/19 06/20/19 History Allergies Allergy/AdvReac Type Severity Reaction Status Date / Time No Known Allergies Allergy Verified 06/20/19 16:33 Physical Exam Vitals: Vital Signs Temp Pulse Resp BP Pulse Ox 06/20/19 17:02 98 18 144/76 95 06/20/19 15:54 101 H 20 145/78 94 L 06/20/19 15:36 102 H 18 143/64 94 L 06/20/19 14:42 100 06/20/19 14:13 100 06/20/19 13:22 93 L 06/20/19 13:17 98.6 F 107 H 22 136/88 83 L Intake and Output 06/20/19 06/20/19 06/20/19 06:59 14:59 22:59 Other: Weight 120.656 kg -GENERAL: The patient is alert and oriented x3, respiratory acute distress. obese HEENT: Pupils are round and equally reacting to light. EOMI. No scleral icterus. No conjunctival pallor. Normocephalic, atraumatic. No pharyngeal erythema. No thyromegaly. CARDIOVASCULAR: S1 and S2 present. No murmurs, rubs, or gallops. -PULMONARY: Chest is clear to auscultation, there is expiratory wheezing. ABDOMEN: Soft, nontender, nondistended, normoactive bowel sounds. No palpable organomegaly. MUSCULOSKELETAL: No joint swelling or deformity. EXTREMITIES: No cyanosis, clubbing, or pedal edema. NEUROLOGICAL: Gross neurological examination did not reveal any focal deficits. -SKIN: psoriasis rash on the extensor surface of the upper and lower extremities. No petechiae Results CBC & Chem 7: 06/20/19 13:43 06/20/19 13:43 Labs: Abnormal Lab Results - Last 24 Hours (Table) 06/20/19 06/20/19 06/20/19 Range/Units 13:43 13:43 16:59 RBC 3.82 L (4.30-5.90) m/uL Hgb 11.1 L (13.0-17.5) gm/dL Hct 35.6 L (39.0-53.0) % Potassium 6.3 H* (3.5-5.1) mmol/L Carbon Dioxide 34 H (22-30) mmol/L BUN 73 H (9-20) mg/dL Creatinine 2.14 H (0.66-1.25) mg/dL Glucose 147 H (74-99) mg/dL POC Glucose (mg/dL) 150 H (75-99) mg/dL Assessment and Plan Assessment: acute kidney injury with hyperkalemia Acute COPD exacerbation sleep apnea, nonadherent to CPAP/BiPAP machine chronic hypoxic respiratory failure Diabetes mellitus Hypertension Depression, not in activation Nicotine dependence Plan: this is a pleasant 53 years old male who presents with acute CHF exacerbation and acute kidney injury. Continue with IV fluids. Follow-up potassium level.we'll consult Dr. Brown and Dr. Mosquera the dough panner Labs and medication were reviewed.. Continue same treatment. Continue with symptomatic treatment. Resume home medication. Monitor lytes and vitals. DVT and GI prophylaxis. Further recommendations of the clinical course of the patient DVT prophylaxis: Subcutaneous heparin GI Prophylaxis: Pepcid PT/OT: Pending Prognosis is guarded
[2019-06-20 18:03] LABS: Glucose,Whole Blood 154 mg/dL (75-99)
[2019-06-20] MEDS: methylPREDNISolone SOD SUCCI 125 MG/2 ML VIAL IV SCH ×2 (19:40→23:04)
[2019-06-20] MEDS: IPRATROPIUM-ALBUTEROL 3 ML NEB INHALATION SCH ×2 (20:00→20:16)
[2019-06-20 21:06] LABS: Glucose,Whole Blood 186 mg/dL (75-99)
[2019-06-20] MEDS: ATORVASTATIN 40 MG TAB PO SCH (21:26)
[2019-06-20] MEDS: INSULIN ASPART (NovoLOG) 100 UNIT/ML VIAL SQ SCH (21:26)
[2019-06-20] MEDS: MONTELUKAST 10 MG TAB PO SCH (21:26)
[2019-06-21 06:16] LABS: HCT 32.4 % (39.0-53.0); HGB 9.7 gm/dL (13.0-17.5); Hypochromasia Marked; MCH 28.7 pg (25.0-35.0); MCHC 29.9 g/dL (31.0-37.0); Mean Platelet Volume 8.8; Platelet Count 193 k/uL (150-450); RBC 3.37 m/uL (4.30-5.90); RDW 13.8 % (11.5-15.5); WBC 5.5 k/uL (3.8-10.6)
[2019-06-21] MEDS: methylPREDNISolone SOD SUCCI 125 MG/2 ML VIAL IV SCH ×3 (06:29→18:22)
[2019-06-21] MEDS: SODIUM CHLORIDE 0.9% 1,000 ML IV SCH (06:30)
[2019-06-21 06:32] LABS: Calcium 8.8 mg/dL (8.4-10.2)
[2019-06-21] MEDS ORDERED: SODIUM POLYSTYRENE SULFONATE 15 GM/60 ML BOTTLE PO STA ×2 (07:02→21:28)
[2019-06-21] MEDS ORDERED: SODIUM BICARB 8.4% 50 ML SYR (1 MEQ/ML) IV STA (07:03)
[2019-06-21] MEDS ORDERED: INSULIN REGULAR 100 UNIT/ML VIAL IV ONE ×2 (07:03→15:09)
[2019-06-21] MEDS ORDERED: DEXTROSE 10 % IN WATER 250 ML IV STA (07:04)
[2019-06-21 07:06] LABS: Glucose,Whole Blood 190 mg/dL (75-99)
[2019-06-21] MEDS ORDERED: CALCIUM GLUCONATE 1 GM in SODIUM CHLORIDE 0.9% 100 ML IVPB ONE ×2 (07:06→08:17)
[2019-06-21] MEDS: ALBUTEROL NEB (CONC) 2.5 MG/0.5 ML INHALATION ONE ×2 (07:40→21:37)
[2019-06-21] MEDS: IPRATROPIUM-ALBUTEROL 3 ML NEB INHALATION SCH ×4 (07:45→18:45)
--- NOTE | 2019-06-21 08:01 | P.PN ---
Subjective this is a pleasant 53 years old male with past medical history of asthma/COPD, diabetes mellitus, hypertension, pneumonia., Depression, cigarette smoker.he follows with , and his pastoral assistant is Dr. Mosquera. patient presents because of shortness of breath of 1-2 days duration associated with Phrenic Clear Phlegm for about a Week. However Denies Chest Pain No Urinary or Bowel Problem Complaints. No Dizziness or Palpitation. No Weakness. Patient at Baseline Has COPD and Uses 5 L of Oxygen Via Nasal Cannula, He Told Me He Is Supposed to Use CPAP/BiPAP Machine for His Sleep Apnea but He Could Not Afford It His Ex- Smoker Quit about 5 Months Ago. Denies a Call or Illicit Drugs on admission patient was tachycardic at 101, he was hypoxic at 83 and placed on 5 L oxygen via nasal cannula.CBC is unremarkable. Potassium is elevatedat 6.5, creatinine is elevated at 2.4, baseline is 0.7-1.1,liver enzymes unremarkable. EKG showing sinus tachycardia at [address]-T changes.chest x- ray: No consolidation an emergency room patient got Zithromax, Solu-Medrol 60 mg and normal saline at 75 mL/h, sodium bicarb and Kayexalate 30 g Imes 1 albuterol inhaler, and insulin with sugar, calcium gluconate 06/21/2019 Patient last night refused to take the Kayexalate because he did not want to have bowel movement overnight. Repeat potassium this morning was critical at 7.5. EKG showing tented T wave. However patient denies chest pain or dizziness or palpitation. His vitals stable. Patient provided with cocktail for hyperkalemia including insulin/glucose, sodium bicarb, calcium gluconate, albuterol, Kayexalate 30 g, and continue with IV fluids with his creatinine slightly improved from 2.1 to 1.9 , we will transfer the patient to the ICU with senior bi developer consulted, also conveyor mechanic his patient. We'll repeat potassium in a few hours. Regarding his breathing he feels a little better. He has occasional cough but no chest pain. Review of systems: CONSTITUTIONAL: No fever, no malaise, no fatigue. HEENT: No recent visual problems or hearing problems. Denied any sore throat. CARDIOVASCULAR: no palpitations, no syncope. PULMONARY: no hemoptysis. GASTROINTESTINAL: No diarrhea, no nausea, no vomiting, no abdominal pain. Normoactive bowel sounds. NEUROLOGICAL: No headaches, no weakness, no numbness. HEMATOLOGICAL: Denies any bleeding or petechiae. GENITOURINARY: Denies any burning micturition, frequency, or urgency. MUSCULOSKELETAL/RHEUMATOLOGICAL: Denies any joint pain, swelling, or any muscle pain. ENDOCRINE: Denies any polyuria or polydipsia. Objective - Vital Signs Vital signs: Vital Signs Temp 98 F 06/21/19 04:00 Pulse 90 06/21/19 07:41 Resp 20 06/21/19 04:00 BP 105/58 06/21/19 04:00 Pulse Ox 95 06/21/19 07:41 Intake & Output 06/20/19 06/21/19 06/21/19 18:59 06:59 18:59 Output Total 200 Balance -200 Weight 120.656 kg 123.7 kg Output: Urine 200 Other: Voiding Method Urinal - Exam -GENERAL: The patient is alert and oriented x3, respiratory acute distress. obese HEENT: Pupils are round and equally reacting to light. EOMI. No scleral icterus. No conjunctival pallor. Normocephalic, atraumatic. No pharyngeal erythema. No thyromegaly. CARDIOVASCULAR: S1 and S2 present. No murmurs, rubs, or gallops. -PULMONARY: Chest is clear to auscultation, there is expiratory wheezing. ABDOMEN: Soft, nontender, nondistended, normoactive bowel sounds. No palpable organomegaly. MUSCULOSKELETAL: No joint swelling or deformity. EXTREMITIES: No cyanosis, clubbing, or pedal edema. NEUROLOGICAL: Gross neurological examination did not reveal any focal deficits. -SKIN: psoriasis rash on the extensor surface of the upper and lower extremities. No petechiae - Labs CBC & Chem 7: 06/21/19 05:18 06/21/19 05:18 Labs: Abnormal Lab Results - Last 24 Hours (Table) 06/20/19 06/20/19 06/20/19 Range/Units 13:43 13:43 16:59 RBC 3.82 L (4.30-5.90) m/uL Hgb 11.1 L (13.0-17.5) gm/dL Hct 35.6 L (39.0-53.0) % MCHC (31.0-37.0) g/dL Potassium 6.3 H* (3.5-5.1) mmol/L Carbon Dioxide 34 H (22-30) mmol/L BUN 73 H (9-20) mg/dL Creatinine 2.14 H (0.66-1.25) mg/dL Glucose 147 H (74-99) mg/dL POC Glucose (mg/dL) 150 H (75-99) mg/dL 06/20/19 06/20/19 06/21/19 Range/Units 18:01 21:04 05:18 RBC 3.37 L (4.30-5.90) m/uL Hgb 9.7 L (13.0-17.5) gm/dL Hct 32.4 L (39.0-53.0) % MCHC 29.9 L (31.0-37.0) g/dL Potassium (3.5-5.1) mmol/L Carbon Dioxide (22-30) mmol/L BUN (9-20) mg/dL Creatinine (0.66-1.25) mg/dL Glucose (74-99) mg/dL POC Glucose (mg/dL) 154 H 186 H (75-99) mg/dL 06/21/19 06/21/19 Range/Units 05:18 07:04 RBC (4.30-5.90) m/uL Hgb (13.0-17.5) gm/dL Hct (39.0-53.0) % MCHC (31.0-37.0) g/dL Potassium 7.5 H* (3.5-5.1) mmol/L Carbon Dioxide (22-30) mmol/L BUN 86 H (9-20) mg/dL Creatinine 1.99 H (0.66-1.25) mg/dL Glucose 200 H (74-99) mg/dL POC Glucose (mg/dL) 190 H (75-99) mg/dL Assessment and Plan Assessment: acute kidney injury with hyperkalemia EKG changes with interrupted T wave from hyperkalemia Acute COPD exacerbation sleep apnea, nonadherent to CPAP/BiPAP machine Nonadherence to therapy chronic hypoxic respiratory failure Diabetes mellitus Hypertension Depression, not in activation Nicotine dependence Plan: this is a pleasant 53 years old male who presents with acute COPD exacerbation and acute kidney injury with hyperkalemia potassium 7.5 this morning, patient is counseled about compliance.. Continue with IV fluids. Follow-up potassium level.we'll consult Dr. Brown and Dr. Mosquera the pastoral assistant. Also send the patient to the ICU and consult senior bi developer. Labs and medication were reviewed.. Continue same treatment. Continue with symptomatic treatment. Resume home medication. Monitor lytes and vitals. DVT and GI prophylaxis. Further recommendations of the clinical course of the patient DVT prophylaxis: Subcutaneous heparin GI Prophylaxis: Pepcid PT/OT: Pending Prognosis is guarded Dr. Alarcon will resume the care of the patient tomorrow
[2019-06-21 08:50] LABS: Glucose,Whole Blood 172 mg/dL (75-99)
--- NOTE | 2019-06-21 09:09 | XR ---
EXAMINATION TYPE: XR chest 1V DATE OF EXAM: 06/21/2019 HISTORY: short of breath. REFERENCE: Previous study dated 06/20/2019. FINDINGS: There is multichamber cardiac enlargement. There is platelike atelectasis at both lung base s. There is worsening airspace disease at both lung bases. There are small, bilateral effusions. IMPRESSION: 1. CARDIOMEGALY. 2. WORSENING BIBASILAR AIRSPACE DISEASE. 3. SMALL, BILATERAL EFFUSIONS.
[2019-06-21] MEDS: INSULIN ASPART (NovoLOG) 100 UNIT/ML VIAL SQ SCH ×4 (09:39→22:18)
[2019-06-21] MEDS: INSULIN DETEMIR (LEVEMIR) 100 UNIT/ML SYR SQ SCH ×2 (09:39)
--- NOTE | 2019-06-21 09:41 | US ---
EXAMINATION TYPE: US kidneys/renal and bladder DATE OF EXAM: 06/21/2019 COMPARISON: NONE CLINICAL HISTORY: increased potassium. Abnormal labs EXAM MEASUREMENTS: Right Kidney: 11.6 x 4.9 x 5.2 cm Left Kidney: 11.7 x 5.7 x 4.9 cm Right Kidney: Appeared wnl Left Kidney: Appeared wnl Bladder: wnl Bilateral Jets seen: No Incidental finding hyperechoic lesion right lobe of liver= 1.4 x 1.5 x 1.6 cm 1.6 cm hepatic lesion likely represents a hemangioma. This could BE confirmed with MRI. Neither urete ral jet was visualized. IMPRESSION: 1. NO EVIDENCE OF HYDRONEPHROSIS AT THIS TIME. 2. PROBABLE HEMANGIOMA WITHIN THE LIVER.
[2019-06-21] MEDS ORDERED: FUROSEMIDE 10 MG/ML 4 ML VIAL IV STA (10:44)
[2019-06-21] MEDS: AZITHROMYCIN 500 MG TAB PO SCH (11:06)
[2019-06-21 11:58] LABS: Glucose,Whole Blood 157 mg/dL (75-99)
--- NOTE | 2019-06-21 12:53 | CONS ---
CONSULTATION REASON FOR CONSULT: Renal failure and hyperkalemia. HISTORY OF PRESENT ILLNESS: The patient is a 53-year-old male with a previous history of hypertension, asthma, COPD, type 2 diabetes, who was admitted to the hospital because of shortness of breath. The patient denied any significant increase in lower extremity edema. He denies any prior history of kidney diseases or high potassium levels. His serum potassium was 6.3 on initial admission and it did go up to 7.5 and the patient has been transferred to the ICU. He denies use of any nonsteroidal anti-inflammatory agents. The patient was on LEANNE inhibitors at home. There is no ongoing GI bleed. Blood pressure has not been significantly low. The patient states he has been voiding. Ultrasound of the kidneys was ordered, which does not show any evidence of hydronephrosis. Both kidneys are fairly good sized. The patient has received IV treatment for potassium. His LEANNE inhibitors are on hold and his blood sugars have been running on the higher side with blood sugar around 200 this morning. PAST MEDICAL HISTORY: Psoriasis, type 2 diabetes, hypertension, obesity, obstructive sleep apnea and depression. PAST SURGICAL HISTORY: None except for colonoscopy. SOCIAL HISTORY: Patient is positive for smoking. He has used cocaine and marijuana previously. MEDICATIONS: Medications at home prior to admission included Lasix, Zestril, Glucophage, Lipitor, Singulair, breathing treatments, Zaroxolyn. ALLERGIES: None. REVIEW OF SYSTEMS: As per HPI. Other systems negative. EXAMINATION: Patient is comfortable, awake, not in any acute distress. Alert, oriented x3. Blood pressure is 137/63, heart rate 83 per minute. He is afebrile. Examination of the heart S1, S2. Examination of the lungs, bilateral breath sounds are heard. ABDOMEN: Soft, obese, nontender. Examination of lower extremities shows chronic skin changes from significant psoriasis bilaterally. No significant edema is appreciated. There is evidence of psoriasis in the upper extremities as well. [employer] exam grossly intact. LAB: Show sodium 141, potassium 7.5 this morning, chloride 107, BUN 86, creatinine 1.9. UA is not available. Chest x-ray shows bilateral effusions, cardiomegaly, worsening bibasilar airspace disease. Creatinine yesterday was 2.14. Previous creatinine on 01/26/2019 was 1.13. ASSESSMENT: 1. Acute kidney injury, nonoliguric, possibly prerenal versus cardiorenal. Continue to hold off on LEANNE inhibitors for now. I will diurese the patient. We will repeat labs in a.m. There is no evidence of obstruction on the ultrasound. Check urinalysis. Avoid any other nephrotoxic agents. Avoid hypotension. 2. Hyperkalemia associated with acute kidney injury use of LEANNE inhibitors. The patient did use a couple of doses of NSAIDs as well. There is no ongoing GI bleed. We need to control the blood sugars better and hopefully the use of IV loop diuretics will help with the potassium as well. Check stool for occult blood as hemoglobin is on the lower side at 9.7. Repeat potassium in the next couple of hours. 3. Diabetes. Blood sugars currently on the higher side. Hold off on metformin given the acute kidney injury. 4. Obesity. 5. Psoriasis. 6. Anemia, rule out iron deficiency. 7. Obstructive sleep apnea. PLAN: Check stool for occult blood. Discontinue IV fluids. Maintain patient on IV Lasix. Check iron studies. Check urinalysis. Repeat potassium. Maintain patient on low- potassium diet. Thank you for this consultation. We will continue to follow the patient with you during his hospitalization. MMODL / IJN: [id number] /
--- NOTE | 2019-06-21 14:03 | P.CNPUL ---
History of Present Illness Consult date: 06/21/19 Reason for consult: dyspnea, cough, COPD, hypoxemia, obstructive sleep apnea Chief complaint: Shortness of breath, hyperkalemia, increase fluid overload History of present illness: this is a 53-year-old male who was seen evaluated examined in ICU patient was transferred to the ICU due to hyperkalemia high oxygen demand as well as developing renal failure thought to be related to LEANNE inhibitor's which have been discontinued patient x-ray follow-up appeared to be very wet appearing with bilateral effusion worse compared to admit x-ray review of the data revealed that this is a pleasant 53 years old male with past medical history of asthma/COPD, diabetes mellitus, hypertension, pneumonia., Depression, cigarette smoker.he follows with , and 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 patient presents because of shortness of breath of 1-2 days duration associated with Phrenic Clear Phlegm for about a Week. However Denies Chest Pain No Urinary or Bowel Problem Complaints. No Dizziness or Palpitation. No Weakness. Patient at Baseline Has COPD and Uses 5 L of Oxygen Via Nasal Cannula, He Is Supposed to Use CPAP/BiPAP Machine for His Sleep Apnea but He Could Not Afford It His Ex- Smoker Quit about 5 Months Ago. Denies a Call or Illicit Drugs on admission patient was tachycardic at 101, he was hypoxic at 83 and placed on 5 L oxygen via nasal cannula.CBC is unremarkable. Potassium is elevatedat 6.5, creatinine is elevated at 2.4, baseline is 0.7-1.1, liver enzymes unremarkable. EKG showing sinus tachycardia at [address]-T changes.chest x- ray: No consolidation, however recent x-ray of a performed this morning is bilateral pleural effusion and basal atelectasis consistent with volume overload Review of Systems All systems: negative Past Medical History Past Medical History: Asthma, COPD, Diabetes Mellitus, Hypertension, Pneumonia, Skin Disorder Additional Past Medical History / Comment(s): HOME 02 5L, PSORIASIS History of Any Multi-Drug Resistant Organisms: None Reported Additional Past Surgical History / Comment(s): colonoscopy-PT STATES WAS CLEAR. Past Anesthesia/Blood Transfusion Reactions: No Reported Reaction Smoking Status: Former smoker - Past Family History Father Family Medical History: COPD Mother Family Medical History: COPD Medications and Allergies Home Medications Medication Instructions Recorded Confirmed Type Albuterol Nebulized [Ventolin 2.5 mg INHALATION RT-QID PRN 07/02/14 06/20/19 History Nebulized] Furosemide [Lasix] 20 mg PO DAILY 01/13/18 06/20/19 History Lisinopril [Zestril] 20 mg PO DAILY 01/13/18 06/20/19 History metFORMIN HCL [Glucophage] 500 mg PO DAILY 01/13/18 06/20/19 History Atorvastatin [Lipitor] 40 mg PO HS #30 tab 01/27/19 06/20/19 Rx Montelukast [Singulair] 10 mg PO HS 30 Days #30 tab 01/27/19 06/20/19 Rx Albuterol Sulfate [Proair Hfa] 2 puff INHALATION RT-QID PRN 06/20/19 06/20/19 History Insulin Glargine,Hum.rec.anlog 40 unit SQ DAILY 06/20/19 06/20/19 History [Basaglar Kwikpen U-100] Metolazone [Zaroxolyn] 2.5 mg PO DIRECTED 06/20/19 06/20/19 History Allergies Allergy/AdvReac Type Severity Reaction Status Date / Time No Known Allergies Allergy Verified 06/20/19 16:33 Physical Exam Vitals: Vital Signs Temp Pulse Pulse Resp BP BP Pulse Ox 06/21/19 12:00 87 19 125/81 88 L 06/21/19 11:00 82 22 136/76 94 L 06/21/19 10:53 90 06/21/19 10:41 86 06/21/19 10:00 83 17 127/70 92 L 06/21/19 09:00 98.7 F 80 17 127/82 97 06/21/19 08:22 83 19 137/63 96 06/21/19 07:55 90 06/21/19 07:41 90 95 06/21/19 07:28 96.4 F L 86 19 134/65 96 06/21/19 04:00 98 F 74 20 105/58 98 06/21/19 01:26 101 H 06/21/19 01:17 101 H 06/21/19 00:00 75 20 06/20/19 22:23 95 06/20/19 20:35 100 06/20/19 20:16 100 06/20/19 20:00 98 F 102 H 18 123/70 94 L 06/20/19 19:24 118 H 06/20/19 19:23 98.6 F 118 H 18 143/78 91 L 06/20/19 17:02 98 18 144/76 95 06/20/19 15:54 101 H 20 145/78 94 L 06/20/19 15:36 102 H 18 143/64 94 L 06/20/19 14:42 100 06/20/19 14:13 100 Intake and Output 06/20/19 06/21/19 06/21/19 22:59 06:59 14:59 Output Total 300 400 Balance -300 -400 Output: Urine 300 400 Other: Voiding Method Urinal Urinal Urinal # Voids 0 # Bowel Movements 1 Weight 120.656 kg 123.7 kg - Constitutional General appearance: disheveled, mild distress, morbidly obese - EENT Eyes: EOMI, PERRLA ENT: hearing grossly normal, normal oropharynx Ears: bilateral: normal - Neck Neck: normal ROM Carotids: bilateral: upstroke normal Thyroid: bilateral: normal size - Respiratory Respiratory: bilateral: diminished, wheezing, prolonged expiration, negative: dullness, rales, rhonchi - Cardiovascular Rhythm: regular Heart sounds: normal: S1, S2 - Gastrointestinal General gastrointestinal: decreased bowel sounds, distended - Neurologic Neurologic: CNII-XII intact - Musculoskeletal Musculoskeletal: gait normal, generalized weakness, strength equal bilaterally - Psychiatric Psychiatric: A&O x's 3, appropriate affect, intact judgment & insight Results - Laboratory Findings CBC and BMP: 06/21/19 05:18 06/21/19 10:21 PT/INR, D-dimer PT 9.5 sec (9.0-12.0) 06/20/19 13:43 INR 0.9 (<1.2) 06/20/19 13:43 Abnormal lab findings: Abnormal Labs 06/20/19 06/20/19 06/20/19 13:43 13:43 16:59 RBC 3.82 L Hgb 11.1 L Hct 35.6 L MCHC Potassium 6.3 H* Carbon Dioxide 34 H BUN 73 H Creatinine 2.14 H Glucose 147 H POC Glucose (mg/dL) 150 H 06/20/19 06/20/19 06/21/19 18:01 21:04 05:18 RBC 3.37 L Hgb 9.7 L Hct 32.4 L MCHC 29.9 L Potassium Carbon Dioxide BUN Creatinine Glucose POC Glucose (mg/dL) 154 H 186 H 06/21/19 06/21/19 06/21/19 05:18 07:04 08:48 RBC Hgb Hct MCHC Potassium 7.5 H* Carbon Dioxide BUN 86 H Creatinine 1.99 H Glucose 200 H POC Glucose (mg/dL) 190 H 172 H 06/21/19 06/21/19 10:21 11:56 RBC Hgb Hct MCHC Potassium 6.8 H* Carbon Dioxide BUN Creatinine Glucose POC Glucose (mg/dL) 157 H - Diagnostic Findings Chest x-ray: report reviewed, image reviewed Assessment and Plan Assessment: acute hypoxic respiratory failure Fluid overload with acute on chronic diastolic heart failure Electrolyte imbalance with hyperkalemia Acute renal failure likely related to LEANNE inhibitor's Morbid obesity and obstructive sleep apnea Severe advanced psoriasis Poor compliant Plan: calcium gluconate for hyperkalemia given Continue bronchodilator Status post Kayexalate Continue high flow oxygen and BiPAP each night and when necessary We'll monitor closely in ICU Repeat labs and checks x-ray tomorrow 4 Lasix for now as patient is making adequate urine Time with Patient: Greater than 30
[2019-06-21 14:58] LABS: Glucose,Whole Blood 198 mg/dL (75-99)
[2019-06-21] MEDS ORDERED: FUROSEMIDE 10 MG/ML 10 ML VIAL IV STA (15:08)
[2019-06-21] MEDS: BUDESONIDE 0.5 MG/2 ML NEBU INHALATION SCH (18:45)
[2019-06-21] MEDS: ATORVASTATIN 40 MG TAB PO SCH (20:33)
[2019-06-21] MEDS: MONTELUKAST 10 MG TAB PO SCH (20:33)
[2019-06-21 21:08] LABS: Glucose,Whole Blood 310 mg/dL (75-99)
[2019-06-21] MEDS ORDERED: ALBUTEROL NEBULIZED 2.5 MG/3 ML INHALATION STA (21:31)
[2019-06-21] MEDS ORDERED: INSULIN REGULAR BOLUS (FROM DRIP BAG) IV PRN (21:45)
[2019-06-21] MEDS ORDERED: INSULIN REGULAR 100 UNIT in SODIUM CHLORIDE 0.9% 100 ML IV SCH (21:45)
[2019-06-21 22:01] LABS: Glucose,Whole Blood 277 mg/dL (75-99)
[2019-06-21 22:33] LABS: Glucose,Whole Blood 228 mg/dL (75-99)
[2019-06-21 22:58] LABS: Glucose,Whole Blood 155 mg/dL (75-99)
[2019-06-21 23:28] LABS: Glucose,Whole Blood 131 mg/dL (75-99)
[2019-06-22 00:31] LABS: Glucose,Whole Blood 112 mg/dL (75-99)
[2019-06-22] MEDS: methylPREDNISolone SOD SUCCI 125 MG/2 ML VIAL IV SCH ×5 (00:47→23:17)
[2019-06-22 01:31] LABS: Glucose,Whole Blood 136 mg/dL (75-99)
[2019-06-22 02:30] LABS: Glucose,Whole Blood 152 mg/dL (75-99)
[2019-06-22 03:31] LABS: Glucose,Whole Blood 170 mg/dL (75-99)
[2019-06-22 04:11] LABS: Potassium 7.5 mmol/L (3.5-5.1)
[2019-06-22 04:42] LABS: Glucose,Whole Blood 174 mg/dL (75-99)
[2019-06-22 04:53] LABS: Basophils % (A) 0 %; Eosinophils % (A) 0 %; HCT 31.5 % (39.0-53.0); HGB 9.6 gm/dL (13.0-17.5); Hypochromasia Slight; Lymphocytes # (A) 0.5 k/uL (1.0-4.8); Lymphocytes % (A) 6 %; MCH 28.2 pg (25.0-35.0); MCHC 30.4 g/dL (31.0-37.0); MCV 92.8 fL (80.0-100.0); Mean Platelet Volume 8.7; Monocytes # (A) 0.3 k/uL (0-1.0); Monocytes % (A) 3 %; Neutrophils # (A) 8.3 k/uL (1.3-7.7); Neutrophils % (A) 90 %; Platelet Count 215 k/uL (150-450); RBC 3.39 m/uL (4.30-5.90); RDW 13.8 % (11.5-15.5); WBC 9.2 k/uL (3.8-10.6)
[2019-06-22 05:29] LABS: Glucose,Whole Blood 173 mg/dL (75-99)
[2019-06-22 06:32] LABS: Glucose,Whole Blood 183 mg/dL (75-99)
[2019-06-22] MEDS: IPRATROPIUM-ALBUTEROL 3 ML NEB INHALATION SCH ×4 (07:24→19:02)
[2019-06-22] MEDS: BUDESONIDE 0.5 MG/2 ML NEBU INHALATION SCH ×2 (07:24→19:02)
[2019-06-22 07:38] LABS: Glucose,Whole Blood 172 mg/dL (75-99)
[2019-06-22 08:46] LABS: Glucose,Whole Blood 173 mg/dL (75-99)
[2019-06-22] MEDS: FUROSEMIDE 10 MG/ML 10 ML VIAL IV SCH ×2 (08:51→21:53)
[2019-06-22] MEDS: AZITHROMYCIN 500 MG TAB PO SCH (08:51)
--- NOTE | 2019-06-22 08:57 | P.PN ---
Subjective Patient is seen in follow-up for acute kidney injury and hyperkalemia. Potassium level .0 this morning. Creatinine 2.14. Patient received 2 doses of IV Lasix yesterday. Urine output about 20-30 mL an hour. No vomiting or diarrhea. Denies chest pain or shortness of breath. Currently on insulin drip. Vital signs are stable. General: The patient appeared well nourished and normally developed. HEENT: Head exam is unremarkable. Neck is without jugular venous distension. LUNGS: Lungs are clear to auscultation and percussion. Breath sounds decreased. HEART: Rate and Rhythm are regular. First and second heart sounds normal. No murmurs, rubs or gallops. ABDOMEN: Abdominal exam reveals normal bowel sounds. Non-tender and non- distended. No evidence of peritonitis. EXTREMITITES: 1+ edema. Chronic changes noted. Objective - Vital Signs Vital signs: Vital Signs Temp 98.4 F 06/22/19 08:00 Pulse 79 06/22/19 08:00 Resp 20 06/22/19 08:00 BP 145/92 06/22/19 08:00 Pulse Ox 95 06/22/19 08:00 Intake & Output 06/21/19 06/22/19 06/22/19 18:59 06:59 18:59 Intake Total 500 12.941 206.65 Output Total 600 370 90 Balance -100 -357.059 116.65 Weight 128.9 kg Intake: Intake, IV Titration 12.941 6.65 Amount Insulin Regular 100 unit 12.941 6.65 In Sodium Chloride 0.9% 100 ml @ Per Protocol IV .Q0M [facility] Rx#:[id number] Oral 500 200 Output: Urine 600 370 90 Other: Voiding Method Urinal Indwelling Catheter Indwelling Catheter # Voids 0 0 0 # Bowel Movements 1 - Labs CBC & Chem 7: 06/22/19 04:01 06/22/19 04:01 Labs: Abnormal Lab Results - Last 24 Hours (Table) 06/21/19 06/21/19 06/21/19 Range/Units 05:18 10:21 11:56 RBC (4.30-5.90) m/uL Hgb (13.0-17.5) gm/dL Hct (39.0-53.0) % MCHC (31.0-37.0) g/dL Neutrophils # (1.3-7.7) k/uL Lymphocytes # (1.0-4.8) k/uL Potassium 7.5 H* 6.8 H* (3.5-5.1) mmol/L Carbon Dioxide (22-30) mmol/L BUN (9-20) mg/dL Creatinine (0.66-1.25) mg/dL Glucose (74-99) mg/dL POC Glucose (mg/dL) 157 H (75-99) mg/dL 06/21/19 06/21/19 06/21/19 Range/Units 14:13 14:56 19:32 RBC (4.30-5.90) m/uL Hgb (13.0-17.5) gm/dL Hct (39.0-53.0) % MCHC (31.0-37.0) g/dL Neutrophils # (1.3-7.7) k/uL Lymphocytes # (1.0-4.8) k/uL Potassium 6.6 H* 6.7 H* (3.5-5.1) mmol/L Carbon Dioxide (22-30) mmol/L BUN (9-20) mg/dL Creatinine (0.66-1.25) mg/dL Glucose (74-99) mg/dL POC Glucose (mg/dL) 198 H (75-99) mg/dL 06/21/19 06/21/19 06/21/19 Range/Units 21:06 22:00 22:32 RBC (4.30-5.90) m/uL Hgb (13.0-17.5) gm/dL Hct (39.0-53.0) % MCHC (31.0-37.0) g/dL Neutrophils # (1.3-7.7) k/uL Lymphocytes # (1.0-4.8) k/uL Potassium (3.5-5.1) mmol/L Carbon Dioxide (22-30) mmol/L BUN (9-20) mg/dL Creatinine (0.66-1.25) mg/dL Glucose (74-99) mg/dL POC Glucose (mg/dL) 310 H 277 H 228 H (75-99) mg/dL 06/21/19 06/21/19 06/21/19 Range/Units 22:57 23:27 23:37 RBC (4.30-5.90) m/uL Hgb (13.0-17.5) gm/dL Hct (39.0-53.0) % MCHC (31.0-37.0) g/dL Neutrophils # (1.3-7.7) k/uL Lymphocytes # (1.0-4.8) k/uL Potassium 6.2 H* (3.5-5.1) mmol/L Carbon Dioxide (22-30) mmol/L BUN (9-20) mg/dL Creatinine (0.66-1.25) mg/dL Glucose (74-99) mg/dL POC Glucose (mg/dL) 155 H 131 H (75-99) mg/dL 06/22/19 06/22/19 06/22/19 Range/Units 00:30 01:29 02:29 RBC (4.30-5.90) m/uL Hgb (13.0-17.5) gm/dL Hct (39.0-53.0) % MCHC (31.0-37.0) g/dL Neutrophils # (1.3-7.7) k/uL Lymphocytes # (1.0-4.8) k/uL Potassium (3.5-5.1) mmol/L Carbon Dioxide (22-30) mmol/L BUN (9-20) mg/dL Creatinine (0.66-1.25) mg/dL Glucose (74-99) mg/dL POC Glucose (mg/dL) 112 H 136 H 152 H (75-99) mg/dL 06/22/19 06/22/19 06/22/19 Range/Units 03:29 04:01 04:01 RBC 3.39 L (4.30-5.90) m/uL Hgb 9.6 L (13.0-17.5) gm/dL Hct 31.5 L (39.0-53.0) % MCHC 30.4 L (31.0-37.0) g/dL Neutrophils # 8.3 H (1.3-7.7) k/uL Lymphocytes # 0.5 L (1.0-4.8) k/uL Potassium 6.0 H (3.5-5.1) mmol/L Carbon Dioxide 31 H (22-30) mmol/L BUN 99 H (9-20) mg/dL Creatinine 2.14 H (0.66-1.25) mg/dL Glucose 153 H (74-99) mg/dL POC Glucose (mg/dL) 170 H (75-99) mg/dL 06/22/19 06/22/19 06/22/19 Range/Units 04:40 05:27 06:31 RBC (4.30-5.90) m/uL Hgb (13.0-17.5) gm/dL Hct (39.0-53.0) % MCHC (31.0-37.0) g/dL Neutrophils # (1.3-7.7) k/uL Lymphocytes # (1.0-4.8) k/uL Potassium (3.5-5.1) mmol/L Carbon Dioxide (22-30) mmol/L BUN (9-20) mg/dL Creatinine (0.66-1.25) mg/dL Glucose (74-99) mg/dL POC Glucose (mg/dL) 174 H 173 H 183 H (75-99) mg/dL 06/22/19 06/22/19 Range/Units 07:36 08:44 RBC (4.30-5.90) m/uL Hgb (13.0-17.5) gm/dL Hct (39.0-53.0) % MCHC (31.0-37.0) g/dL Neutrophils # (1.3-7.7) k/uL Lymphocytes # (1.0-4.8) k/uL Potassium (3.5-5.1) mmol/L Carbon Dioxide (22-30) mmol/L BUN (9-20) mg/dL Creatinine (0.66-1.25) mg/dL Glucose (74-99) mg/dL POC Glucose (mg/dL) 172 H 173 H (75-99) mg/dL Microbiology - Last 24 Hours (Table) 06/20/19 13:43 Blood Culture - Preliminary Blood No Growth after 24 hours Assessment and Plan Plan: Assessment: 1. Acute kidney injury secondary to ATN secondary to cardiorenal syndrome. Creatinine 2.14 today. No evidence of hydronephrosis noted on kidney ultrasound. 2. Hyperkalemia secondary to acute kidney injury, hyperglycemia and lisinopril. Improving. 3. Volume overload. 4. Diabetes mellitus. Currently on insulin drip. 5. Anemia. Rule out iron deficiency. Stool for occult blood pending. Plan: Start IV Lasix 60 mg twice daily. Repeat potassium level this afternoon. Low potassium diet. Tight blood sugar control. Follow-up iron studies. Check urinalysis. Continue to monitor renal function and urine output.
--- NOTE | 2019-06-22 09:11 | XR ---
EXAMINATION TYPE: XR chest 1V portable DATE OF EXAM: 06/22/2019 COMPARISON: 06/21/2019 HISTORY: Dyspnea TECHNIQUE: Single frontal view of the chest is obtained. FINDINGS: Improving bibasilar airspace disease and trace pleural effusions. No pulmonary vascular co ngestion. Enlarged cardiac mediastinal silhouette as seen on the prior. No pneumothorax seen. Osseous structures are intact. IMPRESSION: Improving bibasilar airspace disease and pleural effusions.
[2019-06-22 09:39] LABS: % Iron Saturation 10.88 (15.00-50.00)
[2019-06-22 09:53] LABS: Glucose,Whole Blood 167 mg/dL (75-99)
[2019-06-22 11:16] LABS: Glucose,Whole Blood 186 mg/dL (75-99)
[2019-06-22 11:58] LABS: Glucose,Whole Blood 170 mg/dL (75-99)
[2019-06-22 12:58] LABS: Glucose,Whole Blood 277 mg/dL (75-99)
[2019-06-22 13:21] LABS: Hemoglobin A1C 8.4 % (4.0-6.0)
[2019-06-22 14:03] LABS: Glucose,Whole Blood 287 mg/dL (75-99)
--- NOTE | 2019-06-22 14:32 | P.PN ---
Subjective Progress Note Date: 06/22/19 Principal diagnosis: acute hypoxic respiratory failure Fluid overload with acute on chronic diastolic heart failure Electrolyte imbalance with hyperkalemia Acute renal failure likely related to LEANNE inhibitor's Morbid obesity and obstructive sleep apnea Severe advanced psoriasis Poor compliant 06/22/2019, patient is sitting upright in the bed breathing comfortably denies a ny chest pain, patient has been instructed to use BiPAP machine each night and when necessary during the day, labs reviewed potassium level is still slightly elevated, renal services following, renal functions remain abnormal with a steadily going up, potassium elevated, this is a 53-year-old male who was seen evaluated examined in ICU patient was transferred to the ICU due to hyperkalemia high oxygen demand as well as developing renal failure thought to be related to LEANNE inhibitor's which have been discontinued patient x-ray follow-up appeared to be very wet appearing with bilateral effusion worse compared to admit x-ray review of the data revealed that this is a pleasant 53 years old male with past medical history of asthma/COPD, diabetes mellitus, hypertension, pneumonia., Depression, cigarette smoker.he follows with , and 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 Mosquera. patient presents because of shortness of breath of 1-2 days duration associated with Phrenic Clear Phlegm for about a Week. However Denies Chest Pain No Urinary or Bowel Problem Complaints. No Dizziness or Palpitation. No Weakness. Patient at Baseline Has COPD and Uses 5 L of Oxygen Via Nasal Cannula, He Is Supposed to Use CPAP/BiPAP Machine for His Sleep Apnea but He Could Not Afford It His Ex- Smoker Quit about 5 Months Ago. Denies a Call or Illicit Drugs on admission patient was tachycardic at 101, he was hypoxic at 83 and placed on 5 L oxygen via nasal cannula.CBC is unremarkable. Potassium is elevatedat 6.5, creatinine is elevated at 2.4, baseline is 0.7-1.1, liver enzymes unremarkable. EKG showing sinus tachycardia at [address]-T changes.chest x- ray: No consolidation, however recent x-ray of a performed this morning is bilateral pleural effusion and basal atelectasis consistent with volume overload Objective - Vital Signs Vital signs: Vital Signs Temp 98.0 F 06/22/19 12:00 Pulse 99 06/22/19 12:00 Resp 25 H 06/22/19 12:00 BP 114/65 06/22/19 12:00 Pulse Ox 95 06/22/19 12:00 Intake & Output 06/21/19 06/22/19 06/22/19 18:59 06:59 18:59 Intake Total 500 12.941 326.267 Output Total 600 370 515 Balance -100 -357.059 -188.733 Weight 128.9 kg Intake: Intake, IV Titration 26.267 Amount Insulin Regular 100 unit 26.267 In Sodium Chloride 0.9% 100 ml @ Per Protocol IV .Q0M [facility] Rx#:[id number] Oral 500 300 Output: Urine 600 370 515 Other: Voiding Method Urinal Indwelling Catheter Indwelling Catheter # Voids 0 0 0 # Bowel Movements 1 - Exam - Constitutional General appearance: disheveled, mild distress, morbidly obese - EENT Eyes: EOMI, PERRLA ENT: hearing grossly normal, normal oropharynx Ears: bilateral: normal - Neck Neck: normal ROM Carotids: bilateral: upstroke normal Thyroid: bilateral: normal size - Respiratory Respiratory: bilateral: diminished, wheezing, prolonged expiration, negative: dullness, rales, rhonchi - Cardiovascular Rhythm: regular Heart sounds: normal: S1, S2 - Gastrointestinal General gastrointestinal: decreased bowel sounds, distended - Neurologic Neurologic: CNII-XII intact - Musculoskeletal Musculoskeletal: gait normal, generalized weakness, strength equal bilaterally - Psychiatric Psychiatric: A&O x's 3, appropriate affect, intact judgment & insight - Labs CBC & Chem 7: 06/22/19 04:01 06/22/19 04:01 Labs: Abnormal Lab Results - Last 24 Hours (Table) 06/21/19 06/21/19 06/21/19 Range/Units 05:18 10:21 14:13 RBC (4.30-5.90) m/uL Hgb (13.0-17.5) gm/dL Hct (39.0-53.0) % MCHC (31.0-37.0) g/dL Neutrophils # (1.3-7.7) k/uL Lymphocytes # (1.0-4.8) k/uL Potassium 7.5 H* 6.6 H* (3.5-5.1) mmol/L Carbon Dioxide (22-30) mmol/L BUN (9-20) mg/dL Creatinine (0.66-1.25) mg/dL Glucose (74-99) mg/dL POC Glucose (mg/dL) (75-99) mg/dL Hemoglobin A1c (4.0-6.0) % Iron 32 L (65-175) ug/dL % Saturation 10.88 L (15.00-50.00) 06/21/19 06/21/19 06/21/19 Range/Units 14:56 19:32 21:06 RBC (4.30-5.90) m/uL Hgb (13.0-17.5) gm/dL Hct (39.0-53.0) % MCHC (31.0-37.0) g/dL Neutrophils # (1.3-7.7) k/uL Lymphocytes # (1.0-4.8) k/uL Potassium 6.7 H* (3.5-5.1) mmol/L Carbon Dioxide (22-30) mmol/L BUN (9-20) mg/dL Creatinine (0.66-1.25) mg/dL Glucose (74-99) mg/dL POC Glucose (mg/dL) 198 H 310 H (75-99) mg/dL Hemoglobin A1c (4.0-6.0) % Iron (65-175) ug/dL % Saturation (15.00-50.00) 06/21/19 06/21/19 06/21/19 Range/Units 22:00 22:32 22:57 RBC (4.30-5.90) m/uL Hgb (13.0-17.5) gm/dL Hct (39.0-53.0) % MCHC (31.0-37.0) g/dL Neutrophils # (1.3-7.7) k/uL Lymphocytes # (1.0-4.8) k/uL Potassium (3.5-5.1) mmol/L Carbon Dioxide (22-30) mmol/L BUN (9-20) mg/dL Creatinine (0.66-1.25) mg/dL Glucose (74-99) mg/dL POC Glucose (mg/dL) 277 H 228 H 155 H (75-99) mg/dL Hemoglobin A1c (4.0-6.0) % Iron (65-175) ug/dL % Saturation (15.00-50.00) 06/21/19 06/21/19 06/22/19 Range/Units 23:27 23:37 00:30 RBC (4.30-5.90) m/uL Hgb (13.0-17.5) gm/dL Hct (39.0-53.0) % MCHC (31.0-37.0) g/dL Neutrophils # (1.3-7.7) k/uL Lymphocytes # (1.0-4.8) k/uL Potassium 6.2 H* (3.5-5.1) mmol/L Carbon Dioxide (22-30) mmol/L BUN (9-20) mg/dL Creatinine (0.66-1.25) mg/dL Glucose (74-99) mg/dL POC Glucose (mg/dL) 131 H 112 H (75-99) mg/dL Hemoglobin A1c (4.0-6.0) % Iron (65-175) ug/dL % Saturation (15.00-50.00) 06/22/19 06/22/19 06/22/19 Range/Units 01:29 02:29 03:29 RBC (4.30-5.90) m/uL Hgb (13.0-17.5) gm/dL Hct (39.0-53.0) % MCHC (31.0-37.0) g/dL Neutrophils # (1.3-7.7) k/uL Lymphocytes # (1.0-4.8) k/uL Potassium (3.5-5.1) mmol/L Carbon Dioxide (22-30) mmol/L BUN (9-20) mg/dL Creatinine (0.66-1.25) mg/dL Glucose (74-99) mg/dL POC Glucose (mg/dL) 136 H 152 H 170 H (75-99) mg/dL Hemoglobin A1c (4.0-6.0) % Iron (65-175) ug/dL % Saturation (15.00-50.00) 06/22/19 06/22/19 06/22/19 Range/Units 04:01 04:01 04:01 RBC 3.39 L (4.30-5.90) m/uL Hgb 9.6 L (13.0-17.5) gm/dL Hct 31.5 L (39.0-53.0) % MCHC 30.4 L (31.0-37.0) g/dL Neutrophils # 8.3 H (1.3-7.7) k/uL Lymphocytes # 0.5 L (1.0-4.8) k/uL Potassium 6.0 H (3.5-5.1) mmol/L Carbon Dioxide 31 H (22-30) mmol/L BUN 99 H (9-20) mg/dL Creatinine 2.14 H (0.66-1.25) mg/dL Glucose 153 H (74-99) mg/dL POC Glucose (mg/dL) (75-99) mg/dL Hemoglobin A1c 8.4 H (4.0-6.0) % Iron (65-175) ug/dL % Saturation (15.00-50.00) 06/22/19 06/22/19 06/22/19 Range/Units 04:40 05:27 06:31 RBC (4.30-5.90) m/uL Hgb (13.0-17.5) gm/dL Hct (39.0-53.0) % MCHC (31.0-37.0) g/dL Neutrophils # (1.3-7.7) k/uL Lymphocytes # (1.0-4.8) k/uL Potassium (3.5-5.1) mmol/L Carbon Dioxide (22-30) mmol/L BUN (9-20) mg/dL Creatinine (0.66-1.25) mg/dL Glucose (74-99) mg/dL POC Glucose (mg/dL) 174 H 173 H 183 H (75-99) mg/dL Hemoglobin A1c (4.0-6.0) % Iron (65-175) ug/dL % Saturation (15.00-50.00) 06/22/19 06/22/19 06/22/19 Range/Units 07:36 08:44 09:52 RBC (4.30-5.90) m/uL Hgb (13.0-17.5) gm/dL Hct (39.0-53.0) % MCHC (31.0-37.0) g/dL Neutrophils # (1.3-7.7) k/uL Lymphocytes # (1.0-4.8) k/uL Potassium (3.5-5.1) mmol/L Carbon Dioxide (22-30) mmol/L BUN (9-20) mg/dL Creatinine (0.66-1.25) mg/dL Glucose (74-99) mg/dL POC Glucose (mg/dL) 172 H 173 H 167 H (75-99) mg/dL Hemoglobin A1c (4.0-6.0) % Iron (65-175) ug/dL % Saturation (15.00-50.00) 06/22/19 06/22/19 06/22/19 Range/Units 11:15 11:56 12:56 RBC (4.30-5.90) m/uL Hgb (13.0-17.5) gm/dL Hct (39.0-53.0) % MCHC (31.0-37.0) g/dL Neutrophils # (1.3-7.7) k/uL Lymphocytes # (1.0-4.8) k/uL Potassium (3.5-5.1) mmol/L Carbon Dioxide (22-30) mmol/L BUN (9-20) mg/dL Creatinine (0.66-1.25) mg/dL Glucose (74-99) mg/dL POC Glucose (mg/dL) 186 H 170 H 277 H (75-99) mg/dL Hemoglobin A1c (4.0-6.0) % Iron (65-175) ug/dL % Saturation (15.00-50.00) 06/22/19 Range/Units 14:02 RBC (4.30-5.90) m/uL Hgb (13.0-17.5) gm/dL Hct (39.0-53.0) % MCHC (31.0-37.0) g/dL Neutrophils # (1.3-7.7) k/uL Lymphocytes # (1.0-4.8) k/uL Potassium (3.5-5.1) mmol/L Carbon Dioxide (22-30) mmol/L BUN (9-20) mg/dL Creatinine (0.66-1.25) mg/dL Glucose (74-99) mg/dL POC Glucose (mg/dL) 287 H (75-99) mg/dL Hemoglobin A1c (4.0-6.0) % Iron (65-175) ug/dL % Saturation (15.00-50.00) Microbiology - Last 24 Hours (Table) 06/20/19 13:43 Blood Culture - Preliminary Blood No Growth after 24 hours Assessment and Plan Assessment: acute hypoxic respiratory failure Fluid overload with acute on chronic diastolic heart failure Electrolyte imbalance with hyperkalemia Acute renal failure likely related to LEANNE inhibitor's Morbid obesity and obstructive sleep apnea Severe advanced psoriasis Poor compliant Plan: calcium gluconate for hyperkalemia given Continue bronchodilator Status post Kayexalate Continue high flow oxygen and BiPAP each night and when necessary We'll monitor closely in ICU Repeat labs and checks x-ray tomorrow 4 Lasix for now as patient is making adequate urine Time with Patient: Greater than 30
[2019-06-22 15:02] LABS: Glucose,Whole Blood 311 mg/dL (75-99)
[2019-06-22 15:59] LABS: Appearance,Urine Clear (Clear); Bilirubin,Urine Negative (Negative); Blood,Urine Trace (Negative); Color,Urine Yellow; Glucose,Urine (UA) Negative (Negative); Hyaline Casts,Urine 31 /lpf (0-2); Ketones,Urine Negative (Negative); Leukocyte Esterase,Urine Small (Negative); Mucus,Urine Rare /hpf; Nitrite,Urine Negative (Negative); Protein,Urine Negative (Negative); RBC,Urine 13 /hpf (0-5); Specific Gravity,Urine 1.014 (1.001-1.035); Squamous Epithelial Cell,Urine <1 /hpf (0-4); Urobilinogen,Urine <2.0 mg/dL (<2.0); WBC,Urine 3 /hpf (0-5)
[2019-06-22 16:25] LABS: Glucose,Whole Blood 252 mg/dL (75-99)
[2019-06-22 17:33] LABS: Glucose,Whole Blood 201 mg/dL (75-99)
[2019-06-22] MEDS: INSULIN ASPART (NovoLOG) 100 UNIT/ML VIAL SQ SCH ×2 (17:41→21:54)
[2019-06-22 20:26] LABS: Glucose,Whole Blood 290 mg/dL (75-99)
[2019-06-22] MEDS ORDERED: INSULIN DETEMIR (LEVEMIR) 100 UNIT/ML SYR SQ ONE (21:00)
[2019-06-22] MEDS ORDERED: INSULIN DETEMIR (LEVEMIR) 100 UNIT/ML SYR SQ SCH (21:00)
--- NOTE | 2019-06-22 21:28 | P.PN ---
Subjective Progress Note Date: 06/22/19 Terrance Lazcano is a 53 years old male with past medical history of asthma/COPD, psoriasis, diabetes mellitus, hypertension, pneumonia, depression, cigarette smoker. Patient presents because of shortness of breath of 1-2 days duration associated with Phrenic Clear Phlegm for about a Week. However Denies Chest Pain No Urinary or Bowel Problem Complaints. No Dizziness or Palpitation. No Weakness. Patient at Baseline Has COPD and Uses 5 L of Oxygen Via Nasal Cannula, He Is Supposed to Use CPAP/BiPAP Machine for His Sleep Apnea but He Could Not Afford It His Ex- Smoker Quit about 5 Months Ago. on admission patient was tachycardic at 101, he was hypoxic at 83 and placed on 5 L oxygen via nasal cannula.CBC is unremarkable. Potassium is elevatedat 6.5, creatinine is elevated at 2.4, baseline is 0.7-1.1,liver enzymes unremarkable. EKG showing sinus tachycardia at [address]-T changes.chest x- ray: No consolidation an emergency room patient got Zithromax, Solu-Medrol 60 mg and normal saline at 75 mL/h, sodium bicarb and Kayexalate 30 g Imes 1 albuterol inhaler, and insulin with sugar, calcium gluconate 06/21/2019 Patient last night refused to take the Kayexalate because he did not want to have bowel movement overnight. Repeat potassium this morning was critical at 7.5. EKG showing tented T wave. However patient denies chest pain or dizziness or palpitation. His vitals stable. Patient provided with cocktail for hyperkalemia including insulin/glucose, sodium bicarb, calcium gluconate, albuterol, Kayexalate 30 g, and continue with IV fluids with his creatinine slightly improved from 2.1 to 1.9 , we will transfer the patient to the ICU with box toe buffer consulted, also grid maker his patient. We'll repeat potassium in a few hours. Regarding his breathing he feels a little better. He has occasional cough but no chest pain. 06/22. He is maintained on high flow O2 saturating close to 100%. His WBC is 9.2, potassium 6.0, Cr 2.14. Insulin drip discontinued as potassium normalized. He is on azithromycin, solumedrol, IV lasix. Objective - Vital Signs Vital signs: Vital Signs Temp 98.0 F 1216/19 12:00 Pulse 98 06/22/19 19:35 Resp 20 06/22/19 18:00 BP 135/72 06/22/19 18:00 Pulse Ox 95 06/22/19 18:00 Intake & Output 06/22/19 06/22/19 06/23/19 06:59 18:59 06:59 Intake Total 12.941 326.267 Output Total 370 885 Balance -357.059 -558.733 Weight 128.9 kg Intake: Intake, IV Titration 26.267 Amount Insulin Regular 100 unit . 26.267 In Sodium Chloride 0.9% 100 ml @ Per Protocol IV .Q0M [facility] Rx#:[id number] Oral 300 Output: Urine 370 885 Other: Voiding Method Indwelling Catheter Indwelling Catheter # Voids 0 0 - Exam General: obese, on high flow NC, alert. Vitals reviewed Lungs: Diminished air entry throughout. Wheezes. No rales or rhonchi CV: Regular rate and rhythm, no murmur. Peripheral pulses 2+ Abdomen: soft, nondistended, no organomegaly Skin: warm and dry. Psoriatic plaques bilaterally - Labs CBC & Chem 7: 06/22/19 04:01 06/22/19 14:05 Labs: Abnormal Lab Results - Last 24 Hours (Table) 06/21/19 06/21/19 06/21/19 Range/Units 05:18 10:21 22:00 RBC (4.30-5.90) m/uL Hgb (13.0-17.5) gm/dL Hct (39.0-53.0) % MCHC (31.0-37.0) g/dL Neutrophils # (1.3-7.7) k/uL Lymphocytes # (1.0-4.8) k/uL Potassium 7.5 H* (3.5-5.1) mmol/L Carbon Dioxide (22-30) mmol/L BUN (9-20) mg/dL Creatinine (0.66-1.25) mg/dL Glucose (74-99) mg/dL POC Glucose (mg/dL) 277 H (75-99) mg/dL Hemoglobin A1c (4.0-6.0) % Iron 32 L (65-175) ug/dL % Saturation 10.88 L (15.00-50.00) Urine Blood (Negative) Ur Leukocyte Esterase (Negative) Urine RBC (0-5) /hpf Hyaline Casts (0-2) /lpf Urine Mucus (None) /hpf 06/21/19 06/21/19 06/21/19 Range/Units 22:32 22:57 23:27 RBC (4.30-5.90) m/uL Hgb (13.0-17.5) gm/dL Hct (39.0-53.0) % MCHC (31.0-37.0) g/dL Neutrophils # (1.3-7.7) k/uL Lymphocytes # (1.0-4.8) k/uL Potassium (3.5-5.1) mmol/L Carbon Dioxide (22-30) mmol/L BUN (9-20) mg/dL Creatinine (0.66-1.25) mg/dL Glucose (74-99) mg/dL POC Glucose (mg/dL) 228 H 155 H 131 H (75-99) mg/dL Hemoglobin A1c (4.0-6.0) % Iron (65-175) ug/dL % Saturation (15.00-50.00) Urine Blood (Negative) Ur Leukocyte Esterase (Negative) Urine RBC (0-5) /hpf Hyaline Casts (0-2) /lpf Urine Mucus (None) /hpf 06/21/19 06/22/19 06/22/19 Range/Units 23:37 00:30 01:29 RBC (4.30-5.90) m/uL Hgb (13.0-17.5) gm/dL Hct (39.0-53.0) % MCHC (31.0-37.0) g/dL Neutrophils # (1.3-7.7) k/uL Lymphocytes # (1.0-4.8) k/uL Potassium 6.2 H* (3.5-5.1) mmol/L Carbon Dioxide (22-30) mmol/L BUN (9-20) mg/dL Creatinine (0.66-1.25) mg/dL Glucose (74-99) mg/dL POC Glucose (mg/dL) 112 H 136 H (75-99) mg/dL Hemoglobin A1c (4.0-6.0) % Iron (65-175) ug/dL % Saturation (15.00-50.00) Urine Blood (Negative) Ur Leukocyte Esterase (Negative) Urine RBC (0-5) /hpf Hyaline Casts (0-2) /lpf Urine Mucus (None) /hpf 06/22/19 06/22/19 06/22/19 Range/Units 02:29 03:29 04:01 RBC 3.39 L (4.30-5.90) m/uL Hgb 9.6 L (13.0-17.5) gm/dL Hct 31.5 L (39.0-53.0) % MCHC 30.4 L (31.0-37.0) g/dL Neutrophils # 8.3 H (1.3-7.7) k/uL Lymphocytes # 0.5 L (1.0-4.8) k/uL Potassium (3.5-5.1) mmol/L Carbon Dioxide (22-30) mmol/L BUN (9-20) mg/dL Creatinine (0.66-1.25) mg/dL Glucose (74-99) mg/dL POC Glucose (mg/dL) 152 H 170 H (75-99) mg/dL Hemoglobin A1c (4.0-6.0) % Iron (65-175) ug/dL % Saturation (15.00-50.00) Urine Blood (Negative) Ur Leukocyte Esterase (Negative) Urine RBC (0-5) /hpf Hyaline Casts (0-2) /lpf Urine Mucus (None) /hpf 06/22/19 06/22/19 06/22/19 Range/Units 04:01 04:01 04:40 RBC (4.30-5.90) m/uL Hgb (13.0-17.5) gm/dL Hct (39.0-53.0) % MCHC (31.0-37.0) g/dL Neutrophils # (1.3-7.7) k/uL Lymphocytes # (1.0-4.8) k/uL Potassium 6.0 H (3.5-5.1) mmol/L Carbon Dioxide 31 H (22-30) mmol/L BUN 99 H (9-20) mg/dL Creatinine 2.14 H (0.66-1.25) mg/dL Glucose 153 H (74-99) mg/dL POC Glucose (mg/dL) 174 H (75-99) mg/dL Hemoglobin A1c 8.4 H (4.0-6.0) % Iron (65-175) ug/dL % Saturation (15.00-50.00) Urine Blood (Negative) Ur Leukocyte Esterase (Negative) Urine RBC (0-5) /hpf Hyaline Casts (0-2) /lpf Urine Mucus (None) /hpf 06/22/19 06/22/19 06/22/19 Range/Units 05:27 06:31 07:36 RBC (4.30-5.90) m/uL Hgb (13.0-17.5) gm/dL Hct (39.0-53.0) % MCHC (31.0-37.0) g/dL Neutrophils # (1.3-7.7) k/uL Lymphocytes # (1.0-4.8) k/uL Potassium (3.5-5.1) mmol/L Carbon Dioxide (22-30) mmol/L BUN (9-20) mg/dL Creatinine (0.66-1.25) mg/dL Glucose (74-99) mg/dL POC Glucose (mg/dL) 173 H 183 H 172 H (75-99) mg/dL Hemoglobin A1c (4.0-6.0) % Iron (65-175) ug/dL % Saturation (15.00-50.00) Urine Blood (Negative) Ur Leukocyte Esterase (Negative) Urine RBC (0-5) /hpf Hyaline Casts (0-2) /lpf Urine Mucus (None) /hpf 06/22/19 06/22/19 06/22/19 Range/Units 08:44 09:52 11:15 RBC (4.30-5.90) m/uL Hgb (13.0-17.5) gm/dL Hct (39.0-53.0) % MCHC (31.0-37.0) g/dL Neutrophils # (1.3-7.7) k/uL Lymphocytes # (1.0-4.8) k/uL Potassium (3.5-5.1) mmol/L Carbon Dioxide (22-30) mmol/L BUN (9-20) mg/dL Creatinine (0.66-1.25) mg/dL Glucose (74-99) mg/dL POC Glucose (mg/dL) 173 H 167 H 186 H (75-99) mg/dL Hemoglobin A1c (4.0-6.0) % Iron (65-175) ug/dL % Saturation (15.00-50.00) Urine Blood (Negative) Ur Leukocyte Esterase (Negative) Urine RBC (0-5) /hpf Hyaline Casts (0-2) /lpf Urine Mucus (None) /hpf 06/22/19 06/22/19 06/22/19 Range/Units 11:56 12:56 14:02 RBC (4.30-5.90) m/uL Hgb (13.0-17.5) gm/dL Hct (39.0-53.0) % MCHC (31.0-37.0) g/dL Neutrophils # (1.3-7.7) k/uL Lymphocytes # (1.0-4.8) k/uL Potassium (3.5-5.1) mmol/L Carbon Dioxide (22-30) mmol/L BUN (9-20) mg/dL Creatinine (0.66-1.25) mg/dL Glucose (74-99) mg/dL POC Glucose (mg/dL) 170 H 277 H 287 H (75-99) mg/dL Hemoglobin A1c (4.0-6.0) % Iron (65-175) ug/dL % Saturation (15.00-50.00) Urine Blood (Negative) Ur Leukocyte Esterase (Negative) Urine RBC (0-5) /hpf Hyaline Casts (0-2) /lpf Urine Mucus (None) /hpf 06/22/19 06/22/19 06/22/19 Range/Units 14:05 14:45 15:00 RBC (4.30-5.90) m/uL Hgb (13.0-17.5) gm/dL Hct (39.0-53.0) % MCHC (31.0-37.0) g/dL Neutrophils # (1.3-7.7) k/uL Lymphocytes # (1.0-4.8) k/uL Potassium 5.3 H (3.5-5.1) mmol/L Carbon Dioxide (22-30) mmol/L BUN (9-20) mg/dL Creatinine (0.66-1.25) mg/dL Glucose (74-99) mg/dL POC Glucose (mg/dL) 311 H (75-99) mg/dL Hemoglobin A1c (4.0-6.0) % Iron (65-175) ug/dL % Saturation (15.00-50.00) Urine Blood Trace H (Negative) Ur Leukocyte Esterase Small H (Negative) Urine RBC 13 H (0-5) /hpf Hyaline Casts 31 H (0-2) /lpf Urine Mucus Rare H (None) /hpf 06/22/19 06/22/19 06/22/19 Range/Units 16:04 17:32 20:24 RBC (4.30-5.90) m/uL Hgb (13.0-17.5) gm/dL Hct (39.0-53.0) % MCHC (31.0-37.0) g/dL Neutrophils # (1.3-7.7) k/uL Lymphocytes # (1.0-4.8) k/uL Potassium (3.5-5.1) mmol/L Carbon Dioxide (22-30) mmol/L BUN (9-20) mg/dL Creatinine (0.66-1.25) mg/dL Glucose (74-99) mg/dL POC Glucose (mg/dL) 252 H 201 H 290 H (75-99) mg/dL Hemoglobin A1c (4.0-6.0) % Iron (65-175) ug/dL % Saturation (15.00-50.00) Urine Blood (Negative) Ur Leukocyte Esterase (Negative) Urine RBC (0-5) /hpf Hyaline Casts (0-2) /lpf Urine Mucus (None) /hpf Microbiology - Last 24 Hours (Table) 06/20/19 13:43 Blood Culture - Preliminary Blood No Growth after 48 hours Assessment and Plan (1) CKD (chronic kidney disease) stage 3, GFR 30-59 ml/min Current Visit: Yes Status: Acute Code(s): N18.3 - CHRONIC KIDNEY DISEASE, STAGE 3 (MODERATE) SNOMED Code(s): 547495534 (2) MARIA T (acute kidney injury) Current Visit: Yes Status: Acute Code(s): N17.9 - ACUTE KIDNEY FAILURE, UNSPECIFIED SNOMED Code(s): 63748125 (3) Hyperkalemia Current Visit: Yes Status: Acute Code(s): E87.5 - HYPERKALEMIA SNOMED Code(s): 71403541 (4) Acute exacerbation of chronic obstructive pulmonary disease (COPD) Current Visit: No Status: Acute Code(s): J44.1 - CHRONIC OBSTRUCTIVE PULMONARY DISEASE W (ACUTE) EXACERBATION SNOMED Code(s): 320203896 (5) Acute on chronic respiratory failure with hypoxia and hypercapnia Current Visit: No Status: Acute Code(s): J96.21 - ACUTE AND CHRONIC RESPIRATORY FAILURE WITH HYPOXIA; J96.22 - ACUTE AND CHRONIC RESPIRATORY FAILURE WITH HYPERCAPNIA SNOMED Code(s): 38978780905563 (6) Asthma exacerbation in COPD Current Visit: No Status: Acute Code(s): J44.1 - CHRONIC OBSTRUCTIVE PULMONARY DISEASE W (ACUTE) EXACERBATION; J45.901 - UNSPECIFIED ASTHMA WITH (ACUTE) EXACERBATION SNOMED Code(s): 5927229202031 (7) Cor pulmonale, acute Current Visit: No Status: Acute Code(s): I26.09 - OTHER PULMONARY EMBOLISM WITH ACUTE COR PULMONALE SNOMED Code(s): 69634896 (8) Diabetes mellitus Current Visit: No Status: Acute Code(s): E11.9 - TYPE 2 DIABETES MELLITUS WITHOUT COMPLICATIONS SNOMED Code(s): 74926010 Plan: 1. Acute hypoxic/hypercapneic respiratory failure. COPD and asthma exacerbation. Pulmonology following. Continue solumedrol, pulmicort nebs, duonebs. Continue to wean O2 as tolerated to goal SpO2 of 88-90%. Continue azithromycin 2. T2DM with IV steroids. Resume sq insulin, levemir 40 U daily. Accucheck/sliding scale 3. Hyperkalemia in CKD 3. Nephrology following. Continue lasix, low potassium diet. Pt declines kayexalate
[2019-06-22] MEDS ORDERED: INSULIN ASPART (NovoLOG) 100 UNIT/ML VIAL SQ ONE (21:47)
[2019-06-22] MEDS: HEPARIN SODIUM,PORCINE 5,000 UNIT/ML 1 ML VIAL SQ SCH (21:53)
--- NOTE | 2019-06-22 21:54 | PN ---
PROGRESS NOTE DATE OF SERVICE: June 22, 2019. He has been hemodynamically stable. He is slightly less short of breath and is wearing CPAP. On physical examination, his vitals are stable. He is afebrile. His chest revealed decreased breath sounds with prolonged expiration. Expiratory wheeze. Cardiovascular system revealed an S1, S2. Abdomen is soft. There is 1+ to 2+ pedal edema. LABS: Reveal white count 9.2, hemoglobin 9.6, sodium 140, potassium 5.3, chloride 103, bicarb 31, BUN 99, creatinine 2.1. IMPRESSION: At this time: 1. Severe asthma with acute exacerbation. 2. Psoriasis with psoriatic skin lesions. 3. Acute renal failure with hyperkalemia. 4. Cor pulmonale. 5. Obstructive sleep apnea that is relatively untreated as the patient has been noncompliant with CPAP. At this point in time, keep him on IV steroids, aerosolized steroids. Keep him in negative fluid balance. Increase his activity level. His prognosis at this time is fair. He was counseled regarding his condition. MMODL / IJN: [id number] /
[2019-06-22] MEDS: MONTELUKAST 10 MG TAB PO SCH (21:55)
[2019-06-22] MEDS: FAMOTIDINE 20 MG TAB PO SCH (21:55)
[2019-06-22] MEDS: ATORVASTATIN 40 MG TAB PO SCH (21:55)
[2019-06-22] MEDS ORDERED: VANCOMYCIN IV PER PHARMACY 1 EACH MISC MISCELLANE PRN (22:37)
[2019-06-22] MEDS ORDERED: VANCOMYCIN 2,000 MG in SODIUM CHLORIDE 0.9% 500 ML 500 ML IVPB SCH (22:45)
[2019-06-23 01:45] LABS: Glucose,Whole Blood 195 mg/dL (75-99)
[2019-06-23 05:28] LABS: Basophils % (A) 0 %; Eosinophils % (A) 0 %; HCT 29.3 % (39.0-53.0); HGB 9.1 gm/dL (13.0-17.5); Hypochromasia Marked; Lymphocytes # (A) 0.5 k/uL (1.0-4.8); Lymphocytes % (A) 8 %; MCH 29.5 pg (25.0-35.0); MCHC 31.2 g/dL (31.0-37.0); MCV 94.4 fL (80.0-100.0); Monocytes # (A) 0.3 k/uL (0-1.0); Monocytes % (A) 4 %; Neutrophils # (A) 5.7 k/uL (1.3-7.7); Neutrophils % (A) 87 %; Platelet Count 236 k/uL (150-450); RDW 13.4 % (11.5-15.5); WBC 6.6 k/uL (3.8-10.6)
[2019-06-23 05:42] LABS: Albumin 3.3 g/dL (3.5-5.0); Calcium 8.5 mg/dL (8.4-10.2); Potassium 5.2 mmol/L (3.5-5.1); Total Bilirubin 0.4 mg/dL (0.2-1.3); Total Protein 6.1 g/dL (6.3-8.2)
[2019-06-23 06:11] LABS: Glucose,Whole Blood 174 mg/dL (75-99)
[2019-06-23] MEDS: INSULIN ASPART (NovoLOG) 100 UNIT/ML VIAL SQ SCH ×4 (06:33→21:04)
[2019-06-23] MEDS: methylPREDNISolone SOD SUCCI 125 MG/2 ML VIAL IV SCH ×4 (06:33→23:37)
[2019-06-23] MEDS: BUDESONIDE 0.5 MG/2 ML NEBU INHALATION SCH ×2 (06:58→20:55)
[2019-06-23] MEDS: IPRATROPIUM-ALBUTEROL 3 ML NEB INHALATION SCH ×4 (06:58→20:55)
[2019-06-23] MEDS: HEPARIN SODIUM,PORCINE 5,000 UNIT/ML 1 ML VIAL SQ SCH ×2 (08:40→21:01)
[2019-06-23] MEDS: FUROSEMIDE 10 MG/ML 10 ML VIAL IV SCH ×2 (08:40→21:00)
[2019-06-23] MEDS: AZITHROMYCIN 500 MG TAB PO SCH (08:41)
--- NOTE | 2019-06-23 10:24 | P.PN ---
Subjective Patient is seen in follow-up for acute kidney injury and hyperkalemia. Potassium level better - 5.2 this morning. Creatinine fairly stable at 2.27. Currently on IV lasix 60 mg q12h. Urine output near 1.9 L in the last 24 hours. Oral intake is good. No vomiting or diarrhea. Vital signs are stable. General: The patient appeared well nourished and normally developed. HEENT: Head exam is unremarkable. Neck is without jugular venous distension. LUNGS: Lungs are clear to auscultation and percussion. Breath sounds decreased. HEART: Rate and Rhythm are regular. First and second heart sounds normal. No murmurs, rubs or gallops. ABDOMEN: Abdominal exam reveals normal bowel sounds. Non-tender and non- distended. No evidence of peritonitis. EXTREMITITES: 1+ edema. Chronic changes noted. Objective - Vital Signs Vital signs: Vital Signs Temp 98 F 06/23/19 08:00 Pulse 76 06/23/19 08:00 Resp 20 06/23/19 08:00 BP 142/85 06/23/19 08:00 Pulse Ox 94 L 06/23/19 08:00 Intake & Output 06/22/19 06/23/19 06/23/19 18:59 06:59 18:59 Intake Total 326.267 167 Output Total 885 995 100 Balance -558.733 -828 -100 Weight 126.7 kg Intake: IV 167 Vancomycin 2,000 mg In 167 Sodium Chloride 0.9% 500 ml 500 ml @ 167 mls/hr IVPB Q24H [facility] Rx#: [id number] Intake, IV Titration 26.267 Amount Insulin Regular 100 unit 26.267 In Sodium Chloride 0.9% 100 ml @ Per Protocol IV .Q0M [facility] Rx#:[id number] Oral 300 Output: Urine 885 995 100 Other: Voiding Method Indwelling Catheter Indwelling Catheter Indwelling Catheter # Voids 0 # Bowel Movements 1 - Labs CBC & Chem 7: 06/23/19 04:43 06/23/19 04:43 Labs: Abnormal Lab Results - Last 24 Hours (Table) 06/22/19 06/22/19 06/22/19 Range/Units 04:01 11:15 11:56 RBC (4.30-5.90) m/uL Hgb (13.0-17.5) gm/dL Hct (39.0-53.0) % Lymphocytes # (1.0-4.8) k/uL Potassium (3.5-5.1) mmol/L Carbon Dioxide (22-30) mmol/L BUN (9-20) mg/dL Creatinine (0.66-1.25) mg/dL Glucose (74-99) mg/dL POC Glucose (mg/dL) 186 H 170 H (75-99) mg/dL Hemoglobin A1c 8.4 H (4.0-6.0) % AST (17-59) U/L Total Protein (6.3-8.2) g/dL Albumin (3.5-5.0) g/dL Urine Blood (Negative) Ur Leukocyte Esterase (Negative) Urine RBC (0-5) /hpf Hyaline Casts (0-2) /lpf Urine Mucus (None) /hpf 06/22/19 06/22/19 06/22/19 Range/Units 12:56 14:02 14:05 RBC (4.30-5.90) m/uL Hgb (13.0-17.5) gm/dL Hct (39.0-53.0) % Lymphocytes # (1.0-4.8) k/uL Potassium 5.3 H (3.5-5.1) mmol/L Carbon Dioxide (22-30) mmol/L BUN (9-20) mg/dL Creatinine (0.66-1.25) mg/dL Glucose (74-99) mg/dL POC Glucose (mg/dL) 277 H 287 H (75-99) mg/dL Hemoglobin A1c (4.0-6.0) % AST (17-59) U/L Total Protein (6.3-8.2) g/dL Albumin (3.5-5.0) g/dL Urine Blood (Negative) Ur Leukocyte Esterase (Negative) Urine RBC (0-5) /hpf Hyaline Casts (0-2) /lpf Urine Mucus (None) /hpf 06/22/19 06/22/19 06/22/19 Range/Units 14:45 15:00 16:04 RBC (4.30-5.90) m/uL Hgb (13.0-17.5) gm/dL Hct (39.0-53.0) % Lymphocytes # (1.0-4.8) k/uL Potassium (3.5-5.1) mmol/L Carbon Dioxide (22-30) mmol/L BUN (9-20) mg/dL Creatinine (0.66-1.25) mg/dL Glucose (74-99) mg/dL POC Glucose (mg/dL) 311 H 252 H (75-99) mg/dL Hemoglobin A1c (4.0-6.0) % AST (17-59) U/L Total Protein (6.3-8.2) g/dL Albumin (3.5-5.0) g/dL Urine Blood Trace H (Negative) Ur Leukocyte Esterase Small H (Negative) Urine RBC 13 H (0-5) /hpf Hyaline Casts 31 H (0-2) /lpf Urine Mucus Rare H (None) /hpf 06/22/19 06/22/19 06/23/19 Range/Units 17:32 20:24 01:42 RBC (4.30-5.90) m/uL Hgb (13.0-17.5) gm/dL Hct (39.0-53.0) % Lymphocytes # (1.0-4.8) k/uL Potassium (3.5-5.1) mmol/L Carbon Dioxide (22-30) mmol/L BUN (9-20) mg/dL Creatinine (0.66-1.25) mg/dL Glucose (74-99) mg/dL POC Glucose (mg/dL) 201 H 290 H 195 H (75-99) mg/dL Hemoglobin A1c (4.0-6.0) % AST (17-59) U/L Total Protein (6.3-8.2) g/dL Albumin (3.5-5.0) g/dL Urine Blood (Negative) Ur Leukocyte Esterase (Negative) Urine RBC (0-5) /hpf Hyaline Casts (0-2) /lpf Urine Mucus (None) /hpf 06/23/19 06/23/19 06/23/19 Range/Units 04:43 04:43 06:10 RBC 3.10 L (4.30-5.90) m/uL Hgb 9.1 L (13.0-17.5) gm/dL Hct 29.3 L (39.0-53.0) % Lymphocytes # 0.5 L (1.0-4.8) k/uL Potassium 5.2 H (3.5-5.1) mmol/L Carbon Dioxide 31 H (22-30) mmol/L BUN 115 H* (9-20) mg/dL Creatinine 2.27 H (0.66-1.25) mg/dL Glucose 161 H (74-99) mg/dL POC Glucose (mg/dL) 174 H (75-99) mg/dL Hemoglobin A1c (4.0-6.0) % AST 14 L (17-59) U/L Total Protein 6.1 L (6.3-8.2) g/dL Albumin 3.3 L (3.5-5.0) g/dL Urine Blood (Negative) Ur Leukocyte Esterase (Negative) Urine RBC (0-5) /hpf Hyaline Casts (0-2) /lpf Urine Mucus (None) /hpf Microbiology - Last 24 Hours (Table) 06/20/19 13:43 Blood Culture - Final Blood 06/20/19 13:43 Blood Culture Gram Stain - Preliminary Blood Assessment and Plan Plan: Assessment: 1. Acute kidney injury secondary to ATN secondary to cardiorenal syndrome. Creatinine 2.27 today. No evidence of hydronephrosis noted on kidney ultrasound. No proteinuria on UA. Elevated BUN partially due to steroids. 2. Hyperkalemia secondary to acute kidney injury, hyperglycemia and lisinopril. Better. 3. Volume overload. Improving. 4. Diabetes mellitus. Off insulin drip. 5. Anemia. Iron deficiency noted. Plan: Continue IV Lasix 60 mg twice daily. Low potassium diet. Tight blood sugar control. IV iron 3 doses. First dose today. Continue to monitor renal function and urine output.
[2019-06-23 11:48] LABS: Glucose,Whole Blood 215 mg/dL (75-99)
[2019-06-23] MEDS: SODIUM FERRIC GLUCONAT-SUCROSE 125 MG in SODIUM CHLORIDE 0.9% 100 ML IVPB SCH (11:54)
--- NOTE | 2019-06-23 12:00 | P.PN ---
Subjective Progress Note Date: 06/23/19 Terrance Lazcano is a 53 years old male with past medical history of asthma/COPD, psoriasis, diabetes mellitus, hypertension, pneumonia, depression, cigarette smoker. Patient presents because of shortness of breath of 1-2 days duration associated with Phrenic Clear Phlegm for about a Week. However Denies Chest Pain No Urinary or Bowel Problem Complaints. No Dizziness or Palpitation. No Weakness. Patient at Baseline Has COPD and Uses 5 L of Oxygen Via Nasal Cannula, He Is Supposed to Use CPAP/BiPAP Machine for His Sleep Apnea but He Could Not Afford It His Ex- Smoker Quit about 5 Months Ago. on admission patient was tachycardic at 101, he was hypoxic at 83 and placed on 5 L oxygen via nasal cannula.CBC is unremarkable. Potassium is elevatedat 6.5, creatinine is elevated at 2.4, baseline is 0.7-1.1,liver enzymes unremarkable. EKG showing sinus tachycardia at [address]-T changes.chest x- ray: No consolidation an emergency room patient got Zithromax, Solu-Medrol 60 mg and normal saline at 75 mL/h, sodium bicarb and Kayexalate 30 g Imes 1 albuterol inhaler, and insulin with sugar, calcium gluconate 06/21/2019 Patient last night refused to take the Kayexalate because he did not want to have bowel movement overnight. Repeat potassium this morning was critical at 7.5. EKG showing tented T wave. However patient denies chest pain or dizziness or palpitation. His vitals stable. Patient provided with cocktail for hyperkalemia including insulin/glucose, sodium bicarb, calcium gluconate, albuterol, Kayexalate 30 g, and continue with IV fluids with his creatinine slightly improved from 2.1 to 1.9 , we will transfer the patient to the ICU with lookback coordinator consulted, also human resources team member his patient. We'll repeat potassium in a few hours. Regarding his breathing he feels a little better. He has occasional cough but no chest pain. 06/22. He is maintained on high flow O2 saturating close to 100%. His WBC is 9.2, potassium 6.0, Cr 2.14. Insulin drip discontinued as potassium normalized. He is on azithromycin, solumedrol, IV lasix. 06/23/2019 patient is a selective overflow. continues on Solu-Medrol, IV pushLasix, azithromycin, maintaining O2 sats in the high 90s on high flow O2. Creatinine stable at 2.27. Afebrile, normal WBC. Potassiumimproving, 5.2.blood sugars better controlled this morning.good diet intake with no nausea vomiting or diarrhea.Receiving IV iron.blood culture corrected, now reporting gram positive bacilli. Objective - Vital Signs Vital signs: Vital Signs Temp 98 F 06/22/19 20:00 Pulse 84 06/23/19 07:08 Resp 16 06/23/19 04:00 BP 117/74 06/23/19 04:00 Pulse Ox 93 L 06/23/19 04:35 Intake & Output 06/22/19 06/23/19 06/23/19 18:59 06:59 18:59 Intake Total 326.267 167 Output Total 885 995 100 Balance -558.733 -828 -100 Weight 126.7 kg Intake: IV 167 Vancomycin 2,000 mg In 167 Sodium Chloride 0.9% 500 ml 500 ml @ 167 mls/hr IVPB Q24H [facility] Rx#: [id number] Intake, IV Titration 26.267 Amount Insulin Regular 100 unit 26.267 In Sodium Chloride 0.9% 100 ml @ Per Protocol IV .Q0M [facility] Rx#:[id number] Oral 300 Output: Urine 885 995 100 Other: Voiding Method Indwelling Catheter Indwelling Catheter # Voids 0 - Exam General: sitting up in chair,on high flow NC, alertand oriented 3, no acute distress. Vitals as above. Lungs: Diminished air entry throughout. ExpiratoryWheezes. No rales or rhonchi CV: Regular rate and rhythm, no murmur. positive edema,Peripheral pulses 2+ Abdomen: soft, nondistended, no organomegaly Skin: warm and dry. Psoriatic plaques bilaterally - Labs CBC & Chem 7: 06/23/19 04:43 06/23/19 04:43 Labs: Abnormal Lab Results - Last 24 Hours (Table) 06/21/19 06/22/19 06/22/19 Range/Units 10:21 04:01 08:44 RBC (4.30-5.90) m/uL Hgb (13.0-17.5) gm/dL Hct (39.0-53.0) % Lymphocytes # (1.0-4.8) k/uL Potassium (3.5-5.1) mmol/L Carbon Dioxide (22-30) mmol/L BUN (9-20) mg/dL Creatinine (0.66-1.25) mg/dL Glucose (74-99) mg/dL POC Glucose (mg/dL) 173 H (75-99) mg/dL Hemoglobin A1c 8.4 H (4.0-6.0) % Iron 32 L (65-175) ug/dL % Saturation 10.88 L (15.00-50.00) AST (17-59) U/L Total Protein (6.3-8.2) g/dL Albumin (3.5-5.0) g/dL Urine Blood (Negative) Ur Leukocyte Esterase (Negative) Urine RBC (0-5) /hpf Hyaline Casts (0-2) /lpf Urine Mucus (None) /hpf 06/22/19 06/22/19 06/22/19 Range/Units 09:52 11:15 11:56 RBC (4.30-5.90) m/uL Hgb (13.0-17.5) gm/dL Hct (39.0-53.0) % Lymphocytes # (1.0-4.8) k/uL Potassium (3.5-5.1) mmol/L Carbon Dioxide (22-30) mmol/L BUN (9-20) mg/dL Creatinine (0.66-1.25) mg/dL Glucose (74-99) mg/dL POC Glucose (mg/dL) 167 H 186 H 170 H (75-99) mg/dL Hemoglobin A1c (4.0-6.0) % Iron (65-175) ug/dL % Saturation (15.00-50.00) AST (17-59) U/L Total Protein (6.3-8.2) g/dL Albumin (3.5-5.0) g/dL Urine Blood (Negative) Ur Leukocyte Esterase (Negative) Urine RBC (0-5) /hpf Hyaline Casts (0-2) /lpf Urine Mucus (None) /hpf 06/22/19 06/22/19 06/22/19 Range/Units 12:56 14:02 14:05 RBC (4.30-5.90) m/uL Hgb (13.0-17.5) gm/dL Hct (39.0-53.0) % Lymphocytes # (1.0-4.8) k/uL Potassium 5.3 H (3.5-5.1) mmol/L Carbon Dioxide (22-30) mmol/L BUN (9-20) mg/dL Creatinine (0.66-1.25) mg/dL Glucose (74-99) mg/dL POC Glucose (mg/dL) 277 H 287 H (75-99) mg/dL Hemoglobin A1c (4.0-6.0) % Iron (65-175) ug/dL % Saturation (15.00-50.00) AST (17-59) U/L Total Protein (6.3-8.2) g/dL Albumin (3.5-5.0) g/dL Urine Blood (Negative) Ur Leukocyte Esterase (Negative) Urine RBC (0-5) /hpf Hyaline Casts (0-2) /lpf Urine Mucus (None) /hpf 06/22/19 06/22/19 06/22/19 Range/Units 14:45 15:00 16:04 RBC (4.30-5.90) m/uL Hgb (13.0-17.5) gm/dL Hct (39.0-53.0) % Lymphocytes # (1.0-4.8) k/uL Potassium (3.5-5.1) mmol/L Carbon Dioxide (22-30) mmol/L BUN (9-20) mg/dL Creatinine (0.66-1.25) mg/dL Glucose (74-99) mg/dL POC Glucose (mg/dL) 311 H 252 H (75-99) mg/dL Hemoglobin A1c (4.0-6.0) % Iron (65-175) ug/dL % Saturation (15.00-50.00) AST (17-59) U/L Total Protein (6.3-8.2) g/dL Albumin (3.5-5.0) g/dL Urine Blood Trace H (Negative) Ur Leukocyte Esterase Small H (Negative) Urine RBC 13 H (0-5) /hpf Hyaline Casts 31 H (0-2) /lpf Urine Mucus Rare H (None) /hpf 06/22/19 06/22/19 06/23/19 Range/Units 17:32 20:24 01:42 RBC (4.30-5.90) m/uL Hgb (13.0-17.5) gm/dL Hct (39.0-53.0) % Lymphocytes # (1.0-4.8) k/uL Potassium (3.5-5.1) mmol/L Carbon Dioxide (22-30) mmol/L BUN (9-20) mg/dL Creatinine (0.66-1.25) mg/dL Glucose (74-99) mg/dL POC Glucose (mg/dL) 201 H 290 H 195 H (75-99) mg/dL Hemoglobin A1c (4.0-6.0) % Iron (65-175) ug/dL % Saturation (15.00-50.00) AST (17-59) U/L Total Protein (6.3-8.2) g/dL Albumin (3.5-5.0) g/dL Urine Blood (Negative) Ur Leukocyte Esterase (Negative) Urine RBC (0-5) /hpf Hyaline Casts (0-2) /lpf Urine Mucus (None) /hpf 06/23/19 06/23/19 06/23/19 Range/Units 04:43 04:43 06:10 RBC 3.10 L (4.30-5.90) m/uL Hgb 9.1 L (13.0-17.5) gm/dL Hct 29.3 L (39.0-53.0) % Lymphocytes # 0.5 L (1.0-4.8) k/uL Potassium 5.2 H (3.5-5.1) mmol/L Carbon Dioxide 31 H (22-30) mmol/L BUN 115 H* (9-20) mg/dL Creatinine 2.27 H (0.66-1.25) mg/dL Glucose 161 H (74-99) mg/dL POC Glucose (mg/dL) 174 H (75-99) mg/dL Hemoglobin A1c (4.0-6.0) % Iron (65-175) ug/dL % Saturation (15.00-50.00) AST 14 L (17-59) U/L Total Protein 6.1 L (6.3-8.2) g/dL Albumin 3.3 L (3.5-5.0) g/dL Urine Blood (Negative) Ur Leukocyte Esterase (Negative) Urine RBC (0-5) /hpf Hyaline Casts (0-2) /lpf Urine Mucus (None) /hpf Microbiology - Last 24 Hours (Table) 06/20/19 13:43 Blood Culture - Final Blood 06/20/19 13:43 Blood Culture Gram Stain - Preliminary Blood Assessment and Plan Assessment: Assessment and Plan (1) CKD (chronic kidney disease) stage 3, GFR 30-59 ml/min Current Visit: Yes Status: Acute Code(s): N18.3 - CHRONIC KIDNEY DISEASE, STAGE 3 (MODERATE) SNOMED Code(s): 982846418 (2) MARIA T (acute kidney injury) Current Visit: Yes Status: Acute Code(s): N17.9 - ACUTE KIDNEY FAILURE, UNSPECIFIED SNOMED Code(s): 30144750 (3) Hyperkalemia Current Visit: Yes Status: Acute Code(s): E87.5 - HYPERKALEMIA SNOMED Code(s): 96726712 (4) Acute exacerbation of chronic obstructive pulmonary disease (COPD) Current Visit: No Status: Acute Code(s): J44.1 - CHRONIC OBSTRUCTIVE PULMONARY DISEASE W (ACUTE) EXACERBATION SNOMED Code(s): 187846854 (5) Acute on chronic respiratory failure with hypoxia and hypercapnia Current Visit: No Status: Acute Code(s): J96.21 - ACUTE AND CHRONIC RESPIRATORY FAILURE WITH HYPOXIA; J96.22 - ACUTE AND CHRONIC RESPIRATORY FAILURE WITH HYPERCAPNIA SNOMED Code(s): 85449931140877 (6) Asthma exacerbation in COPD Current Visit: No Status: Acute Code(s): J44.1 - CHRONIC OBSTRUCTIVE PULMONARY DISEASE W (ACUTE) EXACERBATION; J45.901 - UNSPECIFIED ASTHMA WITH (ACUTE) EXACERBATION SNOMED Code(s): 1302618984286 (7) Cor pulmonale, acute Current Visit: No Status: Acute Code(s): I26.09 - OTHER PULMONARY EMBOLISM WITH ACUTE COR PULMONALE SNOMED Code(s): 52373954 (8) Diabetes mellitus Current Visit: No Status: Acute Code(s): E11.9 - TYPE 2 DIABETES MELLITUS WITHOUT COMPLICATIONS SNOMED Code(s): 34607542 (9) anemia, iron deficient (10) Bacteremia, gram-positive bacilli, repeat cultures in progress plan: Continue on current medication regime ,monitoring and symptomatic treatment. repeat blood cultures ordered. Continue titrating oxygen to maintain O2 sat of 88-90%. Patient is a selective overflow. close monitoring of Accu-Roselyn ks with tight blood sugar control. Diuretics as per nephrology. renal diet. Discharge planning in progress soon. The impression and plan of care has been dictated as directed. : I performed a history and examination of this patient, discussed the same with the dictator. I agree with the dictator's note ,documented as a scribe. Any additional findings or plans will be noted.
--- NOTE | 2019-06-23 14:43 | PN ---
PROGRESS NOTE DATE OF SERVICE: 06/23/2019 Patient is a 53-year-old awake and alert. does feel a bit better today, is the patient is afebrile, hemodynamically stable, in no acute distress. PHYSICAL EXAM: VITAL SIGNS: Temperature is 97.9, heart rate is 72, respiratory rate is 20, blood pressure is 140/85, O2 sats 95% on high-flow O2 at 8 L HEENT. Head is normocephalic, atraumatic. Neck is supple. Trachea is midline. LUNGS: With decreased breath sounds and scattered wheezes. HEART: S1, S2 heard. Not tachycardic. ABDOMEN: Soft, obese. Bowel sounds are heard. EXTREMITIES: 1+ edema with psoriasis. Psoriasis noted to both upper and lower extremities. NEUROLOGIC: Patient is alert and oriented. LABS: White count is 6.6, hemoglobin is 9.1, hematocrit is 29.3 with 236,000 platelets. Sodium is 140, potassium is 5.2, chloride is 103, CO2 is 31, anion gap is 6, BUN is 115, creatinine is 2.27, glucose is 161, calcium is 8.5, total bilirubin 0.4, AST is 14, ALT is 28, alkaline phosphatase is 54, total protein 6.1, albumin is 3.3. IMAGING: No new imaging to review. IMPRESSION: 1. Severe asthma with acute exacerbation. 2. Psoriasis with psoriatic skin lesions. 3. Acute renal failure with hyperkalemia. 4. Cor pulmonale. 5. Obstructive sleep apnea that is relatively untreated as the patient has been noncompliant with CPAP. PLAN: Continue current medications which have been reviewed. Continue the IV and aerosolized steroids. Continue bronchodilators. Continue to maintain negative fluid balance. Continue incentive spirometry with pulmonary hygiene. Continue GI and DVT prophylaxis and we will continue to follow patient closely with you making further changes as necessary. MMODL / IJN: [id number] /
[2019-06-23 16:36] LABS: Glucose,Whole Blood 360 mg/dL (75-99)
[2019-06-23] MEDS ORDERED: INSULIN DETEMIR (LEVEMIR) 100 UNIT/ML SYR SQ STA (16:58)
[2019-06-23] MEDS ORDERED: INSULIN ASPART (NovoLOG) 100 UNIT/ML VIAL SQ ONE ×2 (18:05→20:47)
--- NOTE | 2019-06-23 18:24 | P.PN ---
Subjective Progress Note Date: 06/23/19 Principal diagnosis: acute hypoxic respiratory failure Fluid overload with acute on chronic diastolic heart failure Electrolyte imbalance with hyperkalemia Acute renal failure likely related to LEANNE inhibitor's Morbid obesity and obstructive sleep apnea Severe advanced psoriasis Poor compliant 06/23/2019, patient seen and evaluated examined from critical illness care stand point, patient has been in NICU however he has been assigned a bed stepdown unit shortness of breath is still present but severity has improved, he remains afebrile, hemodynamic status stable his oxygen saturation is 92% on 8 L high flow oxygen with 50%, patient has been consult about importance to using BiPAP and CPAPAmmann sugars are running high CBC remains stable hypertension Ms. improved to 5.2 now from 6 yesterday however B and creatinine continued to get worse his 115 and 2.27, ultrasound of the kidneys are unremarkable renal services observing patient plans for dialysis at this point of time, chest x-ray from yesterday reviewed improving interstitial edema and basal atelectasis along with pleural effusion 06/22/2019, patient is sitting upright in the bed breathing comfortably denies any chest pain, patient has been instructed to use BiPAP machine each night and when necessary during the day, labs reviewed potassium level is still slightly elevated, renal services following, renal functions remain abnormal with a steadily going up, potassium elevated, this is a 53-year-old male who was seen evaluated examined in ICU patient was transferred to the ICU due to hyperkalemia high oxygen demand as well as developing renal failure thought to be related to LEANNE inhibitor's which have been discontinued patient x-ray follow-up appeared to be very wet appearing with bilateral effusion worse compared to admit x-ray review of the data revealed that this is a pleasant 53 years old male with past medical history of asthma/COPD, diabetes mellitus, hypertension, pneumonia., Depression, cigarette smoker.he follows with , and his oleomargarine maker is Dr. Mosquera. patient presents because of shortness of breath of 1-2 days duration associated with Phrenic Clear Phlegm for about a Week. However Denies Chest Pain No Urinary or Bowel Problem Complaints. No Dizziness or Palpitation. No Weakness. Patient at Baseline Has COPD and Uses 5 L of Oxygen Via Nasal Cannula, He Is S upposed to Use CPAP/BiPAP Machine for His Sleep Apnea but He Could Not Afford It His Ex- Smoker Quit about 5 Months Ago. Denies a Call or Illicit Drugs on admission patient was tachycardic at 101, he was hypoxic at 83 and placed on 5 L oxygen via nasal cannula.CBC is unremarkable. Potassium is elevatedat 6.5, creatinine is elevated at 2.4, baseline is 0.7-1.1, liver enzymes unremarkable. EKG showing sinus tachycardia at [address]-T changes.chest x- ray: No consolidation, however recent x-ray of a performed this morning is bilateral pleural effusion and basal atelectasis consistent with volume overload Objective - Vital Signs Vital signs: Vital Signs Temp 97.6 F 06/23/19 16:00 Pulse 78 06/23/19 16:00 Resp 18 06/23/19 16:00 BP 147/81 06/23/19 16:00 Pulse Ox 92 L 06/23/19 16:00 Intake & Output 06/22/19 06/23/19 06/23/19 18:59 06:59 18:59 Intake Total 326.267 167 840 Output Total 885 995 775 Balance -558.733 -828 65 Weight 126.7 kg Intake: IV 167 200 Sodium Ferric Gluconat- 200 Sucrose 125 mg In Sodium Chloride 0.9% 100 ml @ 100 mls/hr IVPB DAILY [facility] Rx#:[id number] Vancomycin 2,000 mg In 167 Sodium Chloride 0.9% 500 ml 500 ml @ 167 mls/hr IVPB Q24H [facility] Rx#: [id number] Intake, IV Titration 26.267 Amount Insulin Regular 100 unit 26.267 In Sodium Chloride 0.9% 100 ml @ Per Protocol IV .Q0M [facility] Rx#:[id number] Oral 300 640 Output: Urine 885 995 775 Other: Voiding Method Indwelling Catheter Indwelling Catheter Indwelling Catheter # Voids 0 # Bowel Movements 1 - Exam - Constitutional General appearance: disheveled, mild distress, morbidly obese - EENT Eyes: EOMI, PERRLA ENT: hearing grossly normal, normal oropharynx Ears: bilateral: normal - Neck Neck: normal ROM Carotids: bilateral: upstroke normal Thyroid: bilateral: normal size - Respiratory Respiratory: bilateral: diminished, wheezing, prolonged expiration, negative: dullness, rales, rhonchi - Cardiovascular Rhythm: regular Heart sounds: normal: S1, S2 - Gastrointestinal General gastrointestinal: decreased bowel sounds, distended - Neurologic Neurologic: CNII-XII intact - Musculoskeletal Musculoskeletal: gait normal, generalized weakness, strength equal bilaterally - Psychiatric Psychiatric: A&O x's 3, appropriate affect, intact judgment & insight - Labs CBC & Chem 7: 06/23/19 04:43 06/23/19 04:43 Labs: Abnormal Lab Results - Last 24 Hours (Table) 06/22/19 06/23/19 06/23/19 Range/Units 20:24 01:42 04:43 RBC 3.10 L (4.30-5.90) m/uL Hgb 9.1 L (13.0-17.5) gm/dL Hct 29.3 L (39.0-53.0) % Lymphocytes # 0.5 L (1.0-4.8) k/uL Potassium (3.5-5.1) mmol/L Carbon Dioxide (22-30) mmol/L BUN (9-20) mg/dL Creatinine (0.66-1.25) mg/dL Glucose (74-99) mg/dL POC Glucose (mg/dL) 290 H 195 H (75-99) mg/dL AST (17-59) U/L Total Protein (6.3-8.2) g/dL Albumin (3.5-5.0) g/dL 06/23/19 06/23/19 06/23/19 Range/Units 04:43 06:10 11:46 RBC (4.30-5.90) m/uL Hgb (13.0-17.5) gm/dL Hct (39.0-53.0) % Lymphocytes # (1.0-4.8) k/uL Potassium 5.2 H (3.5-5.1) mmol/L Carbon Dioxide 31 H (22-30) mmol/L BUN 115 H* (9-20) mg/dL Creatinine 2.27 H (0.66-1.25) mg/dL Glucose 161 H (74-99) mg/dL POC Glucose (mg/dL) 174 H 215 H (75-99) mg/dL AST 14 L (17-59) U/L Total Protein 6.1 L (6.3-8.2) g/dL Albumin 3.3 L (3.5-5.0) g/dL 06/23/19 Range/Units 16:35 RBC (4.30-5.90) m/uL Hgb (13.0-17.5) gm/dL Hct (39.0-53.0) % Lymphocytes # (1.0-4.8) k/uL Potassium (3.5-5.1) mmol/L Carbon Dioxide (22-30) mmol/L BUN (9-20) mg/dL Creatinine (0.66-1.25) mg/dL Glucose (74-99) mg/dL POC Glucose (mg/dL) 360 H (75-99) mg/dL AST (17-59) U/L Total Protein (6.3-8.2) g/dL Albumin (3.5-5.0) g/dL Microbiology - Last 24 Hours (Table) 06/20/19 13:43 Blood Culture - Final Blood 06/20/19 13:43 Blood Culture Gram Stain - Preliminary Blood Assessment and Plan Assessment: acute on chronic renal failure due to acute tubular necrosis acute hypoxic respiratory failure Fluid overload with acute on chronic diastolic heart failure Electrolyte imbalance with hyperkalemia Acute renal failure likely related to LEANNE inhibitor's Morbid obesity and obstructive sleep apnea Severe advanced psoriasis Poor compliant Plan: Continue bronchodilator continue taper steroids Continue high flow oxygen and BiPAP each night and when necessarytitrate down oxygen as needed can be moved out of ICU when bed available
[2019-06-23 20:29] LABS: Glucose,Whole Blood 355 mg/dL (75-99)
[2019-06-23] MEDS: ATORVASTATIN 40 MG TAB PO SCH (21:00)
[2019-06-23] MEDS: MONTELUKAST 10 MG TAB PO SCH (21:00)
[2019-06-23] MEDS ORDERED: INSULIN DETEMIR (LEVEMIR) 100 UNIT/ML SYR SQ SCH (21:00)
[2019-06-23] MEDS: FAMOTIDINE 20 MG TAB PO SCH (21:00)
[2019-06-24 05:16] LABS: Basophils # (A) 0.2 k/uL (0-0.2); Basophils % (A) 3 %; Eosinophils % (A) 1 %; HCT 32.2 % (39.0-53.0); HGB 9.9 gm/dL (13.0-17.5); Hypochromasia Slight; Lymphocytes # (A) 0.3 k/uL (1.0-4.8); Lymphocytes % (A) 6 %; MCH 28.5 pg (25.0-35.0); MCHC 30.8 g/dL (31.0-37.0); MCV 92.6 fL (80.0-100.0); Mean Platelet Volume 8.6; Monocytes # (A) 0.3 k/uL (0-1.0); Monocytes % (A) 6 %; Neutrophils # (A) 4.7 k/uL (1.3-7.7); Neutrophils % (A) 84 %; Platelet Count 289 k/uL (150-450); RBC 3.47 m/uL (4.30-5.90); RDW 13.6 % (11.5-15.5); WBC 5.6 k/uL (3.8-10.6)
[2019-06-24 05:26] LABS: Albumin 3.4 g/dL (3.5-5.0); Calcium 8.3 mg/dL (8.4-10.2); Potassium 5.3 mmol/L (3.5-5.1); Total Bilirubin 0.4 mg/dL (0.2-1.3); Total Protein 6.3 g/dL (6.3-8.2)
[2019-06-24 06:37] LABS: Glucose,Whole Blood 166 mg/dL (75-99)
[2019-06-24] MEDS: INSULIN ASPART (NovoLOG) 100 UNIT/ML VIAL SQ SCH ×4 (06:58→21:05)
[2019-06-24] MEDS: methylPREDNISolone SOD SUCCI 125 MG/2 ML VIAL IV SCH ×3 (06:58→18:27)
[2019-06-24] MEDS: SODIUM FERRIC GLUCONAT-SUCROSE 125 MG in SODIUM CHLORIDE 0.9% 100 ML IVPB SCH (08:05)
[2019-06-24] MEDS: FUROSEMIDE 10 MG/ML 10 ML VIAL IV SCH ×2 (08:05→20:34)
[2019-06-24] MEDS: HEPARIN SODIUM,PORCINE 5,000 UNIT/ML 1 ML VIAL SQ SCH ×2 (08:05→20:34)
[2019-06-24] MEDS: AZITHROMYCIN 500 MG TAB PO SCH (08:05)
[2019-06-24] MEDS: BUDESONIDE 0.5 MG/2 ML NEBU INHALATION SCH ×2 (08:56→19:25)
[2019-06-24] MEDS: IPRATROPIUM-ALBUTEROL 3 ML NEB INHALATION SCH ×4 (08:56→19:25)
[2019-06-24] MEDS ORDERED: DOXYCYCLINE 100 MG CAP PO SCH (09:00)
--- NOTE | 2019-06-24 10:35 | P.PN ---
Subjective Patient is seen in follow-up for acute kidney injury and hyperkalemia. Potassium level is stable - 5.3 this morning. Creatinine also fairly stable at 2.13. Currently on IV lasix 60 mg q12h. Urine output near 2.4 L in the last 24 hours. Oral intake is good. No vomiting or diarrhea. No active complaints at this time. Vital signs are stable. General: The patient appeared well nourished and normally developed. HEENT: Head exam is unremarkable. Neck is without jugular venous distension. LUNGS: Lungs are clear to auscultation and percussion. Breath sounds decreased. HEART: Rate and Rhythm are regular. First and second heart sounds normal. No murmurs, rubs or gallops. ABDOMEN: Abdominal exam reveals normal bowel sounds. Non-tender and non- distended. No evidence of peritonitis. EXTREMITITES: 1+ edema. Chronic changes noted. Objective - Vital Signs Vital signs: Vital Signs Temp 98 F 06/24/19 08:00 Pulse 82 06/24/19 09:09 Resp 16 06/24/19 08:00 BP 138/72 06/24/19 08:00 Pulse Ox 95 06/24/19 08:00 Intake & Output 06/23/19 06/24/19 06/24/19 18:59 06:59 18:59 Intake Total 840 340 Output Total 775 1625 Balance 65 -1625 340 Weight 126.5 kg Intake: IV 200 100 Sodium Ferric Gluconat- 200 100 Sucrose 125 mg In Sodium Chloride 0.9% 100 ml @ 100 mls/hr IVPB DAILY [facility] Rx#:[id number] Oral 640 240 Output: Urine 775 1625 Other: Voiding Method Indwelling Catheter Indwelling Catheter Indwelling Catheter # Bowel Movements 1 - Labs CBC & Chem 7: 06/24/19 04:33 06/24/19 04:33 Labs: Abnormal Lab Results - Last 24 Hours (Table) 06/23/19 06/23/19 06/23/19 Range/Units 11:46 16:35 20:27 RBC (4.30-5.90) m/uL Hgb (13.0-17.5) gm/dL Hct (39.0-53.0) % MCHC (31.0-37.0) g/dL Lymphocytes # (1.0-4.8) k/uL Potassium (3.5-5.1) mmol/L Carbon Dioxide (22-30) mmol/L BUN (9-20) mg/dL Creatinine (0.66-1.25) mg/dL Glucose (74-99) mg/dL POC Glucose (mg/dL) 215 H 360 H 355 H (75-99) mg/dL Calcium (8.4-10.2) mg/dL AST (17-59) U/L Albumin (3.5-5.0) g/dL 06/24/19 06/24/19 06/24/19 Range/Units 04:33 04:33 06:35 RBC 3.47 L (4.30-5.90) m/uL Hgb 9.9 L (13.0-17.5) gm/dL Hct 32.2 L (39.0-53.0) % MCHC 30.8 L (31.0-37.0) g/dL Lymphocytes # 0.3 L (1.0-4.8) k/uL Potassium 5.3 H (3.5-5.1) mmol/L Carbon Dioxide 34 H (22-30) mmol/L BUN 121 H* (9-20) mg/dL Creatinine 2.13 H (0.66-1.25) mg/dL Glucose 169 H (74-99) mg/dL POC Glucose (mg/dL) 166 H (75-99) mg/dL Calcium 8.3 L (8.4-10.2) mg/dL AST 16 L (17-59) U/L Albumin 3.4 L (3.5-5.0) g/dL Microbiology - Last 24 Hours (Table) 06/23/19 12:25 Blood Culture Gram Stain - Preliminary Blood 06/23/19 12:25 Blood Culture - Final Blood 06/23/19 11:58 Blood Culture Gram Stain - Preliminary Blood 06/23/19 11:58 Blood Culture - Final Blood Assessment and Plan Plan: Assessment: 1. Acute kidney injury secondary to ATN secondary to cardiorenal syndrome. Creatinine 2.13 today. No evidence of hydronephrosis noted on kidney ultrasound. No proteinuria on UA. Elevated BUN partially due to steroids. 2. Hyperkalemia secondary to acute kidney injury, hyperglycemia and lisinopril. Stable. 3. Volume overload. Improving. 4. Diabetes mellitus. Off insulin drip. 5. Anemia. Iron deficiency noted. Plan: Continue IV Lasix 60 mg twice daily. Low potassium diet. Tight blood sugar control. IV iron 3 doses. Second dose today. Continue to monitor renal function and urine output.
[2019-06-24 12:10] LABS: Glucose,Whole Blood 254 mg/dL (75-99)
[2019-06-24] MEDS ORDERED: VANCOMYCIN IV PER PHARMACY 1 EACH MISC MISCELLANE PRN (13:31)
[2019-06-24] MEDS ORDERED: VANCOMYCIN 2,250 MG in SODIUM CHLORIDE 0.9% 500 ML 500 ML IVPB ONE (15:00)
--- NOTE | 2019-06-24 16:14 | P.PN ---
Subjective Progress Note Date: 06/24/19 Terrance Lazcano is a 53 years old male with past medical history of asthma/COPD, psoriasis, diabetes mellitus, hypertension, pneumonia, depression, cigarette smoker. Patient presents because of shortness of breath of 1-2 days duration associated with Phrenic Clear Phlegm for about a Week. However Denies Chest Pain No Urinary or Bowel Problem Complaints. No Dizziness or Palpitation. No Weakness. Patient at Baseline Has COPD and Uses 5 L of Oxygen Via Nasal Cannula, He Is Supposed to Use CPAP/BiPAP Machine for His Sleep Apnea but He Could Not Afford It His Ex- Smoker Quit about 5 Months Ago. on admission patient was tachycardic at 101, he was hypoxic at 83 and placed on 5 L oxygen via nasal cannula.CBC is unremarkable. Potassium is elevatedat 6.5, creatinine is elevated at 2.4, baseline is 0.7-1.1,liver enzymes unremarkable. EKG showing sinus tachycardia at [address]-T changes.chest x- ray: No consolidation an emergency room patient got Zithromax, Solu-Medrol 60 mg and normal saline at 75 mL/h, sodium bicarb and Kayexalate 30 g Imes 1 albuterol inhaler, and insulin with sugar, calcium gluconate 06/21/2019 Patient last night refused to take the Kayexalate because he did not want to have bowel movement overnight. Repeat potassium this morning was critical at 7.5. EKG showing tented T wave. However patient denies chest pain or dizziness or palpitation. His vitals stable. Patient provided with cocktail for hyperkalemia including insulin/glucose, sodium bicarb, calcium gluconate, albuterol, Kayexalate 30 g, and continue with IV fluids with his creatinine slightly improved from 2.1 to 1.9 , we will transfer the patient to the ICU with delicatessen manager consulted, also digital controls technical officer his patient. We'll repeat potassium in a few hours. Regarding his breathing he feels a little better. He has occasional cough but no chest pain. 06/22. He is maintained on high flow O2 saturating close to 100%. His WBC is 9.2, potassium 6.0, Cr 2.14. Insulin drip discontinued as potassium normalized. He is on azithromycin, solumedrol, IV lasix. 06/23/2019 patient is a selective overflow. continues on Solu-Medrol, IV pushLasix, azithromycin, maintaining O2 sats in the high 90s on high flow O2. Creatinine stable at 2.27. Afebrile, normal WBC. Potassiumimproving, 5.2.blood sugars better controlled this morning.good diet intake with no nausea vomiting or diarrhea.Receiving IV iron.blood culture corrected, now reporting gram positive bacilli. 06/24/2019 diuresing well on Lasix IV push with 24-hour I&O reflecting a negative fluid balance.receiving second dose of IV iron. maintained on doxycycline, Zithromax.creatinine 2.13. O2 weaned down to 8 L high flow nasal cannula,maintaining O2 sats in the 90s.telemetry sinus rhythm.potassium 5.3.blood sugars elevated ranging from 160s to 360. Objective - Vital Signs Vital signs: Vital Signs Temp 98 F 06/24/19 08:00 Pulse 82 06/24/19 09:09 Resp 16 06/24/19 08:00 BP 138/72 06/24/19 08:00 Pulse Ox 95 06/24/19 08:00 Intake & Output 06/23/19 06/24/19 06/24/19 18:59 06:59 18:59 Intake Total 840 340 Output Total 775 1625 Balance 65 -1625 340 Weight 126.5 kg Intake: IV 200 100 Sodium Ferric Gluconat- 200 100 Sucrose 125 mg In Sodium Chloride 0.9% 100 ml @ 100 mls/hr IVPB DAILY [facility] Rx#:[id number] Oral 640 240 Output: Urine 775 1625 Other: Voiding Method Indwelling Catheter Indwelling Catheter Indwelling Catheter # Bowel Movements 1 - Exam General: sitting up in chair,on high flow NC, alertand oriented 3, no acute distress. Vitals as above. Lungs: Diminished air entry throughout. ExpiratoryWheezes. No rales or rhonchi CV: Regular rate and rhythm, no murmur. positive edema,Peripheral pulses 2+ Abdomen: soft, nondistended, no organomegaly Skin: warm and dry. Psoriatic plaques bilaterally Microbiology 06/23/19 11:58 Blood Blood Culture Gram Stain - Preliminary 06/23/19 11:58 Blood Blood Culture - Preliminary Coagulase Negative Staph 06/23/19 12:25 Blood Blood Culture Gram Stain - Preliminary 06/23/19 12:25 Blood Blood Culture - Final 06/23/19 11:58 Blood Blood Culture - Final 06/20/19 13:43 Blood Blood Culture - Final 06/20/19 13:43 Blood Blood Culture Gram Stain - Preliminary - Labs CBC & Chem 7: 06/24/19 04:33 06/24/19 04:33 Labs: Abnormal Lab Results - Last 24 Hours (Table) 06/23/19 06/23/19 06/23/19 Range/Units 11:46 16:35 20:27 RBC (4.30-5.90) m/uL Hgb (13.0-17.5) gm/dL Hct (39.0-53.0) % MCHC (31.0-37.0) g/dL Lymphocytes # (1.0-4.8) k/uL Potassium (3.5-5.1) mmol/L Carbon Dioxide (22-30) mmol/L BUN (9-20) mg/dL Creatinine (0.66-1.25) mg/dL Glucose (74-99) mg/dL POC Glucose (mg/dL) 215 H 360 H 355 H (75-99) mg/dL Calcium (8.4-10.2) mg/dL AST (17-59) U/L Albumin (3.5-5.0) g/dL 06/24/19 06/24/19 06/24/19 Range/Units 04:33 04:33 06:35 RBC 3.47 L (4.30-5.90) m/uL Hgb 9.9 L (13.0-17.5) gm/dL Hct 32.2 L (39.0-53.0) % MCHC 30.8 L (31.0-37.0) g/dL Lymphocytes # 0.3 L (1.0-4.8) k/uL Potassium 5.3 H (3.5-5.1) mmol/L Carbon Dioxide 34 H (22-30) mmol/L BUN 121 H* (9-20) mg/dL Creatinine 2.13 H (0.66-1.25) mg/dL Glucose 169 H (74-99) mg/dL POC Glucose (mg/dL) 166 H (75-99) mg/dL Calcium 8.3 L (8.4-10.2) mg/dL AST 16 L (17-59) U/L Albumin 3.4 L (3.5-5.0) g/dL Microbiology - Last 24 Hours (Table) 06/23/19 11:58 Blood Culture Gram Stain - Preliminary Blood 06/23/19 11:58 Blood Culture - Final Blood Assessment and Plan Assessment: Assessment and Plan (1) CKD (chronic kidney disease) stage 3, GFR 30-59 ml/min Current Visit: Yes Status: Acute Code(s): N18.3 - CHRONIC KIDNEY DISEASE, STAGE 3 (MODERATE) SNOMED Code(s): 821487347 (2) MARIA T (acute kidney injury) Current Visit: Yes Status: Acute Code(s): N17.9 - ACUTE KIDNEY FAILURE, UNSPECIFIED SNOMED Code(s): 38517664 (3) Hyperkalemia Current Visit: Yes Status: Acute Code(s): E87.5 - HYPERKALEMIA SNOMED Code(s): 58442005 (4) Acute exacerbation of chronic obstructive pulmonary disease (COPD) Current Visit: No Status: Acute Code(s): J44.1 - CHRONIC OBSTRUCTIVE PULMONARY DISEASE W (ACUTE) EXACERBATION SNOMED Code(s): 526014542 (5) Acute on chronic respiratory failure with hypoxia and hypercapnia Current Visit: No Status: Acute Code(s): J96.21 - ACUTE AND CHRONIC RESPIRATORY FAILURE WITH HYPOXIA; J96.22 - ACUTE AND CHRONIC RESPIRATORY FAILURE WITH HYPERCAPNIA SNOMED Code(s): 68080461018004 (6) Asthma exacerbation in COPD Current Visit: No Status: Acute Code(s): J44.1 - CHRONIC OBSTRUCTIVE PULMONARY DISEASE W (ACUTE) EXACERBATION; J45.901 - UNSPECIFIED ASTHMA WITH (ACUTE) EXACERBATION SNOMED Code(s): 9925183992324 (7) Cor pulmonale, acute Current Visit: No Status: Acute Code(s): I26.09 - OTHER PULMONARY EMBOLISM WITH ACUTE COR PULMONALE SNOMED Code(s): 31671121 (8) Diabetes mellitus Current Visit: No Status: Acute Code(s): E11.9 - TYPE 2 DIABETES MELLITUS WITHOUT COMPLICATIONS SNOMED Code(s): 71727027 (9) anemia, iron deficient (10) Bacteremia, gram-positive bacilli, repeat cultures in progress plan: Continue on current medication regime ,monitoring and symptomatic treatment. repeat blood cultures in progress. antibiotics adjusted.close monitoring of renal function, electrolytes with repeat labs in a.m.Continue titrating oxygen to maintain O2 sat of 88-90%. Levemir dose increased to 45 units,close monitoring of Accu-Cheks with tight blood sugar control. Diuretics as per nephrology. renal diet. The impression and plan of care has been dictated as directed. : I performed a history and examination of this patient, discussed the same with the dictator. I agree with the dictator's note ,documented as a scribe. Any additional findings or plans will be noted.
[2019-06-24 16:57] LABS: Glucose,Whole Blood 287 mg/dL (75-99)
[2019-06-24] MEDS ORDERED: INSULIN ASPART (NovoLOG) 100 UNIT/ML VIAL SQ ONE ×2 (17:46→20:45)
[2019-06-24] MEDS: ATORVASTATIN 40 MG TAB PO SCH (20:33)
[2019-06-24] MEDS: FAMOTIDINE 20 MG TAB PO SCH (20:34)
[2019-06-24] MEDS: DOXYCYCLINE 100 MG CAP PO SCH (20:34)
[2019-06-24 20:35] LABS: Glucose,Whole Blood 444 mg/dL (75-99)
[2019-06-24] MEDS: MONTELUKAST 10 MG TAB PO SCH (20:35)
[2019-06-24] MEDS ORDERED: INSULIN DETEMIR (LEVEMIR) 100 UNIT/ML SYR SQ SCH (21:00)
[2019-06-24] MEDS: INSULIN DETEMIR (LEVEMIR) 100 UNIT/ML SYR SQ SCH (21:51)
--- NOTE | 2019-06-24 22:30 | PN ---
PROGRESS NOTE DATE OF SERVICE: 06/24/2019 This patient is less short of breath but continues to have some wheeze. On physical examination, his vitals are stable. He is afebrile. His chest reveals expiratory wheeze. Cardiovascular system is in S1, S2. Abdomen is soft. There is 1+ to 2+ pedal edema. Labs reveal a white count of 5.6, hemoglobin of 9.9, BUN 121, creatinine 2.14, sodium 140, potassium 5.3, chloride 101, bicarb 34. Microbiological cultures are growing coag- negative staph in the blood, which may be a contaminant. IMPRESSION AT THIS TIME: 1. Severe asthma with acute exacerbation. 2. Acute renal failure, in part due to prerenal azotemia with hyperkalemia. 3. Cor pulmonale. 4. Psoriasis with psoriatic skin lesions. Continue IV and aerosolized steroids. Check electrolytes. Continue bronchodilators. Increase his activity level. His prognosis is fair. MMODL / IJN: [id number] /
[2019-06-25] MEDS: methylPREDNISolone SOD SUCCI 125 MG/2 ML VIAL IV SCH ×2 (00:04→05:41)
[2019-06-25 00:06] LABS: Glucose,Whole Blood 326 mg/dL (75-99)
[2019-06-25] MEDS ORDERED: INSULIN ASPART (NovoLOG) 100 UNIT/ML VIAL SQ ONE ×2 (00:23→17:02)
[2019-06-25 03:02] LABS: Glucose,Whole Blood 226 mg/dL (75-99)
[2019-06-25] MEDS: INSULIN ASPART (NovoLOG) 100 UNIT/ML VIAL SQ SCH ×5 (03:06→21:03)
[2019-06-25 05:54] LABS: HCT 31.1 % (39.0-53.0); Hypochromasia Moderate; MCH 29.7 pg (25.0-35.0); MCHC 32.1 g/dL (31.0-37.0); MCV 92.5 fL (80.0-100.0); Mean Platelet Volume 8.2; Platelet Count 240 k/uL (150-450); RBC 3.36 m/uL (4.30-5.90); RDW 13.4 % (11.5-15.5); WBC 7.5 k/uL (3.8-10.6)
[2019-06-25 06:04] LABS: Calcium 8.4 mg/dL (8.4-10.2); Potassium 5.1 mmol/L (3.5-5.1)
[2019-06-25 06:47] LABS: Glucose,Whole Blood 143 mg/dL (75-99)
[2019-06-25] MEDS: IPRATROPIUM-ALBUTEROL 3 ML NEB INHALATION SCH ×4 (08:49→20:27)
[2019-06-25] MEDS: BUDESONIDE 0.5 MG/2 ML NEBU INHALATION SCH ×2 (08:49→20:27)
[2019-06-25] MEDS: HEPARIN SODIUM,PORCINE 5,000 UNIT/ML 1 ML VIAL SQ SCH ×2 (09:49→21:01)
[2019-06-25] MEDS: DOXYCYCLINE 100 MG CAP PO SCH ×2 (09:50→23:53)
[2019-06-25] MEDS: AZITHROMYCIN 500 MG TAB PO SCH (09:50)
[2019-06-25] MEDS: FUROSEMIDE 10 MG/ML 10 ML VIAL IV SCH ×2 (09:50→21:01)
--- NOTE | 2019-06-25 10:25 | P.PN ---
Subjective Patient is seen in follow-up for acute kidney injury and hyperkalemia. Potassium level is better - 5.1 this morning. Renal function is improved - c reatinine 1.68 today. Currently on IV lasix 60 mg q12h. Urine output near 3.8 L in the last 24 hours. Oral intake is good. No vomiting or diarrhea. No active complaints at this time. Vital signs are stable. General: The patient appeared well nourished and normally developed. HEENT: Head exam is unremarkable. Neck is without jugular venous distension. LUNGS: Lungs are clear to auscultation and percussion. Breath sounds decreased. HEART: Rate and Rhythm are regular. First and second heart sounds normal. No murmurs, rubs or gallops. ABDOMEN: Abdominal exam reveals normal bowel sounds. Non-tender and non- distended. No evidence of peritonitis. EXTREMITITES: 1+ edema. Chronic changes noted. Objective - Vital Signs Vital signs: Vital Signs Temp 97.2 F L 06/25/19 08:00 Pulse 85 06/25/19 10:00 Resp 13 06/25/19 10:00 BP 134/80 06/25/19 10:00 Pulse Ox 97 06/25/19 10:00 Intake & Output 06/24/19 06/25/19 06/25/19 18:59 06:59 18:59 Intake Total 1200 Output Total 1350 2500 1725 Balance -150 -2500 -1725 Weight 129 kg Intake: IV 100 Sodium Ferric Gluconat- 100 Sucrose 125 mg In Sodium Chloride 0.9% 100 ml @ 100 mls/hr IVPB DAILY [facility] Rx#:[id number] Intake, IV Titration 500 Amount Vancomycin 2,250 mg In 500 Sodium Chloride 0.9% 500 ml 500 ml @ 167 mls/hr IVPB ONCE ONE Rx#: [id number] Oral 600 Output: Urine 1350 2500 1725 Other: Voiding Method Indwelling Catheter Indwelling Catheter - Labs CBC & Chem 7: 06/25/19 05:34 06/25/19 05:34 Labs: Abnormal Lab Results - Last 24 Hours (Table) 06/24/19 06/24/19 06/24/19 Range/Units 12:09 16:54 20:34 RBC (4.30-5.90) m/uL Hgb (13.0-17.5) gm/dL Hct (39.0-53.0) % Carbon Dioxide (22-30) mmol/L BUN (9-20) mg/dL Creatinine (0.66-1.25) mg/dL Glucose (74-99) mg/dL POC Glucose (mg/dL) 254 H 287 H 444 H (75-99) mg/dL 06/25/19 06/25/19 06/25/19 Range/Units 00:05 03:01 05:34 RBC 3.36 L (4.30-5.90) m/uL Hgb 10.0 L (13.0-17.5) gm/dL Hct 31.1 L (39.0-53.0) % Carbon Dioxide (22-30) mmol/L BUN (9-20) mg/dL Creatinine (0.66-1.25) mg/dL Glucose (74-99) mg/dL POC Glucose (mg/dL) 326 H 226 H (75-99) mg/dL 06/25/19 06/25/19 Range/Units 05:34 06:45 RBC (4.30-5.90) m/uL Hgb (13.0-17.5) gm/dL Hct (39.0-53.0) % Carbon Dioxide 37 H (22-30) mmol/L BUN 118 H* (9-20) mg/dL Creatinine 1.68 H (0.66-1.25) mg/dL Glucose 149 H (74-99) mg/dL POC Glucose (mg/dL) 143 H (75-99) mg/dL Microbiology - Last 24 Hours (Table) 06/20/19 13:43 Blood Culture Gram Stain - Final Blood Blood Culture - Final Diphtheroid species 06/23/19 11:58 Blood Culture Gram Stain - Final Blood Blood Culture - Final Coagulase Negative Staph Coagulase Negative Staph#2 06/23/19 12:25 Blood Culture Gram Stain - Preliminary Blood 06/23/19 12:25 Blood Culture - Final Blood Assessment and Plan Plan: Assessment: 1. Acute kidney injury secondary to ATN secondary to cardiorenal syndrome. Renal function improving. Creatinine 1.68 today. No evidence of hydronephrosis noted on kidney ultrasound. No proteinuria on UA. Elevated BUN partially due to steroids. 2. Hyperkalemia secondary to acute kidney injury, hyperglycemia and lisinopril. Stable. 3. Volume overload. Improving. 4. Diabetes mellitus. Off insulin drip. 5. Anemia. Iron deficiency noted. Plan: Continue IV Lasix 60 mg twice daily. Low potassium diet. Tight blood sugar control. IV iron 3 doses. Third dose today. Continue to monitor renal function and urine output.
[2019-06-25] MEDS: SODIUM FERRIC GLUCONAT-SUCROSE 125 MG in SODIUM CHLORIDE 0.9% 100 ML IVPB SCH (11:25)
[2019-06-25 11:49] LABS: Glucose,Whole Blood 229 mg/dL (75-99)
[2019-06-25] MEDS ORDERED: VANCOMYCIN 2,250 MG in SODIUM CHLORIDE 0.9% 500 ML 500 ML IVPB SCH (12:00)
[2019-06-25] MEDS: methylPREDNISolone SOD SUCCI 40 MG/ML 1 ML VIAL IV SCH ×3 (12:11→23:53)
--- NOTE | 2019-06-25 12:30 | PN ---
PROGRESS NOTE DATE OF SERVICE: 06/25/2019 Patient is a 53-year-old male who is seen sitting up in a chair. He is awake, alert. Does state that he feels a little better today, a little less short of breath. Patient is afebrile, hemodynamically stable, in no acute distress. PHYSICAL EXAM: VITAL SIGNS: Temperature 97.9, heart rate 91, respiratory rate 18, blood pressure is 134/78, O2 saturation 92% on high-flow nasal cannula at 10 L. HEENT: Head is normocephalic, atraumatic. Neck is supple. Trachea is midline. LUNGS: With decreased breath sounds and expiratory wheezes. HEART: S1, S2 are heard. Not tachycardic. ABDOMEN: Soft, obese. Bowel sounds are heard. EXTREMITIES: With 1+ edema bilaterally. Patient with psoriasis patches on upper and lower extremities. NEUROLOGIC: Patient is awake, alert, oriented. LABS: White count 7.5, hemoglobin is 10.0, hematocrit 31.1 with 240,000 platelets. Sodium is 142, potassium is 5.1, chloride is 103, CO2 is 37, anion gap is 2, BUN is 118, creatinine is 1.68, glucose is 149, calcium is 8.4. No new imaging to review. IMPRESSION: 1. Severe asthma with acute exacerbation. 2. Acute renal failure in part due to pre-renal azotemia with hyperkalemia. 3. Cor pulmonale. 4. Psoriasis with psoriatic skin lesions. PLAN: Continue current medications which have been reviewed. Continue IV and aerosol steroids. Continue bronchodilators. Continue incentive spirometry and pulmonary hygiene. Increase activity as tolerated and will follow patient closely with you, making further changes as necessary. MMODL / IJN: [id number] /
--- NOTE | 2019-06-25 14:35 | P.PN ---
Subjective Progress Note Date: 06/25/19 Principal diagnosis: acute hypoxic respiratory failure Fluid overload with acute on chronic diastolic heart failure Electrolyte imbalance with hyperkalemia Acute renal failure likely related to LEANNE inhibitor's Morbid obesity and obstructive sleep apnea Severe advanced psoriasis Poor compliant 06/25/2019, patient seen eval examined during the rounds her per request of [place] in patient has been instructed to use the BiPAP each night and when necessary during the day renal function noted to be slowly improving we'll follow as needed 06/23/2019, patient seen and evaluated examined from critical illness care standpoint, patient has been in NICU however he has been assigned a bed stepdown unit shortness of breath is still present but severity has improved, he remains afebrile, hemodynamic status stable his oxygen saturation is 92% on 8 L high flow oxygen with 50%, patient has been consult about importance to using BiPAP and CPAPAmmann sugars are running high CBC remains stable hypertension Ms. improved to 5.2 now from 6 yesterday however B and creatinine continued to get worse his 115 and 2.27, ultrasound of the kidneys are unremarkable renal services observing patient plans for dialysis at this point of time, chest x-ray from yesterday reviewed improving interstitial edema and basal atelectasis along with pleural effusion 06/22/2019, patient is sitting upright in the bed breathing comfortably denies any chest pain, patient has been instructed to use BiPAP machine each night and when necessary during the day, labs reviewed potassium level is still slightly elevated, renal services following, renal functions remain abnormal with a steadily going up, potassium elevated, this is a 53-year-old male who was seen evaluated examined in ICU patient was transferred to the ICU due to hyperkalemia high oxygen demand as well as developing renal failure thought to be related to LEANNE inhibitor's which have been discontinued patient x-ray follow-up appeared to be very wet appearing with bilateral effusion worse compared to admit x-ray review of the data revealed that this is a pleasant 53 years old male with past medical history of asthma/COPD, diabetes mellitus, hypertension, pneumonia., Depression, cigarette smoker.he follows with , and his assistant portfolio manager is Dr. Mosquera. patient presents because of shortness of breath of 1-2 days duration associated with Phrenic Clear Phlegm for about a Week. However Denies Chest Pain No Urinary or Bowel Problem Complaints. No Dizziness or Palpitation. No Weakness. Patient at Baseline Has COPD and Uses 5 L of Oxygen Via Nasal Cannula, He Is Supposed to Use CPAP/BiPAP Machine for His Sleep Apnea but He Could Not Afford It His Ex- Smoker Quit about 5 Months Ago. Denies a Call or Illicit Drugs on admission patient was tachycardic at 101, he was hypoxic at 83 and placed on 5 L oxygen via nasal cannula.CBC is unremarkable. Potassium is elevatedat 6.5, creatinine is elevated at 2.4, baseline is 0.7-1.1, liver enzymes unremarkable. EKG showing sinus tachycardia at [address]-T changes.chest x- ray: No consolidation, however recent x-ray of a performed this morning is bilateral pleural effusion and basal atelectasis consistent with volume overload Objective - Vital Signs Vital signs: Vital Signs Temp 97.9 F 06/25/19 11:17 Pulse 91 06/25/19 11:47 Resp 18 06/25/19 11:47 BP 134/78 06/25/19 11:17 Pulse Ox 92 L 06/25/19 11:17 Intake & Output 06/24/19 06/25/19 06/25/19 18:59 06:59 18:59 Intake Total 1200 120 Output Total 1350 2500 1725 Balance -150 -2500 -1605 Weight 129 kg Intake: IV 100 Sodium Ferric Gluconat- 100 Sucrose 125 mg In Sodium Chloride 0.9% 100 ml @ 100 mls/hr IVPB DAILY [facility] Rx#:[id number] Intake, IV Titration 500 Amount Vancomycin 2,250 mg In 500 Sodium Chloride 0.9% 500 ml 500 ml @ 167 mls/hr IVPB ONCE ONE Rx#: [id number] Oral 600 120 Output: Urine 1350 2500 1725 Other: Voiding Method Indwelling Catheter Indwelling Catheter Indwelling Catheter # Voids 1 # Bowel Movements 0 - Exam - Constitutional General appearance: disheveled, mild distress, morbidly obese - EENT Eyes: EOMI, PERRLA ENT: hearing grossly normal, normal oropharynx Ears: bilateral: normal - Neck Neck: normal ROM Carotids: bilateral: upstroke normal Thyroid: bilateral: normal size - Respiratory Respiratory: bilateral: diminished, wheezing, prolonged expiration, negative: d ullness, rales, rhonchi - Cardiovascular Rhythm: regular Heart sounds: normal: S1, S2 - Gastrointestinal General gastrointestinal: decreased bowel sounds, distended - Neurologic Neurologic: CNII-XII intact - Musculoskeletal Musculoskeletal: gait normal, generalized weakness, strength equal bilaterally - Psychiatric Psychiatric: A&O x's 3, appropriate affect, intact judgment & insight - Labs CBC & Chem 7: 06/25/19 05:34 06/25/19 05:34 Labs: Abnormal Lab Results - Last 24 Hours (Table) 06/24/19 06/24/19 06/25/19 Range/Units 16:54 20:34 00:05 RBC (4.30-5.90) m/uL Hgb (13.0-17.5) gm/dL Hct (39.0-53.0) % Carbon Dioxide (22-30) mmol/L BUN (9-20) mg/dL Creatinine (0.66-1.25) mg/dL Glucose (74-99) mg/dL POC Glucose (mg/dL) 287 H 444 H 326 H (75-99) mg/dL 06/25/19 06/25/19 06/25/19 Range/Units 03:01 05:34 05:34 RBC 3.36 L (4.30-5.90) m/uL Hgb 10.0 L (13.0-17.5) gm/dL Hct 31.1 L (39.0-53.0) % Carbon Dioxide 37 H (22-30) mmol/L BUN 118 H* (9-20) mg/dL Creatinine 1.68 H (0.66-1.25) mg/dL Glucose 149 H (74-99) mg/dL POC Glucose (mg/dL) 226 H (75-99) mg/dL 06/25/19 06/25/19 Range/Units 06:45 11:44 RBC (4.30-5.90) m/uL Hgb (13.0-17.5) gm/dL Hct (39.0-53.0) % Carbon Dioxide (22-30) mmol/L BUN (9-20) mg/dL Creatinine (0.66-1.25) mg/dL Glucose (74-99) mg/dL POC Glucose (mg/dL) 143 H 229 H (75-99) mg/dL Microbiology - Last 24 Hours (Table) 06/23/19 12:25 Blood Culture Gram Stain - Preliminary Blood Blood Culture - Preliminary Coagulase Negative Staph 06/23/19 11:58 Blood Culture Gram Stain - Final Blood Blood Culture - Preliminary Coagulase Negative Staph Coagulase Negative Staph#2 06/20/19 13:43 Blood Culture Gram Stain - Final Blood Blood Culture - Final Diphtheroid species 06/23/19 12:25 Blood Culture - Final Blood Assessment and Plan Assessment: acute on chronic renal failure due to acute tubular necrosis acute hypoxic respiratory failure Fluid overload with acute on chronic diastolic heart failure Electrolyte imbalance with hyperkalemia Acute renal failure likely related to LEANNE inhibitor's Morbid obesity and obstructive sleep apnea Severe advanced psoriasis Poor compliant Plan: Continue bronchodilator continue taper steroids Continue high flow oxygen and BiPAP each night and when necessary titrate down oxygen as needed Time with Patient: Greater than 30
[2019-06-25 16:59] LABS: Glucose,Whole Blood 275 mg/dL (75-99)
--- NOTE | 2019-06-25 17:18 | P.PN ---
Subjective Progress Note Date: 06/25/19 Terrance Lazcano is a 53 years old male with past medical history of asthma/COPD, psoriasis, diabetes mellitus, hypertension, pneumonia, depression, cigarette smoker. Patient presents because of shortness of breath of 1-2 days duration associated with Phrenic Clear Phlegm for about a Week. However Denies Chest Pain No Urinary or Bowel Problem Complaints. No Dizziness or Palpitation. No Weakness. Patient at Baseline Has COPD and Uses 5 L of Oxygen Via Nasal Cannula, He Is Supposed to Use CPAP/BiPAP Machine for His Sleep Apnea but He Could Not Afford It His Ex- Smoker Quit about 5 Months Ago. on admission patient was tachycardic at 101, he was hypoxic at 83 and placed on 5 L oxygen via nasal cannula.CBC is unremarkable. Potassium is elevatedat 6.5, creatinine is elevated at 2.4, baseline is 0.7-1.1,liver enzymes unremarkable. EKG showing sinus tachycardia at [address]-T changes.chest x- ray: No consolidation an emergency room patient got Zithromax, Solu-Medrol 60 mg and normal saline at 75 mL/h, sodium bicarb and Kayexalate 30 g Imes 1 albuterol inhaler, and insulin with sugar, calcium gluconate 06/21/2019 Patient last night refused to take the Kayexalate because he did not want to have bowel movement overnight. Repeat potassium this morning was critical at 7.5. EKG showing tented T wave. However patient denies chest pain or dizziness or palpitation. His vitals stable. Patient provided with cocktail for hyperkalemia including insulin/glucose, sodium bicarb, calcium gluconate, albuterol, Kayexalate 30 g, and continue with IV fluids with his creatinine slightly improved from 2.1 to 1.9 , we will transfer the patient to the ICU with geographic analyst consulted, also youth care professional his patient. We'll repeat potassium in a few hours. Regarding his breathing he feels a little better. He has occasional cough but no chest pain. 06/22. He is maintained on high flow O2 saturating close to 100%. His WBC is 9.2, potassium 6.0, Cr 2.14. Insulin drip discontinued as potassium normalized. He is on azithromycin, solumedrol, IV lasix. 06/23/2019 patient is a selective overflow. continues on Solu-Medrol, IV pushLasix, azithromycin, maintaining O2 sats in the high 90s on high flow O2. Creatinine stable at 2.27. Afebrile, normal WBC. Potassiumimproving, 5.2.blood sugars better controlled this morning.good diet intake with no nausea vomiting or diarrhea.Receiving IV iron.blood culture corrected, now reporting gram positive bacilli. 06/24/2019 diuresing well on Lasix IV push with 24-hour I&O reflecting a negative fluid balance.receiving second dose of IV iron. maintained on doxycycline, Zithromax.creatinine 2.13. O2 weaned down to 8 L high flow nasal cannula,maintaining O2 sats in the 90s.telemetry sinus rhythm.potassium 5.3.blood sugars elevated ranging from 160s to 360. 06/25/2019 maintained on nebulized bronchodilators, steroids, antibiotics. H yperglycemia, steroid-induced.maintaining O2 sats in the 90s on 8 L nasal cannula in a patient who wears 5 at home.creatinine continues to improve down to 1.68. Objective - Vital Signs Vital signs: Vital Signs Temp 98.0 F 06/25/19 16:00 Pulse 91 06/25/19 16:00 Resp 18 06/25/19 16:00 BP 131/73 06/25/19 16:00 Pulse Ox 92 L 06/25/19 16:00 Intake & Output 06/24/19 06/25/19 06/25/19 18:59 06:59 18:59 Intake Total 1200 120 Output Total 1350 2500 1725 Balance -150 -2500 -1605 Weight 129 kg Intake: IV 100 Sodium Ferric Gluconat- 100 Sucrose 125 mg In Sodium Chloride 0.9% 100 ml @ 100 mls/hr IVPB DAILY [facility] Rx#:[id number] Intake, IV Titration 500 Amount Vancomycin 2,250 mg In 500 Sodium Chloride 0.9% 500 ml 500 ml @ 167 mls/hr IVPB ONCE ONE Rx#: [id number] Oral 600 120 Output: Urine 1350 2500 1725 Other: Voiding Method Indwelling Catheter Indwelling Catheter Indwelling Catheter # Voids 1 # Bowel Movements 0 - Exam General: sitting up in chair,on high flow NC, alertand oriented 3, no acute distress. Vitals as above. Lungs: Diminished air entry throughout. ExpiratoryWheezes. No rales or rhonchi CV: Regular rate and rhythm, no murmur. positive edema,Peripheral pulses 2+ Abdomen: soft, nondistended, no organomegaly Skin: warm and dry. Psoriatic plaques bilaterally Microbiology 06/23/19 12:25 Blood Blood Culture Gram Stain - Preliminary 06/23/19 12:25 Blood Blood Culture - Preliminary Coagulase Negative Staph 06/23/19 11:58 Blood Blood Culture Gram Stain - Final 06/23/19 11:58 Blood Blood Culture - Preliminary Coagulase Negative Staph Coagulase Negative Staph#2 06/20/19 13:43 Blood Blood Culture Gram Stain - Final 06/20/19 13:43 Blood Blood Culture - Final Diphtheroid species 06/23/19 12:25 Blood Blood Culture - Final 06/23/19 11:58 Blood Blood Culture - Final 06/20/19 13:43 Blood Blood Culture - Final - Labs CBC & Chem 7: 06/25/19 05:34 06/25/19 05:34 Labs: Abnormal Lab Results - Last 24 Hours (Table) 06/24/19 06/25/19 06/25/19 Range/Units 20:34 00:05 03:01 RBC (4.30-5.90) m/uL Hgb (13.0-17.5) gm/dL Hct (39.0-53.0) % Carbon Dioxide (22-30) mmol/L BUN (9-20) mg/dL Creatinine (0.66-1.25) mg/dL Glucose (74-99) mg/dL POC Glucose (mg/dL) 444 H 326 H 226 H (75-99) mg/dL 06/25/19 06/25/19 06/25/19 Range/Units 05:34 05:34 06:45 RBC 3.36 L (4.30-5.90) m/uL Hgb 10.0 L (13.0-17.5) gm/dL Hct 31.1 L (39.0-53.0) % Carbon Dioxide 37 H (22-30) mmol/L BUN 118 H* (9-20) mg/dL Creatinine 1.68 H (0.66-1.25) mg/dL Glucose 149 H (74-99) mg/dL POC Glucose (mg/dL) 143 H (75-99) mg/dL 06/25/19 06/25/19 Range/Units 11:44 16:52 RBC (4.30-5.90) m/uL Hgb (13.0-17.5) gm/dL Hct (39.0-53.0) % Carbon Dioxide (22-30) mmol/L BUN (9-20) mg/dL Creatinine (0.66-1.25) mg/dL Glucose (74-99) mg/dL POC Glucose (mg/dL) 229 H 275 H (75-99) mg/dL Microbiology - Last 24 Hours (Table) 06/23/19 12:25 Blood Culture Gram Stain - Preliminary Blood Blood Culture - Preliminary Coagulase Negative Staph 06/23/19 11:58 Blood Culture Gram Stain - Final Blood Blood Culture - Preliminary Coagulase Negative Staph Coagulase Negative Staph#2 06/20/19 13:43 Blood Culture Gram Stain - Final Blood Blood Culture - Final Diphtheroid species Assessment and Plan Assessment: Assessment and Plan (1) CKD (chronic kidney disease) stage 3, GFR 30-59 ml/min Current Visit: Yes Status: Acute Code(s): N18.3 - CHRONIC KIDNEY DISEASE, STAGE 3 (MODERATE) SNOMED Code(s): 435506218 (2) MARIA T (acute kidney injury) Current Visit: Yes Status: Acute Code(s): N17.9 - ACUTE KIDNEY FAILURE, UNSPECIFIED SNOMED Code(s): 65346351 (3) Hyperkalemia Current Visit: Yes Status: Acute Code(s): E87.5 - HYPERKALEMIA SNOMED Code(s): 91496695 (4) Acute exacerbation of chronic obstructive pulmonary disease (COPD) Current Visit: No Status: Acute Code(s): J44.1 - CHRONIC OBSTRUCTIVE PULMONARY DISEASE W (ACUTE) EXACERBATION SNOMED Code(s): 757727158 (5) Acute on chronic respiratory failure with hypoxia and hypercapnia Current Visit: No Status: Acute Code(s): J96.21 - ACUTE AND CHRONIC RESPIRATORY FAILURE WITH HYPOXIA; J96.22 - ACUTE AND CHRONIC RESPIRATORY FAILURE WITH HYPERCAPNIA SNOMED Code(s): 79225888550157 (6) Asthma exacerbation in COPD Current Visit: No Status: Acute Code(s): J44.1 - CHRONIC OBSTRUCTIVE PULMONARY DISEASE W (ACUTE) EXACERBATION; J45.901 - UNSPECIFIED ASTHMA WITH (ACUTE) EXACERBATION SNOMED Code(s): 0692037001344 (7) Cor pulmonale, acute Current Visit: No Status: Acute Code(s): I26.09 - OTHER PULMONARY EMBOLISM WITH ACUTE COR PULMONALE SNOMED Code(s): 76138924 (8) Diabetes mellitus Current Visit: No Status: Acute Code(s): E11.9 - TYPE 2 DIABETES MELLITUS WITHOUT COMPLICATIONS SNOMED Code(s): 57992088 (9) anemia, iron deficient (10) Bacteremia, gram-positive bacilli, repeat cultures in progress plan: Continue on current medication regime ,monitoring and symptomatic treatment.infectious disease consulted regarding persistent bacteremia. close monitoring of renal function, electrolytes with repeat labs in a.m.Continue titrating oxygen to maintain O2 sat of 88-90%. steroid taper in progress. close monitoring of Accu-Cheks with tight blood sugar control. Diuretics as per nephrology. renal diet. The impression and plan of care has been dictated as directed. : I performed a history and examination of this patient, discussed the same with the dictator. I agree with the dictator's note ,documented as a scribe. Any additional findings or plans will be noted.
[2019-06-25 20:50] LABS: Glucose,Whole Blood 228 mg/dL (75-99)
[2019-06-25] MEDS: INSULIN DETEMIR (LEVEMIR) 100 UNIT/ML SYR SQ SCH (21:00)
[2019-06-25] MEDS: FAMOTIDINE 20 MG TAB PO SCH (21:01)
[2019-06-25] MEDS: MONTELUKAST 10 MG TAB PO SCH (21:01)
[2019-06-25] MEDS: ATORVASTATIN 40 MG TAB PO SCH (21:01)
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
[2019-06-26 02:01] LABS: Glucose,Whole Blood 172 mg/dL (75-99)
[2019-06-26] MEDS: INSULIN ASPART (NovoLOG) 100 UNIT/ML VIAL SQ SCH ×5 (02:03→21:13)
[2019-06-26 06:04] LABS: Glucose,Whole Blood 154 mg/dL (75-99)
[2019-06-26 06:38] LABS: HCT 32.7 % (39.0-53.0); HGB 10.4 gm/dL (13.0-17.5); Hypochromasia Moderate; MCH 29.4 pg (25.0-35.0); MCHC 31.7 g/dL (31.0-37.0); MCV 92.8 fL (80.0-100.0); Mean Platelet Volume 8.6; Platelet Count 275 k/uL (150-450); RBC 3.53 m/uL (4.30-5.90); RDW 13.5 % (11.5-15.5); WBC 8.6 k/uL (3.8-10.6)
[2019-06-26 06:55] LABS: Calcium 8.6 mg/dL (8.4-10.2)
[2019-06-26] MEDS: IPRATROPIUM-ALBUTEROL 3 ML NEB INHALATION SCH ×4 (08:15→20:02)
[2019-06-26] MEDS: BUDESONIDE 0.5 MG/2 ML NEBU INHALATION SCH ×2 (08:15→20:02)
[2019-06-26] MEDS: FUROSEMIDE 10 MG/ML 10 ML VIAL IV SCH (08:29)
[2019-06-26] MEDS: HEPARIN SODIUM,PORCINE 5,000 UNIT/ML 1 ML VIAL SQ SCH ×2 (08:29→21:14)
[2019-06-26] MEDS: methylPREDNISolone SOD SUCCI 40 MG/ML 1 ML VIAL IV SCH (08:29)
[2019-06-26] MEDS: DOXYCYCLINE 100 MG CAP PO SCH ×2 (08:30→21:13)
[2019-06-26] MEDS: AZITHROMYCIN 500 MG TAB PO SCH (08:30)
[2019-06-26] MEDS: SODIUM FERRIC GLUCONAT-SUCROSE 125 MG in SODIUM CHLORIDE 0.9% 100 ML IVPB SCH (09:43)
--- NOTE | 2019-06-26 11:15 | PN ---
PROGRESS NOTE DATE OF SERVICE: 06/26/2019 The patient is a 53-year-old male who was seen sitting up in a chair. Does state that he is feeling a bit better today. Breathing is improving. Patient is afebrile, hemodynamically stable, in no acute distress. PHYSICAL EXAMINATION: VITAL SIGNS: Temperature 97.6, heart rate 74, respiratory rate 22, blood pressure is 140/77, and O2 saturation is 91% on high-flow O2 at 8 L. HEENT: Head is normocephalic, atraumatic. Neck is supple. Trachea is midline. LUNGS: With fair air entry anteriorly. Decreased at the bases. No clear rales or wheezes. HEART: S1, S2 are heard. Not tachycardic. ABDOMEN: Soft. Bowel sounds are positive. EXTREMITIES: With trace to 1+ edema. Patient does have psoriasis patches to upper and lower extremities. NEUROLOGIC: Patient is alert and oriented. LABS: White count is 8.6, hemoglobin is 10.4, hematocrit 32.7 with 275,000 platelets. Sodium is 146, potassium is 5, chloride 101, CO2 is 40. Anion gap is 5. BUN is 102, creatinine is 1.62. Calcium is 8.6. No new imaging to review. IMPRESSION: 1. Severe asthma with acute exacerbation. 2. Acute renal failure. 3. Cor pulmonale. 4. Psoriasis with psoriatic skin lesions. PLAN: We will switch to oral prednisone at 60 mg daily. Continue the aerosol steroids. Continue bronchodilators. Continue incentive spirometry and pulmonary hygiene. Continue GI and DVT prophylaxis. Continue to increase activity as tolerated and we will follow patient closely with you making further changes as necessary. MMODL / IJN: [id number] /
[2019-06-26 12:14] LABS: Glucose,Whole Blood 163 mg/dL (75-99)
--- NOTE | 2019-06-26 12:38 | P.PN ---
Subjective Progress Note Date: 06/26/19 Principal diagnosis: acute hypoxic respiratory failure Fluid overload with acute on chronic diastolic heart failure Electrolyte imbalance with hyperkalemia Acute renal failure likely related to LEANNE inhibitor's Morbid obesity and obstructive sleep apnea Severe advanced psoriasis Poor compliant 06/26/2019, patient seen eval reexamined during the rounds has been using BiPAP patient night denies any chest pain shortness breath is improved FiO2 improving as well, culture continued to be positive on coag-negative staph ID services have been consulted, recommend to DC antibiotics like vancomycin and to continue with doxycycline 06/25/2019, patient seen eval examined during the rounds her per request of Darryn patient has been instructed to use the BiPAP each night and when necessary during the day renal function noted to be slowly improving we'll follow as needed 06/23/2019, patient seen and evaluated examined from critical illness care standpoint, patient has been in NICU however he has been assigned a bed stepdown unit shortness of breath is still present but severity has improved, he remains afebrile, hemodynamic status stable his oxygen saturation is 92% on 8 L high flow oxygen with 50%, patient has been consult about importance to using BiPAP and CPAPAmmann sugars are running high CBC remains stable hypertension Ms. improved to 5.2 now from 6 yesterday however B and creatinine continued to get worse his 115 and 2.27, ultrasound of the kidneys are unremarkable renal services observing patient plans for dialysis at this point of time, chest x-ray from yesterday reviewed improving interstitial edema and basal atelectasis along with pleural effusion 06/22/2019, patient is sitting upright in the bed breathing comfortably denies any chest pain, patient has been instructed to use BiPAP machine each night and when necessary during the day, labs reviewed potassium level is still slightly elevated, renal services following, renal functions remain abnormal with a steadily going up, potassium elevated, this is a 53-year-old male who was seen evaluated examined in ICU patient was transferred to the ICU due to hyperkalemia high oxygen demand as well as developing renal failure thought to be related to LEANNE inhibitor's which have been discontinued patient x-ray follow-up appeared to be very wet appearing with bilateral effusion worse compared to admit x-ray review of the data revealed that this is a pleasant 53 years old male with past medical history of asthma/COPD, diabetes mellitus, hypertension, pneumonia., Depression, cigarette smoker.he follows with , and his buckle assembler is Dr. Mosquera. patient presents because of shortness of breath of 1-2 days duration associated with Phrenic Clear Phlegm for about a Week. However Denies Chest Pain No Urinary or Bowel Problem Complaints. No Dizziness or Palpitation. No Weakness. Patient at Baseline Has COPD and Uses 5 L of Oxygen Via Nasal Cannula, He Is Supposed to Use CPAP/BiPAP Machine for His Sleep Apnea but He Could Not Afford It His Ex- Smoker Quit about 5 Months Ago. Denies a Call or Illicit Drugs on admission patient was tachycardic at 101, he was hypoxic at 83 and placed on 5 L oxygen via nasal cannula.CBC is unremarkable. Potassium is elevatedat 6.5, creatinine is elevated at 2.4, baseline is 0.7-1.1, liver enzymes unremarkable. EKG showing sinus tachycardia at [address]-T changes.chest x- ray: No consolidation, however recent x-ray of a performed this morning is bilateral pleural effusion and basal atelectasis consistent with volume overload Objective - Vital Signs Vital signs: Vital Signs Temp 97.6 F 06/26/19 04:20 Pulse 84 06/26/19 11:47 Resp 22 06/26/19 08:00 BP 140/77 06/26/19 08:00 Pulse Ox 91 L 06/26/19 04:20 Intake & Output 06/25/19 06/26/19 06/26/19 18:59 06:59 18:59 Intake Total 240 118 Output Total 1725 550 Balance -1485 -432 Weight 124.6 kg Intake: Oral 240 118 Output: Urine 1725 550 Other: Voiding Method Indwelling Catheter Indwelling Catheter # Voids 1 2 2 # Bowel Movements 0 - Exam - Constitutional General appearance: disheveled, mild distress, morbidly obese - EENT Eyes: EOMI, PERRLA ENT: hearing grossly normal, normal oropharynx Ears: bilateral: normal - Neck Neck: normal ROM Carotids: bilateral: upstroke normal Thyroid: bilateral: normal size - Respiratory Respiratory: bilateral: diminished, wheezing, prolonged expiration, negative: dullness, rales, rhonchi - Cardiovascular Rhythm: regular Heart sounds: normal: S1, S2 - Gastrointestinal General gastrointestinal: decreased bowel sounds, distended - Neurologic Neurologic: CNII-XII intact - Musculoskeletal Musculoskeletal: gait normal, generalized weakness, strength equal bilaterally - Psychiatric Psychiatric: A&O x's 3, appropriate affect, intact judgment & insight - Labs CBC & Chem 7: 06/26/19 06:06 06/26/19 06:06 Labs: Abnormal Lab Results - Last 24 Hours (Table) 06/25/19 06/25/19 06/26/19 Range/Units 16:52 20:49 02:00 RBC (4.30-5.90) m/uL Hgb (13.0-17.5) gm/dL Hct (39.0-53.0) % Sodium (137-145) mmol/L Carbon Dioxide (22-30) mmol/L BUN (9-20) mg/dL Creatinine (0.66-1.25) mg/dL Glucose (74-99) mg/dL POC Glucose (mg/dL) 275 H 228 H 172 H (75-99) mg/dL 06/26/19 06/26/19 06/26/19 Range/Units 06:02 06:06 06:06 RBC 3.53 L (4.30-5.90) m/uL Hgb 10.4 L (13.0-17.5) gm/dL Hct 32.7 L (39.0-53.0) % Sodium 146 H (137-145) mmol/L Carbon Dioxide 40 H (22-30) mmol/L BUN 102 H* (9-20) mg/dL Creatinine 1.62 H (0.66-1.25) mg/dL Glucose 148 H (74-99) mg/dL POC Glucose (mg/dL) 154 H (75-99) mg/dL 06/26/19 Range/Units 12:12 RBC (4.30-5.90) m/uL Hgb (13.0-17.5) gm/dL Hct (39.0-53.0) % Sodium (137-145) mmol/L Carbon Dioxide (22-30) mmol/L BUN (9-20) mg/dL Creatinine (0.66-1.25) mg/dL Glucose (74-99) mg/dL POC Glucose (mg/dL) 163 H (75-99) mg/dL Microbiology - Last 24 Hours (Table) 06/23/19 11:58 Blood Culture Gram Stain - Final Blood Blood Culture - Preliminary Coagulase Negative Staph Coagulase Negative Staph#2 06/23/19 12:25 Blood Culture Gram Stain - Preliminary Blood Blood Culture - Preliminary Coagulase Negative Staph 06/20/19 13:43 Blood Culture Gram Stain - Final Blood Blood Culture - Final Diphtheroid species Assessment and Plan Assessment: acute on chronic renal failure due to acute tubular necrosis acute hypoxic respiratory failure Fluid overload with acute on chronic diastolic heart failure Electrolyte imbalance with hyperkalemia Acute renal failure likely related to LEANNE inhibitor's Morbid obesity and obstructive sleep apnea Severe advanced psoriasis Poor compliant Plan: Continue bronchodilator continue taper steroids Continue high flow oxygen and BiPAP each night and when necessary titrate down oxygen as needed Time with Patient: Greater than 30
[2019-06-26] MEDS: predniSONE 20 MG TAB PO SCH (12:40)
--- NOTE | 2019-06-26 13:07 | P.PN ---
Subjective Patient is seen in follow-up for acute kidney injury and hyperkalemia. Potassium level is better - 5.0 this morning. Renal function is improved - c reatinine 1.62 today. Currently on IV lasix 60 mg q12h. Urine output near 2.2 L in the last 24 hours. Oral intake is good. No vomiting or diarrhea. No active complaints at this time. Vital signs are stable. General: The patient appeared well nourished and normally developed. HEENT: Head exam is unremarkable. Neck is without jugular venous distension. LUNGS: Lungs are clear to auscultation and percussion. Breath sounds decreased. HEART: Rate and Rhythm are regular. First and second heart sounds normal. No murmurs, rubs or gallops. ABDOMEN: Abdominal exam reveals normal bowel sounds. Non-tender and non- distended. No evidence of peritonitis. EXTREMITITES: 1+ edema. Chronic changes noted. Objective - Vital Signs Vital signs: Vital Signs Temp 97.6 F 06/26/19 04:20 Pulse 79 06/26/19 12:00 Resp 19 06/26/19 12:00 BP 139/90 06/26/19 12:00 Pulse Ox 96 06/26/19 12:00 Intake & Output 06/25/19 06/26/19 06/26/19 18:59 06:59 18:59 Intake Total 240 118 Output Total 1725 550 Balance -1485 -432 Weight 124.6 kg Intake: Oral 240 118 Output: Urine 1725 550 Other: Voiding Method Indwelling Catheter Indwelling Catheter # Voids 1 2 2 # Bowel Movements 0 - Labs CBC & Chem 7: 06/26/19 06:06 06/26/19 06:06 Labs: Abnormal Lab Results - Last 24 Hours (Table) 06/25/19 06/25/19 06/26/19 Range/Units 16:52 20:49 02:00 RBC (4.30-5.90) m/uL Hgb (13.0-17.5) gm/dL Hct (39.0-53.0) % Sodium (137-145) mmol/L Carbon Dioxide (22-30) mmol/L BUN (9-20) mg/dL Creatinine (0.66-1.25) mg/dL Glucose (74-99) mg/dL POC Glucose (mg/dL) 275 H 228 H 172 H (75-99) mg/dL 06/26/19 06/26/19 06/26/19 Range/Units 06:02 06:06 06:06 RBC 3.53 L (4.30-5.90) m/uL Hgb 10.4 L (13.0-17.5) gm/dL Hct 32.7 L (39.0-53.0) % Sodium 146 H (137-145) mmol/L Carbon Dioxide 40 H (22-30) mmol/L BUN 102 H* (9-20) mg/dL Creatinine 1.62 H (0.66-1.25) mg/dL Glucose 148 H (74-99) mg/dL POC Glucose (mg/dL) 154 H (75-99) mg/dL 06/26/19 Range/Units 12:12 RBC (4.30-5.90) m/uL Hgb (13.0-17.5) gm/dL Hct (39.0-53.0) % Sodium (137-145) mmol/L Carbon Dioxide (22-30) mmol/L BUN (9-20) mg/dL Creatinine (0.66-1.25) mg/dL Glucose (74-99) mg/dL POC Glucose (mg/dL) 163 H (75-99) mg/dL Microbiology - Last 24 Hours (Table) 06/20/19 13:43 Blood Culture Gram Stain - Final Blood Blood Culture - Final Corynebacterium species 06/23/19 11:58 Blood Culture Gram Stain - Final Blood Blood Culture - Preliminary Coagulase Negative Staph Coagulase Negative Staph#2 06/23/19 12:25 Blood Culture Gram Stain - Preliminary Blood Blood Culture - Preliminary Coagulase Negative Staph Assessment and Plan Plan: Assessment: 1. Acute kidney injury secondary to ATN secondary to cardiorenal syndrome. Renal function improving. Creatinine 1.62 today. No evidence of hydronephrosis noted on kidney ultrasound. No proteinuria on UA. Elevated BUN partially due to steroids. 2. Hyperkalemia secondary to acute kidney injury, hyperglycemia and lisinopril. Stable. 3. Volume overload. Improving. 4. Diabetes mellitus. Off insulin drip. 5. Anemia. Iron deficiency noted. Status post 3 doses of IV iron. 6. Mild hypernatremia secondary to free water diuresis. Plan: Change Lasix to 60 mg orally twice daily. Low potassium diet. Tight blood sugar control. Continue to monitor renal function and urine output. Encouraged oral intake, including free water.
[2019-06-26 13:19] VITALS: BMI 44.3
[2019-06-26 16:45] LABS: Glucose,Whole Blood 208 mg/dL (75-99)
--- NOTE | 2019-06-26 17:07 | P.PN ---
Subjective Progress Note Date: 06/26/19 Terrance Lazcano is a 53 years old male with past medical history of asthma/COPD, psoriasis, diabetes mellitus, hypertension, pneumonia, depression, cigarette smoker. Patient presents because of shortness of breath of 1-2 days duration associated with Phrenic Clear Phlegm for about a Week. However Denies Chest Pain No Urinary or Bowel Problem Complaints. No Dizziness or Palpitation. No Weakness. Patient at Baseline Has COPD and Uses 5 L of Oxygen Via Nasal Cannula, He Is Supposed to Use CPAP/BiPAP Machine for His Sleep Apnea but He Could Not Afford It His Ex- Smoker Quit about 5 Months Ago. on admission patient was tachycardic at 101, he was hypoxic at 83 and placed on 5 L oxygen via nasal cannula.CBC is unremarkable. Potassium is elevatedat 6.5, creatinine is elevated at 2.4, baseline is 0.7-1.1,liver enzymes unremarkable. EKG showing sinus tachycardia at [address]-T changes.chest x- ray: No consolidation an emergency room patient got Zithromax, Solu-Medrol 60 mg and normal saline at 75 mL/h, sodium bicarb and Kayexalate 30 g Imes 1 albuterol inhaler, and insulin with sugar, calcium gluconate 06/21/2019 Patient last night refused to take the Kayexalate because he did not want to have bowel movement overnight. Repeat potassium this morning was critical at 7.5. EKG showing tented T wave. However patient denies chest pain or dizziness or palpitation. His vitals stable. Patient provided with cocktail for hyperkalemia including insulin/glucose, sodium bicarb, calcium gluconate, albuterol, Kayexalate 30 g, and continue with IV fluids with his creatinine slightly improved from 2.1 to 1.9 , we will transfer the patient to the ICU with design agent consulted, also punching machine operator his patient. We'll repeat potassium in a few hours. Regarding his breathing he feels a little better. He has occasional cough but no chest pain. 06/22. He is maintained on high flow O2 saturating close to 100%. His WBC is 9.2, potassium 6.0, Cr 2.14. Insulin drip discontinued as potassium normalized. He is on azithromycin, solumedrol, IV lasix. 06/23/2019 patient is a selective overflow. continues on Solu-Medrol, IV pushLasix, azithromycin, maintaining O2 sats in the high 90s on high flow O2. Creatinine stable at 2.27. Afebrile, normal WBC. Potassiumimproving, 5.2.blood sugars better controlled this morning.good diet intake with no nausea vomiting or diarrhea.Receiving IV iron.blood culture corrected, now reporting gram positive bacilli. 06/24/2019 diuresing well on Lasix IV push with 24-hour I&O reflecting a negative fluid balance.receiving second dose of IV iron. maintained on doxycycline, Zithromax.creatinine 2.13. O2 weaned down to 8 L high flow nasal cannula,maintaining O2 sats in the 90s.telemetry sinus rhythm.potassium 5.3.blood sugars elevated ranging from 160s to 360. 06/25/2019 maintained on nebulized bronchodilators, steroids, antibiotics. H yperglycemia, steroid-induced.maintaining O2 sats in the 90s on 8 L nasal cannula in a patient who wears 5 at home.creatinine continues to improve down to 1.68. 06/26/2019 transferred out of ICU currently on telemetry unit. Maintaining O2 sats in the 90s on 8 L nasal cannula. Steroids decreased yesterday with blood sugars improved. Renal function improving. Evaluated by infectious disease w ith recommendations noted and appreciated. Continues on doxycycline. Afebrile. Objective - Vital Signs Vital signs: Vital Signs Temp 97.6 F 06/26/19 04:20 Pulse 86 06/26/19 16:33 Resp 20 06/26/19 16:00 BP 142/68 06/26/19 16:00 Pulse Ox 93 L 06/26/19 16:00 Intake & Output 06/25/19 06/26/19 06/26/19 18:59 06:59 18:59 Intake Total 240 118 Output Total 1725 550 Balance -1485 -432 Weight 124.6 kg 124.6 kg Intake: Oral 240 118 Output: Urine 1725 550 Other: Voiding Method Indwelling Catheter Indwelling Catheter # Voids 1 2 2 # Bowel Movements 0 - Exam General: sitting up in chair, alert and oriented 3, no acute distress. Lungs: Better air entry, scattered rhonchi . No crackles, no wheezing CV: Regular rate and rhythm, no murmur. positive edema,Peripheral pulses 2+ Abdomen: soft, nondistended, no organomegaly. Positive bowel sounds. Skin: warm and dry. Psoriatic plaques bilaterally Microbiology 06/23/19 11:58 Blood Blood Culture Gram Stain - Final 06/23/19 11:58 Blood Blood Culture - Final Staphylococcus epidermidis Coagulase Negative Staph 06/23/19 12:25 Blood Blood Culture Gram Stain - Final 06/23/19 12:25 Blood Blood Culture - Final Staphylococcus epidermidis 06/20/19 13:43 Blood Blood Culture Gram Stain - Final 06/20/19 13:43 Blood Blood Culture - Final Corynebacterium species 06/23/19 12:25 Blood Blood Culture - Final 06/23/19 11:58 Blood Blood Culture - Final 06/20/19 13:43 Blood Blood Culture - Final - Labs CBC & Chem 7: 06/26/19 06:06 06/26/19 06:06 Labs: Abnormal Lab Results - Last 24 Hours (Table) 06/25/19 06/26/19 06/26/19 Range/Units 20:49 02:00 06:02 RBC (4.30-5.90) m/uL Hgb (13.0-17.5) gm/dL Hct (39.0-53.0) % Sodium (137-145) mmol/L Carbon Dioxide (22-30) mmol/L BUN (9-20) mg/dL Creatinine (0.66-1.25) mg/dL Glucose (74-99) mg/dL POC Glucose (mg/dL) 228 H 172 H 154 H (75-99) mg/dL 06/26/19 06/26/19 06/26/19 Range/Units 06:06 06:06 12:12 RBC 3.53 L (4.30-5.90) m/uL Hgb 10.4 L (13.0-17.5) gm/dL Hct 32.7 L (39.0-53.0) % Sodium 146 H (137-145) mmol/L Carbon Dioxide 40 H (22-30) mmol/L BUN 102 H* (9-20) mg/dL Creatinine 1.62 H (0.66-1.25) mg/dL Glucose 148 H (74-99) mg/dL POC Glucose (mg/dL) 163 H (75-99) mg/dL 06/26/19 Range/Units 16:43 RBC (4.30-5.90) m/uL Hgb (13.0-17.5) gm/dL Hct (39.0-53.0) % Sodium (137-145) mmol/L Carbon Dioxide (22-30) mmol/L BUN (9-20) mg/dL Creatinine (0.66-1.25) mg/dL Glucose (74-99) mg/dL POC Glucose (mg/dL) 208 H (75-99) mg/dL Microbiology - Last 24 Hours (Table) 06/23/19 11:58 Blood Culture Gram Stain - Final Blood Blood Culture - Final Staphylococcus epidermidis Coagulase Negative Staph 06/23/19 12:25 Blood Culture Gram Stain - Final Blood Blood Culture - Final Staphylococcus epidermidis 06/20/19 13:43 Blood Culture Gram Stain - Final Blood Blood Culture - Final Corynebacterium species Assessment and Plan Assessment: Assessment and Plan (1) CKD (chronic kidney disease) stage 3, GFR 30-59 ml/min Current Visit: Yes Status: Acute Code(s): N18.3 - CHRONIC KIDNEY DISEASE, STAGE 3 (MODERATE) SNOMED Code(s): 467955479 (2) MARIA T (acute kidney injury) Current Visit: Yes Status: Acute Code(s): N17.9 - ACUTE KIDNEY FAILURE, UNSPECIFIED SNOMED Code(s): 73004452 (3) Hyperkalemia Current Visit: Yes Status: Acute Code(s): E87.5 - HYPERKALEMIA SNOMED Code(s): 67465213 (4) Acute exacerbation of chronic obstructive pulmonary disease (COPD) Current Visit: No Status: Acute Code(s): J44.1 - CHRONIC OBSTRUCTIVE PULMO NARY DISEASE W (ACUTE) EXACERBATION SNOMED Code(s): 718919665 (5) Acute on chronic respiratory failure with hypoxia and hypercapnia Current Visit: No Status: Acute Code(s): J96.21 - ACUTE AND CHRONIC RESPIRATORY FAILURE WITH HYPOXIA; J96.22 - ACUTE AND CHRONIC RESPIRATORY FAILURE WITH HYPERCAPNIA SNOMED Code(s): 88741621502129 (6) Asthma exacerbation in COPD Current Visit: No Status: Acute Code(s): J44.1 - CHRONIC OBSTRUCTIVE PULMONARY DISEASE W (ACUTE) EXACERBATION; J45.901 - UNSPECIFIED ASTHMA WITH (ACUTE) EXACERBATION SNOMED Code(s): 1917232233681 (7) Cor pulmonale, acute Current Visit: No Status: Acute Code(s): I26.09 - OTHER PULMONARY EMBOLISM WITH ACUTE COR PULMONALE SNOMED Code(s): 23152548 (8) Diabetes mellitus Current Visit: No Status: Acute Code(s): E11.9 - TYPE 2 DIABETES MELLITUS W ITHOUT COMPLICATIONS SNOMED Code(s): 49115065 (9) anemia, iron deficient (10) Bacteremia, gram-positive bacilli, repeat cultures in progress plan: Continue on current medication regime ,monitoring and symptomatic treatment.maintain nebulized bronchodilators, steroids, antibiotics .increase activity as tolerated. Diuretics as per nephrology. Discharge planning in progress for this weekend pending O2 can be weaned down further-wears 5 L at home. The impression and plan of care has been dictated as directed. : I performed a history and examination of this patient, discussed the same with the dictator. I agree with the dictator's note ,documented as a scribe. Any additional findings or plans will be noted.
[2019-06-26] MEDS: FUROSEMIDE 20 MG TAB PO SCH (17:38)
[2019-06-26 20:44] LABS: Glucose,Whole Blood 307 mg/dL (75-99)
[2019-06-26] MEDS: FAMOTIDINE 20 MG TAB PO SCH (21:13)
[2019-06-26] MEDS: ATORVASTATIN 40 MG TAB PO SCH (21:13)
[2019-06-26] MEDS: INSULIN DETEMIR (LEVEMIR) 100 UNIT/ML SYR SQ SCH (21:13)
[2019-06-26] MEDS: MONTELUKAST 10 MG TAB PO SCH (21:13)
--- NOTE | 2019-06-26 23:20 | P.PN ---
Subjective Progress Note Date: 06/26/19 3-year-old male who has multiple medical troubles for his status has underlying asthma, COPD, tobacco smoking, diabetes mellitus type 2, hypertension and history of pneumonia. He also has a history of extensive psoriasis. He relates that he has been treated with biological agents in the past that included Stellara, there was allowing some improvement of his skin. He relates there is been changes in his insurance and there was difficulties with coverage of these agents. He is now started Medicare as of this month and hopefully will be candidate to go back to biologicals once he has no evidence of active infection. The patient has had no fever chills or rigors but did have increasing shortness of breath he has a chronic cough without much sputum production. Because he was so short of breath he did present to Hospital and has been admitted for the further evaluation of his acute exacerbation of his asthma and COPD. infectious disease consultation is requested regarding positive blood cultures. 06/26/2019 the patient is feeling better. Respiratory status is improved. He does not require BiPAP throughout the day. Overall is feeling better and no acute changes to his skin. Objective - Vital Signs Vital signs: Vital Signs Temp 97.6 F 06/26/19 04:20 Pulse 86 06/26/19 20:15 Resp 16 06/26/19 20:15 BP 142/68 06/26/19 16:00 Pulse Ox 93 L 06/26/19 16:00 Intake & Output 06/26/19 06/26/19 06/27/19 06:59 18:59 06:59 Intake Total 118 250 Output Total 550 Balance -432 250 Weight 124.6 kg 124.6 kg Intake: Oral 118 250 Output: Urine 550 Other: Voiding Method Indwelling Catheter # Voids 2 2 - Exam 53-year-old male who has obesity HEENT: Anicteric conjunctiva are pink and moist nasal mucosa grossly intact wit hout significant lesions, there is no thrush. Neck: The neck is supple without significant lymphadenopathy or thyromegaly. Lungs:symmetrical air entry expiratory wheezes no bronchial sounds with dullness or egophony Heart: Regular rate and rhythm with an audible S1-S2, no S3 no S4. There is no significant murmur click or rub, PMI was nondisplaced. Abdomen: obese,Positive bowel sounds soft and nontender without palpable masses or organomegaly. There was no guarding or rebound. Extremities: The upper extremities have excellent pulses they are symmetric, no significant petechiae or telangiectasia. No splinter hemorrhages were noted. The lower extremities are free from significant edema. The peripheral pulses were 2+ and symmetric. Skin:Thickened psoriatic plaques are noticed over the arms and legs face is spared there are some on the abdomen and back also. The plaques involve the fingers and the toes also. psych: Patient is mildly agitated while he is watching the news he blames the government for his problems. Neuro: Awake alert oriented to person place and time. There are no acute new gross focal sensory motor deficits. - Labs CBC & Chem 7: 06/26/19 06:06 06/26/19 06:06 Labs: Abnormal Lab Results - Last 24 Hours (Table) 06/26/19 06/26/19 06/26/19 Range/Units 02:00 06:02 06:06 RBC 3.53 L (4.30-5.90) m/uL Hgb 10.4 L (13.0-17.5) gm/dL Hct 32.7 L (39.0-53.0) % Sodium (137-145) mmol/L Carbon Dioxide (22-30) mmol/L BUN (9-20) mg/dL Creatinine (0.66-1.25) mg/dL Glucose (74-99) mg/dL POC Glucose (mg/dL) 172 H 154 H (75-99) mg/dL 06/26/19 06/26/19 06/26/19 Range/Units 06:06 12:12 16:43 RBC (4.30-5.90) m/uL Hgb (13.0-17.5) gm/dL Hct (39.0-53.0) % Sodium 146 H (137-145) mmol/L Carbon Dioxide 40 H (22-30) mmol/L BUN 102 H* (9-20) mg/dL Creatinine 1.62 H (0.66-1.25) mg/dL Glucose 148 H (74-99) mg/dL POC Glucose (mg/dL) 163 H 208 H (75-99) mg/dL 06/26/19 Range/Units 20:42 RBC (4.30-5.90) m/uL Hgb (13.0-17.5) gm/dL Hct (39.0-53.0) % Sodium (137-145) mmol/L Carbon Dioxide (22-30) mmol/L BUN (9-20) mg/dL Creatinine (0.66-1.25) mg/dL Glucose (74-99) mg/dL POC Glucose (mg/dL) 307 H (75-99) mg/dL Microbiology - Last 24 Hours (Table) 06/23/19 11:58 Blood Culture Gram Stain - Final Blood Blood Culture - Final Staphylococcus epidermidis Coagulase Negative Staph 06/23/19 12:25 Blood Culture Gram Stain - Final Blood Blood Culture - Final Staphylococcus epidermidis 06/20/19 13:43 Blood Culture Gram Stain - Final Blood Blood Culture - Final Corynebacterium species Laboratory Results WBC 8.6 k/uL (3.8-10.6) 06/26/19 06:06 RBC 3.53 m/uL (4.30-5.90) L 06/26/19 06:06 Hgb 10.4 gm/dL (13.0-17.5) L 06/26/19 06:06 Hct 32.7 % (39.0-53.0) L 06/26/19 06:06 MCV 92.8 fL (80.0-100.0) 06/26/19 06:06 MCH 29.4 pg (25.0-35.0) 06/26/19 06:06 MCHC 31.7 g/dL (31.0-37.0) 06/26/19 06:06 RDW 13.5 % (11.5-15.5) 06/26/19 06:06 Plt Count 275 k/uL (150-450) 06/26/19 06:06 Neutrophils % 84 % 06/24/19 04:33 Lymphocytes % 6 % 06/24/19 04:33 Monocytes % 6 % 06/24/19 04:33 Eosinophils % 1 % 06/24/19 04:33 Basophils % 3 % 06/24/19 04:33 Neutrophils # 4.7 k/uL (1.3-7.7) 06/24/19 04:33 Lymphocytes # 0.3 k/uL (1.0-4.8) L 06/24/19 04:33 Monocytes # 0.3 k/uL (0-1.0) 06/24/19 04:33 Eosinophils # 0.0 k/uL (0-0.7) 06/24/19 04:33 Basophils # 0.2 k/uL (0-0.2) 06/24/19 04:33 Hypochromasia Moderate 06/26/19 06:06 PT 9.5 sec (9.0-12.0) 06/20/19 13:43 INR 0.9 (<1.2) 06/20/19 13:43 APTT 23.7 sec (22.0-30.0) 06/20/19 13:43 Sodium 146 mmol/L (137-145) H 06/26/19 06:06 Potassium 5.0 mmol/L (3.5-5.1) 06/26/19 06:06 Chloride 101 mmol/L (98-107) 06/26/19 06:06 Carbon Dioxide 40 mmol/L (22-30) H 06/26/19 06:06 Anion Gap 5 mmol/L 06/26/19 06:06 BUN 102 mg/dL (9-20) H* 06/26/19 06:06 Creatinine 1.62 mg/dL (0.66-1.25) H 06/26/19 06:06 Est GFR (CKD-EPI)AfAm 56 (>60 ml/min/1.73 sqM) 06/26/19 06:06 Est GFR (CKD-EPI)NonAf 48 (>60 ml/min/1.73 sqM) 06/26/19 06:06 Glucose 148 mg/dL (74-99) H 06/26/19 06:06 POC Glucose (mg/dL) 307 mg/dL (75-99) H 06/26/19 20:42 POC Glu Roller Hand ID Franny Green Candy 06/26/19 20:[address] Glu mg/dL 194 06/22/19 04:01 Hemoglobin A1c 8.4 % (4.0-6.0) H 06/22/19 04:01 Plasma Lactic Acid [place] 1.0 mmol/L (0.7-2.0) 06/20/19 13:43 Calcium 8.6 mg/dL (8.4-10.2) 06/26/19 06:06 Magnesium 2.3 mg/dL (1.6-2.3) 06/20/19 13:43 Iron 32 ug/dL (65-175) L 06/21/19 10:21 TIBC 294 ug/dL (228-460) 06/21/19 10:21 % Saturation 10.88 (15.00-50.00) L 06/21/19 10:21 Total Bilirubin 0.4 mg/dL (0.2-1.3) 06/24/19 04:33 AST 16 U/L (17-59) L 06/24/19 04:33 ALT 24 U/L (4-49) 06/24/19 04:33 Alkaline Phosphatase 47 U/L (38-126) 06/24/19 04:33 Troponin I <0.012 ng/mL (0.000-0.034) 06/20/19 13:43 NT-Pro-B Natriuret Pep 443 pg/mL 06/20/19 13:43 Total Protein 6.3 g/dL (6.3-8.2) 06/24/19 04:33 Albumin 3.4 g/dL (3.5-5.0) L 06/24/19 04:33 Urine Color Yellow 06/22/19 14:45 Urine Appearance Clear (Clear) 06/22/19 14:45 Urine pH 5.0 (5.0-8.0) 06/22/19 14:45 Ur Specific [place] 1.014 (1.001-1.035) 06/22/19 14:45 Urine Protein Negative (Negative) 06/22/19 14:45 Urine Glucose (UA) Negative (Negative) 06/22/19 14:45 Urine Ketones Negative (Negative) 06/22/19 14:45 Urine Blood Trace (Negative) H 06/22/19 14:45 Urine Nitrite Negative (Negative) 06/22/19 14:45 Urine Bilirubin Negative (Negative) 06/22/19 14:45 Urine Urobilinogen <2.0 mg/dL (<2.0) 06/22/19 14:45 Ur Leukocyte Esterase Small (Negative) H 06/22/19 14:45 Urine RBC 13 /hpf (0-5) H 06/22/19 14:45 Urine WBC 3 /hpf (0-5) 06/22/19 14:45 Ur Squamous Epith Cells <1 /hpf (0-4) 06/22/19 14:45 Hyaline Casts 31 /lpf (0-2) H 06/22/19 14:45 Urine Mucus Rare /hpf (None) H 06/22/19 14:45 Influenza Type A RNA Not Detected (Not Detectd) 06/20/19 14:36 Influenza Type B (PCR) Not Detected (Not Detectd) 06/20/19 14:36 Microbiology 06/23/19 11:58 Blood Blood Culture Gram Stain - Final 06/23/19 11:58 Blood Blood Culture - Final Staphylococcus epidermidis Coagulase Negative Staph 06/23/19 12:25 Blood Blood Culture Gram Stain - Final 06/23/19 12:25 Blood Blood Culture - Final Staphylococcus epidermidis 06/20/19 13:43 Blood Blood Culture Gram Stain - Final 06/20/19 13:43 Blood Blood Culture - Final Corynebacterium species 06/23/19 12:25 Blood Blood Culture - Final 06/23/19 11:58 Blood Blood Culture - Final 06/20/19 13:43 Blood Blood Culture - Final Assessment and Plan (1) Acute exacerbation of chronic obstructive airways disease Current Visit: Yes Status: Acute Code(s): J44.1 - CHRONIC OBSTRUCTIVE PULMONARY DISEASE W (ACUTE) EXACERBATION SNOMED Code(s): 134157081 (2) CKD (chronic kidney disease) stage 3, GFR 30-59 ml/min Current Visit: Yes Status: Acute Code(s): N18.3 - CHRONIC KIDNEY DISEASE, STAGE 3 (MODERATE) SNOMED Code(s): 151950479 (3) Diabetes mellitus Current Visit: No Status: Acute Code(s): E11.9 - TYPE 2 DIABETES MELLITUS WITHOUT COMPLICATIONS SNOMED Code(s): 75907143 (4) Gram-positive cocci bacteremia Narrative/Plan: 53-year-old male who has a history of asthma and COPD presents to Hospital to an acute exacerbation of his pulmonary disease. As part of the evaluation admission cultures were obtained and original blood culture had evidence of some diphtheroids. Follow-up cultures have evidence of multiple species of coagulase negative staph. At this time all of the blood cultures a contamination, the patient has extensive skin disease it is highly unlikely that uncontaminated blood cultures can be obtained from his upper extremities. At this time clinically he has no evidence of sepsis. He is being treated with antibiotic therapy with doxycycline for his exacerbation of COPD which is an adequate choice. Would not obtain further blood cultures unless to becomes evidence of sepsis, he has no leukocytosis, no fever, no chills or rigors. Of note influenza testing was negative at admission. June the patient has improved. The patient's respiratory status is improving and there is plans for his discharge in the next short period of time. Oral doxycycline at discharge complete the treatment of exacerbation of COPD is an excellent choice. As far as the multiple positive blood cultures are all contamination due to the patient's chronic skin disease. From his upper extremities it appears to be impossible to clean the skin well enough to obtain a good specimen. Since he has no evidence of sepsis would obtain cultures and he is no specific therapy for his contaminated blood cultures. Current Visit: Yes Status: Acute Code(s): R78.81 - BACTEREMIA SNOMED Code(s): 150183130847
[2019-06-27 01:57] LABS: Glucose,Whole Blood 146 mg/dL (75-99)
[2019-06-27] MEDS: INSULIN ASPART (NovoLOG) 100 UNIT/ML VIAL SQ SCH ×5 (02:26→20:43)
[2019-06-27 06:32] LABS: Glucose,Whole Blood 49 mg/dL (75-99)
[2019-06-27 06:32] LABS: Glucose,Whole Blood 51 mg/dL (75-99)
[2019-06-27 06:48] LABS: Glucose,Whole Blood 54 mg/dL (75-99)
[2019-06-27 07:09] LABS: Glucose,Whole Blood 80 mg/dL (75-99)
[2019-06-27 07:57] LABS: Calcium 8.6 mg/dL (8.4-10.2); Magnesium 1.7 mg/dL (1.6-2.3); Potassium 4.4 mmol/L (3.5-5.1)
[2019-06-27] MEDS: BUDESONIDE 0.5 MG/2 ML NEBU INHALATION SCH ×2 (08:23→20:21)
[2019-06-27] MEDS: IPRATROPIUM-ALBUTEROL 3 ML NEB INHALATION SCH ×4 (08:23→20:21)
[2019-06-27] MEDS: predniSONE 20 MG TAB PO SCH (09:05)
[2019-06-27] MEDS: HEPARIN SODIUM,PORCINE 5,000 UNIT/ML 1 ML VIAL SQ SCH ×2 (09:05→20:02)
[2019-06-27] MEDS: FUROSEMIDE 20 MG TAB PO SCH ×2 (09:05→15:53)
[2019-06-27] MEDS: AZITHROMYCIN 500 MG TAB PO SCH (09:05)
[2019-06-27] MEDS: DOXYCYCLINE 100 MG CAP PO SCH ×2 (09:08→20:03)
--- NOTE | 2019-06-27 09:09 | P.PN ---
Subjective Progress Note Date: 06/27/19 Principal diagnosis: Terrance is followed up with acute kidney injury secondary to possible cardiorenal syndrome, Tuan inhibitors. Also had hyperkalemia because of acute kidney injury and TUAN inhibitor's as well as possible nonsteroidal use. Currently his creatinine is improved. He is feeling fairly well able to stand up and walk on his own. No dizziness. No chest pain shortness of breath cough fever chills good appetite no nausea vomiting diarrhea. Currently he may 22 75 mL of urine over the last 24 hours. Vital signs are stable. 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 Mosquera. patient presents because of shortness of breath of 1-2 days duration associated with Phrenic Clear Phlegm for about a Week. He is a reformed smoker quit about 5 months ago. Objective - Vital Signs Vital signs: Vital Signs Temp 97.9 F 06/27/19 03:46 Pulse 84 06/27/19 08:37 Resp 22 06/27/19 03:46 BP 119/59 06/27/19 03:46 Pulse Ox 90 L 06/27/19 03:46 Intake & Output 06/26/19 06/27/19 06/27/19 18:59 06:59 18:59 Intake Total 250 540 360 Output Total 600 Balance 250 -60 360 Weight 124.6 kg 114.7 kg Intake: Oral 250 540 360 Output: Urine 600 Other: # Voids 2 On examination he has severe psoriasis all over HEENT exam no JVP neck is supple no facial asymmetry Lungs are clear to auscultation fairly good air entry minimal end expiratory w heezing Heart sounds are unremarkable for any murmur rub gallop Abdomen soft nontender obese Extremity exam was trace edema with severe psoriasis Neurologically awake alert oriented - Labs CBC & Chem 7: 06/26/19 06:06 06/27/19 07:17 Labs: Abnormal Lab Results - Last 24 Hours (Table) 06/26/19 06/26/19 06/26/19 Range/Units 12:12 16:43 20:42 Carbon Dioxide (22-30) mmol/L BUN (9-20) mg/dL POC Glucose (mg/dL) 163 H 208 H 307 H (75-99) mg/dL 06/27/19 06/27/19 06/27/19 Range/Units 01:47 06:28 06:31 Carbon Dioxide (22-30) mmol/L BUN (9-20) mg/dL POC Glucose (mg/dL) 146 H 49 L 51 L (75-99) mg/dL 06/27/19 06/27/19 Range/Units 06:47 07:17 Carbon Dioxide 40 H (22-30) mmol/L BUN 81 H (9-20) mg/dL POC Glucose (mg/dL) 54 L (75-99) mg/dL Microbiology - Last 24 Hours (Table) 06/23/19 11:58 Blood Culture Gram Stain - Final Blood Blood Culture - Final Staphylococcus epidermidis Coagulase Negative Staph 06/23/19 12:25 Blood Culture Gram Stain - Final Blood Blood Culture - Final Staphylococcus epidermidis 06/20/19 13:43 Blood Culture Gram Stain - Final Blood Blood Culture - Final Corynebacterium species Assessment and Plan Assessment: Assessment: 1. Acute kidney injury secondary to ATN secondary to cardiorenal syndrome. Renal function improving. Creatinine 1. 24 today. No evidence of hydronephrosis noted on kidney ultrasound. No proteinuria on UA. Elevated BUN partially due to steroids. 2. Hyperkalemia secondary to acute kidney injury, hyperglycemia and lisinopril. Stable. Potassium is 4.4 3. Volume overload. Improving. 4. Diabetes mellitus. Off insulin drip. 5. Anemia. Iron deficiency noted. Status post 3 doses of IV iron. Hemoglobin up to 10.4 6. Mild hypernatremia secondary to free water diuresis. Sodium 145 Plan: Continue Lasix to 60 mg orally twice daily. Removed potassium restriction . Tight blood sugar control. Continue to monitor renal function and urine output. Encouraged oral intake, including free water. Patient can be discharged from nephrological perspective
--- NOTE | 2019-06-27 11:16 | P.DS ---
Providers Date of admission: 06/20/19 15:15 Attending physician: Amol Alarcon MD Consults: 06/20/19 15:15 Consult Physician Routine Consulting Provider: Chalino Mosquera Consult Reason/Comments: COPD Do you want consulting provider notified?: Yes 06/20/19 17:24 Consult Physician Urgent Consulting Provider: Anushka Brown Consult Reason/Comments: saad and hyper kalemia Do you want consulting provider notified?: Yes 06/21/19 07:53 Consult Physician Stat Consulting Provider: Duy Calero Consult Reason/Comments: ICU management Do you want consulting provider notified?: Already Contacted 06/25/19 13:32 Consult Physician Urgent Consulting Provider: Abigail Pope Consult Reason/Comments: positive blood cultures Do you want consulting provider notified?: Yes Primary care physician: Olivia Alarcon Hospital Course: She with advanced COPD is admitted for severe tracheal bronchitis fever and sepsis secondary to tracheal bronchitis and COPD exacerbation patient has advanced COPD is 5. Oxygen at home. Patient is presently on 7 L saturating well we taper it down today she does have significant wheezing on exam but as per the patient is his baseline and patient believes he is at his baseline. Patient will be discharged today. Patient was also treated for acute renal failure secondary to excessive diuretic therapy patient appears to have cor pulmonale and right-sided heart failure. Patient is presently on 60 mg oral twice a day of Lasix and patient will be discharged on the same. Patient does have history of psoriasis, history skin lesions admitted because of IV steroids and received. Patient's serum creatinine is: Close to his baseline and patient will be discharged today on weaning dose of steroids. Patient was hypoglycemic because, his long-acting insulin dose was increased to 70 from 40. Patient blood sugars were out of control because of systemic steroids he was receiving presently on oral steroids since his current be discharged on oral steroids and we'll increase the long-acting insulin 50 units until he is done with the steroids after which patient will go back on 40 it's at nighttime. Patient will be discharged on oxygen as recorded per infectious disease. PHYSICAL EXAMINATION: GENERAL: The patient is alert and oriented x3, not in any acute distress. Obese HEENT: Pupils are round and equally reacting to light. EOMI. No scleral icterus. No conjunctival pallor. Normocephalic, atraumatic. No pharyngeal erythema. No thyromegaly. CARDIOVASCULAR: S1 and S2 present. No murmurs, rubs, or gallops. PULMONARY: Expiratory wheezing on exam ABDOMEN: Soft, nontender, nondistended, normoactive bowel sounds. No palpable organomegaly. MUSCULOSKELETAL: No joint swelling or deformity. EXTREMITIES: No cyanosis, clubbing, or pedal edema. NEUROLOGICAL: Gross neurological examination did not reveal any focal deficits. SKIN: Diffuse psoriatic lesions all over the body Please refer to dictation from above for further details of hospital physician course and other medical problems that were addressed in this hospitalization Patient Condition at Discharge: Stable Plan - Discharge Summary Discharge Rx Participant: Yes New Discharge Prescriptions: New Furosemide [Lasix] 60 mg PO BID@0900,1600 #60 tab predniSONE 10 mg PO DAILY #30 tab Tiotropium [place] [Spiriva] 1 cap INHALATION DAILY #1 device Doxycycline [Vibramycin] 100 mg PO BID #10 cap Continue Albuterol Nebulized [Ventolin Nebulized] 2.5 mg INHALATION RT-QID PRN PRN Reason: Shortness Of Breath Furosemide [Lasix] 20 mg PO DAILY Atorvastatin [Lipitor] 40 mg PO HS #30 tab Montelukast [Singulair] 10 mg PO HS 30 Days #30 tab Albuterol Sulfate [Proair Hfa] 2 puff INHALATION RT-QID PRN PRN Reason: Shortness Of Breath Changed Insulin Glargine,Hum.rec.anlog [Basaglar Kwikpen U-100] 50 unit SQ DAILY #1 Discontinued metFORMIN HCL [Glucophage] 500 mg PO DAILY Lisinopril [Zestril] 20 mg PO DAILY Metolazone [Zaroxolyn] 2.5 mg PO DIRECTED Discharge Medication List Albuterol Nebulized [Ventolin Nebulized] 2.5 mg INHALATION RT-QID PRN 07/02/14 [History] Furosemide [Lasix] 20 mg PO DAILY 01/13/18 [History] Atorvastatin [Lipitor] 40 mg PO HS #30 tab 01/27/19 [Rx] Montelukast [Singulair] 10 mg PO HS 30 Days #30 tab 01/27/19 [Rx] Albuterol Sulfate [Proair Hfa] 2 puff INHALATION RT-QID PRN 06/20/19 [History] Doxycycline [Vibramycin] 100 mg PO BID #10 cap 06/27/19 [Rx] Furosemide [Lasix] 60 mg PO BID@0900,1600 #60 tab 06/27/19 [Rx] Insulin Glargine,Hum.rec.anlog [Basaglar Kwikpen U-100] 50 unit SQ DAILY #1 06/27/19 [Rx] Tiotropium [place] [Spiriva] 1 cap INHALATION DAILY #1 device 06/27/19 [Rx] predniSONE 10 mg PO DAILY #30 tab 06/27/19 [Rx] Follow up Appointment(s)/Referral(s): Olivia Alarcon DO [Primary Care Provider] - 3 Days Discharge Disposition: HOME SELF-CARE
[2019-06-27 11:55] LABS: Glucose,Whole Blood 169 mg/dL (75-99)
[2019-06-27 16:58] LABS: Glucose,Whole Blood 383 mg/dL (75-99)
[2019-06-27] MEDS: MONTELUKAST 10 MG TAB PO SCH (20:02)
[2019-06-27] MEDS: FAMOTIDINE 20 MG TAB PO SCH (20:02)
[2019-06-27] MEDS: ATORVASTATIN 40 MG TAB PO SCH (20:02)
[2019-06-27 20:40] LABS: Glucose,Whole Blood 214 mg/dL (75-99)
[2019-06-27] MEDS ORDERED: INSULIN DETEMIR (LEVEMIR) 100 UNIT/ML SYR SQ SCH (21:00)
--- NOTE | 2019-06-27 22:41 | PN ---
PROGRESS NOTE DATE OF SERVICE: June 27, 2019. He had an episode of hypoglycemia. From respiratory perspective, he is doing significantly better but not back to his baseline. He continues to have some shortness of breath and wheezing. On physical examination blood pressure is 161/80, respiratory rate of 18, pulse rate of 94, O2 saturation on 7 L by nasal cannula is 92%. HEENT reveals pupils are equal. Chest reveals expiratory wheeze. Cardiovascular system is S1, S2. Abdomen is soft. There is 1+ pedal edema. Labs reveal sodium 145, potassium 4.4, chloride 100, bicarb 40, BUN 81, creatinine 1.24. Microbiological cultures are growing Staph epidermidis from the blood and Corynebacterium species. IMPRESSION: At this time is: 1. Severe asthma with acute exacerbation. 2. Obstructive sleep apnea which is untreated. 3. Psoriasis. 4. Acute on chronic respiratory failure. 5. Cor pulmonale. Optimize his fluid status. Continue systemic steroids in the form of prednisone with a slow taper. I agree with possible discharge planning in the next day or 2 with close outpatient followup. MMODL / IJN: [id number] /
[2019-06-28] MEDS: INSULIN ASPART (NovoLOG) 100 UNIT/ML VIAL SQ SCH ×2 (02:15→07:23)
[2019-06-28 02:20] LABS: Glucose,Whole Blood 119 mg/dL (75-99)
[2019-06-28 06:15] LABS: Glucose,Whole Blood 58 mg/dL (75-99)
[2019-06-28 06:27] LABS: Glucose,Whole Blood 65 mg/dL (75-99)
[2019-06-28 06:53] LABS: Glucose,Whole Blood 109 mg/dL (75-99)
[2019-06-28] MEDS: IPRATROPIUM-ALBUTEROL 3 ML NEB INHALATION SCH ×2 (07:50→12:01)
[2019-06-28] MEDS: BUDESONIDE 0.5 MG/2 ML NEBU INHALATION SCH (07:50)
[2019-06-28] MEDS: HEPARIN SODIUM,PORCINE 5,000 UNIT/ML 1 ML VIAL SQ SCH (08:40)
[2019-06-28] MEDS: DOXYCYCLINE 100 MG CAP PO SCH (08:41)
[2019-06-28] MEDS: FUROSEMIDE 20 MG TAB PO SCH (08:41)
[2019-06-28 08:48] VITALS: BP 137/83; RESP 18; TEMP 98
[2019-06-28] MEDS ORDERED: predniSONE 20 MG TAB PO SCH (09:00)
--- NOTE | 2019-06-28 10:59 | P.DS ---
Providers Date of admission: 06/20/19 15:15 Attending physician: Amol Alarcon MD Consults: 06/20/19 15:15 Consult Physician Routine Consulting Provider: Chalino Mosquera Consult Reason/Comments: COPD Do you want consulting provider notified?: Yes 06/20/19 17:24 Consult Physician Urgent Consulting Provider: Anushka Brown Consult Reason/Comments: saad and hyper kalemia Do you want consulting provider notified?: Yes 06/21/19 07:53 Consult Physician Stat Consulting Provider: Duy Calero Consult Reason/Comments: ICU management Do you want consulting provider notified?: Already Contacted 06/25/19 13:32 Consult Physician Urgent Consulting Provider: Aibgail Pope Consult Reason/Comments: positive blood cultures Do you want consulting provider notified?: Yes Primary care physician: Olivia Alarcon [facility] Hospital Course: Patient is being discharged today and patient please refer to my dictation of discharge summary from yesterday for further details. Blood sugars remains to be low because of which I'm decreasing his the long-acting insulin to 40 units from 50 units PHYSICAL EXAMINATION: GENERAL: The patient is alert and oriented x3, not in any acute distress. Obese HEENT: Pupils are round and equally reacting to light. EOMI. No scleral icterus. No conjunctival pallor. Normocephalic, atraumatic. No pharyngeal erythema. No thyromegaly. CARDIOVASCULAR: S1 and S2 present. No murmurs, rubs, or gallops. PULMONARY: Expiratory wheezing on exam which is actually better compared to yesterday ABDOMEN: Soft, nontender, nondistended, normoactive bowel sounds. No palpable organomegaly. MUSCULOSKELETAL: No joint swelling or deformity. EXTREMITIES: No cyanosis, clubbing, or pedal edema. NEUROLOGICAL: Gross neurological examination did not reveal any focal deficits. SKIN: Diffuse psoriatic lesions all over the body Patient Condition at Discharge: Stable Plan - Discharge Summary Discharge Rx Participant: Yes New Discharge Prescriptions: New Furosemide [Lasix] 60 mg PO BID@0900,1600 #60 tab predniSONE 10 mg PO DAILY #30 tab Tiotropium [place] [Spiriva] 1 cap INHALATION DAILY #1 device Doxycycline [Vibramycin] 100 mg PO BID #10 cap Continue Albuterol Nebulized [Ventolin Nebulized] 2.5 mg INHALATION RT-QID PRN PRN Reason: Shortness Of Breath Furosemide [Lasix] 20 mg PO DAILY Atorvastatin [Lipitor] 40 mg PO HS #30 tab Montelukast [Singulair] 10 mg PO HS 30 Days #30 tab Albuterol Sulfate [Proair Hfa] 2 puff INHALATION RT-QID PRN PRN Reason: Shortness Of Breath Changed Insulin Glargine,Hum.rec.anlog [Basaglar Kwikpen U-100] 40 unit SQ DAILY #1 Discontinued metFORMIN HCL [Glucophage] 500 mg PO DAILY Lisinopril [Zestril] 20 mg PO DAILY Metolazone [Zaroxolyn] 2.5 mg PO DIRECTED Insulin Glargine,Hum.rec.anlog [Basaglar Kwikpen U-100] 40 unit SQ DAILY Discharge Medication List Albuterol Nebulized [Ventolin Nebulized] 2.5 mg INHALATION RT-QID PRN 07/02/14 [History] Furosemide [Lasix] 20 mg PO DAILY 01/13/18 [History] Atorvastatin [Lipitor] 40 mg PO HS #30 tab 01/27/19 [Rx] Montelukast [Singulair] 10 mg PO HS 30 Days #30 tab 01/27/19 [Rx] Albuterol Sulfate [Proair Hfa] 2 puff INHALATION RT-QID PRN 06/20/19 [History] Doxycycline [Vibramycin] 100 mg PO BID #10 cap 06/27/19 [Rx] Furosemide [Lasix] 60 mg PO BID@0900,1600 #60 tab 06/27/19 [Rx] Tiotropium [place] [Spiriva] 1 cap INHALATION DAILY #1 device 06/27/19 [Rx] predniSONE 10 mg PO DAILY #30 tab 06/27/19 [Rx] Insulin Glargine,Hum.rec.anlog [Basaglar Kwikpen U-100] 40 unit SQ DAILY #1 06/28/19 [Rx] Follow up Appointment(s)/Referral(s): Olivia Alarcon DO [Primary Care Provider] - 3 Days Patient Instructions/Handouts: COPD (Chronic Obstructive Pulmonary Disease) (DC) Discharge Disposition: HOME SELF-CARE
[2019-06-28 11:56] VITALS: PULSE 80
== END 2019-06-28 11:26 | disposition home or self-care (01) | DRG 190 ==
LOC: EC 12:51 → 3SCARD 15:15 → 2SICU 06-21 08:40 → 3SCARD 06-25 10:35
PROVIDERS: ADMIT Family Medicine; ATTEND Family Medicine
PROC: 5A09457 Assistance with Respiratory Ventilation, 24-96 Consecutive Hours, Continuous Positive Airway Pressure (ICD-10-PCS; principal; 2019-06-24)
DX: J44.1 Chronic obstructive pulmonary disease with (acute) exacerbation (principal); N17.0 Acute kidney failure with tubular necrosis; I50.33 Acute on chronic diastolic (congestive) heart failure; J96.21 Acute and chronic respiratory failure with hypoxia; J96.22 Acute and chronic respiratory failure with hypercapnia; N17.9 Acute kidney failure, unspecified; I13.0 Hypertensive heart and chronic kidney disease with heart failure and stage 1 through stage 4 chronic kidney disease, or unspecified chronic kidney disease; E87.0 Hyperosmolality and hypernatremia; J45.901 Unspecified asthma with (acute) exacerbation; Z68.41 Body mass index [BMI] 40.0-44.9, adult; J98.11 Atelectasis; E66.01 Morbid (severe) obesity due to excess calories; I27.81 Cor pulmonale (chronic); E11.649 Type 2 diabetes mellitus with hypoglycemia without coma; E11.22 Type 2 diabetes mellitus with diabetic chronic kidney disease; N18.3 Chronic kidney disease, stage 3 (moderate); E87.5 Hyperkalemia; G47.33 Obstructive sleep apnea (adult) (pediatric); E11.65 Type 2 diabetes mellitus with hyperglycemia; D50.9 Iron deficiency anemia, unspecified; T38.0X5A Adverse effect of glucocorticoids and synthetic analogues, initial encounter; T46.4X5A Adverse effect of angiotensin-converting-enzyme inhibitors, initial encounter; I45.10 Unspecified right bundle-branch block; L40.9 Psoriasis, unspecified; Z99.81 Dependence on supplemental oxygen; Z79.4 Long term (current) use of insulin; Z79.899 Other long term (current) drug therapy; Z91.19 Patient's noncompliance with other medical treatment and regimen; Z87.01 Personal history of pneumonia (recurrent); Z86.59 Personal history of other mental and behavioral disorders; Z87.891 Personal history of nicotine dependence; Z71.3 Dietary counseling and surveillance; Z82.5 Family history of asthma and other chronic lower respiratory diseases
CPT/HCPCS: 36415; 71045; 71046; 76770; 80048; 80053; 81001; 83036; 83540; 83550; 83605; 83735; 83880; 84132; 84484; 85025; 85027; 85610; 85730; 87040; 87077; 87186; 87502; 93005; 94640; 94660; 94760; 96361; 96374; 96375; 99291

== ENCOUNTER → 2021-01-20 | Outpatient (CLI) | payer MEDICARE ==
[2021-01-20 14:31] LABS: Creatinine,Urine Random 41.9 mg/dL; Protein/Creatinine Ratio,Urine 0.239
[2021-01-20 18:55] LABS: HCT 29.6 % (39.6-50.0); HGB 9.4 g/dL (13.0-17.0); MCH 30.5 pg (27.0-32.0); MCHC 31.8 g/dL (32.0-37.0); MCV 96.1 fL (80.0-97.0); Mean Platelet Volume 12.2 fL (9.5-12.2); Platelet Count 218 X 10*3/uL (140-440); RBC 3.08 X 10*6/uL (4.40-5.60); RDW 15.3 % (11.5-14.5)
[2021-01-21 05:09] LABS: % Iron Saturation 13.19 (15.00-50.00); African American GFR (CKD) 42.6 (60.0-200.0); Albumin 4.3 g/dL (3.80-4.90); Anion Gap 13.8 mmol/L (4.00-12.00); BUN/Creat Ratio 32.5 Ratio (12.00-20.00); Calcium 9.2 mg/dL (8.7-10.3); Carbon Dioxide 21.2 mmol/L (21.6-31.8); Magnesium 1.6 mg/dL (1.5-2.4); Non-African American GFR(CKD) 36.7 (60.0-200.0); Phosphorus 3.2 mg/dL (2.4-5.1); Potassium 5.3 mmol/L (3.5-5.5)
[2021-01-21 05:18] LABS: Ferritin 226.4 ng/mL (22.0-322.0)
== END | disposition home or self-care (01) ==
LOC: LABWHC1 13:28
PROVIDERS: ATTEND Nurse Practitioner Family
DX: N17.9 Acute kidney failure, unspecified (principal); D64.9 Anemia, unspecified; E21.3 Hyperparathyroidism, unspecified; E55.9 Vitamin D deficiency, unspecified
CPT/HCPCS: 36415; 80069; 82306; 82570; 82728; 83540; 83550; 83735; 83970; 84156; 85027

== ENCOUNTER → 2021-01-30 | Outpatient (CLI) | payer MEDICARE ==
--- NOTE | 2021-01-30 14:37 | XR ---
EXAMINATION TYPE: XR chest 2V DATE OF EXAM: 01/30/2021 COMPARISON: 08/23/2018 HISTORY: 55 year-old male shortness of breath and COPD TECHNIQUE: Frontal and lateral views FINDINGS: The cardiomediastinal silhouette, aorta, and pulmonary vasculature are within normal limits. Mild pat guille density at the left base. Mild hyperinflation. No other consolidation or pleural effusion. IMPRESSION: Mild hyperinflation may reflect depth of inspiration or underlying emphysema. There is some patchy at electasis or early infiltrate at the left base. Clinically correlate.
== END | disposition home or self-care (01) ==
LOC: RADXRMAIN 14:18
PROVIDERS: ATTEND Physician Assistant Medical
DX: J44.9 Chronic obstructive pulmonary disease, unspecified (principal)
CPT/HCPCS: 71046

== ENCOUNTER → 2023-01-03 | Outpatient (CLI) | payer MEDICARE, OTHER ==
[2023-01-03 20:06] LABS: ALT 24 U/L (10-49); AST 16 U/L (14-35); Albumin 4.5 d/dL (3.8-4.9); Calcium 9.6 mg/dL (8.7-10.3); Carbon Dioxide 25.3 mmol/L (21.6-31.8); Chloride 102 mmol/L (96-109); Glucose 94 mg/dL (70-110); Iron 69 UG/DL (65-175); Magnesium 1.6 mg/dL (1.5-2.4); Phosphorus 3.5 mg/dL (2.4-5.1); Potassium 5.7 mmol/L (3.5-5.5); Sodium 139 mmol/L (135-145); Total Iron Binding Capacity 392 UG/DL (228-460); Uric Acid 7.7 mg/dL (3.7-8.7)
[2023-01-03 20:37] LABS: Appearance,Urine Clear (Clear); Bilirubin,Urine Negative (Negative); Blood,Urine Negative (Negative); Color,Urine Yellow (Yellow); Ketones,Urine Negative (Negative); Nitrite,Urine Negative (Negative); Specific Gravity,Urine 1.008 (1.001-1.030); Urobilinogen,Urine 0.2 E.U./DL
[2023-01-03 21:20] LABS: Basophils # (A) 0.07 X 10*3/uL (0.00-0.10); Basophils % (A) 0.7 %; Eosinophils # (A) 0.75 X 10*3/uL (0.04-0.35); Eosinophils % (A) 7.3 %; HCT 32.1 % (39.6-50.0); Lymphocytes # (A) 1.48 X 10*3/uL (0.90-5.00); Lymphocytes % (A) 14.3 %; MCH 28.7 pg (27.0-32.0); MCHC 31.2 d/dL (32.0-37.0); MCV 92.2 FL (80.0-97.0); Mean Platelet Volume 10.3 FL (9.5-12.2); Monocytes # (A) 0.77 X 10*3/uL (0.20-1.00); Monocytes % (A) 7.5 %; NRBC Per 100 WBC 0 X 10*3/uL (0.00-0.01); Neutrophils % (A) 69.7 %; Platelet Count 298 X 10*3/uL (140-440); RBC 3.48 X 10*6/uL (4.40-5.60); RDW 15.9 % (11.5-14.5); WBC 10.32 X 10*3/uL (4.50-10.00)
[2023-01-04 00:54] LABS: Microalbumin Creatinine Ratio <48 mg/g Cr (0-30); Urine Creatinine 25.2 mg/dL (39.0-259.0)
== END | disposition home or self-care (01) ==
LOC: LABWHC1 13:44
PROVIDERS: ATTEND Nurse Practitioner Family
DX: N25.81 Secondary hyperparathyroidism of renal origin (principal); L40.0 Psoriasis vulgaris; N18.31 Chronic kidney disease, stage 3a; D63.1 Anemia in chronic kidney disease; E55.9 Vitamin D deficiency, unspecified; M10.9 Gout, unspecified; N39.0 Urinary tract infection, site not specified; Z79.899 Other long term (current) drug therapy
CPT/HCPCS: 36415; 80048; 81003; 82040; 82043; 82306; 82570; 82728; 83540; 83550; 83735; 83970; 84100; 84450; 84460; 84550; 85025; 86480